=== PATIENT | female | born 1980 | race Caucasian/White ===

== ENCOUNTER 2017-09-22 07:23 | Observation (INO) | payer OTHER, SELFPAY ==
[2017-09-22] VITALS (15 sets, daily range): BP systolic 125–174; BP diastolic 74–115; PULSE 73–95; RESP 15–20; TEMP 36.4–36.9; O2SAT 96–99; BMI 36.5; BMI 36.1
--- NOTE | 2017-09-22 07:34 | EKG12_ITS ---
Test Reason : CP Blood Pressure : / mmHG Vent. Rate : 087 BPM Atrial Rate : 087 BPM P-R Int : 130 ms QRS Dur : 090 ms QT Int : 370 ms P-R-T Axes : 045 009 010 degrees QTc Int : 445 ms Normal sinus rhythm Normal ECG Confirmed by BALJIT SALGUERO ([id number]), film editor KIKI PEACOCK ([id number]) on 09/23/2017 11:32:58 AM Referred By: Confirmed By:BALJIT SALGUERO
--- NOTE | 2017-09-22 07:34 | RAD_ITS ---
STUDY: X-RAY CHEST REASON FOR EXAM: Female, 37 years old. Chest pain left side TECHNIQUE: Single AP portable view of the chest. COMPARISON: None. FINDINGS: There are superimposed monitor leads. There is no demonstrated pneumothorax. There is no focal parenchymal abnormality. There is no demonstrated pleural abnormality. Normal size heart. Normal mediastinum and sally. Normal visualized pulmonary arteries. Normal visualized aortic arch and descending thoracic aorta. Normal visualized thoracic spine. Normal visualized ribs, clavicles, and shoulders. There is no demonstrated abnormality of the visualized soft tissue structures of the upper abdomen. RAD/Chest 1 View (Portable) IMPRESSION: No pulmonary edema, congestive heart failure or confluent pneumonia. Electronically Signed: Trini Butterfield MD at 7:55 EST , Service support ,
[2017-09-22] MEDS: Aspirin 81 MG TAB.CHEW 324 MG PO (08:03)
[2017-09-22] MEDS: 0.9% Normal Saline 1,000 ML 150 ML IV (08:08)
[2017-09-22] MEDS: Acetaminophen 325 MG Tablet 650 MG PO ×2 (08:13→14:17)
[2017-09-22 08:19] LABS: Absolute Lymphocyte Count 2.19 X10^3/ul (0.83-4.51); Absolute Neutrophil Count 5.1 X10^3/uL (2.0-7.7); Basophil# 0.02 X10^3/uL; Basophil% 0.3 % (0-1); Eosinophil# 0.15 X10^3/uL; Eosinophils% 1.9 % (0-5); Hematocrit 45.9 % (37-47); Hemoglobin 15.4 g/dl (12.0-15.0); Lymphocyte # 2.19 X10^3/ul (4.0); Lymphocyte % 27.9 % (19-41); Mean Corp Hgb Conc 33.6 g/gl (32-36); Mean Corpuscular Volume 92.4 fL (81-99); Mean Platelet Vol. 9.7 fl (6.2-12.0); Monocyte# 0.42 X10^3/uL; Monocyte% 5.3 % (0-10); Neutrophil # 5.07 X10^3/uL (2.7-7.7); Neutrophil % 64.5 % (47-70); Platelet Count 212 K/mm3 (150-450); RBC Distribution Width CV 12.7 % (11.6-14.6); Red Blood Count 4.97 M/mm3 (4.2-5.4); White Blood Count 7.9 K/mm3 (4.4-11.0)
[2017-09-22 08:20] LABS: POSITIVE COUNT NO; POSITIVE DIFFERENTIAL NO; POSITIVE MORPHOLOGY NO
[2017-09-22 08:33] LABS: Anion Gap 7 (5-15); BUN 6 mg/dL (7-18); BUN/Creat Ratio 8.6 RATIO (10-20); Calcium,Total 8.9 mg/dL (8.5-10.1); Chloride 105 mmol/L (98-107); EST Glomerular Filtration Rate 100 mL/min (>60); Est Glom Filt Rate - Afr Amer 121 mL/min (>60); Estimated Creatinine Clearance 95.02 ml/min; Glucose 93 mg/dL (70-110); Potassium 3.7 mmol/L (3.5-5.1); Sodium Level 140 mmol/L (136-145)
[2017-09-22] MEDS: Nitroglycerin Oint 1 INCH PACKET TRANSDERM. (08:45)
[2017-09-22 09:15] LABS: D-Dimer Quantitative (DVT/PE) < 0.27 FEU/ug/m (0.27-0.49)
--- NOTE | 2017-09-22 09:30 | ED.DCSUM_ITS ---
- ER Visit Summary Date of Service: 09/22/17 Chief Complaint: [Chest pain] History of Present Illness: The patient is a 37 F [presents to the emergency department with left-sided chest discomfort ?2 weeks. Initially the pain was intermittent and worse with exertion. She states pain will typically worsen with walking up steps. She describes a deep sharp pain with some heaviness. The discomfort seems to radiate into her neck and down her left arm. Patient gets nauseated with it and feels short of breath with activity. On arrival she rates her pain a 4 out of 10. Patient states that her father had heart attack in his 50s. Patient denies recent travel or surgery. Patient denies recent illness.] Physical Examination: [HEENT-PERRLA, EOMI. Cranial nerves II through XII grossly intact. TMs clear. Mucous membranes moist. No adenopathy. Cardiovascular-regular rate and rhythm without murmur or ectopy Lungs-clear to auscultation, chest wall stable without crepitus or subcu emphysema Abdomen-normoactive bowel sounds, soft, nontender, no rebound or rigidity, no peritoneal signs. Extremities-intact ?4, normal range of motion, normal pulses, atraumatic] Test Results: [EKG obtained showed a sinus rhythm with a ventricular rate of 87 bpm. CBC with it was normal. Chemistries were normal. Troponin was less than 0.02. D-dimer was normal less than 0.27. Chest x-ray was normal.] Emergency Department Course and Treatment: [Patient received aspirin in the emergency department as well as sublingual nitroglycerin which resolved her pain.] Treatment Plan: [Patient will be admitted for further workup and evaluation of her chest pain] Disposition: [Admit] Impression: [Chest pain-rule out acute coronary syndrome] This note was generated with [employer] dictation software. It may contain incorrect words, spelling, and punctuation that were not noted in review of the chart prior to signing ED Disposition - Plan for ED Patient: Chief Complaint: Chest Pain Referrals: Care Physician,No Primary [Primary Care Provider] -
--- NOTE | 2017-09-22 11:50 | PCM.HP.STD ---
Problem List (1) Chest pain Status: Acute Qualifiers: Chest pain type: chest pain due to myocardial ischemia Ischemic chest pain type: stable angina pectoris Qualified Code(s): I20.8 - Other forms of angina pectoris History of Present Illness Date of Admission: 09/22/17 Chief Complaint: chest pain The patient is a 37 year old F Oli with exertional chest pain for the past 2 weeks. It is gotten worse for the past couple days. It is associated with diaphoresis, shortness of breath and palpitations. Patient additionally has some nausea, too. Patient presented to the emergency room and did receive nitroglycerin which did help alleviate that chest pain. Patient never had any chest pain like this before. Patient is being brought in for further chest pain evaluation. 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 Denies: Edema, Palpitations Respiratory: Reports: Shortness of breath upon exertion. Denies: Cough Gastrointestinal: Reports: Nausea. Denies: Abdominal Pain, Vomiting Genitourinary: Denies: Dysuria Musculoskeletal: Denies: Joint Pain, Joint Tenderness Neurological: Denies: Numbness, Tingling, Focal weakness Psychiatric: Denies: Anxiety, Depression, Homicidal Ideations, Suicidal Ideations Endocrine: Denies: Change in Body Habitus, Heat/ Cold Intolerance Hematologic/ Lymphatic: Denies: Easy Bruising, Easy Bleeding, Hx of blood clot VTE Information - Inpt Only VTE Present on Admission: No VTE Pharm Prophylaxis ordered?: No Patient Problems: Active and Suspected Problems Chest pain (Acute) - Physical Exam General: Alert HEENT: Atraumatic, Normocephalic Oral: Moist Mucosa Neck: No Nodes, Thyroid Normal Size and Texture Lungs: Clear to auscultation, Normal air movement Cardiovascular: Regular rate, Regular Rhythm, Normal S1, Normal S2, No murmurs Abdomen: Bowel Sounds Present, Soft, Non Tender, Non-Distended, No Hepato-splenomegaly Extremities: No clubbing, No cyanosis Skin: No rashes, No breakdown Psych/Mental Status: Normal Affect, Appropriate Vital Signs Temp Pulse Resp BP Pulse Ox 36.4 C L 82 20 H 130/74 H 99 09/22/17 10:26 09/22/17 11:11 09/22/17 10:26 09/22/17 10:26 09/22/17 10:26 Oxygen Delivery Method Room Air Weight: 95.4 kg Body Mass Index (BMI) 36.1 EKG reviewed and showed normal sinus rhythm without any Q changes. Laboratory Results 09/22/17 09/22/17 09/22/17 08:10 08:10 08:10 WBC 7.9 RBC 4.97 Hgb 15.4 H Hct 45.9 MCV 92.4 MCH 31.0 MCHC 33.6 RDW 12.7 RDW Differential 42.0 Plt Count 212 MPV 9.7 Immature Gran % (Auto) 0.100 Neut % (Auto) 64.5 Lymph % (Auto) 27.9 Emery % (Auto) 5.3 Eos % (Auto) 1.9 Baso % (Auto) 0.3 Absolute Neuts (auto) 5.1 Absolute Lymphs (auto) 2.19 Total Counted Not Reportable D-Dimer Quant (PE/DVT) < 0.27 L Sodium 140 Potassium 3.7 Chloride 105 Carbon Dioxide 28.0 Anion Gap 7 BUN 6 L Creatinine 0.70 Estim Creat Clear Calc 95.02 Est GFR (MDRD) Af Amer 121 Est GFR (MDRD) Non-Af 100 BUN/Creatinine Ratio 8.6 L Glucose 93 Calcium 8.9 Troponin I < 0.02 Assessment/Plan Active and Suspected Problems Chest pain (Acute) 1. Chest Pain. During for stable angina. Patient will have a stress test ordered. Workup thus far has been unremarkable. Based on results of the stress test or if there is signs of acute myocardial ischemia with elevation of troponins, cardiology will be consulted. If stress is negative patient otherwise feeling well and then the plan would be for the patient to be discharged afterwards. Patient did receive aspirin in the emergency room and will continue that on the floor. As needed nitroglycerin. Code Visit OBSV E&M: 10441 Initial observation care L3
--- NOTE | 2017-09-22 11:57 | HP.PCM_ITS ---
Problem List (1) Chest pain Status: Acute Qualifiers: Chest pain type: chest pain due to myocardial ischemia Ischemic chest pain type: stable angina pectoris Qualified Code(s): I20.8 - Other forms of angina pectoris History of Present Illness Date of Admission: 09/22/17 Chief Complaint: chest pain The patient is a 37 year old F Oli with exertional chest pain for the past 2 weeks. It is gotten worse for the past couple days. It is associated with diaphoresis, shortness of breath and palpitations. Patient additionally has some nausea, too. Patient presented to the emergency room and did receive nitroglycerin which did help alleviate that chest pain. Patient never had any chest pain like this before. Patient is being brought in for further chest pain evaluation. 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 Denies: Edema, Palpitations Respiratory: Reports: Shortness of breath upon exertion. Denies: Cough Gastrointestinal: Reports: Nausea. Denies: Abdominal Pain, Vomiting Genitourinary: Denies: Dysuria Musculoskeletal: Denies: Joint Pain, Joint Tenderness Neurological: Denies: Numbness, Tingling, Focal weakness Psychiatric: Denies: Anxiety, Depression, Homicidal Ideations, Suicidal Ideations Endocrine: Denies: Change in Body Habitus, Heat/ Cold Intolerance Hematologic/ Lymphatic: Denies: Easy Bruising, Easy Bleeding, Hx of blood clot VTE Information - Inpt Only VTE Present on Admission: No VTE Pharm Prophylaxis ordered?: No Patient Problems: Active and Suspected Problems Chest pain (Acute) - Physical Exam General: Alert HEENT: Atraumatic, Normocephalic Oral: Moist Mucosa Neck: No Nodes, Thyroid Normal Size and Texture Lungs: Clear to auscultation, Normal air movement Cardiovascular: Regular rate, Regular Rhythm, Normal S1, Normal S2, No murmurs Abdomen: Bowel Sounds Present, Soft, Non Tender, Non-Distended, No Hepato- splenomegaly Extremities: No clubbing, No cyanosis Skin: No rashes, No breakdown Psych/Mental Status: Normal Affect, Appropriate Vital Signs Temp Pulse Resp BP Pulse Ox 36.4 C L 82 20 H 130/74 H 99 09/22/17 10:26 09/22/17 11:11 09/22/17 10:26 09/22/17 10:26 09/22/17 10:26 Oxygen Delivery Method Room Air Weight: 95.4 kg Body Mass Index (BMI) 36.1 EKG reviewed and showed normal sinus rhythm without any Q changes. Laboratory Results 09/22/17 09/22/17 09/22/17 08:10 08:10 08:10 WBC 7.9 RBC 4.97 Hgb 15.4 H Hct 45.9 MCV 92.4 MCH 31.0 MCHC 33.6 RDW 12.7 RDW Differential 42.0 Plt Count 212 MPV 9.7 Immature Gran % (Auto) 0.100 Neut % (Auto) 64.5 Lymph % (Auto) 27.9 [place] % (Auto) 5.3 Eos % (Auto) 1.9 Baso % (Auto) 0.3 Absolute Neuts (auto) 5.1 Absolute Lymphs (auto) 2.19 Total Counted Not Reportable D-Dimer Quant (PE/DVT) < 0.27 L Sodium 140 Potassium 3.7 Chloride 105 Carbon Dioxide 28.0 Anion Gap 7 BUN 6 L Creatinine 0.70 Estim Creat Clear Calc 95.02 Est GFR (MDRD) Af Amer 121 Est GFR (MDRD) Non-Af 100 BUN/Creatinine Ratio 8.6 L Glucose 93 Calcium 8.9 Troponin I < 0.02 Assessment/Plan Active and Suspected Problems Chest pain (Acute) 1. Chest Pain. During for stable angina. Patient will have a stress test ordered. Workup thus far has been unremarkable. Based on results of the stress test or if there is signs of acute myocardial ischemia with elevation of troponins, cardiology will be consulted. If stress is negative patient otherwise feeling well and then the plan would be for the patient to be discharged afterwards. Patient did receive aspirin in the emergency room and will continue that on the floor. As needed nitroglycerin. Code Visit OBSV E&M: 22596 Initial observation care L3
[2017-09-23] VITALS (8 sets, daily range): BP systolic 119–145; BP diastolic 63–79; PULSE 72–104; RESP 16–18; TEMP 36.8–37.2; O2SAT 96–98
[2017-09-23] MEDS: 0.9% NaCl Peripheral Flush Adult/Peds IV (04:36)
--- NOTE | 2017-09-23 05:55 | EKG12_ITS ---
Test Reason : AM EKG Blood Pressure : / mmHG Vent. Rate : 074 BPM Atrial Rate : 074 BPM P-R Int : 136 ms QRS Dur : 096 ms QT Int : 396 ms P-R-T Axes : 044 018 003 degrees QTc Int : 439 ms Normal sinus rhythm Normal ECG When compared with ECG of 22-SEP-2017 07:36, MANUAL COMPARISON REQUIRED, DATA IS UNCONFIRMED Confirmed by MELA NORRIS, ARMINDA ([id number]), makeup editor KIKI PEACOCK ([id number]) on 09/24/2017 11:56:52 AM Referred By: ASIYA Confirmed By:ARMINDA PLAZA MD
--- NOTE | 2017-09-23 05:55 | STE_ITS ---
Reason For Study: CHEST PAIN Stress Results Protocol: Stephen Protocol Maximum Predicted HR: 183 bpm Target HR: 156 bpm% Max imum Predicted HR: 96 % DurationHeart Rate Stage (mm:ss) (bpm) BP BASELINE 85 118/88 STAGE 1 3:00 12 1 140/82 STAGE 2 3:00 14 1 162/92 STAGE 3 2:00 17 6 / RECOVERY 105 126/8 8 Stress Duration: 8:00 mm:ss Maximum Stress HR: 176 bpm Baseline Echocardiogram Findings Stress Echo Wall motion Data Resting WMIntermediate WMStress WM Resting Wall Motion Wall Motion Stress No regional wall motion No regional wall motion abnormalities noted. abnormalities noted. Ejection Fraction 55 %. Ejection Fraction 65 %. EKG Data Baseline ECG demonstrates normal sinus rhythm with a rate of 86 beats per minute. Normal intervals are noted. The resting blood pressure was 118/88. The patient exercised according to the regular Stephen protocol for a total duration of 8. The maximum heart rate attained was 179 beats per minute. This was 97% of maximum predicted heart rate. The patient exercised into stage 10.1 mets of the Stephen protocol. During stress, there were no ST or T wave changes noted to suggest ischemia. At peak exercise, upsloping ST changes only were noted, which did not meet the criteria for ischemia. The peak blood pressure was 162/92. No arrhythmias noted. No clinical angina was noted. Interpretation Summary Normal resting LV systolic function. Nonstenotic valves. With stress, the LV size decreased and all segments augmented normally. The LVEF increased from 55% to 65%. Negative for ischemia at 97% of MPHR and at 10.1 METS. Normal stress echo Ordering Physician: Duran Jean Performed By: Brittany Pérez, RDCS, RVT
[2017-09-23 07:33] LABS: Cholesterol 141 mg/dL (200); High Density Lipoprotein 39 mg/dL; Triglycerides 191 mg/dL; Very Low Density Lipoprotein 38 mg/dL (5-40)
[2017-09-23] MEDS: Aspirin E.C. 81 MG Tablet PO (08:00)
--- NOTE | 2017-09-23 12:00 | PCM.DC ---
- Discharge Diagnoses Current Active Problems: Current Active and Chronic Problems Chest pain (Acute) You will use the following diet at home:: No restrictions Your food should be the consistency of: Regular Your liquids should be the consistency of: Regular/Thin Discharge Activity: Return to Normal Activity Allergies/Adverse Reactions: Allergies Penicillins Allergy (Verified 09/22/17 07:26) Other seizures Medications to take at Discharge Pantoprazole Sodium [Protonix] 40 mg PO DAILY #30 tab 09/23/17 The following prescriptions were given: Pantoprazole Sodium [Protonix] 40 mg PO DAILY #30 tab Primary Care Physician: Care Physician,No Primary [Primary Care Provider] - Please follow up with your Primary Care Physician in: 1-2 weeks Proposed Discharge Date: 09/23/17
--- NOTE | 2017-09-23 14:53 | PCM.DC.SUM ---
Discharge Date and Diagnosis Date of Admission: 09/22/17 Date of Discharge: 09/23/17 - Primary Discharge Diagnosis Chest pain - musculoskeletal GERD Hospital Course and Treatment Imaging Results: RAD/Chest 1 View (Portable) IMPRESSION: No pulmonary edema, congestive heart failure or confluent pneumonia. Operations: None Procedures: Stress test Summary of Care Provided: Physical exam on day of discharge: General: Resting comfortably NAD Psych: A/Ox3 normal affect HEENT: PEARRLA AT NC Neck: Supple NT CV: RRR no m/t/r/g/h Resp: CTA Abd: [id number] Soft NT no guarding or rigidity Ext: DP2+= no edema Skin: W/D normal turgor Lymph/Heme: No active bleeding or adenopathy Neuro: CN2-12 intact Hospital course: The patient is a 37 year old F who presents to the emergency room with chief complaint of stabbing chest pain worse with exertion climbing stairs intermittently over the past 2 weeks. She did have some associated diaphoresis, shortness of breath, palpitations. She presented to the emergency room and was given nitroglycerin which did alleviate her chest pain. She has no prior medical history. She had a negative EKG and negative troponin was admitted to the telemetry unit with concerns for unstable angina. D-dimer was also negative, she had a negative chest x-ray. She underwent a stress test the following morning which was negative. She had no events on telemetry. Her EKG was negative and her troponins remained negative. LDL was 64. At this time her chest pain was likely musculoskeletal in origin and that she should try [id number] anti-inflammatories for symptomatic management. She also complained that she had some midsternal pain associated with eating and swallowing and was given a prescription for Protonix to trial for possible underlying acid reflux. She is advised to follow-up with her family doctor-currently is in transition with the [facility] in [place], she will need to follow-up within 1-2 weeks. She is in stable condition and discharged home This patient was seen by Ravi Farris PA-C under the supervision of Doctor Jean. [] Discharge Diet: Low fat/ Low Cholesterol, 4000 mg Sodium Diet Discharge Activity: Return to Normal Activity Home Medications: Medications to take at Discharge Pantoprazole Sodium [Protonix] 40 mg PO DAILY #30 tab 09/23/17 Following Prescrptions Were Given to Patient: Pantoprazole Sodium [Protonix] 40 mg PO DAILY #30 tab Primary Care Physician: Care Physician,No Primary [Primary Care Provider] - Please follow up with your Primary Care Physician in: 1-2 weeks Disposition: Home Minutes spent on discharge:: 40 Patient Condition:: Stable Meaningful Use Info Meaningful Use Diagnoses (Choose all that apply): None applicable Code Visit OBSV E&M: 54563 Observation care discharge
--- NOTE | 2017-09-23 14:59 | DS.PCM_ITS ---
Discharge Date and Diagnosis Date of Admission: 09/22/17 Date of Discharge: 09/23/17 - Primary Discharge Diagnosis Chest pain - musculoskeletal GERD Hospital Course and Treatment Imaging Results: RAD/Chest 1 View (Portable) IMPRESSION: No pulmonary edema, congestive heart failure or confluent pneumonia. Operations: None Procedures: Stress test Summary of Care Provided: Physical exam on day of discharge: General: Resting comfortably NAD Psych: A/Ox3 normal affect HEENT: PEARRLA AT NC Neck: Supple NT CV: RRR no m/t/r/g/h Resp: CTA Abd: [id number] Soft NT no guarding or rigidity Ext: DP2+= no edema Skin: W/D normal turgor Lymph/Heme: No active bleeding or adenopathy Neuro: CN2-12 intact Hospital course: The patient is a 37 year old F who presents to the emergency room with chief complaint of stabbing chest pain worse with exertion climbing stairs intermittently over the past 2 weeks. She did have some associated diaphoresis , shortness of breath, palpitations. She presented to the emergency room and was given nitroglycerin which did alleviate her chest pain. She has no prior medical history. She had a negative EKG and negative troponin was admitted to the telemetry unit with concerns for unstable angina. D-dimer was also negative , she had a negative chest x-ray. She underwent a stress test the following morning which was negative. She had no events on telemetry. Her EKG was negative and her troponins remained negative. LDL was 64. At this time her chest pain was likely musculoskeletal in origin and that she should try over-the -counter anti-inflammatories for symptomatic management. She also complained that she had some midsternal pain associated with eating and swallowing and was given a prescription for Protonix to trial for possible underlying acid reflux. She is advised to follow-up with her family doctor-currently is in transition with the [facility] in [place], she will need to follow-up within 1-2 weeks. She is in stable condition and discharged home This patient was seen by Ravi Farris PA-C under the supervision of Doctor Jean. [] Discharge Diet: Low fat/ Low Cholesterol, 4000 mg Sodium Diet Discharge Activity: Return to Normal Activity Home Medications: Medications to take at Discharge Pantoprazole Sodium [Protonix] 40 mg PO DAILY #30 tab 09/23/17 Following Prescrptions Were Given to Patient: Pantoprazole Sodium [Protonix] 40 mg PO DAILY #30 tab Primary Care Physician: Care Physician,No Primary [Primary Care Provider] - Please follow up with your Primary Care Physician in: 1-2 weeks Disposition: Home Minutes spent on discharge:: 40 Patient Condition:: Stable Meaningful Use Info Meaningful Use Diagnoses (Choose all that apply): None applicable Code Visit OBSV E&M: 57763 Observation care discharge
== END 2017-09-23 12:01 | disposition home or self-care (01) ==
LOC: ED 07:53 → PCU 09:48
PROVIDERS: Emergency Provider Emergency Medicine; Family Provider Family Medicine
DX: R07.89 Other chest pain (principal); K21.9 Gastro-esophageal reflux disease without esophagitis; Z82.49 Family history of ischemic heart disease and other diseases of the circulatory system; R06.02 Shortness of breath; R00.2 Palpitations; R11.0 Nausea
CPT/HCPCS: 36415; 71045; 80048; 80061; 84484; 85025; 85379; 93005; 93017; 93350; 99218; 99285; J7050; A4216; G0378

== ENCOUNTER → 2017-11-03 11:09 | Outpatient (CLI) | payer OTHER, SELFPAY | PROVIDERS: Visit Provider Nurse Practitioner | DX: R00.2 Palpitations (principal) | CPT/HCPCS: 93225; 93226 ==

== ENCOUNTER → 2018-05-17 09:19 | Outpatient (CLI) | payer OTHER, SELFPAY ==
--- NOTE | 2018-05-17 09:45 | RAD_ITS ---
STUDY: AIR-CONTRAST UPPER GI SERIES.. REASON FOR EXAM: Female, 37 years old. Left-sided chest pain. FLUOROSCOPY TIME (if supplied): (0:54) minutes/seconds. 18 spot images were obtained. TECHNIQUE: The patient ingested barium. Multiple images of the esophagus, stomach and duodenum were obtained. COMPARISON: Comparison is made with prior examination of October 09, 2011. FINDINGS: The esophagus is unremarkable. There is no evidence of obstruction. No mass lesion is seen. The stomach and duodenum are unremarkable. There is no evidence of ulceration. No mass lesion is seen. RAD/Upper GI Series Only IMPRESSION: Unremarkable air contrast upper GI series. Electronically Signed: Akash Thomas MD at 15:09 EDT Tel [phone], Service support ,
== END ==
PROVIDERS: Family Provider Physician Assistant; PCP Physician Assistant; Visit Provider Nurse Practitioner Adult Health
DX: R07.9 Chest pain, unspecified (principal)
CPT/HCPCS: 74246

== ENCOUNTER → 2018-07-08 08:36 | Outpatient (CLI) | payer OTHER, SELFPAY ==
[2018-07-08 08:39] LABS: Lyme Ab Screen Interpretation REF LAB
[2018-07-08 10:56] LABS: Internal QC Validated? YES +Cl - CLEAR BKGD; Monotest Negative (Negative); Record Kit Lot#, Mono 13171517
[2018-07-10 08:27] LABS: CMV Acute Antibody IgM < 30.0 AU/mL (0.0-29.9); CMV Antibody IgG < 0.60 U/mL (0.00-0.59); Lyme Scn Total Ab w/Rflx <0.91 ISR (0.00-0.90)
== END ==
PROVIDERS: Family Provider Physician Assistant; PCP Physician Assistant; Visit Provider Family Medicine
DX: R53.83 Other fatigue (principal); M25.50 Pain in unspecified joint
CPT/HCPCS: 36415; 86308; 86618; 86644; 86645

== ENCOUNTER → 2018-08-10 13:00 | Outpatient (CLI) | payer SELFPAY ==
[2018-01-28 08:53] VITALS: BMI 35.1
--- NOTE | 2018-08-10 13:04 | BI_ITS ---
MAMMOGRAPHY - BILATERAL SCREENING REASON FOR EXAM: Female, 38 years old. Routine annual screening examination. PERTINENT HISTORY: Non-contributory. Occasional breast pain. TECHNIQUE: Digital bilateral breast sofy (3D mammographic acquisition) in the CC and MLO projections. 2-D mediolateral oblique (MLO) and craniocaudad (CC) views of both breasts were obtained. CAD: Full Field Digital Mammography with Computer Added Detection was performed. COMPARISON: None. Baseline examination. FINDINGS: Breast Composition: There are scattered areas of fibroglandular density. There are no dominant masses or suspicious calcifications. No other significant abnormalities are identified. BI/SCREENING MAMM (CAD), BILAT IMPRESSION: Negative screening mammogram. Yearly followup mammogram recommended. (A) ASSESSMENT CATEGORY: BIRADS Category 1: Negative. A letter regarding these results will be sent to the patient by the facility within 30 days. Approximately 10% of breast cancers are not detected by mammography. A normal mammogram should not delay biopsy of a clinically suspicious abnormality. [id number] Electronically Signed: Akash Thomas MD at 14:11 EST Tel [phone], Service support ,
--- OUTSIDE RECORDS SUMMARY | 2018-09-26 16:44 | XMS RPT_ITS ---
:1980 Author Organization [facility] Support Name Relationship Address Phone JOS ORELLANA Unavailable [address] + [place] [address] UE Unavailable Unavailable Unavailable REYNA JOS Unavailable [address] + [place] [address] UE Unavailable Unavailable Unavailable REYNABRANDEEJOS Unavailable [address] + [place] [address] UE Unavailable Unavailable Unavailable UE Unavailable Unavailable Unavailable UE Unavailable Unavailable Unavailable REYNA JOS Unavailable [address] [phone] [place] [address] UE Unavailable Unavailable Unavailable REYNA JOS Unavailable [address] [phone] [place] [address] UE Unavailable Unavailable Unavailable REYNA JOS Unavailable [address] [phone] [place] [address] UE Unavailable Unavailable Unavailable REYNA JOS Unavailable [address] [phone] [place] [address] UE Unavailable Unavailable Unavailable REYNA JOS Unavailable [address] [phone] [place] [address] UE Unavailable Unavailable Unavailable REYNA JOS Unavailable [address] [phone] [place] [address] UE Unavailable Unavailable Unavailable Care Team Providers Name Role Phone TAISHA BURROUGHS () Attending Unavailable CAROLINA MENENDEZ (OPERATIONS SUPERINTENDENT) Attending Unavailable CAROLINA MENENDEZ (OPERATIONS SUPERINTENDENT) Referring Unavailable RADHA ALONZO (OPERATIONS SUPERINTENDENT) Attending Unavailable Hipolito RAY (TRAN) Attending Unavailable Hipolito RAY (TRAN) Attending Unavailable RAY, Hipolito HOU (PA-C) Referring Unavailable OTF, ULICES (PT) Attending Unavailable RAY, Hipolito HOU (PA-C) Referring Unavailable OTF, ULICES (PT) Attending Unavailable RAY, Hipolito HOU (PA-C) Referring Unavailable OTF, ULICES (PT) Attending Unavailable RAY, Hipolito HOU (PA-C) Referring Unavailable RAY, Hipolito HOU (PA-C) Attending Unavailable OTF, ULICES (PT) Attending Unavailable RAY, Hipolito HOU (PA-C) Referring Unavailable RAY, Hipolito HOU (PA-C) Referring Unavailable OTF, ULICES (PT) Attending Unavailable RAY, Hipolito HOU (PA-C) Referring Unavailable RAY, Hipolito HOU (PA-C) Attending Unavailable RAY, Hipolito HOU (PA-C) Referring Unavailable OLBRYCH, LARA Attending Unavailable RAY, Hipolito HOU (PA-C) Referring Unavailable OLBRYCH, LARA Referring Unavailable THORROSA DEL VALLE (PRODUCT LEAD) Attending Unavailable RAY, Hipolito HOU (PA-C) Attending Unavailable GRADY OLEAA (PRODUCT LEAD) Referring Unavailable BHARAT ESTEBAN Attending Unavailable RAY, Hipolito HOU (PA-C) Referring Unavailable Davon Elder Attending Unavailable Ray, Hipolito Hou Primary Care Unavailable Shelton, Gerard Primary Care Unavailable Jopperi, Duran Admitting Unavailable Jopperi, Duran Attending Unavailable Jopperi, Duran Admitting Unavailable Jopperi, Duran Attending Unavailable Shelton, Gerard Primary Care Unavailable Jopperi, Duran Consulting Unavailable Jopperi, Duran Admitting Unavailable Ravi Farris Attending Unavailable Shelton, Gerard Primary Care Unavailable Jopperi, Duran Consulting Unavailable Older, Radha OPERATIONS SUPERINTENDENT Attending Unavailable Older, Radha OPERATIONS SUPERINTENDENT Referring Unavailable Primay Care Physicia, No Primary Care Unavailable Shaye, Seven Attending Unavailable Jopperi, Duran Referring Unavailable Shaye, Endeavor Attending Unavailable Older, Radha OPERATIONS SUPERINTENDENT Referring Unavailable Oleghe, Efewongbe Attending Unavailable Oleghe, Efewongbe Referring Unavailable Brown, Darshan Attending Unavailable Primay Care Physicia, No Referring Unavailable Primay Care Physicia, No Primary Care Unavailable THORPE, ROSA Attending Unavailable THORIVON, ROSA Referring Unavailable Ray, Hipolito NealSavi Primary Care Unavailable Schinner, Davon E Attending Unavailable Ray, Hipolito NealSavi Primary Care Unavailable PROBLEMS PROBLEMS DATE TYPE CONDITION / CODE ATTENDING STATUS SOURCE 07/08/2018 Unknown R53.83 - Other Davon Werner Active [facility] fatigue / [facility] R53.83(ICD-10) Hospital Repository 07/08/2018 Unknown M25.50 - Pain in Davon Werner Active [facility] unspecified joint [facility] / M25.50(ICD-10) Hospital Repository 11/04/2011 Active Diarrhea, NA Active [facility] unspecified / [facility] R19.7(ICD-10) Repository 05/17/2018 Active Nausea / NA Active [facility] R11.0(ICD-10) [facility] [place] Repository 04/22/2018 Active Chest pain, NA Active [facility] unspecified / [facility] [place] R07.9(ICD-10) Repository 03/07/2018 Active Unknown / Hipolito RAY Active [facility] UNK(Unknown) SAVI (PA-C) [facility] [place] Repository 01/18/2018 Active Lobar pneumonia, NA Active [facility] unspecified [facility] organism / Repository J18.1(ICD-10) 01/18/2018 Active Abnormal findings NA Active [facility] on diagnostic [facility] [place] imaging of other Repository specified body structures / R93.8(ICD-10) 12/21/2017 Active Other chest pain / NA Active [facility] R07.89(ICD-10) [facility] [place] Repository 12/08/2017 Unknown R00.2 - Shaye, Endeavor Active [facility] Palpitations / Community R00.2(ICD-10) Hospital Repository 09/30/2017 Active Palpitations / NA Active [facility] R00.2(ICD-10) [facility] [place] Repository 09/30/2017 Active Other fatigue / NA Active [facility] R53.83(ICD-10) [facility] Repository 10/21/2017 Unknown R07.9 - Chest Shaye, Endeavor Active [place] [facility] pain, unspecified Community / R07.9(ICD-10) Hospital Repository PROCEDURES PROCEDURES No Procedure Records FoundRESULTS RESULTS SCREENING MAMM (CAD), Observed: 08/10/2018 Status: F Source: ANDRZEJ BILAT 1:04 PM [facility] REPOSITORY [facility] Imaging Services [address] [place] [address] SCREENING MAMM (CAD), BILAT MR#: [id number] Acct: [id number] Name: LESLIE ORELLANA Rep #: [id number] : 1980 F 38 From: Akash Thomas MD PCP: Hipolito Ray Status: REG CLI Study: SCREENING MAMM (CAD), BILAT Date of Exam: 08/10/18 Exam# [id number] Ordering Dr: Davon Elder MD MAMMOGRAPHY - BILATERAL SCREENING REASON FOR EXAM: Female, 38 years old. Routine annual screening examination. PERTINENT HISTORY: Non-contributory. Occasional breast pain. TECHNIQUE: Digital bilateral breast sofy (3D mammographic acquisition) in the CC and MLO projections. 2-D mediolateral oblique (MLO) and craniocaudad (CC) views of both breasts were obtained. CAD: Full Field Digital Mammography with Computer Added Detection was performed. COMPARISON: None. Baseline examination. FINDINGS: Breast Composition: There are scattered areas of fibroglandular density. There are no dominant masses or suspicious calcifications. No other significant abnormalities are identified. BI/SCREENING MAMM (CAD), BILAT IMPRESSION: Negative screening mammogram. Yearly followup mammogram recommended. (A) ASSESSMENT CATEGORY: BIRADS Category 1: Negative. A letter regarding these results will be sent to the patient by the facility within 30 days. Approximately 10% of breast cancers are not detected by mammography. A normal mammogram should not delay biopsy of a clinically suspicious abnormality. [id number] Electronically Signed: Akash Thomas MD at 14:11 EST Tel [phone], Service support , CC: Hipolito Ray; Davon Elder MD Assistant Professor Of Nursing: Signed MONOTEST Collected: 07/08/2018 Status: F Source: ANDRZEJ 8:37 AM [facility] REPOSITORY TYPE CODE TESTS RESULT OUT OF RANGE REFERENCE UNITS LAB L700.5700 Negative Normal MONO Negative Performed By: #### L700.5500 #### [facility] Deanna [address]di [place], [place], [address] CMV ANTIBODY IGG Collected: 07/08/2018 Status: F Source: REEVES 8:37 AM [facility] REPOSITORY TYPE CODE TESTS RESULT OUT OF RANGE REFERENCE UNITS LAB L3400.1490 0.00-0.59 U/mL Normal CMV AB < 0.60 IgG Result Comment: Negative <0.60 Equivocal 0.60 - 0.69 Positive >0.69 Performed By: #### L3400.1490, L3400.1500, L7000.5300 #### [facility] (refer to report for specific site) refer to report for address and phone number CMV ACUTE ANTIBODY Collected: 07/08/2018 Status: F Source: REEVES IGM 8:37 AM [facility] REPOSITORY TYPE CODE TESTS RESULT OUT OF RANGE REFERENCE UNITS LAB L3400.1500 0.0-29.9 AU/mL Normal CMVIgM AB < 30.0 Result Comment: Negative <30.0 Equivocal 30.0 - 34.9 Positive >34.9 A positive result is generally indicative of acute infection, reactivation or persistent IgM production. Performed By: #### L3400.1490, L3400.1500, L7000.5300 #### [facility] (refer to report for specific site) refer to report for address and phone number LYME SCREEN W/REFLEX Collected: 07/08/2018 Status: F Source: REEVES WB 8:37 AM [facility] REPOSITORY TYPE CODE TESTS RESULT OUT OF RANGE REFERENCE UNITS LAB L7000.5400 0.00-0.90 ISR Normal LYME SCN <0.91 AB Result Comment: Negative <0.91 Equivocal 0.91 - 1.09 Positive >1.09 Performed at: [address] [id number] Pattern Shop Supervisor: Win Romero PhD, Phone: [phone] LAB L7000.5500 Normal LYME SCN REF INTERP LAB Performed By: #### L3400.1490, L3400.1500, L7000.5300 #### [facility] (refer to report for specific site) refer to report for address and phone number PROGRESS Observed: 06/09/2018 Status: COMPLETED Source: SAWYER 5:31 PM [facility] REPOSITORY [facility] ID: [id number] Author: Bharat Esteban Service: (none) Author Type: Physician Type: Progress Notes Filed: 06/09/2018 5:43 PM Note Text: PERTINENT CARDIAC HISTORY Chest pain Palpitations ADHERENCE TO GUIDELINES RIYA-I or ARB for HF with prior LVEF<40 (NQF 0081) - N/A ASA or Plavix for ASHD (NQF 0067) - N/A Beta pool for ASHD with prior [place] or prior LVEF<40 (NQF 0070) - N/A Beta pool for HF with prior LVEF<40 (NQF 0083) - N/A RIYA-I or ARB for ASHD with DM or prior LVEF<40 (NQF 0066) - N/A Statin therapy for ASHD or FHL or DM - N/A BMI documented and plan if >25 (NQF 0421) - lifestyle recommendation form Tobacco use screening and referral (NQF 0028) - lifestyle recommendation form Recommendation for whole food, plant based diet - lifestyle recommendation form CLINICAL IMPRESSION/PLAN: Leslie Orellana has chest discomfort which has defied explanation for the last several months. She has not received an adequate nitrate trial. I recommended to her that she take nitroglycerin sublingual for chest discomfort, particularly more severe ones and record her response in a diary. She has not responded to treatment for acid reflux. There does not appear to be a component of chest wall tenderness. She is not tender today, even in the area where she reports discomfort in the axilla. Depending upon her response nitrates, additional studies may be required. My suspicion of major epicardial coronary disease is very low. She may have a component of coronary spasm or microvascular disease, but her description pain is not consistent with this. If she has nitrate response, I would recommend long-acting nitrate or calcium pool as well as statin therapy and aspirin for presumed microvascular disease. Her CT scan suggests some mediastinal adenopathy and she has an anterior mediastinal soft tissue mass. Further investigation of this may be worthwhile I will see her in one month or as needed. She's been advised to keep in contact with me. Written and verbal health teaching given to patient, patient verbalizes understanding and agrees with treatment plan. DIAGNOSIS FOR VISIT: Chest pain HISTORY OF PRESENT ILLNESS Leslie Orellana is a 38-year-old woman who is seen in consultation at the request of Ángel Ray PA-C, for recommendations regarding several month history of chest pain. She reports that she has had a sensation of anterior chest tightness with occasional radiation to the jaw and left shoulder. This is been present intermittently since August of this year. She went to the emergency department on one occasion and was kept overnight. A stress test and echocardiogram were performed and suggested no evidence of ischemia. She reports that she was given nitroglycerin at the time of her initial presentation. She reports that this relieved the pain promptly. She has not tried any nitroglycerin since. She describes the sensation as a pressure-like feeling which can last for hours at a time. She always has a slight feeling which exacerbates periodically. It is nonexertional. There is no pleuritic component. It is not increased with palpation. She has noted some tenderness in the left axillary area over the last week but this is was not present in the past. There is been no change with medication directed at reflux. She has had frequent episodes of bronchitis and the pain is occasionally exacerbated by cough. There was no change with chiropractic therapy or massage. She has family history of coronary disease. Her personal risk factors include obesity. ALLERGIES: ALLERGIES Allergen Reactions - Penicillins Unknown Childhood reaction. CURRENT OUTPATIENT MEDICATIONS: nitroglycerin sublingual (NITROQUICK) 0.4 mg SL tablet Dissolve 1 tablet under the tongue as needed. for chest pain,every 5 min x3 PAST MEDICAL HISTORY Diagnosis Date - Abdominal pain, generalized - Diarrhea - Hormone disorder - Localization-related (focal) (partial) epilepsy and epileptic syndromes with simple partial seizures, without mention of intractable epilepsy FEBRILE, last occurrence 7 years ago PAST SURGICAL HISTORY Procedure Laterality Date - COLONOSCOPY W/BX 11/04/11 - EGD W/O BRSH SPECIMEN W/BX 08/24/07 - VAGINAL DELIVERY HX 4 uncomplcate pregnancies. FAMILY HISTORY Problem Relation Age of Onset - Stroke Mother - other (Other) Mother Lupus - Hypertension Father - Diabetes Father - Stroke Maternal Grandmother x 2 - Heart Paternal Grandfather [place] - Diabetes Sister - Asthma No Family History - COPD No Family History Social History Marital status: Spouse name: Jos Years of education: Number of children: 3 Social History Main Topics Smoking status: Never Smoker Smokeless tobacco: Never Used Comment: No smoking in childhood home. Alcohol use: No Drug use: No Sexual activity: Yes Partners with: Male REVIEW OF SYSTEMS: General: No chills, fever, weight loss, night sweats. SHEENT: No change in vision or auditory acuity. Respiratory: No productive cough. Cardiac: As noted above. GI: No melena. : No dysuria. Musculoskeletal: No myalgias. Neurologic: No strokes. Psychiatric: No depression. Endocrine: No diabetes. Hematologic: No anemia. PHYSICAL EXAMINATION: S/he is alert and in no distress VITAL SIGNS: BP 112/82 Pulse 81 Ht 5' 5 (1.65m) SHEENT: Skin is warm and dry. Pupils are round and reactive. Retinal vessels are grossly unremarkable. No xanthelasmas appreciated. Pharynx is benign. There is no oral cyanosis. Neck: supple. No adenopathy or thyroid enlargement. Chest: Clear to auscultation. Trachea is midline. Air entry is equal. There is no chest wall tenderness. Cardiac: Regular rhythm. S1 and S2 are normal. PMI is nondisplaced. There are no murmurs, rubs or gallops. No click is heard. Carotids are brisk without bruits. JVP is less than 10 cm. Abdomen: Soft and nontender. She is obese. There are no pulsatile masses or bruits. No liver enlargement. Bowel sounds are active. : Deferred. Extremities: No edema. Pulses are intact and symmetrical. No clubbing or cyanosis. No femoral bruits. Neurologic: Grossly normal motor and sensory. S/he is alert and oriented x4. Musculoskeletal: No joint deformities. EKG shows sinus rhythm. There is incomplete right bundle branch block pattern. No significant change is seen since earlier in the year. Records from [facility] were reviewed. Her troponin was undetectable. EKG showed no acute change. LDL was 64. Recent labs were reviewed. Her hemoglobin tends to be a little high. Her oxygen saturation on room air is 98%. Chemistries were within normal limits. There is no evidence of inflammation. 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 She's had CT scans showing airspace density in the left lower lobe with improvement. She also has findings of soft tissue density in the anterior mediastinum, prominent mediastinal and hilar lymph nodes and nonspecific gastric thickening. Holter monitor showed no ectopy. She noted chest pain, palpitations and rapid heart rate during the test. Stress echocardiogram was reportedly negative for ischemia and will be reviewed. Electronically Signed: Bharat Esteban MD June 09, 2018 5:31 PM CC: TRAN Najera Observed: 06/09/2018 Status: COMPLETED Source: SAWYER 12:45 PM [facility] REPOSITORY Office Visit ([facility]) LESLIE ORELLANA ([id number]) 1980 F Date Time Provider Department 06/09/18 12:45 PM BHARAT ESTEBAN [facility] During your visit today, we recorded the following information about you: Pulse Blood pressure Height 81/minute 112/82 1.651 m Bharat Esteban MD 06/09/2018 1:52 PM Signed LIFESTYLE CHANGE A healthy lifestyle is the most important component of your overall treatment plan. Please give serious thought to the following areas and commit to making intermediate project manager changes. EAT A WHOLE FOOD, PLANT BASED DIET The nutrition your body gets is more important than the medicine you take. What matters most is the overall way you eat. We encourage you to minimize the use of animal products (which include dairy and all meats except fatty fish) and use whole, unprocessed plant foods to provide your protein, vitamins and other nutrients. We have a lot of information to share with you on this topic. This is not a diet. It is a way of life that you will keep with you. EXERCISE REGULARLY It is not important to spend hours in the gym, lifting weights and perspiring heavily. A total of 2-3 hours per week of aerobic (causing you to be moderately short of breath) exercise is sufficient to improve your health. Talk to us before you begin a new exercise program, if you have heart disease or experience shortness of breath or chest pain. REDUCE STRESS Chronic emotional and physical stress leads to disease. Ways of reducing stress include meditation, visualization, prayer, yoga and other forms of relaxation therapy. Consistency is the hernandez. Find a technique that works for you and do it every day. CULTIVATE RELATIONSHIPS Loneliness and isolation have a major negative impact on health. Seek out others who can love, care for and nurture you. Avoid hurtful relationships. MAINTAIN IDEAL BODY WEIGHT The best way to do this is to do all the things above. Our bodies naturally find the right weight if we keep moving and feed ourselves the right food. If your BMI is greater than 25, we strongly recommend a referral to a weight management program. Please speak to us or your family physician about available programs. AVOID NICOTINE IN ALL FORMS This includes all tobacco products, whether chewed, smoked, vaped, or rubbed on the skin. Smoking cessation programs, which can make use of tobacco substitutes, medications to suppress cravings and behavior management, are available. Please contact your family physician about programs in your area. Bharat Esteban MD 06/09/2018 5:43 PM Signed PERTINENT CARDIAC HISTORY Chest pain Palpitations ADHERENCE TO GUIDELINES RIYA-I or ARB for HF with prior LVEF<40 (NQF 0081) - N/A ASA or Plavix for ASHD (NQF 0067) - N/A Beta pool for ASHD with prior [place] or prior LVEF<40 (NQF 0070) - N/A Beta pool for HF with prior LVEF<40 (NQF 0083) - N/A RIYA-I or ARB for ASHD with DM or prior LVEF<40 (NQF 0066) - N/A Statin therapy for ASHD or FHL or DM - N/A BMI documented and plan if >25 (NQF 0421) - lifestyle recommendation form Tobacco use screening and referral (NQF 0028) - lifestyle recommendation form Recommendation for whole food, plant based diet - lifestyle recommendation form CLINICAL IMPRESSION/PLAN: Leslie Orellana has chest discomfort which has defied explanation for the last several months. She has not received an adequate nitrate trial. I recommended to her that she take nitroglycerin sublingual for chest discomfort, particularly more severe ones and record her response in a diary. She has not responded to treatment for acid reflux. There does not appear to be a component of chest wall tenderness. She is not tender today, even in the area where she reports discomfort in the axilla. Depending upon her response nitrates, additional studies may be required. My suspicion of major epicardial coronary disease is very low. She may have a component of coronary spasm or microvascular disease, but her description pain is not consistent with this. If she has nitrate response, I would recommend long-acting nitrate or calcium pool as well as statin therapy and aspirin for presumed microvascular disease. Her CT scan suggests some mediastinal adenopathy and she has an anterior mediastinal soft tissue mass. Further investigation of this may be worthwhile I will see her in one month or as needed. She's been advised to keep in contact with me. Written and verbal health teaching given to patient, patient verbalizes understanding and agrees with treatment plan. DIAGNOSIS FOR VISIT: Chest pain HISTORY OF PRESENT ILLNESS Leslie Orellana is a 38-year-old woman who is seen in consultation at the request of Ángel Ray PA-C, for recommendations regarding several month history of chest pain. She reports that she has had a sensation of anterior chest tightness with occasional radiation to the jaw and left shoulder. This is been present intermittently since August of this year. She went to the emergency department on one occasion and was kept overnight. A stress test and echocardiogram were performed and suggested no evidence of ischemia. She reports that she was given nitroglycerin at the time of her initial presentation. She reports that this relieved the pain promptly. She has not tried any nitroglycerin since. She describes the sensation as a pressure-like feeling which can last for hours at a time. She always has a slight feeling which exacerbates periodically. It is nonexertional. There is no pleuritic component. It is not increased with palpation. She has noted some tenderness in the left axillary area over the last week but this is was not present in the past. There is been no change with medication directed at reflux. She has had frequent episodes of bronchitis and the pain is occasionally exacerbated by cough. There was no change with chiropractic therapy or massage. She has family history of coronary disease. Her personal risk factors include obesity. ALLERGIES: ALLERGIES Allergen Reactions - Penicillins Unknown Childhood reaction. CURRENT OUTPATIENT MEDICATIONS: nitroglycerin sublingual (NITROQUICK) 0.4 mg SL tablet Dissolve 1 tablet under the tongue as needed. for chest pain,every 5 min x3 PAST MEDICAL HISTORY Diagnosis Date - Abdominal pain, generalized - Diarrhea - Hormone disorder - Localization-related (focal) (partial) epilepsy and epileptic syndromes with simple partial seizures, without mention of intractable epilepsy FEBRILE, last occurrence 7 years ago PAST SURGICAL HISTORY Procedure Laterality Date - COLONOSCOPY W/BX 11/04/11 - EGD W/O BRSH SPECIMEN W/BX 08/24/07 - VAGINAL DELIVERY HX 4 uncomplcate pregnancies. FAMILY HISTORY Problem Relation Age of Onset - Stroke Mother - other (Other) Mother Lupus - Hypertension Father - Diabetes Father - Stroke Maternal Grandmother x 2 - Heart Paternal Grandfather [place] - Diabetes Sister - Asthma No Family History - COPD No Family History Social History Marital status: Spouse name: Jos Years of education: Number of children: 3 Social History Main Topics Smoking status: Never Smoker Smokeless tobacco: Never Used Comment: No smoking in childhood home. Alcohol use: No Drug use: No Sexual activity: Yes Partners with: Male REVIEW OF SYSTEMS: General: No chills, fever, weight loss, night sweats. SHEENT: No change in vision or auditory acuity. Respiratory: No productive cough. Cardiac: As noted above. GI: No melena. : No dysuria. Musculoskeletal: No myalgias. Neurologic: No strokes. Psychiatric: No depression. Endocrine: No diabetes. Hematologic: No anemia. PHYSICAL EXAMINATION: S/he is alert and in no distress VITAL SIGNS: BP 112/82 Pulse 81 Ht 5' 5 (1.65m) SHEENT: Skin is warm and dry. Pupils are round and reactive. Retinal vessels are grossly unremarkable. No xanthelasmas appreciated. Pharynx is benign. There is no oral cyanosis. Neck: supple. No adenopathy or thyroid enlargement. Chest: Clear to auscultation. Trachea is midline. Air entry is equal. There is no chest wall tenderness. Cardiac: Regular rhythm. S1 and S2 are normal. PMI is nondisplaced. There are no murmurs, rubs or gallops. No click is heard. Carotids are brisk without bruits. JVP is less than 10 cm. Abdomen: Soft and nontender. She is obese. There are no pulsatile masses or bruits. No liver enlargement. Bowel sounds are active. : Deferred. Extremities: No edema. Pulses are intact and symmetrical. No clubbing or cyanosis. No femoral bruits. Neurologic: Grossly normal motor and sensory. S/he is alert and oriented x4. Musculoskeletal: No joint deformities. EKG shows sinus rhythm. There is incomplete right bundle branch block pattern. No significant change is seen since earlier in the year. Records from [facility] were reviewed. Her troponin was undetectable. EKG showed no acute change. LDL was 64. Recent labs were reviewed. Her hemoglobin tends to be a little high. Her oxygen saturation on room air is 98%. Chemistries were within normal limits. There is no evidence of inflammation. She has evidence of remote infection with Cody-Justice virus. She's had CT scans showing airspace density in the left lower lobe with improvement. She also has findings of soft tissue density in the anterior mediastinum, prominent mediastinal and hilar lymph nodes and nonspecific gastric thickening. Holter monitor showed no ectopy. She noted chest pain, palpitations and rapid heart rate during the test. Stress echocardiogram was reportedly negative for ischemia and will be reviewed. Electronically Signed: Bharat Esteban MD June 09, 2018 5:31 PM CC: Hipolito Ray PA-C Referring Provider: Hipolito RAY (TRAN) [[id number]] Allergies As of Date: 06/09/2018 Noted Allergy Reaction PENICILLINS 09/18/2005 16 - Unknown Comments: Childhood reaction. Date Reviewed: 06/09/2018 Reviewed by: Carolina Talavera MA - Fully Assessed Reason for Visit: Establish Care [42] Primary Visit Diagnosis:Palpitations [R00.2] Other Visit Diagnosis:Chest pain, unspecified type [R07.9] Order(s):nitroglycerin sublingual (NITROQUICK) 0.4 mg SL tabletDissolve 1 tablet under the tongue as needed. for chest pain,every 5 min x3Disp: 1 Bottle of 25Rfl: 3 Prescriptions as of 06/09/2018 Sig: NITROGLYCERIN 0.4 MG SUBLINGU* Dissolve 1 tablet under the t* Problem List As Of Date 06/09/2018 Noted Resolved Hx of febrile seizure [Z87.898] More... Abdominal pain, generalized [R10.84] INVALID FOR*11/03/2017 Hormone disorder [E34.9] Diarrhea [R19.7] INVALID FOR* Other chest pain [R07.89] INVALID FOR* Other instructions from your clinician: LIFESTYLE CHANGE A healthy lifestyle is the most important component of your overall treatment plan. Please give serious thought to the following areas and commit to making intermediate project manager changes. EAT A WHOLE FOOD, PLANT BASED DIET The nutrition your body gets is more important than the medicine you take. What matters most is the overall way you eat. We encourage you to minimize the use of animal products (which include dairy and all meats except fatty fish) and use whole, unprocessed plant foods to provide your protein, vitamins and other nutrients. We have a lot of information to share with you on this topic. This is not a diet. It is a way of life that you will keep with you. EXERCISE REGULARLY It is not important to spend hours in the gym, lifting weights and perspiring heavily. A total of 2-3 hours per week of aerobic (causing you to be moderately short of breath) exercise is sufficient to improve your health. Talk to us before you begin a new exercise program, if you have heart disease or experience shortness of breath or chest pain. REDUCE STRESS Chronic emotional and physical stress leads to disease. Ways of reducing stress include meditation, visualization, prayer, yoga and other forms of relaxation therapy. Consistency is the hernandez. Find a technique that works for you and do it every day. CULTIVATE RELATIONSHIPS Loneliness and isolation have a major negative impact on health. Seek out others who can love, care for and nurture you. Avoid hurtful relationships. MAINTAIN IDEAL BODY WEIGHT The best way to do this is to do all the things above. Our bodies naturally find the right weight if we keep moving and feed ourselves the right food. If your BMI is greater than 25, we strongly recommend a referral to a weight management program. Please speak to us or your family physician about available programs. AVOID NICOTINE IN ALL FORMS This includes all tobacco products, whether chewed, smoked, vaped, or rubbed on the skin. Smoking cessation programs, which can make use of tobacco substitutes, medications to suppress cravings and behavior management, are available. Please contact your family physician about programs in your area. Prescriptions ordered this encounter Disp Refills Start End NITROGLYCERIN 0.4 MG SUBLINGUAL TABL* 1 Sixto* 3 06/09/2018 Route: SUBLINGUAL Sig: Dissolve 1 tablet under the tongue as needed. for chest pain,every 5 min x3 Follow-up and Disposition History Recorded Encounter Status:Closed by BHARAT ESTEBAN MD on 06/09/18 THYROGLOBULIN AB Collected: 05/17/2018 Status: F Source: [facility] 12[facility]10 [facility] REPOSITORY TYPE CODE TESTS RESULT OUT OF REFERENCE UNITS RANGE LAB TGAB <14.4 IU/mL Thyroglobulin Ab 1.0 Performed By: #### TGAB, MICRO, CBCDIF, CMP, CRP, LIPA, LMLATE, HPYLRI, EBVEA, EBVG, EBVM, EBVNA #### [facility] [address] [place], [place] [address] TPO ANTIBODY Collected: 05/17/2018 Status: F Source: [facility] 12:10 PM [facility] REPOSITORY TYPE CODE TESTS RESULT OUT OF REFERENCE UNITS RANGE LAB MICRO <5.6 IU/mL TPO Antibody 1.0 Performed By: #### TGAB, MICRO, CBCDIF, CMP, CRP, LIPA, LMLATE, HPYLRI, EBVEA, EBVG, EBVM, EBVNA #### [facility] [address] [place], [place] [address] CBC AND DIFFERENTIAL Collected: 05/17/2018 Status: F Source: [facility] 12:10 PM [facility] REPOSITORY TYPE CODE TESTS RESULT OUT OF REFERENCE UNITS RANGE LAB WBC 3.70-11.00 k/uL WBC 7.56 LAB RBC 3.90-5.20 m/uL RBC 5.06 LAB HGB 11.5-15.5 g/dL Hemoglobin 15.5 LAB HCT 36.0-46.0 % High Hematocrit 48.8 LAB MCV 80.0-100.0 fL MCV 96.4 LAB MCH 26.0-34.0 pG MCH 30.6 LAB MCHC 30.5-36.0 g/dL MCHC 31.8 LAB RDWCV 11.5-15.0 % RDW-CV 12.9 LAB PLTCT 150-400 k/uL Platelet Count 271 LAB MPV 9.0-12.7 fL MPV 10.6 LAB ANEUT % Neut% 59.4 LAB AANEUT 1.45-7.50 k/uL Abs Neut 4.47 LAB ALYMP % Lymph% 32.0 LAB AALYMP 1.00-4.00 k/uL Abs Lymph 2.42 LAB AMONO % Harmon% 6.1 LAB AAMONO <0.87 k/uL Abs Harmon 0.46 LAB AEOS % Eosin% 2.0 LAB AAEOS <0.46 k/uL Abs Eosin 0.15 LAB ABASO % Baso% 0.5 LAB AABASO <0.11 k/uL Abs Baso 0.04 LAB AUNRBC 0 /100 WBC NRBCs 0.0 LAB ABNRBC <0.01 k/uL Absolute nRBC <0.01 LAB DTYP DTYPE Auto Diff Performed By: #### TGAB, MICRO, CBCDIF, CMP, CRP, LIPA, LMLATE, HPYLRI, EBVEA, EBVG, EBVM, EBVNA #### [facility] [address] [place] [place], [place] [address] COMP METABOLIC PANEL Collected: 05/17/2018 Status: F Source: [facility] 12:10 PM [facility] REPOSITORY TYPE CODE TESTS RESULT OUT OF REFERENCE UNITS RANGE LAB TP 6.3-8.0 g/dL Protein, Total 7.3 LAB ALB 3.9-4.9 g/dL Albumin 4.6 LAB CA 8.5-10.2 mg/dL Calcium, Total 9.6 LAB TBIL 0.2-1.3 mg/dL Bilirubin, Total 0.7 LAB ALKP 32-117 U/L Alkaline Phosphatase 66 LAB AST 13-35 U/L AST 28 LAB GLU 74-99 mg/dL Glucose 80 Result Comment: The [place] [employer] (ADA) provides guidance for cutoff values for fasting glucose and random glucose. The ADA defines fasting as no caloric intake for at least 8 hours. Fas ting plasma glucose results between 100 to 125 mg/dL indicate increased risk for diabetes (prediabetes). Fasting plasma glucose results greater than or equal to 126 mg/dL meet the criteria for diagnosis of diabetes. In the absence of unequivocal hyperglycemia, results should be confirmed by repeat testing. In a patient with classic symptoms of hyperglycemia or hyperglycemic crisis, random plasma glucose results greater than or equal to 200 mg/dL meet the criteria for diagnosis of diabetes. Reference: Standards of Medical Care in Diabetes 2016, [place] [employer]. Diabetes Care. 2016.39(Suppl 1). LAB BUN 7-21 mg/dL BUN 8 LAB CRET 0.58-0.96 mg/dL Creatinine 0.68 LAB NA 136-144 mmol/L Sodium 141 LAB K 3.7-5.1 mmol/L Potassium 4.0 LAB CL 97-105 mmol/L Chloride 102 LAB CO2 22-30 mmol/L CO2 24 LAB AGAP 9-18 mmol/L Anion Gap 15 LAB ALT 7-38 U/L ALT 14 LAB GFRAA eGFR- Amer. >60 LAB GFRNAA . eGFR-All Other Races >60 Result Comment: eGFR (Estimated GFR) Units of measure: mL/min/1.73 meters squared eGFR is derived from the reexpressed MDRD Study equation using the following parameters: serum creatinine, age, gender and race. The creatinine assay has been calibrated to be traceable to IDMS. An eGFR <60 mL/min/1.73m2 for >3 months is consistent with chronic kidney disease. Refer to KDOQI guidelines for clinical interpretation. In patients with unstable renal function, e.g. those with acute kidney injury, the eGFR may not accurately reflect actual GFR. Performed By: #### TGAB, MICRO, CBCDIF, CMP, CRP, LIPA, LMLATE, HPYLRI, EBVEA, EBVG, EBVM, EBVNA #### [facility] [employer] [address] [place] [address] C-REACTIVE PROTEIN Collected: 05/17/2018 Status: F Source: [facility] 12:10 PM [facility] REPOSITORY TYPE CODE TESTS RESULT OUT OF REFERENCE UNITS RANGE LAB CRP <0.9 mg/dL C-Reactive 0.3 Protein Performed By: #### TGAB, MICRO, CBCDIF, CMP, CRP, LIPA, LMLATE, HPYLRI, EBVEA, EBVG, EBVM, EBVNA #### [facility] [employer] [address] [place] [address] LIPASE Collected: 05/17/2018 Status: F Source: [facility] 12:10 PM [facility] REPOSITORY TYPE CODE TESTS RESULT OUT OF REFERENCE UNITS RANGE LAB LIPA 16-61 U/L Lipase 32 Performed By: #### TGAB, MICRO, CBCDIF, CMP, CRP, LIPA, LMLATE, HPYLRI, EBVEA, EBVG, EBVM, EBVNA #### [facility] [employer] [address] [place] [id number] LYME LATE (>30 Collected: 05/17/2018 Status: F Source: [facility] 12:10 PM [facility] REPOSITORY TYPE CODE TESTS RESULT OUT OF REFERENCE UNITS RANGE LAB LYMGMX Negative Lyme Negative IgG/IgM AB Result Comment: Absence of detectable Borrelia burgdorferi antibodies. A negative result does not exclude the possibility of Borrelia burgdorferi infection. If early Lyme disease is suspected, a second sample should be collected and tested two to four weeks later. Performed By: #### TGAB, MICRO, CBCDIF, CMP, CRP, LIPA, LMLATE, HPYLRI, EBVEA, EBVG, EBVM, EBVNA #### [facility] [address] [place], [place] [address] HELICO PYLORI AB Collected: 05/17/2018 Status: F Source: [facility] 12:10 [facility] REPOSITORY TYPE CODE TESTS RESULT OUT OF REFERENCE UNITS RANGE LAB HPYLRL Negative H. pylori Negative IgG, Qual Result Comment: H. pylori IgG antibodies were not detected in the sample. Negative results by this test do not preclude recent primary infection. LAB HPYLR U/mL H pylori Ab, IgG 0.6 Result Comment: U/mL are interpreted as follows: Negative specimens <0.9 Indeterminate specimens >=0.9 to <1.1 Positive specimens >=1.1 Results were obtained with the IMMULITE 2000 H.pylori IgG EIA. Results obtained from other manufacturers' assay methods may not be used interchangeably. Performed By: #### TGAB, MICRO, CBCDIF, CMP, CRP, LIPA, LMLATE, HPYLRI, EBVEA, EBVG, EBVM, EBVNA #### [id number] [place], [place] [address] EBV EA ANTIBODY Collected: 05/17/2018 Status: F Source: [facility] 12:10 PM [facility] REPOSITORY TYPE CODE TESTS RESULT OUT OF REFERENCE UNITS RANGE LAB EBVEAQ Negative EBV Negative EA Ab, Qual Result Comment: EBV EA-D IgG antibodies are not detectable. If the result is negative and exposure to Cody-Justice virus is suspected, a second sample should be collected and tested no less than one to two weeks later. LAB EBVEAX AI EBV EA Antibody <0.2 Result Comment: AI VALUES ARE INTERPRETED FOLLOWS: NEGATIVE SPECIMENS <=0.8 EQUIVOCAL SPECIMENS 0.9 TO 1.0 POSITIVE SPECIMENS >=1.1 Antibody index(AI) values reflect qualitative changes in antibody concentration that cannot be associated with clinical condition or disease state. Performed By: #### TGAB, MICRO, CBCDIF, CMP, CRP, LIPA, LMLATE, HPYLRI, EBVEA, EBVG, EBVM, EBVNA #### [facility] [address] [place], [place] [address] EBV IGG ANTIBODY Collected: 05/17/2018 Status: F Source: [facility] 12:10 [facility] REPOSITORY TYPE CODE TESTS RESULT OUT OF RANGE REFERENCE UNITS LAB EBVGQ Negative Abnormal Alert EBV Positive VCA IgG, Qual Result Comment: Specimen is positive for EBV VCA IgG antibody. A positive test result presumes a current or past infection with EBV. Other EBV serology assays such as the EBV VCA IgM should be performed to confirm serologic status, active acute, past or indeterminate infection for EBV-associated infectious mononucleosis. LAB EBVGX AI EBV VCA IgG >8.0 Result Comment: AI VALUES ARE INTERPRETED FOLLOWS: NEGATIVE SPECIMENS <=0.8 EQUIVOCAL SPECIMENS 0.9 TO 1.0 POSITIVE SPECIMENS >=1.1 Antibody index (AI) values reflect qualitative changes in antibody concentration that cannot be associated with clinical condition or disease state. Performed By: #### TGAB, MICRO, CBCDIF, CMP, CRP, LIPA, LMLATE, HPYLRI, EBVEA, EBVG, EBVM, EBVNA #### [facility] [address] [place], [place] [address] EBV IGM ANTIBODY Collected: 05/17/2018 Status: F Source: [facility] 12:10 [facility] REPOSITORY TYPE CODE TESTS RESULT OUT OF REFERENCE UNITS RANGE LAB EBVMQ Negative EBV Negative VCA IgM, Qual Result Comment: EBV VCA IgM antibodies are not detectable. LAB EBVMX AI EBV VCA IgM <0.2 Result Comment: AI VALUES ARE INTERPRETED FOLLOWS: NEGATIVE SPECIMENS <=0.8 EQUIVOCAL SPECIMENS 0.9 TO 1.0 POSITIVE SPECIMENS >=1.1 The magnitude of the reported IgM level cannot be correlated to an endpoint titer (or clinical status). Performed By: #### TGAB, MICRO, CBCDIF, CMP, CRP, LIPA, LMLATE, HPYLRI, EBVEA, EBVG, EBVM, EBVNA #### [facility] [employer] [address] [place], [place] [address] EBV NA ANTIBODY Collected: 05/17/2018 Status: F Source: [facility] 12:10 PM [facility] REPOSITORY TYPE CODE TESTS RESULT OUT OF RANGE REFERENCE UNITS LAB EBVNAQ Negative Abnormal Alert EBV Positive NA Ab, Qual Result Comment: Specimen is positive for EBV NA-1 IgG antibody. A positive test result presumes a current or past infection with EBV. Other EBV serology assays such as the EBV VCA IgM should be performed to confirm serologic status, active acute, past or indeterminate infection for EBV-associated infectious mononucleosis. LAB EBVNAX AI EBV NA Antibody >8.0 Result Comment: AI VALUES ARE INTERPRETED FOLLOWS: NEGATIVE SPECIMENS <=0.8 EQUIVOCAL SPECIMENS 0.9 TO 1.0 POSITIVE SPECIMENS >=1.1 Antibody index(AI) values reflect qualitative changes in antibody concentration that cannot be associated with clinical condition or disease state. Performed By: #### TGAB, MICRO, CBCDIF, CMP, CRP, LIPA, LMLATE, HPYLRI, EBVEA, EBVG, EBVM, EBVNA #### [facility] [employer] [address] [place], [place] [address] PROGRESS Observed: 05/17/2018 Status: COMPLETED Source: [facility] 10:54 AM [facility] REPOSITORY HNO ID: [id number] Author: Hipolito Ray Service: (none) Author Type: Physician Director Of Scientific Research Type: Progress Notes Filed: 05/17/2018 4:23 PM Note Text: 37 year old female with c/o here for follow up. Trying to think outside the box to find the issue underlying all her sx. Continues with intermittent chest pain. States seems worse with intermittent flu-like intermittently which start with chills, sore throat, diarrhea which lasts for about 2 weeks. Has happened about every other month with something. Seems to occur when others are also ill so she didn't consider it at first. Asking for testing for underlying infectious sources. Pain woke her up through the night. States heart flutters intermittently with episodes. Has cardiology appointment 06/09/18. UGI completed today. Notes reviewed from Dr. Ponce. Fh positive for SLE in mother, autoimmune thyroiditis in mother and sister. Work up so far unrevealing. HISTORIES FAMILY HISTORY Problem Relation Age of Onset - Stroke Mother - other (Other) Mother Lupus - Hypertension Father - Diabetes Father - Stroke Maternal Grandmother x 2 - Heart Paternal Grandfather [place] - Diabetes Sister - Asthma No Family History - COPD No Family History PAST MEDICAL HISTORY Diagnosis Date - Abdominal pain, generalized - Diarrhea - Hormone disorder - Localization-related (focal) (partial) epilepsy and epileptic syndromes with simple partial seizures, without mention of intractable epilepsy FEBRILE, last occurrence 7 years ago PAST SURGICAL HISTORY Procedure Laterality Date - COLONOSCOPY W/BX 11/04/11 - EGD W/O BRSH SPECIMEN W/BX 08/24/07 - VAGINAL DELIVERY HX 4 uncomplcate pregnancies. Social History Marital status: Spouse name: Jos Years of education: Number of children: 3 Social History Main Topics Smoking status: Never Smoker Smokeless tobacco: Never Used Comment: No smoking in childhood home. Alcohol use: No Drug use: No Sexual activity: Yes Partners with: Male ACTIVE PROBLEM LIST Hx of Febrile Seizure Hormone Disorder Diarrhea Other Chest Pain No current outpatient prescriptions on file. No current facility-administered medications for this visit. DTAP,TDAP,TD(1 - Tdap) due on 1999 PAP EVERY 5 YEARS due on 2010 HPV EVERY 5 YEARS due on 2010 INFLUENZA(1) due on 04/30/2018 EXAM: BP 120/74 Pulse 72 Temp 36.7 ?C (98 ?F) (Tympanic) Resp 16 Wt 96.2 kg (212 lb) LMP 04/29/2018 (Approximate) BMI 35.28 kg/m? Pleasant overweight woman in no acute distress. Alert and oriented all spheres. Normal affect and cognition. Speech normal. No deficits to learning or comprehension. Skin warm, dry, pink to lips and nailbeds. Normal turgor. Has red patches on right dorsal hand which are red, slightly scaly without nodularity. Respirations regular and unlabored. HEENT WNL. TM's clear. Nose and oropharynx free from injection or lesion. No cervical lymph nodes. Thyroid non-tender, no masses Chest CTA. HRRR without murmur or gallop. Extrem: no clubbing, cyanosis, edema. Extremities are warm and pink with prompt capillary refill. ASSESSMENT/PLAN: 1. Other fatigue - ICD9: 780.79, ICD10: R53.83 (primary diagnosis) - CODY-JUSTICE VCA IGM - CODY-JUSTICE EA - CODY-JUSTICE VCA IGG - CODY-JUSTICE NUC AG - LYME AB LATE >30 DAYS SYMPTOMS - CBC + DIFF - C-REACTIVE PROTEIN (CRP) - THYROID PEROXIDASE ANTIBODY BLOOD - THYROGLOBULIN AB 2. Diarrhea, unspecified type - ICD9: 787.91, ICD10: R19.7 Episodic with flu-like sx - CODY-JUSTICE VCA IGM - CODY-JUSTICE EA - CODY-JUSTICE VCA IGG - CODY-JUSTICE NUC AG - LYME AB LATE >30 DAYS SYMPTOMS Discussion with patient on the ineffectiveness of just looking for something as there are no end to possibilities in testing. Reassured inflammatory markers have been very low. Hipolito Ray PA-C CNOV Observed: 05/17/2018 Status: COMPLETED Source: [facility] 10:20 AM [facility] REPOSITORY Office Visit (FAMPWS) LESLIE ORELLANA ([id number]) 1980 F Date Time Provider Department 05/17/18 10:20 AM Hipolito RAY) FAMPWS During your visit today, we recorded the following information about you: Temperature Pulse Respiration Blood pressure 98 degrees 72/minute 16/minute 120/74 Weight 96.2 kg Hipolito Ray PA-C 05/17/2018 4:23 PM Signed 37 year old female with c/o here for follow up. Trying to think outside the box to find the issue underlying all her sx. Continues with intermittent chest pain. States seems worse with intermittent flu-like intermittently which start with chills, sore throat, diarrhea which lasts for about 2 weeks. Has happened about every other month with something. Seems to occur when others are also ill so she didn't consider it at first. Asking for testing for underlying infectious sources. Pain woke her up through the night. States heart flutters intermittently with episodes. Has cardiology appointment 06/09/18. UGI completed today. Notes reviewed from Dr. Ponce. Fh positive for SLE in mother, autoimmune thyroiditis in mother and sister. Work up so far unrevealing. HISTORIES FAMILY HISTORY Problem Relation Age of Onset - Stroke Mother - other (Other) Mother Lupus - Hypertension Father - Diabetes Father - Stroke Maternal Grandmother x 2 - Heart Paternal Grandfather [place] - Diabetes Sister - Asthma No Family History - COPD No Family History PAST MEDICAL HISTORY Diagnosis Date - Abdominal pain, generalized - Diarrhea - Hormone disorder - Localization-related (focal) (partial) epilepsy and epileptic syndromes with simple partial seizures, without mention of intractable epilepsy FEBRILE, last occurrence 7 years ago PAST SURGICAL HISTORY Procedure Laterality Date - COLONOSCOPY W/BX 11/04/11 - EGD W/O BRSH SPECIMEN W/BX 08/24/07 - VAGINAL DELIVERY HX 4 uncomplcate pregnancies. Social History Marital status: Spouse name: Jos Years of education: Number of children: 3 Social History Main Topics Smoking status: Never Smoker Smokeless tobacco: Never Used Comment: No smoking in childhood home. Alcohol use: No Drug use: No Sexual activity: Yes Partners with: Male ACTIVE PROBLEM LIST Hx of Febrile Seizure Hormone Disorder Diarrhea Other Chest Pain No current outpatient prescriptions on file. No current facility-administered medications for this visit. DTAP,TDAP,TD(1 - Tdap) due on 1999 PAP EVERY 5 YEARS due on 2010 HPV EVERY 5 YEARS due on 2010 INFLUENZA(1) due on 04/30/2018 EXAM: BP 120/74 Pulse 72 Temp 36.7 ?C (98 ?F) (Tympanic) Resp 16 Wt 96.2 kg (212 lb) LMP 04/29/2018 (Approximate) BMI 35.28 kg/m? Pleasant overweight woman in no acute distress. Alert and oriented all spheres. Normal affect and cognition. Speech normal. No deficits to learning or comprehension. Skin warm, dry, pink to lips and nailbeds. Normal turgor. Has red patches on right dorsal hand which are red, slightly scaly without nodularity. Respirations regular and unlabored. HEENT WNL. TM's clear. Nose and oropharynx free from injection or lesion. No cervical lymph nodes. Thyroid non-tender, no masses Chest CTA. HRRR without murmur or gallop. Extrem: no clubbing, cyanosis, edema. Extremities are warm and pink with prompt capillary refill. ASSESSMENT/PLAN: 1. Other fatigue - ICD9: 780.79, ICD10: R53.83 (primary diagnosis) - CODY-JUSTICE VCA IGM - CODY-JUSTICE EA - CODY-JUSTICE VCA IGG - CODY-JUSTICE NUC AG - LYME AB LATE >30 DAYS SYMPTOMS - CBC + DIFF - C-REACTIVE PROTEIN (CRP) - THYROID PEROXIDASE ANTIBODY BLOOD - THYROGLOBULIN AB 2. Diarrhea, unspecified type - ICD9: 787.91, ICD10: R19.7 Episodic with flu-like sx - CODY-JUSTICE VCA IGM - CODY-JUSTICE EA - CODY-JUSTICE VCA IGG - CODY-JUSTICE NUC AG - LYME AB LATE >30 DAYS SYMPTOMS Discussion with patient on the ineffectiveness of just looking for something as there are no end to possibilities in testing. Reassured inflammatory markers have been very low. M Savi Ray PA-C Referring Provider: SELF [[id number]] Allergies As of Date: 05/17/2018 Noted Allergy Reaction PENICILLINS 09/18/2005 16 - Unknown Comments: Childhood reaction. Date Reviewed: 05/17/2018 Reviewed by: Elizabeth Ferrari Ma - Fully Assessed Reason for Visit: Flu Like Symptoms [267] Primary Visit Diagnosis:Other fatigue [R53.83] Other Visit Diagnosis:Diarrhea, unspecified type [R19.7] Order(s):CODY-JUSTICE VCA IGM [SQEBVM] Order #: [id number] FUTURE CODY-JUSTICE EA [SQEBVEA] Order #: [id number] FUTURE CODY-JUSTICE VCA IGG [SQEBVG] Order #: [id number] FUTURE CODY-JUSTICE NUC AG [SQEBVNA] Order #: [id number] FUTURE LYME AB LATE >30 DAYS SYMPTOMS [SQLMLATE] Order #: [id number] FUTURE CBC + DIFF [SQCBCDIF] Order #: [id number] FUTURE C-REACTIVE PROTEIN (CRP) [SQCRP] Order #: [id number] FUTURE THYROID PEROXIDASE ANTIBODY BLOOD [SQMICRO] Order #: [id number] FUTURE THYROGLOBULIN AB [SQTGAB] Order #: [id number] FUTURE Problem List As Of Date 05/17/2018 Noted Resolved Hx of febrile seizure [Z87.898] More... Abdominal pain, generalized [R10.84] INVALID FOR*11/03/2017 Hormone disorder [E34.9] Diarrhea [R19.7] INVALID FOR* Other chest pain [R07.89] INVALID FOR* Encounter Status:Closed by Hipolito RAY PA-C on 05/17/18 UPPER GI SERIES Observed: 05/17/2018 Status: F Source: REEVES ONLY 9:22 AM [facility] [place] REPOSITORY [facility] Imaging Services [address] [place] [address] Upper GI Series Only MR#: [id number] Acct: [id number] Name: LESLIE ORELLANA Hipolito Rep #: [id number] : 1980 F 37 From: Akash Thomas MD PCP: Hipolito Ray Status: REG CLI Study: Upper GI Series Only Date of Exam: 05/17/18 Exam# [id number] Ordering Dr: Rosa Olea STUDY: AIR-CONTRAST UPPER GI SERIES.. REASON FOR EXAM: Female, 37 years old. Left-sided chest pain. FLUOROSCOPY TIME (if supplied): (0:54) minutes/seconds. 18 spot images were obtained. TECHNIQUE: The patient ingested barium. Multiple images of the esophagus, stomach and duodenum were obtained. COMPARISON: Comparison is made with prior examination of October 09, 2011. FINDINGS: The esophagus is unremarkable. There is no evidence of obstruction. No mass lesion is seen. The stomach and duodenum are unremarkable. There is no evidence of ulceration. No mass lesion is seen. RAD/Upper GI Series Only IMPRESSION: Unremarkable air contrast upper GI series. Electronically Signed: Akash Thomas MD at 15:09 EDT Tel [phone], Service support , CC: Hipolito Ray; ROSA OLEA Assistant Professor Of Nursing: Signed HISTORY PHYSICAL Observed: 05/12/2018 Status: COMPLETED Source: [place] 8:34 AM [facility] REPOSITORY O ID: [id number] Author: Rosa Olea Service: (none) Author Type: Nurse Practitioner Type: HANDP Filed: 05/12/2018 4:35 PM Note Text: Leslie Orellana a 37 year old female who is a consultation requested by CANDIDO Cunningham, for an opinion regarding chest pressure. My final recommendations will be communicated back to the requesting provider by way of shared Medical record. The patient has been seen previously. I saw her in consultation in 2011 due to abdominal bloating and lower GI complaints. The patient was seen by Dr. Jah Tobar for upper endoscopy 08/24/07 for reported epigastric pain. The procedure report has been reviewed and findings as follows: OPERATIVE FINDINGS: 1. ?Duodenum looked normal. ?Normal mucosa. ?No ulcerations. No mass lesions. 2. ?Stomach: ?Distal antrum appeared normal. ?Retroflexion showed minimal hiatal hernia, but essentially was normal. Biopsy for H. pylori was obtained. ?No signs of mass lesions were identified. 3. ?Esophagus: ?Distal esophagus all normal. ?Small hiatal hernia, very minimal. ?No signs of any ulcerations or esophagitis were identified. ?The esophagus appeared to be odilon normally. ?It was removed without difficulty. The patient tolerated the procedure well. Post procedure visit with Dr. Tobar was reviewed. Hpylori was negative. Her HIDA scan is normal with an ejection fraction of 70%. ?Her CAT scan of the abdomen and pelvis really do not show any lesions in the upper abdomen to speak of. ?At this time, I have no surgical interventions planned for her and I am going to discharge her back to her primary care physician. The patient has been seen by Dr. Ponce regarding her complaints. Component Latest Ref Rng AND Units 04/22/2018 STEPHANIE by EIA, Qual Negative Negative STEPHANIE by EIA OD Ratio 0.3 WSR 0 - 20 mm/hr 2 CRP <0.9 mg/dL 0.2 Rheumatoid Factor <16 IU/mL <10 d Dimer <500 ng/mL FEU 300 The patient has an appointment with Dr. Esteban on 06/09/18 regarding this complaint. Presenting complaint: The patient presents today stating it started back in August. More like a clamping clinching type sensation that is constant. It can be both that and sharp. She tells me that it would come and go initially. Now basically always there. She points left of mid line, parasternal. The patient denies nausea or vomiting with the chest pain. The patient's asks if a hiatal hernia could cause her pain. I have explained that it usually doesn't cause constant pain, but we can investigate. The patient denies any prior issues with heartburn or indigestion. She tells me that doing a 2 week trial of a PPI didn't seem to make any difference. She had also tried prescription PPI without any improvement. The patient tells me I have been watching eating all year and nothing seems to make it any different. The patient tells me that the pain doesn't wake her up at night, unless she is having other symptoms - like the flu or something. The patient tells me that it had been unusual for her to be sick, but this year she picks up everything since having had pneumonia. She reports that she had diarrhea last night and the chest pain got worse. The chest pain seems to get a little better after the episode (flu, cold or diarrhea) settles down. The patient reports intermittent fever the past few months. Having a bowel movement at least once a day. No black stool that she has noticed. No blood. No abdominal pain. REVIEW OF SYSTEMS: GENERAL: No unplanned weight loss. HEENT: Negative for frequent or significant headaches, No changes in hearing or vision, no nose bleeds or other nasal problems NECK: Negative for lumps, goiter, pain and significant neck swelling RESPIRATORY: Shortness of breath rarely. Saw Dr. Ponce. CARDIOVASCULAR: Palpitations earlier this year. She had a heart monitor [facility]. Was told it was negative. Seeing Dr. Dodd 06/09. GI: The patient states that her appetite has been adequate. She does get hungry. There has been no nausea, no vomiting. She denies dysphagia and denies odynophagia. There has not been indigestion or heartburn. There has not been regurgitation. Bowel habits have been regular. There has rarely been diarrhea. There has not been constipation. The patient denies rectal bleeding. There has not been melena. No abdominal pain. BILLER: Negative for abnormal vaginal bleeding, abnormal vaginal discharge. LMP: 2 weeks ago. PSYCH: Negative for sleep disturbance, mood disorder and recent psychosocial stressors. HEMATOLOGY/LYMPHOLOGY Negative for prolonged bleeding, bruising easily or swollen nodes ENDOCRINE: Negative for thyroid or diabetes. NEURO: No history of headaches, syncope, paralysis, seizures or tremors All other reviewed and negative other than HPI. PAST MEDICAL HISTORY Diagnosis Date - Abdominal pain, generalized - Diarrhea - Hormone disorder - Localization-related (focal) (partial) epilepsy and epileptic syndromes with simple partial seizures, without mention of intractable epilepsy FEBRILE, last occurrence 7 years ago PAST SURGICAL HISTORY Procedure Laterality Date - COLONOSCOPY W/BX 11/04/11 - EGD W/O BRSH SPECIMEN W/BX 08/24/07 - VAGINAL DELIVERY HX 4 uncomplcate pregnancies. FAMILY HISTORY Problem Relation Age of Onset - Stroke Mother - other (Other) Mother Lupus - Hypertension Father - Diabetes Father - Stroke Maternal Grandmother x 2 - Heart Paternal Grandfather [place] - Diabetes Sister - Asthma No Family History - COPD No Family History No current outpatient prescriptions on file. No current facility-administered medications for this visit. SOCIAL HISTORY: Patient is . She has never smoked and reports her alcohol use as never. PHYSICAL EXAMINATION: Blood pressure 117/80, pulse 80, height 165.1 cm (5' 5), weight 95.7 kg (211 lb), last menstrual period 04/29/2018. General Appearance: Well appearing, alert, in no acute distress, well-hydrated, well nourished. Skin: Skin color, texture, turgor normal, no suspicious rashes or lesions. Head: Normocephalic, no masses, lesionsor abnormalities. Eyes: Anicteric sclera. P Oropharynx: Lips, mucosa, and tongue normal, teeth and gums normal, oropharynx normal. Neck: Supple, no adenopathy; thyroid symmetric, normal size. Lungs: Lungs clear to auscultation. No wheezing, rhonchi, rales. Heart: RRR without murmur. Abdomen: Normal abdominal exam, Abdomen soft, non-tender. Bowel sounds normal. No masses, organomegaly. Extremities: No deformities, edema, skin discoloration, clubbing or cyanosis. Peripheral Pulses: Normal. Impression: constant chest pressure Plan: I have explained that constant pain/pressure usually doesn't go along with GI issues, but that I would like to start with an UGI. I am not sure that an EGD would yield much information from what she is describing. Labs. The patient agrees to proceed. Further plan based on the results. Keep appointment with Dr. Esteban. I have personally interviewed and examined this patient. I have reviewed the information that the MA entered for this encounter. I spent 25 minutes in the visit, with greater than 50% of the total [id number] time of the visit in counseling and coordination of care. Rosa Olea RN APRN.OPERATIONS SUPERINTENDENT CNOV Observed: 05/12/2018 Status: COMPLETED Source: [place] 8:20 AM [facility] REPOSITORY [facility] LESLIE ORELLANA ([id number]) 1980 F Date Time Provider Department 05/12/18 8:20 AM ROSA OLEA (ELKIN) [facility] During your visit today, we recorded the following information about you: Pulse Blood pressure Weight Height 80/minute 117/80 95.7 kg 1.651 m Last Period 04/29/18 Rosa Olea RN APRN.OPERATIONS SUPERINTENDENT 05/12/2018 4:35 PM Signed Leslie Orellana a 37 year old female who is a consultation requested by CANDIDO Cunningham, for an opinion regarding chest pressure. My final recommendations will be communicated back to the requesting provider by way of shared Medical record. The patient has been seen previously. I saw her in consultation in 2011 due to abdominal bloating and lower GI complaints. The patient was seen by Dr. Jah Tobar for upper endoscopy 08/24/07 for reported epigastric pain. The procedure report has been reviewed and findings as follows: OPERATIVE FINDINGS: 1. ?Duodenum looked normal. ?Normal mucosa. ?No ulcerations. No mass lesions. 2. ?Stomach: ?Distal antrum appeared normal. ?Retroflexion showed minimal hiatal hernia, but essentially was normal. Biopsy for H. pylori was obtained. ?No signs of mass lesions were identified. 3. ?Esophagus: ?Distal esophagus all normal. ?Small hiatal hernia, very minimal. ?No signs of any ulcerations or esophagitis were identified. ?The esophagus appeared to be odilon normally. ?It was removed without difficulty. The patient tolerated the procedure well. Post procedure visit with Dr. Tobar was reviewed. Hpylori was negative. Her HIDA scan is normal with an ejection fraction of 70%. ?Her CAT scan of the abdomen and pelvis really do not show any lesions in the upper abdomen to speak of. ?At this time, I have no surgical interventions planned for her and I am going to discharge her back to her primary care physician. The patient has been seen by Dr. Ponce regarding her complaints. Component Latest Ref Rng AND Units 04/22/2018 STEPHANIE by EIA, Qual Negative Negative STEPHANIE by EIA OD Ratio 0.3 WSR 0 - 20 mm/hr 2 CRP <0.9 mg/dL 0.2 Rheumatoid Factor <16 IU/mL <10 d Dimer <500 ng/mL FEU 300 The patient has an appointment with Dr. Esteban on 06/09/18 regarding this complaint. Presenting complaint: The patient presents today stating it started back in August. More like a clamping clinching type sensation that is constant. It can be both that and sharp. She tells me that it would come and go initially. Now basically always there. She points left of mid line, parasternal. The patient denies nausea or vomiting with the chest pain. The patient's asks if a hiatal hernia could cause her pain. I have explained that it usually doesn't cause constant pain, but we can investigate. The patient denies any prior issues with heartburn or indigestion. She tells me that doing a 2 week trial of a PPI didn't seem to make any difference. She had also tried prescription PPI without any improvement. The patient tells me I have been watching eating all year and nothing seems to make it any different. The patient tells me that the pain doesn't wake her up at night, unless she is having other symptoms - like the flu or something. The patient tells me that it had been unusual for her to be sick, but this year she picks up everything since having had pneumonia. She reports that she had diarrhea last night and the chest pain got worse. The chest pain seems to get a little better after the episode (flu, cold or diarrhea) settles down. The patient reports intermittent fever the past few months. Having a bowel movement at least once a day. No black stool that she has noticed. No blood. No abdominal pain. REVIEW OF SYSTEMS: GENERAL: No unplanned weight loss. HEENT: Negative for frequent or significant headaches, No changes in hearing or vision, no nose bleeds or other nasal problems NECK: Negative for lumps, goiter, pain and significant neck swelling RESPIRATORY: Shortness of breath rarely. Saw Dr. Ponce. CARDIOVASCULAR: Palpitations earlier this year. She had a heart monitor [facility]. Was told it was negative. Seeing Dr. Dodd 06/09. GI: The patient states that her appetite has been adequate. She does get hungry. There has been no nausea, no vomiting. She denies dysphagia and denies odynophagia. There has not been indigestion or heartburn. There has not been regurgitation. Bowel habits have been regular. There has rarely been diarrhea. There has not been constipation. The patient denies rectal bleeding. There has not been melena. No abdominal pain. BILLER: Negative for abnormal vaginal bleeding, abnormal vaginal discharge. LMP: 2 weeks ago. PSYCH: Negative for sleep disturbance, mood disorder and recent psychosocial stressors. HEMATOLOGY/LYMPHOLOGY Negative for prolonged bleeding, bruising easily or swollen nodes ENDOCRINE: Negative for thyroid or diabetes. NEURO: No history of headaches, syncope, paralysis, seizures or tremors All other reviewed and negative other than HPI. PAST MEDICAL HISTORY Diagnosis Date - Abdominal pain, generalized - Diarrhea - Hormone disorder - Localization-related (focal) (partial) epilepsy and epileptic syndromes with simple partial seizures, without mention of intractable epilepsy FEBRILE, last occurrence 7 years ago PAST SURGICAL HISTORY Procedure Laterality Date - COLONOSCOPY W/BX 11/04/11 - EGD W/O BRSH SPECIMEN W/BX 08/24/07 - VAGINAL DELIVERY HX 4 uncomplcate pregnancies. FAMILY HISTORY Problem Relation Age of Onset - Stroke Mother - other (Other) Mother Lupus - Hypertension Father - Diabetes Father - Stroke Maternal Grandmother x 2 - Heart Paternal Grandfather [place] - Diabetes Sister - Asthma No Family History - COPD No Family History No current outpatient prescriptions on file. No current facility-administered medications for this visit. SOCIAL HISTORY: Patient is . She has never smoked and reports her alcohol use as never. PHYSICAL EXAMINATION: Blood pressure 117/80, pulse 80, height 165.1 cm (5' 5), weight 95.7 kg (211 lb), last menstrual period 04/29/2018. General Appearance: Well appearing, alert, in no acute distress, well-hydrated, well nourished. Skin: Skin color, texture, turgor normal, no suspicious rashes or lesions. Head: Normocephalic, no masses, lesionsor abnormalities. Eyes: Anicteric sclera. P Oropharynx: Lips, mucosa, and tongue normal, teeth and gums normal, oropharynx normal. Neck: Supple, no adenopathy; thyroid symmetric, normal size. Lungs: Lungs clear to auscultation. No wheezing, rhonchi, rales. Heart: RRR without murmur. Abdomen: Normal abdominal exam, Abdomen soft, non-tender. Bowel sounds normal. No masses, organomegaly. Extremities: No deformities, edema, skin discoloration, clubbing or cyanosis. Peripheral Pulses: Normal. Impression: constant chest pressure Plan: I have explained that constant pain/pressure usually doesn't go along with GI issues, but that I would like to start with an UGI. I am not sure that an EGD would yield much information from what she is describing. Labs. The patient agrees to proceed. Further plan based on the results. Keep appointment with Dr. Esteban. I have personally interviewed and examined this patient. I have reviewed the information that the MA entered for this encounter. I spent 25 minutes in the visit, with greater than 50% of the total [id number] time of the visit in counseling and coordination of care. Rsoa Olea RN ENTRY LEVEL CIVIL ENGINEER.UMAIR Olea RN APRN.UMAIR 05/12/2018 9:11 AM Signed Please follow the instructions for the test that looks at your esophagus and stomach. ([facility]) It will take a day or two after the test for us to get the results. Call [phone], and ask to speak to a nurse in GI, if you have any questions or concerns in the mean time. Referring Provider: SELF [200] Allergies As of Date: 05/12/2018 Noted Allergy Reaction PENICILLINS 09/18/2005 16 - Unknown Comments: Childhood reaction. Date Reviewed: 05/12/2018 Reviewed by: Gisela Werner Ma - Fully Assessed Reason for Visit: Chest Pain [21] Primary Visit Diagnosis:Chest pain, unspecified type [R07.9] Other Visit Diagnosis:Nausea [R11.0] Order(s):XR UPPER GI ROUTINE DOUBLE CONTRAST/AIR [1261177] Order #: [id number] FUTURE H PYLORI IGG AB [SQHPYLRI] Order #: [id number] FUTURE COMP METABOLIC PANEL [SQCMP] Order #: [id number] FUTURE LIPASE BLD [SQLIPA] Order #: [id number] FUTURE Problem List As Of Date 05/12/2018 Noted Resolved Hx of febrile seizure [Z87.898] More... Abdominal pain, generalized [R10.84] INVALID FOR*11/03/2017 Hormone disorder [E34.9] Diarrhea [R19.7] INVALID FOR* Other chest pain [R07.89] INVALID FOR* Other instructions from your clinician: Please follow the instructions for the test that looks at your esophagus and stomach. ([facility]) It will take a day or two after the test for us to get the results. Call [phone], and ask to speak to a nurse in GI, if you have any questions or concerns in the mean time. Encounter Status:Closed by ROSA OLEA CNP on 05/12/18 UMAIRN Observed: 04/25/2018 Status: COMPLETED Source: [place] 12:00 AM [facility] REPOSITORY Telephone (PULMWS) LESLIE ORELLANA ([id number]) 1980 F Date Time Provider Department 04/25/18 LARA PONCE During your visit today, we recorded the following information about you: Lara Ponce MD 04/25/2018 2:43 PM Signed Component Ref Rng AND Units 04/22/2018 WSR 0 - 20 mm/hr 2 CRP <0.9 mg/dL 0.2 Rheumatoid Factor <16 IU/mL <10 d Dimer <500 ng/mL FEU 300 IMPRESSION AND RECOMMENDATIONS: 1. Normal D-dimer exclude pulmonary embolism. 2. Normal ESR and CRP excludes lupus pleuritis. 3. Normal Rheumatoid factor excludes Rheumatoid pleuritis. 4. No further Pulmonary evaluation or Rx needed at this time. Lara Ponce MD, [facility] Respiratory [facility] Ambulatory Surgery [address] [address] P: [phone] F: [phone] [email or web address] Myesha Garcia LPN 04/25/2018 3:15 PM Signed Patient notified re: same. Myesha Jose SULLIVAN Allergies As of Date: 04/25/2018 Noted Allergy Reaction PENICILLINS 09/18/2005 16 - Unknown Comments: Childhood reaction. Date Reviewed: 04/22/2018 Reviewed by: Lara Ponce - Fully Assessed Reason for Visit: Results [95] Problem List As Of Date 04/25/2018 Noted Resolved Hx of febrile seizure [Z87.898] More... Abdominal pain, generalized [R10.84] INVALID FOR*11/03/2017 Hormone disorder [E34.9] Diarrhea [R19.7] INVALID FOR* Other chest pain [R07.89] INVALID FOR* Encounter Status:Closed by LARA PONCE MD on 04/25/18 D DIMER Collected: 04/22/2018 Status: F Source: [place] 10:21 AM [facility] REPOSITORY TYPE CODE TESTS RESULT OUT OF REFERENCE UNITS RANGE LAB DDMER <500 ng/mL FEU D dimer 300 Result Comment: The D-dimer assay can be used to exclude pulmonary embolism (PE) and deep vein thrombosis (DVT) in conjunction with a low pre-test probability. For patients with a suspected DVT, a D-dimer level below 500 ng/mL FEU has a negative predictive value of 99.2%, a sensitivity of 98.9%, and a specificity of 36.1%. For patients with a suspected PE, a D -dimer level below 500 ng/mL FEU has a negative predictive value of 99.1%, a sensitivity of 97.8%, and a specificity of 41.7%. Performed By: #### DDMER, WSR, CRP, RF, ANAS #### [place] [id number] [place] [address] SED RATE WESTERGREN Collected: 04/22/2018 Status: F Source: [place] 10:21 AM [facility] REPOSITORY TYPE CODE TESTS RESULT OUT OF REFERENCE UNITS RANGE LAB WSR 0-20 mm/hr Sed Rate Westergren 2 Performed By: #### DDMER, WSR, CRP, RF, ANAS #### [place] [address] C-REACTIVE PROTEIN Collected: 04/22/2018 Status: F Source: [place] 10:21 AM [facility] TYPE CODE TESTS RESULT OUT OF REFERENCE UNITS RANGE LAB CRP <0.9 mg/dL C-Reactive 0.2 Protein Performed By: #### DDMER, WSR, CRP, RF, ANAS #### [place] [address] RHEUMATOID FACTOR Collected: 04/22/2018 Status: F Source: [place] 10:21 AM [facility] TYPE CODE TESTS RESULT OUT OF REFERENCE UNITS RANGE LAB RF <16 IU/mL Rheumatoid <10 Factor Performed By: #### DDMER, WSR, CRP, RF, ANAS #### [place] [address] STEPHANIE Collected: 04/22/2018 Status: F Source: [place] 10:21 AM [facility] REPOSITORY TYPE CODE TESTS RESULT OUT OF REFERENCE UNITS RANGE LAB ANAQL Negative STEPHANIE Negative by EIA, Qual LAB ANAEIA OD Ratio STEPHANIE 0.3 by EIA Result Comment: OD Ratio is interpreted as follows: Negative <1.0 Positive >=1.0 Performed By: #### DDMER, WSR, CRP, RF, ANAS #### [place] [address] CNOV Observed: 04/22/2018 Status: COMPLETED Source: [place] 9:30 AM [facility] REPOSITORY Office Visit (PULMWS) REYNALESLIE REID ([id number]) 1980 F Date Time Provider Department 04/22/18 9:30 AM LARA PONCE During your visit today, we recorded the following information about you: Pulse Respiration Blood pressure Weight 77/minute 15/minute 130/76 95.3 kg Myesha Garcia LPN 04/22/2018 9:28 AM Addendum ROS: General: Generally feels fatigued, complains of deep, sharp pain in midsternal chest since August. Constant, no aggravating or alleviating factors. Appetite good. Eyes, Ears, nose, throat: denies post nasal drip. denies rhinorrhea. denies purulent nasal discharge. denies epistaxis. denies hoarseness. Vision stable. Cardiac: notes angina, denies edema, denies orthopnea. GI: denies heartburn. denies dysphagia. denies diarrhea. Uro/BILLER: denies dysuria. denies hesitancy. denies nocturia. Menses: regular Musculoskeletal: denies pain. Neuro: denies headache, denies focal weakness. denies tremor. Skin: notes rash on hands, not unusual. Otherwise negative. Reviewed with patient, confirmed as documented by Myesha Garcia LPN. TO Lara Ponce MD 04/22/2018 11:00 AM Signed [facility] Res[facility] [place] Consultation Note, 04/22/2018: Introduction: The patient is seen in consultation today for evaluation of chest pain. This consultation is requested by Tess Ray PA-C. A copy of this encounter will be made available as a report via [facility] electronic medical record. HPI: Has noted left parasternal chest pain, nearly constant, since 08/2017. Worse with position change and cough. No shortness of breath at rest. Minimal [place] with housework. Currently, no residual cough, purulent sputum, hemoptysis, wheezing. Has not noted relief with prescribed Rx (2 courses of antibiotic/steroid, gabapentin). MDI Albuterol of no relief. [place] No pets in home. Basement is dry. Natural gas hot water floor heat. No Central A/C. Bedroom dameon is linoleum. Little nearby farming Keeps house, no barn or stable work. 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 No sustained Rx with Amiodarone, Nitrofurantoin, Methotrexate, cancer chemotherapy, INH, Hydralazine. No prior diagnosis of Pulmonary disease, connective tissue disease. Lifestyle is active, no leg pain or swelling. PAST MEDICAL HISTORY Diagnosis Date - Abdominal pain, generalized - Diarrhea - Hormone disorder - Localization-related (focal) (partial) epilepsy and epileptic syndromes with simple partial seizures, without mention of intractable epilepsy FEBRILE, last occurrence 7 years ago PAST SURGICAL HISTORY Procedure Laterality Date - COLONOSCOPY W/BX 11/04/11 - EGD W/O BRSH SPECIMEN W/BX 08/24/07 FAMILY HISTORY Problem Relation Age of Onset - Hypertension Father - Diabetes Father - Stroke Maternal Grandmother TIMES 2 - Heart Paternal Grandfather [place] - Diabetes Sister Mother: Lupus. Social History Marital status: Spouse name: Jos Years of education: Number of children: 3 Social History Main Topics Smoking status: Never Smoker Smokeless tobacco: Never Used Alcohol use: No Drug use: No Sexual activity: Yes Partners with: Male There is no immunization history on file for this patient. MEDICATIONS and ALLERGIES: Reviewed, updated and reconciled with the patient today, as noted in the medication and allergy sections of the encounter. ROS: General: Generally feels fatigued, complains of deep, sharp pain in midsternal chest since August. Constant, no aggravating or alleviating factors. Appetite good. Eyes, Ears, nose, throat: denies post nasal drip. denies rhinorrhea. denies purulent nasal discharge. denies epistaxis. denies hoarseness. Vision stable. Cardiac: notes angina, denies edema, denies orthopnea. GI: denies heartburn. denies dysphagia. denies diarrhea. Uro/BILLER: denies dysuria. denies hesitancy. denies nocturia. Menses: regular Musculoskeletal: denies pain. Neuro: denies headache, denies focal weakness. denies tremor. Skin: notes rash on hands, not unusual. Otherwise negative. Reviewed with patient, confirmed as documented by Myesha Pantea, MANAGER LANDSCAPE. TO PHYSICAL EXAMINATION: BP 130/76 Pulse 77 Resp 15 Wt 210 lb (95.3kg) SpO2 98% Gen: No acute distress. Cooperative with examination. ENT: Sclerae clear. Nares clear. Oral hygeine and dentition good. Pharynx clear. Resp: No stridor, accessory respiratory muscle use, supra- sternal or intercostal retractions. A-P diameter normal. No pleural rubs, crackles, wheezes. CV: Regular rythm. Heart tones normal, no pericardial rub. No carotid bruit. Radial pulses normal. Abd: Not distended. MSK: No kyphoscoliosis, joint deformities of the extremities. Ext: Warm and well perfused. No clubbing. No cyanosis. No edema. No sclerodactyly. No Raynaud's. Skin: No malar rash, eczema, urticaria. Lymph: No adenopathy in neck, supra-clavicular fossae. Endo: No goiter. No exophthalmos, onycholysis. Neuro: Mental status normal. No tremor. Symmetrical and normal muscle strength. DATA REVIEW: CT CHEST 12/21/17 and 01/18/18: I have personally and independently reviewed the above images and I concur with the findings as described. TO 08/2017 [facility] labs in Scanned Documents: Normal WBC, diff, Na, D-dimer, Troponin. IMPRESSION/RECOMMEND: 1. My pleuritic chest pain differential diagnosis in this case: pulmonary embolism (blood clots in lungs, no evidence at [facility] 08/2017 visit), pneumonia present on 1st CT chest and resolved by second scan, connective tissue disease like lupus, musculoskeletal pain (arthritis, work injury, et cetera). 2. My investigation will include inflammatory markers and repeat screen for blood clots: - ESR, C-reactive protein, STEPHANIE, RF, D-dimer. - Further recommendations to follow these results. 3. If all of this is normal, pursue cardiac evaluation with Tess Ray PA-C. I addressed the questions of the patient and her spouse, and they expressed understanding and acceptance of my answers. Lara Ponce MD, [facility] [address] [place] [address] P: [phone] F: [phone] [email or web address] Lara Ponce MD 04/22/2018 10:02 AM Signed 1. Pleuritic chest pain may be caused by pulmonary embolism (blood clots in lungs, no evidence at [facility] 08/2017 visit), pneumonia presnet on 1st CT chest and resolved by second scan, connective tissue disease like lupus, musculoskeletal pain (arthritis, work injury, et cetera). 2. My investigation will include inflammatory markers and repeat screen for blood clots: - ESR, C-reactive protein, STEPHANIE, RF, D-dimer. - Further recommendations to follow these results. 3. If all of this is normal, pursue cardiac evaluation with Tess Ray PA-C. Lara Ponce MD, [facility] [place] [id number] P: [phone] F: [phone] [email or web address] Referring Provider: Hipolito RAY) [[id number]] Allergies As of Date: 04/22/2018 Noted Allergy Reaction PENICILLINS 09/18/2005 16 - Unknown Comments: Childhood reaction. Date Reviewed: 04/22/2018 Reviewed by: Lara Ponce - Fully Assessed Reason for Visit: Chest Pain [21] Cmt: Consult from Ángel Ray PA-C Reason For Visit History Recorded Primary Visit Diagnosis:Chest pain, unspecified type [R07.9] Order(s):SED RATE WESTERGREN [SQWSR] Order #: [id number] FUTURE C-REACTIVE PROTEIN (CRP) [SQCRP] Order #: [id number] FUTURE STEPHANIE BLOOD [SQANAS] Order #: [id number] FUTURE RHEUMATOID FACTOR BL [SQRF] Order #: [id number] FUTURE D-DIMER [SQDDMER] Order #: [id number] FUTURE Medication notes this encounter GABAPENTIN 300 MG CAPSULE >> Lara Ponce MD 04/22/2018 9:30 AM Tried it. I didn't like it. Problem List As Of Date 04/22/2018 Noted Resolved Hx of febrile seizure [Z87.898] More... Abdominal pain, generalized [R10.84] INVALID FOR*11/03/2017 Hormone disorder [E34.9] Diarrhea [R19.7] INVALID FOR* Other chest pain [R07.89] INVALID FOR* Notes for Staff Call patient with results Other instructions from your clinician: 1. Pleuritic chest pain may be caused by pulmonary embolism (blood clots in lungs, no evidence at [facility] 08/2017 visit), pneumonia presnet on 1st CT chest and resolved by second scan, connective tissue disease like lupus, musculoskeletal pain (arthritis, work injury, et cetera). 2. My investigation will include inflammatory markers and repeat screen for blood clots: - ESR, C-reactive protein, STEPHANIE, RF, D-dimer. - Further recommendations to follow these results. 3. If all of this is normal, pursue cardiac evaluation with MIQUEL Holt MD, [facility] [address] [place] [id number] P: [phone] F: [phone] Visit Notes: >> Myesha Garcia LPN WedApr 22, 2018 9:21 AM Status: Addendum ROS: General: Generally feels fatigued, complains of deep, sharp pain in midsternal chest since August. Constant, no aggravating or alleviating factors. Appetite good. Eyes, Ears, nose, throat: denies post nasal drip. denies rhinorrhea. denies purulent nasal discharge. denies epistaxis. denies hoarseness. Vision stable. Cardiac: notes angina, denies edema, denies orthopnea. GI: denies heartburn. denies dysphagia. denies diarrhea. Uro/BILLER: denies dysuria. denies hesitancy. denies nocturia. Menses: regular Musculoskeletal: denies pain. Neuro: denies headache, denies focal weakness. denies tremor. Skin: notes rash on hands, not unusual. Otherwise negative. Reviewed with patient, confirmed as documented by Myesha Garcia LPN. TO Medications Discontinued During This Encounter gabapentin (NEURONTIN) 300 mg capsule 90 c* 2 03/07/2018 04/22/2018 Class: Print RX Route: ORAL Sig: Take 1 capsule by mouth daily at bedtime for 90 days. Increase to twice in 5 days if tolerated and again to three times a day in 5 days if tolerated Disc: Side Effects Follow Up: Call patient with results Follow-up and Disposition History Recorded Encounter Status:Closed by LARA PONCE MD on 04/22/18 PROGRESS Observed: 04/22/2018 Status: COMPLETED Source: [place] 9:25 AM [facility] REPOSITORY HNO ID: [id number] Author: Lara Ponce Service: (none) Author Type: Physician Type: Progress Notes Filed: 04/22/2018 11:00 AM Note Text: [facility] [place] Consultation Note, 04/22/2018: Introduction: The patient is seen in consultation today for evaluation of chest pain. This consultation is requested by Tess Ray PA-C. A copy of this encounter will be made available as a report via [facility] [employer] electronic medical record. HPI: Has noted left parasternal chest pain, nearly constant, since 08/2017. Worse with position change and cough. No shortness of breath at rest. Minimal [place] with housework. Currently, no residual cough, purulent sputum, hemoptysis, wheezing. Has not noted relief with prescribed Rx (2 courses of antibiotic/steroid, gabapentin). MDI Albuterol of no relief. [place] No pets in home. Basement is dry. Natural gas hot water floor heat. No Central A/C. Bedroom dameon is linoleum. Little nearby farming Keeps house, no barn or stable work. 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 No sustained Rx with Amiodarone, Nitrofurantoin, Methotrexate, cancer chemotherapy, INH, Hydralazine. No prior diagnosis of Pulmonary disease, connective tissue disease. Lifestyle is active, no leg pain or swelling. PAST MEDICAL HISTORY Diagnosis Date - Abdominal pain, generalized - Diarrhea - Hormone disorder - Localization-related (focal) (partial) epilepsy and epileptic syndromes with simple partial seizures, without mention of intractable epilepsy FEBRILE, last occurrence 7 years ago PAST SURGICAL HISTORY Procedure Laterality Date - COLONOSCOPY W/BX 11/04/11 - EGD W/O BRSH SPECIMEN W/BX 08/24/07 FAMILY HISTORY Problem Relation Age of Onset - Hypertension Father - Diabetes Father - Stroke Maternal Grandmother TIMES 2 - Heart Paternal Grandfather [place] - Diabetes Sister Mother: Lupus. Social History Marital status: Spouse name: Jos Years of education: Number of children: 3 Social History Main Topics Smoking status: Never Smoker Smokeless tobacco: Never Used Alcohol use: No Drug use: No Sexual activity: Yes Partners with: Male There is no immunization history on file for this patient. MEDICATIONS and ALLERGIES: Reviewed, updated and reconciled with the patient today, as noted in the medication and allergy sections of the encounter. ROS: General: Generally feels fatigued, complains of deep, sharp pain in midsternal chest since August. Constant, no aggravating or alleviating factors. Appetite good. Eyes, Ears, nose, throat: denies post nasal drip. denies rhinorrhea. denies purulent nasal discharge. denies epistaxis. denies hoarseness. Vision stable. Cardiac: notes angina, denies edema, denies orthopnea. GI: denies heartburn. denies dysphagia. denies diarrhea. Uro/BILLER: denies dysuria. denies hesitancy. denies nocturia. Menses: regular Musculoskeletal: denies pain. Neuro: denies headache, denies focal weakness. denies tremor. Skin: notes rash on hands, not unusual. Otherwise negative. Reviewed with patient, confirmed as documented by Myesha Garcia LPN. TO PHYSICAL EXAMINATION: BP 130/76 Pulse 77 Resp 15 Wt 210 lb (95.3kg) SpO2 98% Gen: No acute distress. Cooperative with examination. ENT: Sclerae clear. Nares clear. Oral hygeine and dentition good. Pharynx clear. Resp: No stridor, accessory respiratory muscle use, supra- sternal or intercostal retractions. A-P diameter normal. No pleural rubs, crackles, wheezes. CV: Regular rythm. Heart tones normal, no pericardial rub. No carotid bruit. Radial pulses normal. Abd: Not distended. MSK: No kyphoscoliosis, joint deformities of the extremities. Ext: Warm and well perfused. No clubbing. No cyanosis. No edema. No sclerodactyly. No Raynaud's. Skin: No malar rash, eczema, urticaria. Lymph: No adenopathy in neck, supra-clavicular fossae. Endo: No goiter. No exophthalmos, onycholysis. Neuro: Mental status normal. No tremor. Symmetrical and normal muscle strength. DATA REVIEW: CT CHEST 12/21/17 and 01/18/18: I have personally and independently reviewed the above images and I concur with the findings as described. TO 08/2017 [facility] labs in Scanned Documents: Normal WBC, diff, Na, D-dimer, Troponin. IMPRESSION/RECOMMEND: 1. My pleuritic chest pain differential diagnosis in this case: pulmonary embolism (blood clots in lungs, no evidence at [facility] 08/2017 visit), pneumonia present on 1st CT chest and resolved by second scan, connective tissue disease like lupus, musculoskeletal pain (arthritis, work injury, et cetera). 2. My investigation will include inflammatory markers and repeat screen for blood clots: - ESR, C-reactive protein, STEPHANIE, RF, D-dimer. - Further recommendations to follow these results. 3. If all of this is normal, pursue cardiac evaluation with Tess Ray PA-C. I addressed the questions of the patient and her spouse, and they expressed understanding and acceptance of my answers. Lara Ponce MD, [facility] [address] [place] [address] P: [phone] F: [phone] [email or web address] PROGRESS Observed: 03/07/2018 Status: COMPLETED Source: [place] 4:57 PM [facility] REPOSITORY HNO ID: [id number] Author: Hipolito Ray Service: (none) Author Type: Physician Director Of Scientific Research Type: Progress Notes Filed: 03/08/2018 7:55 PM Note Text: 37 year old female with c/o returns with complaint of persistent chest pain in the mid sternal area which she identifies as sharp, clenching, moderate and continuous. Pain is causing her to feel nausea, tired, drained. Feels that she is not able to complete her usual activities during the day due to pain which does not limit her function but makes her feel unwilling to participate. She was being seen in physical therapy with dry needling attempted without much benefit. She had some manual therapy as well felt that this did not really help. The physical therapist said he wasn't sure he had more to add. Patient sought opinion outside of the office with Dr. Pa in [place] who also was not able to give her satisfaction. Last CT 01/19/18 showed near completion of the tree-in-bud appearance in her left lower lobe with resolution completely of infiltrate. Patient has had no fever, no shortness of breath, no reflux. She has no restriction in terms of exercise tolerance. is concerned about underlying conditions that were missing. We reviewed her studies which included a negative d-dimer, negative troponins, normal EKG, normal stress echo with ejection fraction of 65%, 2 CT scans which were negative for cancer or other findings and bone or muscle. She has not had improvement on 2 weeks of PPI or on 2 weeks of H2 blockers. She denies any stomach symptoms, heartburn, nausea, diarrhea, constipation. HISTORIES FAMILY HISTORY Problem Relation Age of Onset - Hypertension Father - Diabetes Father - Stroke Maternal Grandmother TIMES 2 - Heart Paternal Grandfather [place] - Diabetes Sister PAST MEDICAL HISTORY Diagnosis Date - Abdominal pain, generalized - Diarrhea - Hormone disorder - Localization-related (focal) (partial) epilepsy and epileptic syndromes with simple partial seizures, without mention of intractable epilepsy FEBRILE, last occurrence 7 years ago PAST SURGICAL HISTORY Procedure Laterality Date - COLONOSCOPY W/BX 11/04/11 - EGD W/O BRSH SPECIMEN W/BX 08/24/07 Social History Marital status: Spouse name: Jos Years of education: Number of children: 3 Social History Main Topics Smoking status: Never Smoker Smokeless tobacco: Never Used Alcohol use: No Drug use: No Sexual activity: Yes Partners with: Male ACTIVE PROBLEM LIST Hx of Febrile Seizure Hormone Disorder Diarrhea Other Chest Pain No current outpatient prescriptions on file. No current facility-administered medications for this visit. DTAP,TDAP,TD(1 - Tdap) due on 1999 PAP EVERY 5 YEARS due on 2010 HPV EVERY 5 YEARS due on 2010 EXAM: BP 132/100 Pulse 88 Temp 36.5 ?C (97.7 ?F) (Tympanic) Resp 16 Wt 96.2 kg (212 lb) BMI 35.55 kg/m? Pleasant adult woman in no acute distress. Alert and oriented all spheres. Normal affect and cognition. Mildly anxious. HEENT WNL. TM's clear. Nose and oropharynx free from injection or lesion. No cervical lymph nodes. Thyroid non-tender, no masses Chest CTA. HRRR without murmur or gallop. Speech normal. No deficits to learning or comprehension. Skin warm, dry, pink to lips and nailbeds. Normal turgor. Respirations regular and unlabored. Extrem: no clubbing, cyanosis, edema. Extremities are warm and pink with prompt capillary refill. ASSESSMENT/PLAN: 1. Other chest pain - ICD9: 786.59, ICD10: R07.89 Spent 40 minutes in detailed discussion with patient and . I'm concerned that there is a emotional response to her discomfort which is causing her fatigue. Patient has not benefited from in the medication so far but has not been on specific pain medication other than anti-inflammatories. She is very suspicious medication and really does not want to take it. is concerned about side effects. Have offered consult to pain management which they don't want to pursue because it was simply be a band aid. I discussed referral for cardiac or pulmonary evaluations. We're going around in circles at one point at which time I said that I thought perhaps the best evaluation would be to review with a contractor broomcorn threshing to evaluate since she did have pneumonia and has chest related symptoms. This is the starting Place. In the interim and I suggested that we try gabapentin to see if we can alleviate pain. She reluctantly agreed. identifies that he anticipates she'll have side effects which will make medication undesirable. This is been a pattern. - Start gabapentin 300 mg at bedtime and titrate over 15 days to 300 mg 3 times a day if tolerated. notify not improving or of any complications from medication. - CONSULT TO PULM/CRITICAL CARE Hipolito Ray PA-C CNOV Observed: 03/07/2018 Status: COMPLETED Source: [place] 3:20 PM [facility] REPOSITORY Office Visit (FAMPWS) LESLIE ORELLANA ([id number]) 1980 F Date Time Provider Department 03/07/18 3:20 PM Hpiolito RAY) FAMPWS During your visit today, we recorded the following information about you: Temperature Pulse Respiration Blood pressure 97.7 degrees 88/minute 16/minute 132/100 Weight 96.2 kg M Savi Ray PA-C 03/08/2018 7:55 PM Signed 37 year old female with c/o returns with complaint of persistent chest pain in the mid sternal area which she identifies as sharp, clenching, moderate and continuous. Pain is causing her to feel nausea, tired, drained. Feels that she is not able to complete her usual activities during the day due to pain which does not limit her function but makes her feel unwilling to participate. She was being seen in physical therapy with dry needling attempted without much benefit. She had some manual therapy as well felt that this did not really help. The physical therapist said he wasn't sure he had more to add. Patient sought opinion outside of the office with Dr. Pa in [place] who also was not able to give her satisfaction. Last CT 01/19/18 showed near completion of the tree-in-bud appearance in her left lower lobe with resolution completely of infiltrate. Patient has had no fever, no shortness of breath, no reflux. She has no restriction in terms of exercise tolerance. is concerned about underlying conditions that were missing. We reviewed her studies which included a negative d-dimer, negative troponins, normal EKG, normal stress echo with ejection fraction of 65%, 2 CT scans which were negative for cancer or other findings and bone or muscle. She has not had improvement on 2 weeks of PPI or on 2 weeks of H2 blockers. She denies any stomach symptoms, heartburn, nausea, diarrhea, constipation. HISTORIES FAMILY HISTORY Problem Relation Age of Onset - Hypertension Father - Diabetes Father - Stroke Maternal Grandmother TIMES 2 - Heart Paternal Grandfather [place] - Diabetes Sister PAST MEDICAL HISTORY Diagnosis Date - Abdominal pain, generalized - Diarrhea - Hormone disorder - Localization-related (focal) (partial) epilepsy and epileptic syndromes with simple partial seizures, without mention of intractable epilepsy FEBRILE, last occurrence 7 years ago PAST SURGICAL HISTORY Procedure Laterality Date - COLONOSCOPY W/BX 11/04/11 - EGD W/O BRSH SPECIMEN W/BX 08/24/07 Social History Marital status: Spouse name: Jos Years of education: Number of children: 3 Social History Main Topics Smoking status: Never Smoker Smokeless tobacco: Never Used Alcohol use: No Drug use: No Sexual activity: Yes Partners with: Male ACTIVE PROBLEM LIST Hx of Febrile Seizure Hormone Disorder Diarrhea Other Chest Pain No current outpatient prescriptions on file. No current facility-administered medications for this visit. DTAP,TDAP,TD(1 - Tdap) due on 1999 PAP EVERY 5 YEARS due on 2010 HPV EVERY 5 YEARS due on 2010 EXAM: BP 132/100 Pulse 88 Temp 36.5 ?C (97.7 ?F) (Tympanic) Resp 16 Wt 96.2 kg (212 lb) BMI 35.55 kg/m? Pleasant adult woman in no acute distress. Alert and oriented all spheres. Normal affect and cognition. Mildly anxious. HEENT WNL. TM's clear. Nose and oropharynx free from injection or lesion. No cervical lymph nodes. Thyroid non-tender, no masses Chest CTA. HRRR without murmur or gallop. Speech normal. No deficits to learning or comprehension. Skin warm, dry, pink to lips and nailbeds. Normal turgor. Respirations regular and unlabored. Extrem: no clubbing, cyanosis, edema. Extremities are warm and pink with prompt capillary refill. ASSESSMENT/PLAN: 1. Other chest pain - ICD9: 786.59, ICD10: R07.89 Spent 40 minutes in detailed discussion with patient and . I'm concerned that there is a emotional response to her discomfort which is causing her fatigue. Patient has not benefited from in the medication so far but has not been on specific pain medication other than anti-inflammatories. She is very suspicious medication and really does not want to take it. is concerned about side effects. Have offered consult to pain management which they don't want to pursue because it was simply be a band aid. I discussed referral for cardiac or pulmonary evaluations. We're going around in circles at one point at which time I said that I thought perhaps the best evaluation would be to review with a contractor broomcorn threshing to evaluate since she did have pneumonia and has chest related symptoms. This is the starting Place. In the interim and I suggested that we try gabapentin to see if we can alleviate pain. She reluctantly agreed. identifies that he anticipates she'll have side effects which will make medication undesirable. This is been a pattern. - Start gabapentin 300 mg at bedtime and titrate over 15 days to 300 mg 3 times a day if tolerated. notify not improving or of any complications from medication. - CONSULT TO PULM/CRITICAL CARE Hipolito Ray PA-C Referring Provider: Hipolito RAY (TRAN) [[id number]] Allergies As of Date: 03/07/2018 Noted Allergy Reaction PENICILLINS 09/18/2005 Date Reviewed: 03/07/2018 Reviewed by: Ellen Lemus LPN - Fully Assessed Reason for Visit: 6 week follow up [Other] Primary Visit Diagnosis:Other chest pain [R07.89] Order(s):CONSULT TO PULM/CRITICAL CARE [[id number]] Order #: [id number]: 1 gabapentin (NEURONTIN) 300 mg capsuleTake 1 capsule by mouth daily at bedtime for 90 days. Increase to twice in 5 days if tolerated and again to three times a day in 5 days if toleratedDisp: 90 capsuleRfl: 2 Prescriptions as of 03/07/2018 Sig: GABAPENTIN 300 MG CAPSULE Take 1 capsule by mouth daily* Problem List As Of Date 03/07/2018 Noted Resolved Hx of febrile seizure [Z87.898] More... Abdominal pain, generalized [R10.84] INVALID FOR*11/03/2017 Hormone disorder [E34.9] Diarrhea [R19.7] INVALID FOR* Other chest pain [R07.89] INVALID FOR* Prescriptions ordered this encounter Disp Refills Start End GABAPENTIN 300 MG CAPSULE 90 c* 2 03/07/2018 2018 Class: Print RX Route: ORAL Sig: Take 1 capsule by mouth daily at bedtime for 90 days. Increase to twice in 5 days if tolerated and again to three times a day in 5 days if tolerated Encounter Status:Closed by Hipolito RAY PA-C on 03/08/18 INTERNAL MEDICINE Observed: 02/08/2018 Status: F Source: [facility] OFFICE VISIT 1:33 PM [facility] Internal Medicine [address] [place] [address] [place] [address] OFFICE VISIT Date of Service: 01/28/18 MR#: [id number] Acct: [id number] Name: LESLIE ORELLANA Rep #: [id number] : 1980 Provider: Beau Waldrop MD Age/Sex: 37/F Location: [facility] Status: Signed Intake Vital Signs01/28/18 Height 5 ft 5 in Intake Visit Reasons: 2ND OPINION/SPOT ON LUNG Chief Complaint: follow-up second opinion chest pain Is patient in pain?: Yes (chest) Pain scale (1-10): 8 Allergies Penicillins Allergy (Verified 09/22/17 07:26) Other Medications cyclobenzaprine 10 mg tablet 10 mg PO TID PRN #60 tab 01/28/18 [Rx Confirmed 01/28/18] Is last menstrual period known: Yes PFSH Medical History History of pneumonia (Chronic) History of vaginal delivery (Acute) Family History Mother History of heart disease Sleep apnea Hypothyroid Sister Hypothyroid Sister Mitral valve prolapse Father Heart disease Myocardial infarction, Onset Age: 58 Social History Smoking Status: Never smoker alcohol intake: never substance use type: does not use what type of physical activity do you participate in: other details: active life style HPI HPI Chief Complaint: follow-up second opinion chest pain Details: LESLIE ORELLANA, is a 37yo F who presents to the office today for a second opinion regarding left sided chest pain. She describes this pain as a sharp, constant pain located in the upper aspect of her left chest wall. She denies any known precipitating or aggravating factors and states that pain is not associated with movement, cough or meals. She has had imaging done which showed Left lower lobe pneumonia with repeat imaging showing resolution of lung infiltrate. She has also been seen by a chiropractor, physical therapy and cardiology without any significant help. She is very concerned about the pain. ROS Const Constitutional: No weight change, body ache, chills, sleep problems, fever(s), change in appetite, snoring, frequent falls, headache(s) or excessive sweating Eyes Eyes: No change in vision, eye pain, light sensitivity or blurry vision ENT ENT: No headache(s), abnormal hearing, ear pain, tinnitus, nasal congestion, sore throat or neck pain Resp Respiratory: No snoring, cough, shortness of breath or wheezing Cardio Cardiology: No excessive sweating, chest pain with exertion, shortness of breath, dyspnea on exertion, palpitations, orthopnea or lightheadedness Gastro GI: No abdominal pain, change in bowel habits, constipation, diarrhea, vomiting, nausea/dyspepsia or cramping Genitourinary-Female: No burning urination, painful urination, urinary incontinence, urinary frequency, abnormal vaginal bleeding, pelvic pain or other Musc Musculoskeletal: Positive for other (Chest Pain); no neck pain, abnormal walking, joint pain, back pain, limited range of motion, numbness or tingling Skin Skin: No redness, dry skin, itching, lesions, wounds or rash Neuro Neurology: No frequent falls, headache(s), abnormal hearing, abnormal walking, numbness, tingling, abnormal speech, dizziness or memory loss Psych Psychiatric: No change in appetite, No memory loss, No anxiety, No depression, No Thoughts of harming yourself/Others Endo Endocrine: No excessive sweating, cold intolerance, increased thirst/drinking, heat intolerance, flushing or increased hunger Aller/Imm Allergy/Immunologic: No wheezing, itchy eyes, hives or seasonal allergy symptoms Ed/Lymp Hematologic/Lymphatic: No easy bleeding, easy bruising or enlarged lymph nodes Exam Const General: cooperative, no acute distress Orientation: alert, awake, oriented x3 [facility] Head: normal to inspection, normocephalic Ears: hearing grossly normal bilaterally Chest Chest palpation AND inspection: normal inspection of the chest, abnormal inspection of the chest (Tenderness on the superior ant. left chest wall.) Resp Effort AND Inspection: normal respiratory effort, able to speak in complete sentences Auscultation: Bilateral: Clear to Auscultation Cardio Rate: regular rate Rhythm: regular rhythm Heart Sounds: S1 normal, S2 normal GI Palpation: soft, no hepatosplenomegaly Neuro General: alert, awake, oriented x3, moves all extremities, CN's II-XI intact bilaterally Extrem General: no clubbing, cyanosis or edema Psych Mental Status: mental status grossly normal Mood: congruent mood Affect: normal affect Assessment AND Plan 1. Chest pain, atypical R07.89 Plan On going for a couple of months. She has been worked up extensively and tried several treatment modalities without any significant help. She is really concerned about the pain. ??? Rib dysfunction. Follow up with Dr. Pa. 2. History of pneumonia Z87.01 Plan Incidentally found on CT scan. Repeat CT after antibiotics showed resolving consolidation. No signs or symptoms of pneumonia at this time. Will monitor. Plan Detail Other Medications New: Discontinued: Follow Up 1 Month Coding Level of Care Code Off vis,new,level 3 Diagnoses Chest pain, atypical R07.89 History of pneumonia Z87.01 02/08/18 1333 <Electronically signed by Beau Waldrop MD> Date Beau Waldrop MD Cosigner Signature: Date (if applicable) CC: PROGRESS Observed: 01/25/2018 Status: COMPLETED Source: [place] 2:44 PM [facility] REPOSITORY HNO ID: [id number] Author: Ulices (Pt) Otf Service: (none) Author Type: Physical Therapist Type: Progress Notes Filed: 01/25/2018 2:49 PM Note Text: Episode Visit Count: 5 Therapist That Will Oversee The Plan Of Care: Ulices Vanessa Start of Care Date: 12/28/17 Plan of Care Certification Date: 12/28/17 [facility]ATION [facility]TS THERAPY PHYSICAL THERAPY PROGRESS REPORT PLAN OF CARE UPDATE: Assessment: Leslie Orellana exhibits difficulty with ADLs, chores, and physical activities, as well as no change in central chest pain, and remaining soreness to lateral chest pain. She continues to be limited with heavy exertion, lifting, physical activities, recreational activities, cleaning and cooking. She is progressing slower than expected towards her therapy goals as demonstrated by: pain levels and documented subjective information on progress. She will benefit from continued skilled therapy requiring continued manual techniques and progressive exercises in order to improve overall function and prevent further functional decline and pain. Patient is considering a second opinion due to unchanging central chest pain, and will seek this out before she decides to continue with therapy or not. Based upon decreasing intensity and change from sharp to sore pain, she is appopriate to continue with manual techniques and progressive exercises. Patient is self pay, and this will be taken into account with plan of care moving forward. Functional gains: Improved quality of movement Increased independence with HEP Increased ROM Goals for Episode of Care: created on 12/28/17 through 01/28/18 Homer in home exercise program. Met, on-going Patient will decrease pain rating by 2 points to meet minimal clinical important difference for numeric pain rating scale. Not met Patient will decrease pain to 0/10 with functional activities to allow patient to improve standing tolerance for ADLs. not met Patient will increase active ROM of L shoulder to WNL to allow pt to improved performance of ADLs. Met Perform work tasks without pain. Not met Planned Interventions, Frequency, and Duration: , Patient to be seen for SUBJECTIVE: Pt feels like this round of exercises was better, but she now has more generalized soreness across the left chest. This is better than the sharp pain she had, but still concerning. Activity level remains the same. Cannot decipher any activities or positions that make her back pain better or worse. The central chest pain remains the same, and has not changed since beginning therapy. She is discussing getting a second opinion on her chest pain.. Pain Score: 4/10 (up to an 8/10) Pain Location: Chest - Left Description: Sore Frequency: Intermittent OBJECTIVE MEASURES WITH LEVEL OF FUNCTION: UE AROM R Shoulder Flex: (no limitation) L Shoulder Flex: (no limitation) TREATMENT: Therapeutic Exercise: 1: R trunk rotation in hooklying 3x10 with 5 second holds 2: DKTC 3x10 with 5 second holds 3: G Tband rows 3x10 4: G Tband straight arm extensions 3x10 Skilled Intervention: Patient was educated in proper exercise technique and purpose for exercises. Skilled judgment was provided in selection of appropriate interventions. Correct performance of therapeutic exercises was facilitated with verbal cuing. Billing: [facility]: Therapeutic Exercise ([id number]): 1:1 time: 20 minutes (1 unit: 8-22 mins) Total time: 20 minutes Ulices Vanessa PT CNTHERAPY Observed: 01/25/2018 Status: COMPLETED Source: [place] 10:15 AM [facility] REPOSITORY OT/PT/Speech Visit (PTWS) LESLIE ORELLANA ([id number]) 1980 F Date Time Provider Department 01/25/18 10:15 AM ULICES VANESSA (PT) PTWS Date Time Provider Department Center 01/25/2018 10:15 AM [id number], SEAN (PT)PTWS [facility] Reason for Visit: PT Progress Note [6696] Physical Therapy [503] Primary Visit Diagnosis:Other chest pain [R07.89] Allergies As of Date: 01/25/2018 Noted Allergy Reaction PENICILLINS 09/18/2005 Date Reviewed: 01/18/2018 Reviewed by: Kimberlee Grant LPN - Fully Assessed Progress Notes: Ulices Vanessa PT 01/25/2018 2:49 PM Signed Episode Visit Count: 5 Therapist That Will Oversee The Plan Of Care: Ulices Vanessa Start of Care Date: 12/28/17 Plan of Care Certification Date: 12/28/17 REHABILITATION AND SPORTS THERAPY PHYSICAL THERAPY PROGRESS REPORT PLAN OF CARE UPDATE: Assessment: Leslie Orellana exhibits difficulty with ADLs, chores, and physical activities, as well as no change in central chest pain, and remaining soreness to lateral chest pain. She continues to be limited with heavy exertion, lifting, physical activities, recreational activities, cleaning and cooking. She is progressing slower than expected towards her therapy goals as demonstrated by: pain levels and documented subjective information on progress. She will benefit from continued skilled therapy requiring continued manual techniques and progressive exercises in order to improve overall function and prevent further functional decline and pain. Patient is considering a second opinion due to unchanging central chest pain, and will seek this out before she decides to continue with therapy or not. Based upon decreasing intensity and change from sharp to sore pain, she is appopriate to continue with manual techniques and progressive exercises. Patient is self pay, and this will be taken into account with plan of care moving forward. Functional gains: Improved quality of movement Increased independence with HEP Increased ROM Goals for Episode of Care: created on 12/28/17 through 01/28/18 [place] in home exercise program. Met, on-going Patient will decrease pain rating by 2 points to meet minimal clinical important difference for numeric pain rating scale. Not met Patient will decrease pain to 0/10 with functional activities to allow patient to improve standing tolerance for ADLs. not met Patient will increase active ROM of L shoulder to WNL to allow pt to improved performance of ADLs. Met Perform work tasks without pain. Not met Planned Interventions, Frequency, and Duration: , Patient to be seen for SUBJECTIVE: Pt feels like this round of exercises was better, but she now has more generalized soreness across the left chest. This is better than the sharp pain she had, but still concerning. Activity level remains the same. Cannot decipher any activities or positions that make her back pain better or worse. The central chest pain remains the same, and has not changed since beginning therapy. She is discussing getting a second opinion on her chest pain.. Pain Score: 4/10 (up to an 8/10) Pain Location: Chest - Left Description: Sore Frequency: Intermittent OBJECTIVE MEASURES WITH LEVEL OF FUNCTION: UE AROM R Shoulder Flex: (no limitation) L Shoulder Flex: (no limitation) TREATMENT: Therapeutic Exercise: 1: R trunk rotation in hooklying 3x10 with 5 second holds 2: DKTC 3x10 with 5 second holds 3: G Tband rows 3x10 4: G Tband straight arm extensions 3x10 Skilled Intervention: Patient was educated in proper exercise technique and purpose for exercises. Skilled judgment was provided in selection of appropriate interventions. Correct performance of therapeutic exercises was facilitated with verbal cuing. Billing: [facility]: Therapeutic Exercise ([id number]): 1:1 time: 20 minutes (1 unit: 8-22 mins) Total time: 20 minutes Ulices Vanessa PT PROGRESS Observed: 01/18/2018 Status: COMPLETED Source: [place] 2:33 PM [facility] [place] REPOSITORY HNO ID: [id number] Author: Ashley Tabor Ct Service: (none) Author Type: (none) Type: Progress Notes Filed: 01/18/2018 2:34 PM Note Text: Radiology Service Progress Note PATIENT NAME: Leslie Orellana DATE OF SERVICE: January 18, 2018 TIME: 2:33 PM PATIENT IDENTITY VERIFICATION COMPLETED USING TWO (2) METHODS: Patient confirmed name verbally and Date of . PATIENT GENDER DATA: Male PATIENT RELEVANT IMPLANT DATA REVIEWED: Yes RADIOLOGY DEPARTMENT: CT; Exam(s) Completed: Chest PERIPHERAL IV DATA: Not applicable SIGNED BY: Ashleyhernesto Conrad [address] January 18, 2018 2:[address] CHEST WO IVCON Observed: 01/18/2018 Status: F Source: [place] 1:41 PM [facility] REPOSITORY * * *Final Report* * * DATE OF EXAM: Jan 18 2018 1:41PM [facility] 0541 - CT CHEST WO IVCON / PROCEDURE REASON: multiple diagnoses * * * * Physician Interpretation * * * * EXAMINATION: CHEST CT WITHOUT CONTRAST CLINICAL HISTORY: Lobar pneumonia, unspecified organism Abnormal findings on diagnostic imaging of other specified body structures Technique: Spiral CT acquisition of the chest from the thoracic inlet to the upper abdomen without contrast. MQ: CTCWOR_4 CT Dose-Length Product: 503 mGy*cm CT Dose Reduction Employed: Automated exposure control (AEC) Comparison: 12/21/2017 RESULT: Limitations: None. Lines, tubes, and devices: None. Lung parenchyma and pleura: Interval near complete resolution of patchy tree-in-bud type airspace opacities seen within the left lower lobe, with complete resolution of focal consolidation seen within the superior segment of the left lower lobe. Findings suggest nearly resolved pneumonia. There is mild dependent atelectasis. There is no pleural effusion, endobronchial lesion, or pneumothorax. There is linear atelectasis seen within the lingula as well as within the right middle lobe. Thoracic inlet, heart, and mediastinum: Mildly prominent soft tissue density is again seen within the anterior mediastinum, likely related to residual or reactive thymic tissue. There are prominent, not pathologically enlarged bilateral axillary, bilateral hilar, and mediastinal lymph nodes, likely reactive. The heart is normal in size, and there is no significant pericardial effusion. Bones and soft tissues: There is no destructive bony lesion. There is mild multilevel degenerative change seen within the thoracic spine. Upper abdomen: Nonspecific wall thickening of the stomach likely relates to underdistention. The gallbladder is relatively collapsed but is otherwise unremarkable. There is a tiny splenule is incidentally seen within the left upper quadrant. IMPRESSION: Interval near complete resolution of patchy tree-in-bud type airspace opacity seen within the left lower lobe, with complete resolution of focal consolidation seen within the superior segment of the left lower lobe. Findings suggest nearly resolved pneumonia. Stable prominent, less than 1 cm mediastinal lymph nodes within the chest, likely reactive. Assistant Professor Of Nursing: MARLENE Transcribe Date/Time: Jan 19 2018 7:14A Dictated by : MARGARET GONZALEZ MD This examination was interpreted and the report reviewed and electronically signed by: MARGARET GONZALEZ MD on Jan 19 2018 7:17AM EST [id number] Observed: 01/18/2018 Status: COMPLETED Source: [place] 12:58 PM [facility] REPOSITORY HNO ID: [id number] Author: Ulices (Pt) Otf Service: (none) Author Type: Physical Therapist Type: Progress Notes Filed: 01/18/2018 1:05 PM Note Text: Episode Visit Count: 4 Therapist That Will Oversee The Plan Of Care: Ulices Vanessa Start of Care Date: 12/28/17 Plan of Care Certification Date: 12/28/17 REHABILITATION AND SPORTS THERAPY PHYSICAL THERAPY TREATMENT NOTE ASSESSMENT: Leslie Orellana demonstrated improvements in thoracic and mid chest pain today with regressed thoracic stretching exercises and manual techniques to thoracic musculature. Patient also educated on altering painful positions that may come up during daily activities. The patient will continue to benefit from continued skilled physical therapy for progressive mobility exercises and manual techniques to decrease pain and improve overall function. PLAN FOR NEXT VISIT: assess carry over, may perform needling to thoracic paraspinals if appropriate SUBJECTIVE: Pt feels like the exercises added last session made her feel worse. She had increased mid back and central chest pain. Pt ceased the added exercises and this has helped calm it some. Also has a new pain across the right collar bone and into the shoulder. Pain Score: 6/10 Pain Location: Chest - Left Description: Sore Frequency: Intermittent OBJECTIVE MEASURES WITH LEVEL OF FUNCTION: Tenderness to L sided thoracic paraspinals TREATMENT: Therapeutic Exercise: 1: R trunk rotation in hooklying 3x10 with 5 second holds 2: DKTC 3x10 with 5 second holds 3: G Tband rows 3x10 4: G Tband straight arm extensions 3x10 Skilled Intervention: Patient was educated in proper exercise technique and purpose for exercises. Skilled judgment was provided in selection of appropriate interventions. Provided written instruction for home exercise program to facilitate proper performance and compliance. Correct performance of therapeutic exercises was facilitated with verbal, visual and tactile cuing. Manual Therapy: 1: STM to L sided thoracic paraspinals x15 minutes- push to pt tolerance Skilled Intervention: Manual skills to improve joint mobility, ROM, and decrease pain. Utilized anatomy knowledge of the therapist, and assessment of patient's response to intervention. Billing: [facility]: Therapeutic Exercise ([id number]): 1:1 time: 25 minutes (2 units: 23-37 mins) Manual Therapy ([id number]): 1:1 time: 15 minutes (1 unit: 8-22 mins) Total time: 40 minutes Ulices Vanessa PT CNTHERAPY Observed: 01/18/2018 Status: COMPLETED Source: [place] 10:15 AM [facility] REPOSITORY OT/PT/Speech Visit (PTWS) LESLIE ORELLANA ([id number]) 1980 F Date Time Provider Department 01/18/18 10:15 AM ULICES VANESSA (PT) PTWS Date Time Provider Department Center 01/18/2018 10:15 AM [id number], SEAN (PT)PTWS [facility] Reason for Visit: Physical Therapy [503] Primary Visit Diagnosis:Other chest pain [R07.89] Allergies As of Date: 01/18/2018 Noted Allergy Reaction PENICILLINS 09/18/2005 Date Reviewed: 01/18/2018 Reviewed by: Kimberlee Grant LPN - Fully Assessed Progress Notes: Ulices Vanessa PT 01/18/2018 1:05 PM Signed Episode Visit Count: 4 Therapist That Will Oversee The Plan Of Care: Ulices Vansesa Start of Care Date: 12/28/17 Plan of Care Certification Date: 12/28/17 REHABILITATION AND SPORTS THERAPY PHYSICAL THERAPY TREATMENT NOTE ASSESSMENT: Leslie Orellana demonstrated improvements in thoracic and mid chest pain today with regressed thoracic stretching exercises and manual techniques to thoracic musculature. Patient also educated on altering painful positions that may come up during daily activities. The patient will continue to benefit from continued skilled physical therapy for progressive mobility exercises and manual techniques to decrease pain and improve overall function. PLAN FOR NEXT VISIT: assess carry over, may perform needling to thoracic paraspinals if appropriate SUBJECTIVE: Pt feels like the exercises added last session made her feel worse. She had increased mid back and central chest pain. Pt ceased the added exercises and this has helped calm it some. Also has a new pain across the right collar bone and into the shoulder. Pain Score: 6/10 Pain Location: Chest - Left Description: Sore Frequency: Intermittent OBJECTIVE MEASURES WITH LEVEL OF FUNCTION: Tenderness to L sided thoracic paraspinals TREATMENT: Therapeutic Exercise: 1: R trunk rotation in hooklying 3x10 with 5 second holds 2: DKTC 3x10 with 5 second holds 3: G Tband rows 3x10 4: G Tband straight arm extensions 3x10 Skilled Intervention: Patient was educated in proper exercise technique and purpose for exercises. Skilled judgment was provided in selection of appropriate interventions. Provided written instruction for home exercise program to facilitate proper performance and compliance. Correct performance of therapeutic exercises was facilitated with verbal, visual and tactile cuing. Manual Therapy: 1: STM to L sided thoracic paraspinals x15 minutes- push to pt tolerance Skilled Intervention: Manual skills to improve joint mobility, ROM, and decrease pain. Utilized anatomy knowledge of the therapist, and assessment of patient's response to intervention. Billing: [facility]: Therapeutic Exercise ([id number]): 1:1 time: 25 minutes (2 units: 23-37 mins) Manual Therapy ([id number]): 1:1 time: 15 minutes (1 unit: 8-22 mins) Total time: 40 minutes Ulices Vanessa PT PROGRESS Observed: 01/18/2018 Status: COMPLETED Source: [place] 9:27 AM [facility] [place] REPOSITORY O ID: [id number] Author: Hipolito Hou (Tran) Len Service: (none) Author Type: Physician Director Of Scientific Research Type: Progress Notes Filed: 01/18/2018 6:43 PM Note Text: 37 year old female with c/o here for follow up on possible pneumonia. Chest pain has not changed. Has been seeing PT Ulices and was able to identify from physical landmarks which increased pain. Doing some dry needling. Also has her doing certain stretches which has made pain worse. HISTORIES FAMILY HISTORY Problem Relation Age of Onset - Hypertension Father - Diabetes Father - Stroke Maternal Grandmother TIMES 2 - Heart Paternal Grandfather [place] - Diabetes Sister PAST MEDICAL HISTORY Diagnosis Date - Abdominal pain, generalized - Diarrhea - Hormone disorder - Localization-related (focal) (partial) epilepsy and epileptic syndromes with simple partial seizures, without mention of intractable epilepsy FEBRILE, last occurrence 7 years ago PAST SURGICAL HISTORY Procedure Laterality Date - COLONOSCOPY W/BX 11/04/11 - EGD W/O BRSH SPECIMEN W/BX 08/24/07 Social History Marital status: Spouse name: Jos Years of education: Number of children: 3 Social History Main Topics Smoking status: Never Smoker Smokeless tobacco: Never Used Alcohol use: No Drug use: No Sexual activity: Yes Partners with: Male ACTIVE PROBLEM LIST Hx of Febrile Seizure Hormone Disorder Diarrhea Other Chest Pain No current outpatient prescriptions on file. No current facility-administered medications for this visit. DTAP,TDAP,TD(1 - Tdap) due on 1999 PAP EVERY 5 YEARS due on 2010 HPV EVERY 5 YEARS due on 2010 EXAM: BP 124/96 Pulse 76 Temp 37.1 ?C (98.8 ?F) (Tympanic) Resp 20 Wt 95.7 kg (211 lb) SpO2 96% BMI 35.38 kg/m? Pleasant overweight adult woman in no acute distress. Alert and oriented all spheres. Normal affect and cognition. Speech normal. No deficits to learning or comprehension. Skin warm, dry, pink to lips and nailbeds. Normal turgor. Respirations regular and unlabored. Chest wall is tender over left anterior with trigger points palpable. No cervical or clavicular nodes. Extrem: no clubbing, cyanosis, edema. Extremities are warm and pink with prompt capillary refill. ASSESSMENT/PLAN: 1. Pneumonia of left lower lobe due to infectious organism (HCC) - ICD9: 486, ICD10: J18.1 (primary diagnosis) Discussed pack of progress with treatment. Need to make sure CT clears. Continue PT. F/U 6 weeks or so to review progress - CT CHEST WO IVCON 2. Abnormal CT scan, chest - ICD9: 793.2, ICD10: R93.8 - CT CHEST WO SASHA Ray PA-C CNOV Observed: 01/18/2018 Status: COMPLETED Source: [place] 9:20 AM [facility] REPOSITORY Office Visit (FAMPWS) LESLIE ORELLANA ([id number]) 1980 F Date Time Provider Department 01/18/18 9:20 AM Hipolito RAY) JESSYWS During your visit today, we recorded the following information about you: Temperature Pulse Respiration Blood pressure 98.8 degrees 76/minute 20/minute 124/96 Weight 95.7 kg M Savi Ray PA-C 01/18/2018 6:43 PM Signed 37 year old female with c/o here for follow up on possible pneumonia. Chest pain has not changed. Has been seeing PT Ulices and was able to identify from physical landmarks which increased pain. Doing some dry needling. Also has her doing certain stretches which has made pain worse. HISTORIES FAMILY HISTORY Problem Relation Age of Onset - Hypertension Father - Diabetes Father - Stroke Maternal Grandmother TIMES 2 - Heart Paternal Grandfather [place] - Diabetes Sister PAST MEDICAL HISTORY Diagnosis Date - Abdominal pain, generalized - Diarrhea - Hormone disorder - Localization-related (focal) (partial) epilepsy and epileptic syndromes with simple partial seizures, without mention of intractable epilepsy FEBRILE, last occurrence 7 years ago PAST SURGICAL HISTORY Procedure Laterality Date - COLONOSCOPY W/BX 11/04/11 - EGD W/O BRSH SPECIMEN W/BX 08/24/07 Social History Marital status: Spouse name: Jos Years of education: Number of children: 3 Social History Main Topics Smoking status: Never Smoker Smokeless tobacco: Never Used Alcohol use: No Drug use: No Sexual activity: Yes Partners with: Male ACTIVE PROBLEM LIST Hx of Febrile Seizure Hormone Disorder Diarrhea Other Chest Pain No current outpatient prescriptions on file. No current facility-administered medications for this visit. DTAP,TDAP,TD(1 - Tdap) due on 1999 PAP EVERY 5 YEARS due on 2010 HPV EVERY 5 YEARS due on 2010 EXAM: BP 124/96 Pulse 76 Temp 37.1 ?C (98.8 ?F) (Tympanic) Resp 20 Wt 95.7 kg (211 lb) SpO2 96% BMI 35.38 kg/m? Pleasant overweight adult woman in no acute distress. Alert and oriented all spheres. Normal affect and cognition. Speech normal. No deficits to learning or comprehension. Skin warm, dry, pink to lips and nailbeds. Normal turgor. Respirations regular and unlabored. Chest wall is tender over left anterior with trigger points palpable. No cervical or clavicular nodes. Extrem: no clubbing, cyanosis, edema. Extremities are warm and pink with prompt capillary refill. ASSESSMENT/PLAN: 1. Pneumonia of left lower lobe due to infectious organism (HCC) - ICD9: 486, ICD10: J18.1 (primary diagnosis) Discussed pack of progress with treatment. Need to make sure CT clears. Continue PT. F/U 6 weeks or so to review progress - CT CHEST WO DONALDOON 2. Abnormal CT scan, chest - ICD9: 793.2, ICD10: R93.8 - CT CHEST WO SASHA Ray PA-C Referring Provider: SELF [200] Allergies As of Date: 01/18/2018 Noted Allergy Reaction PENICILLINS 09/18/2005 Date Reviewed: 01/18/2018 Reviewed by: Kimberlee Grant LPN - Fully Assessed Reason for Visit: Recheck [92] Cmt: Follow up Primary Visit Diagnosis:Pneumonia of left lower lobe due to infectious organism (HCC) [J18.1] Other Visit Diagnosis:Abnormal CT scan, chest [R93.8] Order(s):CT CHEST WO SASHA [[id number]] Order #: [id number] FUTURE Problem List As Of Date 01/18/2018 Noted Resolved Hx of febrile seizure [Z87.898] More... Abdominal pain, generalized [R10.84] INVALID FOR*11/03/2017 Hormone disorder [E34.9] Diarrhea [R19.7] INVALID FOR* Other chest pain [R07.89] INVALID FOR* Disposition: Return in about 6 weeks (around 03/01/2018). Follow-up and Disposition History Recorded Encounter Status:Closed by RAY PAHipolito Monique on 01/18/18 PROGRESS Observed: 01/13/2018 Status: COMPLETED Source: [place] 9:56 AM [facility] [place] REPOSITORY O ID: [id number] Author: Ulices (Jeremy) Otf Service: (none) Author Type: Physical Therapist Type: Progress Notes Filed: 01/13/2018 10:02 AM Note Text: Episode Visit Count: 3 Therapist That Will Oversee The Plan Of Care: Ulices Vanessa Start of Care Date: 12/28/17 Plan of Care Certification Date: 12/28/17 RE[facility]ABILITATION AND [facility]ORTS THERAPY PHYSICAL THERAPY TREATMENT NOTE ASSESSMENT: Leslie Orellana demonstrated improvements in central chest pain following thoracic spine manual work today and exercises to improve mid thoracic mobility. Pain for central chest was reproduced with PA mobs over T6-7 area during session, with pain lessening with rotation glides and exercises to promote improved rotation. May need to further evaluate if this is a T spine issue or rib issue on the left still. The patient will continue to benefit from continued skilled physical therapy for manual techniques to decrease pain and exercises to improve mobility. PLAN FOR NEXT VISIT: assess carry over of added T spine exercises, may resume needling as needed SUBJECTIVE: Pt is doing well since last visit. She did see some reduction in lateral chest pain, but central chest pain is unchanging currently. Pain Score: 4/10 Pain Location: Chest - Left Description: Aching Frequency: Intermittent OBJECTIVE MEASURES WITH LEVEL OF FUNCTION: Central chest pain reproduced with T6-7 PA mobs TREATMENT: Therapeutic Exercise: 1: L pec major clavicular portion of mm belly stretch 4x15 seconds 2: Cat stretch 3x10 3: Prayer plus lateral lean stretch 5x20 seconds to the right 4: Quadruped thoracic rotation 3x10 B Skilled Intervention: Patient was educated in proper exercise technique and purpose for exercises. Skilled judgment was provided in selection of appropriate interventions. Provided written instruction for home exercise program to facilitate proper performance and compliance. Correct performance of therapeutic exercises was facilitated with verbal, visual and tactile cuing. Manual Therapy: 1: PA mobs to T spine T3-8; at T6-7 this reproduced pt's chest pain and increased so this was ceased 2: Thoracic rotation mobs at T5-[address] each segment 3: MWM L thoracic rotation in seated position 3x10 4: Reverse NAGS to T5-8 x20 at each segment 5: STM to L T spine multifidi T5-8 Skilled Intervention: Manual skills to improve joint mobility, ROM, and decrease pain. Utilized anatomy knowledge of the therapist, and assessment of patient's response to intervention. Billing: [facility]: Therapeutic Exercise ([id number]): 1:1 time: 15 minutes (1 unit: 8-22 mins) Manual Therapy ([id number]): 1:1 time: 40 minutes (3 units: 38- 52 mins) Total time: 55 minutes Ulices Vanessa PT CNTHERAPY Observed: 01/10/2018 Status: COMPLETED Source: [place] 10:30 AM [facility] REPOSITORY OT/PT/Speech Visit (PTWS) LESLIE ORELLANA ([id number]) 1980 F Date Time Provider Department 01/10/18 10:30 AM ULICES VANESSA (PT) PTWS Date Time Provider Department Center 01/10/2018 10:30 AM [id number], SEAN (PT)PTWS [facility] Reason for Visit: Physical Therapy [503] Primary Visit Diagnosis:Other chest pain [R07.89] Allergies As of Date: 01/10/2018 Noted Allergy Reaction PENICILLINS 09/18/2005 Date Reviewed: 11/03/2017 Reviewed by: Ellen Lemus LPN - Fully Assessed Progress Notes: Ulices Vanessa PT 01/13/2018 10:02 AM Signed Episode Visit Count: 3 Therapist That Will Oversee The Plan Of Care: Ulices Vanessa Start of Care Date: 12/28/17 Plan of Care Certification Date: 12/28/17 REHABILITATION AND SPORTS THERAPY PHYSICAL THERAPY TREATMENT NOTE ASSESSMENT: Leslie Orellana demonstrated improvements in central chest pain following thoracic spine manual work today and exercises to improve mid thoracic mobility. Pain for central chest was reproduced with PA mobs over T6-7 area during session, with pain lessening with rotation glides and exercises to promote improved rotation. May need to further evaluate if this is a T spine issue or rib issue on the left still. The patient will continue to benefit from continued skilled physical therapy for manual techniques to decrease pain and exercises to improve mobility. PLAN FOR NEXT VISIT: assess carry over of added T spine exercises, may resume needling as needed SUBJECTIVE: Pt is doing well since last visit. She did see some reduction in lateral chest pain, but central chest pain is unchanging currently. Pain Score: 4/10 Pain Location: Chest - Left Description: Aching Frequency: Intermittent OBJECTIVE MEASURES WITH LEVEL OF FUNCTION: Central chest pain reproduced with T6-7 PA mobs TREATMENT: Therapeutic Exercise: 1: L pec major clavicular portion of mm belly stretch 4x15 seconds 2: Cat stretch 3x10 3: Prayer plus lateral lean stretch 5x20 seconds to the right 4: Quadruped thoracic rotation 3x10 B Skilled Intervention: Patient was educated in proper exercise technique and purpose for exercises. Skilled judgment was provided in selection of appropriate interventions. Provided written instruction for home exercise program to facilitate proper performance and compliance. Correct performance of therapeutic exercises was facilitated with verbal, visual and tactile cuing. Manual Therapy: 1: PA mobs to T spine T3-8; at T6-7 this reproduced pt's chest pain and increased so this was ceased 2: Thoracic rotation mobs at T5-[address] each segment 3: MWM L thoracic rotation in seated position 3x10 4: Reverse NAGS to T5-8 x20 at each segment 5: STM to L T spine multifidi T5-8 Skilled Intervention: Manual skills to improve joint mobility, ROM, and decrease pain. Utilized anatomy knowledge of the therapist, and assessment of patient's response to intervention. Billing: [facility]: Therapeutic Exercise ([id number]): 1:1 time: 15 minutes (1 unit: 8-22 mins) Manual Therapy ([id number]): 1:1 time: 40 minutes (3 units: 38- 52 mins) Total time: 55 minutes Ulices Vanessa PT PROGRESS Observed: 01/06/2018 Status: COMPLETED Source: [place] 5:06 PM [facility] REPOSITORY HNO ID: [id number] Author: Ulices Vanessa (Pt) Service: (none) Author Type: Physical Therapist Type: Progress Notes Filed: 01/06/2018 5:08 PM Note Text: Episode Visit Count: 2 Therapist That Will Oversee The Plan Of Care: Ulices Vanessa Start of Care Date: 12/28/17 Plan of Care Certification Date: 12/28/17 REHABILITATION AND SPORTS THERAPY PHYSICAL THERAPY TREATMENT NOTE ASSESSMENT: Leslie Orellana demonstrated improvements in shoulder range of motion and decreased pain following dry needling intervention today. Patient to continue stretching and manual techniques at home as she was this past week. The patient will continue to benefit from continued skilled physical therapy for manual techniques to decrease pain and exercises to improve functional use of the left upper extremity. PLAN FOR NEXT VISIT: assess carry of needling and proceed as tolerated, progress stretches and add strength exercises if time permits. SUBJECTIVE: Pt has seen some temporary improvements in pain with the manual techniques shown to her for her HEP. She was doing better over the weekend, but then yesterday and today she is having increased symptoms in the left chest near the breastbone again. Pain Score: 5/10 Pain Location: Chest - Left Description: Aching Frequency: Intermittent OBJECTIVE MEASURES WITH LEVEL OF FUNCTION: 155 degrees L shoulder passive flexion prior to treatment; 175 degrees post dry needling TREATMENT: Manual Therapy: 1: TrP release and STM to L sternalis mulitple spots, subclavius multiple spots x8 minutes total Dry Needling: (3) 75 mm needles to L pec minor; (2) 50 mm needles to L pec major laterallly, (2) 30 mm needles to L pec major medially over ribs Skilled Intervention: Manual skills to improve joint mobility, ROM, and decrease pain. Utilized anatomy knowledge of the therapist, and assessment of patient's response to intervention. Billing: [facility]: Manual Therapy ([id number]): 1:1 time: 43 minutes (3 units: 38-52 mins) Total time: 43 minutes Ulices Vanessa PT CNTHERAPY Observed: 01/05/2018 Status: COMPLETED Source: [place] 11:15 AM [facility] REPOSITORY OT/PT/Speech Visit (PTWS) REYNALESLIE REID ([id number]) 1980 F Date Time Provider Department 01/05/18 11:15 AM ULICES VANESSA (PT) PTWS Date Time Provider Department Center 01/05/2018 11:15 AM [id number], SEAN (PT)PTWS [facility] Reason for Visit: Physical Therapy [503] Primary Visit Diagnosis:Other chest pain [R07.89] Allergies As of Date: 01/05/2018 Noted Allergy Reaction PENICILLINS 09/18/2005 Date Reviewed: 11/03/2017 Reviewed by: Ellen Lemus LPN - Fully Assessed Progress Notes: Ulices Vanessa (Pt) 01/06/2018 5:08 PM Signed Episode Visit Count: 2 Therapist That Will Oversee The Plan Of Care: Ulices Vanessa Start of Care Date: 12/28/17 Plan of Care Certification Date: 12/28/17 REHABILITATION AND SPORTS THERAPY PHYSICAL THERAPY TREATMENT NOTE ASSESSMENT: Leslie Reid Reyna demonstrated improvements in shoulder range of motion and decreased pain following dry needling intervention today. Patient to continue stretching and manual techniques at home as she was this past week. The patient will continue to benefit from continued skilled physical therapy for manual techniques to decrease pain and exercises to improve functional use of the left upper extremity. PLAN FOR NEXT VISIT: assess carry of needling and proceed as tolerated, progress stretches and add strength exercises if time permits. SUBJECTIVE: Pt has seen some temporary improvements in pain with the manual techniques shown to her for her HEP. She was doing better over the weekend, but then yesterday and today she is having increased symptoms in the left chest near the breastbone again. Pain Score: 5/10 Pain Location: Chest - Left Description: Aching Frequency: Intermittent OBJECTIVE MEASURES WITH LEVEL OF FUNCTION: 155 degrees L shoulder passive flexion prior to treatment; 175 degrees post dry needling TREATMENT: Manual Therapy: 1: TrP release and STM to L sternalis mulitple spots, subclavius multiple spots x8 minutes total Dry Needling: (3) 75 mm needles to L pec minor; (2) 50 mm needles to L pec major laterallly, (2) 30 mm needles to L pec major medially over ribs Skilled Intervention: Manual skills to improve joint mobility, ROM, and decrease pain. Utilized anatomy knowledge of the therapist, and assessment of patient's response to intervention. Billing: [facility]: Manual Therapy ([id number]): 1:1 time: 43 minutes (3 units: 38-52 mins) Total time: 43 minutes Ulices Vanessa PT PROGRESS Observed: 12/28/2017 Status: COMPLETED Source: [place] 2:26 PM [facility] [place] REPOSITORY HNO ID: [id number] Author: Ulices (Jeremy) Otf Service: (none) Author Type: Physical Therapist Type: Progress Notes Filed: 12/28/2017 2:34 PM Note Text: Episode Visit Count: 1 Therapist That Will Oversee The Plan Of Care: Ulices Vanessa Start of Care Date: 12/28/17 Plan of Care Certification Date: 12/28/17 Patient Identified by Name and Date of : Yes REHABILITATION AND SPORTS THERAPY PHYSICAL THERAPY EVALUATION PLAN OF CARE: Assessment: Leslie Orellana presents with the chief complaint of left sided chest pain. She presents with impairments of tenderness and reproduction of patient's symptoms with palpation to pec major/pec minor, limited shoulder range of motion, and decreased activity tolerance. Patient was also just diagnosed with pneumonia of the left lower lobe, and response to medication will be monitored to see if any symptoms resolve with this. She may benefit from skilled therapy services to improve activity tolerance and decrease pain. Prognosis: Good Good due to: current objective clinical presentation;good overall health status;good support system/ coping skills Goals for Episode of Care: created on 12/28/17 through 01/28/18 [place] in home exercise program. Patient will decrease pain rating by 2 points to meet minimal clinical important difference for numeric pain rating scale. Patient will decrease pain to 0/10 with functional activities to allow patient to improve standing tolerance for ADLs. Patient will increase active ROM of L shoulder to WNL to allow pt to improved performance of ADLs. Perform work tasks without pain. Planned Interventions, Frequency, and Duration: Current Frequency: 1x/week Duration: 4 weeks Total Number of Visits Planned: 4 Patient to be see for Planned Treatment Interventions: Therapeutic exercise;Manual therapy;Self-snf management;Patient/Family/Caregiver Education PLAN FOR NEXT VISIT: Assess carry over of manual techniques; may integrate dry needling if appropriate Patient demonstrates good understanding of plan of care and treatment. The above goals and plan of care were discussed and agreed upon by patient/family. SUBJECTIVE: Leslie Orellana is a 37 year old female seen today for Pt comes in for left sided chest pain since August. Pt went to ER, has had extensive testing done on heart and found no issues. Pain hurts worse with activity, especially cardiovascular. Pt has recently been diagnosed with pneumonia recently in the left lower lobe. Pain can also run down left arm in the form of tingling that goes into the fingers. Pain Score: 10/10 Pain Location: Chest - Left Description: Sharp;Aching;Tingling Frequency: Intermittent OBJECTIVE MEASURES WITH LEVEL OF FUNCTION: UE AROM R Shoulder Flex: (no limitation) L Shoulder Flex: (moderate limitation) Education: TREATMENT: Evaluation Therapeutic Exercise: 1: L pec major clavicular portion of mm belly stretch 4x15 seconds Skilled Intervention: Patient was educated in proper exercise technique and purpose for exercises. Skilled judgment was provided in selection of appropriate interventions. Provided written instruction for home exercise program to facilitate proper performance and compliance. Correct performance of therapeutic exercises was facilitated with verbal, visual and tactile cuing. Manual Therapy: 1: TrP release and STM to tender spots in pec major, minor 2: Self release with lacrosse ball to pec major and minor; active release with TrP hold on tender spot and L arm moving through full flexion ROM x10 Skilled Intervention: Manual skills to improve joint mobility, ROM, and decrease pain. Utilized anatomy knowledge of the therapist, and assessment of patient's response to intervention. Billing: [facility]: Evaluation - Low Complexity ([id number]) Therapeutic Exercise ([id number]): 1:1 time: 3 minutes (no charge) Manual Therapy ([id number]): 1:1 time: 10 minutes (1 unit: 8-22 mins) Total time: 45 minutes Ulices Vanessa PT CNTHERAPY Observed: 12/28/2017 Status: COMPLETED Source: [place] 11:45 AM [facility] RE[facility] OT/PT/Speech Visit (PTWS) LESLIE ORELLANA ([id number]) 1980 F Date Time Provider Department 12/28/17 11:45 AM ULICES VANESSA (PT) PTWS Date Time Provider Department Center 12/28/2017 11:45 AM [id number], SEAN (PT)PTWS [facility] Reason for Visit: PT Eval [747] Physical Therapy [503] Primary Visit Diagnosis:Other chest pain [R07.89] Allergies As of Date: 12/28/2017 Noted Allergy Reaction PENICILLINS 09/18/2005 Date Reviewed: 11/03/2017 Reviewed by: Ellen Lemus LPN - Fully Assessed Prescriptions as of 12/28/2017 Sig: LEVOFLOXACIN 500 MG TABLET Take 1 tablet by mouth once d* Progress Notes: Ulices Vanessa PT 12/28/2017 2:34 PM Signed Episode Visit Count: 1 Therapist That Will Oversee The Plan Of Care: Ulices Vanessa Start of Care Date: 12/28/17 Plan of Care Certification Date: 12/28/17 Patient Identified by Name and Date of : Yes REHABILITATION AND SPORTS THERAPY PHYSICAL THERAPY EVALUATION PLAN OF CARE: Assessment: Leslie Orellana presents with the chief complaint of left sided chest pain. She presents with impairments of tenderness and reproduction of patient's symptoms with palpation to pec major/pec minor, limited shoulder range of motion, and decreased activity tolerance. Patient was also just diagnosed with pneumonia of the left lower lobe, and response to medication will be monitored to see if any symptoms resolve with this. She may benefit from skilled therapy services to improve activity tolerance and decrease pain. Prognosis: Good Good due to: current objective clinical presentation;good overall health status;good support system/ coping skills Goals for Episode of Care: created on 12/28/17 through 01/28/18 [place] in home exercise program. Patient will decrease pain rating by 2 points to meet minimal clinical important difference for numeric pain rating scale. Patient will decrease pain to 0/10 with functional activities to allow patient to improve standing tolerance for ADLs. Patient will increase active ROM of L shoulder to WNL to allow pt to improved performance of ADLs. Perform work tasks without pain. Planned Interventions, Frequency, and Duration: Current Frequency: 1x/week Duration: 4 weeks Total Number of Visits Planned: 4 Patient to be see for Planned Treatment Interventions: Therapeutic exercise;Manual therapy;Self-snf management;Patient/Family/Caregiver Education PLAN FOR NEXT VISIT: Assess carry over of manual techniques; may integrate dry needling if appropriate Patient demonstrates good understanding of plan of care and treatment. The above goals and plan of care were discussed and agreed upon by patient/family. SUBJECTIVE: Leslie Orellana is a 37 year old female seen today for Pt comes in for left sided chest pain since August. Pt went to ER, has had extensive testing done on heart and found no issues. Pain hurts worse with activity, especially cardiovascular. Pt has recently been diagnosed with pneumonia recently in the left lower lobe. Pain can also run down left arm in the form of tingling that goes into the fingers. Pain Score: 10/10 Pain Location: Chest - Left Description: Sharp;Aching;Tingling Frequency: Intermittent OBJECTIVE MEASURES WITH LEVEL OF FUNCTION: UE AROM R Shoulder Flex: (no limitation) L Shoulder Flex: (moderate limitation) Education: TREATMENT: Evaluation Therapeutic Exercise: 1: L pec major clavicular portion of mm belly stretch 4x15 seconds Skilled Intervention: Patient was educated in proper exercise technique and purpose for exercises. Skilled judgment was provided in selection of appropriate interventions. Provided written instruction for home exercise program to facilitate proper performance and compliance. Correct performance of therapeutic exercises was facilitated with verbal, visual and tactile cuing. Manual Therapy: 1: TrP release and STM to tender spots in pec major, minor 2: Self release with lacrosse ball to pec major and minor; active release with TrP hold on tender spot and L arm moving through full flexion ROM x10 Skilled Intervention: Manual skills to improve joint mobility, ROM, and decrease pain. Utilized anatomy knowledge of the therapist, and assessment of patient's response to intervention. Billing: [facility]: Evaluation - Low Complexity ([id number]) Therapeutic Exercise ([id number]): 1:1 time: 3 minutes (no charge) Manual Therapy ([id number]): 1:1 time: 10 minutes (1 unit: 8-22 mins) Total time: 45 minutes Ulices Vanessa PT CT CHEST WO SASHA Observed: 12/21/2017 Status: F Source: [place] 1:23 PM [facility] REPOSITORY * * *Final Report* * * DATE OF EXAM: Dec 21 2017 1:23PM [facility] 0541 - CT CHEST WO IVCON / PROCEDURE REASON: Other chest pain * * * * Physician Interpretation * * * * EXAMINATION: CHEST CT WITHOUT CONTRAST Indication: Other chest pain Technique: Spiral CT acquisition of the chest from the thoracic inlet to the upper abdomen without contrast. MQ: [id number] CT Dose-Length Product: 348 mGy*cm CT Dose Reduction Employed: [employer] adjusted based on patient size-age Comparison: Report from prior chest radiograph dated 09/18/2005. Actual images are unavailable. RESULT: Limitations: None. Lines, tubes, and devices: None. Lung parenchyma and pleura: There are patchy tree-in-bud type airspace opacities seen within the left lower lobe, with more focal consolidation seen within the superior segment of the left lower lobe. Findings are concerning for pneumonia. There is mild dependent atelectasis. There is no pleural effusion, endobronchial lesion, or pneumothorax. There is linear atelectasis seen within the lingula as well as within the right middle lobe. Thoracic inlet, heart, and mediastinum: Mildly prominent soft tissue density is seen within the anterior mediastinum, likely related to residual or reactive thymic tissue. There are prominent, not pathologically enlarged bilateral axillary, bilateral hilar, and mediastinal lymph nodes, likely reactive. The heart is normal in size, and there is no significant pericardial effusion. Bones and soft tissues: There is no destructive bony lesion. There is mild multilevel degenerative change seen within the thoracic spine. Upper abdomen: Nonspecific wall thickening of the stomach likely relates to underdistention. The gallbladder is relatively collapsed but is otherwise unremarkable. There is a tiny splenule is incidentally seen within the left upper quadrant. IMPRESSION: Patchy tree-in-bud type airspace opacity seen within the left lower lobe, with more focal consolidation seen within the superior segment of the left lower lobe. Findings are concerning for pneumonia. Interval follow-up examination after treatment is recommended in order to ensure resolution. Prominent, less than 1 cm mediastinal lymph nodes within the chest, likely reactive. Assistant Professor Of Nursing: MARLENE Transcribe Date/Time: Dec 22 2017 7:28A Dictated by : MARGARET GONZALEZ MD This examination was interpreted and the report reviewed and electronically signed by: MARGARET GONZALEZ MD on Dec 22 2017 7:32AM EST [id number] PROGRESS Observed: 11/18/2017 Status: COMPLETED Source: [place] 2:22 PM [facility] [place] REPOSITORY HNO ID: [id number] Author: Hipolito Hou (Tran) Len Service: (none) Author Type: Physician Director Of Scientific Research Type: Progress Notes Filed: 11/18/2017 9:02 PM Note Text: 37 year old female with c/o here for follow up on chest pain. Negative holtor completing cardiac workup. Pain has been really heavy again over last week and into shoulder blades. If gets tired or does normal activities wears her out. Rates pain at 8-10/10 while working. PPI therapy x 9 days without improvement. Seeing chiropractor and massage therapist since her last without improvement. Adjustment last visit with no change in sx. 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 No current facility-administered medications for this visit. TETANUS due on 1991 PAP EVERY 5 YEARS due on 2010 HPV EVERY 5 YEARS due on 2010 INFLUENZA(1) due on 04/30/2017 EXAM: BP 128/82 Pulse 68 Resp 12 Pleasant adult woman in no acute distress. Alert and oriented all spheres. Normal affect and cognition. Speech normal. No deficits to learning or comprehension. Skin warm, dry, pink to lips and nailbeds. Normal turgor. Respirations regular and unlabored. Chest wall continues tender particularly on the left side with trigger point. This directly reproduces pain of complaint. Chest CTA. HRRR without murmur or gallop. Extrem: no clubbing, cyanosis, edema. Extremities are warm and pink with prompt capillary refill. ASSESSMENT/PLAN: 1. Chest wall pain - ICD9: 786.52, CD10: R07.89 Atypical chest pain, suspect musculoskeletal origin, some overlay with possible anxiety - Patient has prescription for Protonix at home. Stop Pepcid, trial of 2 weeks with Protonix based on the fact the patient did improve with nitroglycerin, trying to rule out possible hiatal hernia. - METHYLPREDNISOLONE 4 MG TABLETS IN A DOSE PACK - Follow-up with phone call in 2 weeks with progress. Sooner if any complications. Follow-up as needed otherwise TRAN Najera Observed: 11/18/2017 Status: COMPLETED Source: [place] 1:40 PM [facility] REPOSITORY Office Visit (FAMPWS) LESLIE ORELLANA ([id number]) 1980 F Date Time Provider Department 11/18/17 1:40 PM Hipolito RAY) FAMPWS During your visit today, we recorded the following information about you: Pulse Respiration Blood pressure 68/minute 12/minute 128/82 Sri Marks Ma 11/18/2017 1:37 PM Signed CHEST PAIN: Pt still complains of constant chest pain. It is waking her up at night. It is worse with increased activity. The pain is described as a sharp pressure that radiates to her back. She rates her pain today at a 3. M Savi Ray PA-C 11/18/2017 9:02 PM Signed 37 year old female with c/o here for follow up on chest pain. Negative holtor completing cardiac workup. Pain has been really heavy again over last week and into shoulder blades. If gets tired or does normal activities wears her out. Rates pain at 8-10/10 while working. PPI therapy x 9 days without improvement. Seeing chiropractor and massage therapist since her last without improvement. Adjustment last visit with no change in sx. 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 No current facility-administered medications for this visit. TETANUS due on 1991 PAP EVERY 5 YEARS due on 2010 HPV EVERY 5 YEARS due on 2010 INFLUENZA(1) due on 04/30/2017 EXAM: BP 128/82 Pulse 68 Resp 12 Pleasant adult woman in no acute distress. Alert and oriented all spheres. Normal affect and cognition. Speech normal. No deficits to learning or comprehension. Skin warm, dry, pink to lips and nailbeds. Normal turgor. Respirations regular and unlabored. Chest wall continues tender particularly on the left side with trigger point. This directly reproduces pain of complaint. Chest CTA. HRRR without murmur or gallop. Extrem: no clubbing, cyanosis, edema. Extremities are warm and pink with prompt capillary refill. ASSESSMENT/PLAN: 1. Chest wall pain - ICD9: 786.52, CD10: R07.89 Atypical chest pain, suspect musculoskeletal origin, some overlay with possible anxiety - Patient has prescription for Protonix at home. Stop Pepcid, trial of 2 weeks with Protonix based on the fact the patient did improve with nitroglycerin, trying to rule out possible hiatal hernia. - METHYLPREDNISOLONE 4 MG TABLETS IN A DOSE PACK - Follow-up with phone call in 2 weeks with progress. Sooner if any complications. Follow-up as needed otherwise Hipolito Ray PA-C Referring Provider: SELF [[id number]] Allergies As of Date: 11/18/2017 Noted Allergy Reaction PENICILLINS 09/18/2005 Date Reviewed: 11/03/2017 Reviewed by: Ellen Lemus LPN - Fully Assessed Reason for Visit: Chest Pain [21] Cmt: recheck Primary Visit Diagnosis:Chest wall pain [R07.89] Order(s):methylPREDNISolone (MEDROL, FE,) 4 mg Dose-PackFollow dosing instructions, take with food.Disp: 1 PackageRfl: 0 Prescriptions as of 11/18/2017 Sig: METHYLPREDNISOLONE 4 MG TABLE* Follow dosing instructions, t* Problem List As Of Date 11/18/2017 Noted Resolved Hx of febrile seizure [Z87.898] More... Abdominal pain, generalized [R10.84] INVALID FOR*11/03/2017 Hormone disorder [E34.9] Diarrhea [R19.7] INVALID FOR* Visit Notes: >> Sri Marks Ma [facility] Nov 18, 2017 1:33 PM Status: Signed CHEST PAIN: Pt still complains of constant chest pain. It is waking her up at night. It is worse with increased activity. The pain is described as a sharp pressure that radiates to her back. She rates her pain today at a 3. Prescriptions ordered this encounter Disp Refills Start End METHYLPREDNISOLONE 4 MG TABLETS IN A* 1 Pa* 0 11/18/2017 11/24/2017 Sig: Follow dosing instructions, take with food. Encounter Status:Closed by Hipolito RAY PA-C on 11/18/17 PROGRESS Observed: 11/03/2017 Status: COMPLETED Source: [place] 8:31 AM [facility] REPOSITORY O ID: [id number] Author: Hipolito Ray Service: (none) Author Type: Physician Director Of Scientific Research Type: Progress Notes Filed: 11/03/2017 3:08 PM Note Text: 37 year old female here to establish care. Prior PCP: Dr. Shelton Reason for switch: Dr. Shelton is now in Urgent Care and needs new PCP. Current concerns: Still having chest pains. States they have been constant even since after her ER visit. Has taken Ibuprofen and seen a massage therapist, which has helped pain not fully alleviated pain. Schedule for Holter- Monitor ordered by Radha Alonzo at a recent visit. She says the pain used to be sharp but is now more a dull and constant pain. Rates the pain as 6/10 at its worst, but a 2/10 constantly. It does not wake her up at night. She points to her left sterno-clavicular area as where she is experiencing pain. She does admit to experiencing palpitations and chest pain does not get worse when experiencing these. She notices if she is more tired or in the evening time is when she notices the palpitations more. She does not describe herself as an anxious person and denies excessive worry or recent stressors that would contribute to the pain. She does not have reflux, heartburn, or stomach pain after she eats. She does state she has occurrences where she eats or drinks and it feels like she swallowed wrong or gets stuck. Did receive medication for GERD/reflux from the hospital, but did not notice a difference. HOSPITAL/ER FOLLOW UP: Reason for visit: Chest pain [facility] facility[facility] Date of visit: September 22 Diagnosis: Musculoskeletal/GERD Testing done: EKG, blood work, stress test, d-dimer, ECHO Treatment given: Nitroglycerin and Tylenol Current symptoms: Dull, constant chest pain ACTIVE PROBLEM LIST 1. Localization-Related (Focal) (Partial) Epilepsy and Epileptic Syndromes With Simple Partial Seizures, Without Mention of Intractable Epilepsy - Febrile seizures when younger; not recurrent 2. Abdominal Pain, Generalized - She had abdominal pain 3-4 years ago that was generalized and non-specific. Has she was prepping for colonscopy she passed a soft/mucous plug and has not had the pain since then. Colonoscopy was normal. Has not had pain since that time. 3. Hormone Disorder - Occurred around the same time as the abdominal pain, hasn't had issues since then. 4. Diarrhea - Also occurred around the same time as the abdominal pain, hasn't had diarrhea since the colonoscopy. Stools are regular now, no blood or mucous noted. HISTORIES FAMILY HISTORY Problem Relation Age of Onset - Hypertension Father - Diabetes Father - Stroke Maternal Grandmother TIMES 2 - Heart Paternal Grandfather [place] - Diabetes Sister PAST MEDICAL HISTORY Diagnosis Date - Abdominal pain, generalized - Diarrhea - Hormone disorder - Localization-related (focal) (partial) epilepsy and epileptic syndromes with simple partial seizures, without mention of intractable epilepsy FEBRILE, last occurrence 7 years ago PAST SURGICAL HISTORY Procedure Laterality Date - COLONOSCOPY W/BX 11/04/11 - EGD W/O BRSH SPECIMEN W/BX 08/24/07 Social History Marital status: Spouse name: Jos Years of education: Number of children: 3 Social History Main Topics Smoking status: Never Smoker Smokeless status: Never Used Alcohol use: No Drug use: No Sexual activity: Yes Partners with: Male Above problem list and histories reviewed November 03, 2017 and updated as appropriate. Ángel Ray PA-C REVIEW OF SYMPTOMS: General: denies fatigue, unusual weight loss or gain, fevers, chills. Eyes: denies change in vision, glaucoma, cataracts. Wears glasses for reading. No contacts. EENT: denies recurrent sinus infection, unusual nasal drainage, hoarsemess, sore throat, or recurrent sore in mouth or tongue. Cardiovascular: Admits to CP and palpitations occurring for past month (see note above). She also notes some SOB that seems to occur along with palpitations. Denies orthopnea, leg swelling, history of rheumatic fever or prior heart conditions. Respiratory: denies unusual cough, SOB, wheezing, history of recurrent bronchitis, pneumonia or tuberculosis. Denies day time drowsiness. No Snoring. No sleep apnea. GI: denies difficulty swallowing, nausea, vomiting, change in appetite. No change in bowel habits. Denies constipation, diarrhea, rectal bleeding or hemorrhoids, incontinence. No history of GERD, PUD, jaundice/hepatitis, GB disease, diverticulosis, colorectal cancer, hernias. Kidney/Bladder: Denies frequency, burning. Denies nocturia. Incontinence no. History of one uncomplicated kidney stone. No history of kidney infections or recurrent UTI. Menses regular every 5 weeks. No hx of ovarian cysts, No pelvic infection, No tubal , No abnormal pap smears. Skin: denies unusual rashes. No history of skin cancer, bleeding/changing moles, or unusual skin lesions. Neurologic: denies recurrent LOZANO, change in vision, hearing or smell, tremors, unusual weakness, loss of sensation, or difficulty with balance or gait. No history of epilepsy/convulsions, migraine, head/spinal injuries, or stroke/TIA. Psychiatric: denies unusual worry, moodiness, depression, suicidal ideation or unusual disturbance in relationships. No history of psychiatric illness. Endocrine: denies unusual thirst, hunger, excessive urination, change in skin or hair texture, emotional lability. No history of thryoid, pituitary or hormonal problems. Hematologic: denies unusual bleeding, bruising, or history of anemia or blood transfusion. Infections: denies risk factors for HIV, hepatitis or history of unusual infection. Immunizations are up to date. Musculoskeletal: denies unusual stiffness, muscles aches, joint pain, or swelling. Denies recurrent sprain or disruption of joints, debilitating arthritis, gout, or other musculoskeletal disease. No hx back injury, spinal stenosis, radiculopathy. EXAM: BP 120/90 Pulse 80 Temp 36.7 ?C (98.1 ?F) (Tympanic) Resp 16 Wt 93.9 kg (207 lb) LMP 10/13/2017 BMI 34.71 kg/m2 General appearance: Pleasant woman, in no acute distress. Well nourished. Well groomed. Pleasant spirits. Respirations: regular, unlabored Color: pink to lips and nailbeds Skin: warm, dry, no unusual rashes or lesions Head: Normocephalic Eyes: sclerae and conjunctivae without injection or exudate, PERRLA, EOMI, corneal light reflex symmetric bilaterally. Ears: TM's and ear canals are clear bilaterally with normal landmarks, no swelling or deformity external ear Nose/Sinuses: Nose patent. No turbinate swelling. No active exudate. Maxillary and frontal sinuses nontender to percussion. Oropharynx: Lips, mucosa, and tongue free from lesions. Teeth are in good repair. Gums without inflammation. Oropharynx no exudate or injection. No tonsillar hypertrophy. Neck: Neck supple, no cervical lymphadenopathy; thyroid without mass or tenderness. Chest: normally shaped, equal expansion with breaths. Has tender trigger points in posterior chest wall with rib restrictions Lungs: Lungs clear to auscultation and percussion. No crackles or wheezes. Heart: RRR without murmur, gallop, or rubs. S1 and S2 normal. Abd soft, nontender, normoactive bowel sounds throughout, no mass, no organomegaly. back FROM, no abnormal curvature. Able to touch toes. Extremities well formed, FROM and strength, no clubbing cyanosis or edema. Neuro grossly intact. Normal gait and balance. Able to squat without difficulty. DTR's 2+/4 symmetric upper and lower bilaterally. Rhomberg is negative. OMT: myofascial release, HVLA to thoracic and rib segments with sense of freer movement. ASSESSMENT/PLAN: 1. Chest pain, unspecified type - ICD9: 786.50, ICD10: R07.9 (primary diagnosis) Recent work up negative. Has holtor monitor next week. Chest pain is most likely musculoskeletal in origin. However, patient is still experiencing chest pain on a daily basis so plan is for patient to be evaluated with a Holter monitor to assess for any underlying arrhythmias. Continue taking pepcid OTC 20mg 2 tabs bid x 1 week to see if any effect. Educated patient on protocol that should be followed with acute chest pain that does not resolve. Patient is understanding and in agreement with this plan. 2. Somatic dysfunction of thoracic region - ICD9: 739.2, ICD10: M99.02 F/u as needed 3. Somatic dysfunction of rib - ICD9: 739.8, ICD10: M99.08 F/u as needed TRAN NajeraOV Observed: 11/03/2017 Status: COMPLETED Source: [place] 8:20 AM [facility] REPOSITORY Office Visit (FAMPWS) LESLIE ORELLANA ([id number]) 1980 F Date Time Provider Department 11/03/17 8:20 AM Hipoliot RAY) FAMPWS During your visit today, we recorded the following information about you: Temperature Pulse Respiration Blood pressure 98.1 degrees 80/minute 16/minute 120/90 Weight Last Period 93.9 kg 10/13/17 Hipolito Ray PA-C 11/03/2017 3:08 PM Signed 37 year old female here to establish care. Prior PCP: Dr. Shelton Reason for switch: Dr. Shelton is now in Urgent Care and needs new PCP. Current concerns: Still having chest pains. States they have been constant even since after her ER visit. Has taken Ibuprofen and seen a massage therapist, which has helped pain not fully alleviated pain. Schedule for Holter-Monitor ordered by Radha Alonzo at a recent visit. She says the pain used to be sharp but is now more a ANDquot;dull and constantANDquot; pain. Rates the pain as 6/10 at its worst, but a 2/10 constantly. It does not wake her up at night. She points to her left sterno-clavicular area as where she is experiencing pain. She does admit to experiencing palpitations and chest pain does not get worse when experiencing these. She notices if she is more tired or in the evening time is when she notices the palpitations more. She does not describe herself as an anxious person and denies excessive worry or recent stressors that would contribute to the pain. She does not have reflux, heartburn, or stomach pain after she eats. She does state she has occurrences where she eats or drinks and it feels like she swallowed wrong or gets stuck. Did receive medication for GERD/reflux from the hospital, but did not notice a difference. HOSPITAL/ER FOLLOW UP: Reason for visit: Chest pain [facility] facility[facility] Date of visit: September 22 Diagnosis: Musculoskeletal/GERD Testing done: EKG, blood work, stress test, d-dimer, ECHO Treatment given: Nitroglycerin and Tylenol Current symptoms: Dull, constant chest pain ACTIVE PROBLEM LIST 1. Localization-Related (Focal) (Partial) Epilepsy and Epileptic Syndromes With Simple Partial Seizures, Without Mention of Intractable Epilepsy - Febrile seizures when younger; not recurrent 2. Abdominal Pain, Generalized - She had abdominal pain 3-4 years ago that was generalized and non-specific. Has she was prepping for colonscopy she passed a soft/mucous plug and has not had the pain since then. Colonoscopy was normal. Has not had pain since that time. 3. Hormone Disorder - Occurred around the same time as the abdominal pain, hasn't had issues since then. 4. Diarrhea - Also occurred around the same time as the abdominal pain, hasn't had diarrhea since the colonoscopy. Stools are regular now, no blood or mucous noted. HISTORIES FAMILY HISTORY Problem Relation Age of Onset - Hypertension Father - Diabetes Father - Stroke Maternal Grandmother TIMES 2 - Heart Paternal Grandfather [place] - Diabetes Sister PAST MEDICAL HISTORY Diagnosis Date - Abdominal pain, generalized - Diarrhea - Hormone disorder - Localization-related (focal) (partial) epilepsy and epileptic syndromes with simple partial seizures, without mention of intractable epilepsy FEBRILE, last occurrence 7 years ago PAST SURGICAL HISTORY Procedure Laterality Date - COLONOSCOPY W/BX 11/04/11 - EGD W/O BRSH SPECIMEN W/BX 08/24/07 Social History Marital status: Spouse name: Jos Years of education: Number of children: 3 Social History Main Topics Smoking status: Never Smoker Smokeless status: Never Used Alcohol use: No Drug use: No Sexual activity: Yes Partners with: Male Above problem list and histories reviewed November 03, 2017 and updated as appropriate. Ángel Ray PA-C REVIEW OF SYMPTOMS: General: denies fatigue, unusual weight loss or gain, fevers, chills. Eyes: denies change in vision, glaucoma, cataracts. Wears glasses for reading. No contacts. EENT: denies recurrent sinus infection, unusual nasal drainage, hoarsemess, sore throat, or recurrent sore in mouth or tongue. Cardiovascular: Admits to CP and palpitations occurring for past month (see note above). She also notes some SOB that seems to occur along with palpitations. Denies orthopnea, leg swelling, history of rheumatic fever or prior heart conditions. Respiratory: denies unusual cough, SOB, wheezing, history of recurrent bronchitis, pneumonia or tuberculosis. Denies day time drowsiness. No Snoring. No sleep apnea. GI: denies difficulty swallowing, nausea, vomiting, change in appetite. No change in bowel habits. Denies constipation, diarrhea, rectal bleeding or hemorrhoids, incontinence. No history of GERD, PUD, jaundice/hepatitis, GB disease, diverticulosis, colorectal cancer, hernias. Kidney/Bladder: Denies frequency, burning. Denies nocturia. Incontinence no. History of one uncomplicated kidney stone. No history of kidney infections or recurrent UTI. Menses regular every 5 weeks. No hx of ovarian cysts, No pelvic infection, No tubal , No abnormal pap smears. Skin: denies unusual rashes. No history of skin cancer, bleeding/changing moles, or unusual skin lesions. Neurologic: denies recurrent LOZANO, change in vision, hearing or smell, tremors, unusual weakness, loss of sensation, or difficulty with balance or gait. No history of epilepsy/convulsions, migraine, head/spinal injuries, or stroke/TIA. Psychiatric: denies unusual worry, moodiness, depression, suicidal ideation or unusual disturbance in relationships. No history of psychiatric illness. Endocrine: denies unusual thirst, hunger, excessive urination, change in skin or hair texture, emotional lability. No history of thryoid, pituitary or hormonal problems. Hematologic: denies unusual bleeding, bruising, or history of anemia or blood transfusion. Infections: denies risk factors for HIV, hepatitis or history of unusual infection. Immunizations are up to date. Musculoskeletal: denies unusual stiffness, muscles aches, joint pain, or swelling. Denies recurrent sprain or disruption of joints, debilitating arthritis, gout, or other musculoskeletal disease. No hx back injury, spinal stenosis, radiculopathy. EXAM: BP 120/90 Pulse 80 Temp 36.7 ?C (98.1 ?F) (Tympanic) Resp 16 Wt 93.9 kg (207 lb) LMP 10/13/2017 BMI 34.71 kg/m2 General appearance: Pleasant woman, in no acute distress. Well nourished. Well groomed. Pleasant spirits. Respirations: regular, unlabored Color: pink to lips and nailbeds Skin: warm, dry, no unusual rashes or lesions Head: Normocephalic Eyes: sclerae and conjunctivae without injection or exudate, PERRLA, EOMI, corneal light reflex symmetric bilaterally. Ears: TM's and ear canals are clear bilaterally with normal landmarks, no swelling or deformity external ear Nose/Sinuses: Nose patent. No turbinate swelling. No active exudate. Maxillary and frontal sinuses nontender to percussion. Oropharynx: Lips, mucosa, and tongue free from lesions. Teeth are in good repair. Gums without inflammation. Oropharynx no exudate or injection. No tonsillar hypertrophy. Neck: Neck supple, no cervical lymphadenopathy; thyroid without mass or tenderness. Chest: normally shaped, equal expansion with breaths. Has tender trigger points in posterior chest wall with rib restrictions Lungs: Lungs clear to auscultation and percussion. No crackles or wheezes. Heart: RRR without murmur, gallop, or rubs. S1 and S2 normal. Abd soft, nontender, normoactive bowel sounds throughout, no mass, no organomegaly. back FROM, no abnormal curvature. Able to touch toes. Extremities well formed, FROM and strength, no clubbing cyanosis or edema. Neuro grossly intact. Normal gait and balance. Able to squat without difficulty. DTR's 2+/4 symmetric upper and lower bilaterally. Rhomberg is negative. OMT: myofascial release, HVLA to thoracic and rib segments with sense of freer movement. ASSESSMENT/PLAN: 1. Chest pain, unspecified type - ICD9: 786.50, ICD10: R07.9 (primary diagnosis) Recent work up negative. Has holtor monitor next week. Chest pain is most likely musculoskeletal in origin. However, patient is still experiencing chest pain on a daily basis so plan is for patient to be evaluated with a Holter monitor to assess for any underlying arrhythmias. Continue taking pepcid OTC 20mg 2 tabs bid x 1 week to see if any effect. Educated patient on protocol that should be followed with acute chest pain that does not resolve. Patient is understanding and in agreement with this plan. 2. Somatic dysfunction of thoracic region - ICD9: 739.2, ICD10: M99.02 F/u as needed 3. Somatic dysfunction of rib - ICD9: 739.8, ICD10: M99.08 F/u as needed TRAN Najera PA-C 11/03/2017 9:40 AM Signed Chest pain: When to seek help ? If you have chest pain that is new, severe, prolonged, or if chest pain causes concern, call 911 immediately. The emergency medical services (EMS) personnel in your community are prepared to respond rapidly, and will take you to the nearest hospital. For a patient having a heart attack, every minute is important. Remember, the faster you get to a hospital, the sooner you can receive treatment. Do not drive yourself to the hospital and do not ask someone else to drive you. Calling 911 is safer than driving for two reasons: From the moment EMS personnel arrive, they can begin evaluating and treating chest pain. If you drive to the hospital, treatment cannot begin until you arrive in the emergency department. If a dangerous complication of a heart attack (eg, a serious irregular heart rhythm) occurs on the way to the hospital, EMS personnel are trained to treat the problem immediately. While waiting for the squad, rest sitting or laying down and try to remain calm. If you are not allergic: chew 4 Baby Aspirin or 2 adult aspirin. Aspirin has been shown to reduce incidence and severity with heart attacks. Please return to the office on approximately as needed. Open access hours are: Wednesday 8 am-6 pm Wednesday 8 am-4 pm Wednesday 8 am-4 pm 8 am-6 pm Wednesday 8 am-4 pm Referring Provider: SELF [[id number]] Allergies As of Date: 11/03/2017 Noted Allergy Reaction PENICILLINS 09/18/2005 Date Reviewed: 11/03/2017 Reviewed by: Ellen Lemus LPN - Fully Assessed Reason for Visit: Hospital F/U [57] Cmt: [facility] for [facility] Primary Visit Diagnosis:Chest pain, unspecified type [R07.9] Other Visit Diagnoses:Somatic dysfunction of thoracic region [M99.02] Somatic dysfunction of rib [M99.08] Problem List As Of Date 11/03/2017 Noted Resolved Hx of febrile seizure [Z87.898] More... Abdominal pain, generalized [R10.84] INVALID FOR*11/03/2017 Hormone disorder [E34.9] Diarrhea [R19.7] INVALID FOR* Other instructions from your clinician: Chest pain: When to seek help ? If you have chest pain that is new, severe, prolonged, or if chest pain causes concern, call 911 immediately. The emergency medical services (EMS) personnel in your community are prepared to respond rapidly, and will take you to the nearest hospital. For a patient having a heart attack, every minute is important. Remember, the faster you get to a hospital, the sooner you can receive treatment. Do not drive yourself to the hospital and do not ask someone else to drive you. Calling 911 is safer than driving for two reasons: From the moment EMS personnel arrive, they can begin evaluating and treating chest pain. If you drive to the hospital, treatment cannot begin until you arrive in the emergency department. If a dangerous complication of a heart attack (eg, a serious irregular heart rhythm) occurs on the way to the hospital, EMS personnel are trained to treat the problem immediately. While waiting for the squad, rest sitting or laying down and try to remain calm. If you are not allergic: chew 4 Baby Aspirin or 2 adult aspirin. Aspirin has been shown to reduce incidence and severity with heart attacks. Please return to the office on approximately as needed. Open access hours are: Wednesday 8 am-6 pm Wednesday 8 am-4 pm Wednesday 8 am- 4 pm 8 am- 6 pm Wednesday 8 am-4 pm Medications Discontinued During This Encounter albuterol HFA (PROVENTIL HFA, VENTOL* 1 In* 0 10/14/2017 11/03/2017 Route: INHALATION Sig: Inhale 2 Puffs as instructed every 4 hours as needed for Wheezing/Shortness of Breath. Disc: Reason for discontinue is not on file. pantoprazole DR (PROTONIX) 40 mg tab* 30 t* 2 09/30/2017 11/03/2017 Route: ORAL Sig: Take 1 tablet by mouth daily before breakfast. Take on empty stomach, 1/2 hr before meal. Disc: Reason for discontinue is not on file. Encounter Status:Closed by Hipolito RAY PA-C on 11/03/17 PROGRESS Observed: 10/14/2017 Status: COMPLETED Source: [place] 10:09 AM [facility] REPOSITORY HNO ID: [id number] Author: Virginia (Umair) Francisco J Service: (none) Author Type: Nurse Practitioner Type: Progress Notes Filed: 10/14/2017 10:21 AM Note Text: HPI Leslie Orellana is a 37 year old female who presents with cough and chest congestion for 5 days, she has had a low grade fever. She has taken cough syrup at home without relief. She feels weak. Prior to this illness she has had a headache, bodyaches, and chills for the past 12 days. Review of Systems Constitutional: Positive for chills, fever and malaise/fatigue. HENT: Positive for congestion, ear pain and sore throat. Respiratory: Positive for cough and shortness of breath. Cardiovascular: Positive for chest pain. Gastrointestinal: Negative for abdominal pain, diarrhea, nausea and vomiting. Musculoskeletal: Positive for myalgias. Skin: Negative. Negative for rash. Neurological: Positive for headaches. BP 111/80 Pulse 94 Temp 36.8 ?C (98.3 ?F) (Tympanic) Resp 17 Wt 93.4 kg (206 lb) SpO2 95% BMI 34.55 kg/m2 PAST MEDICAL HISTORY Diagnosis Date - Abdominal pain, generalized - Diarrhea - Hormone disorder - Localization-related (focal) (partial) epilepsy and epileptic syndromes with simple partial seizures, without mention of intractable epilepsy FEBRILE, last occurrence 7 years ago PAST SURGICAL HISTORY Procedure Laterality Date - COLONOSCOPY W/BX 11/04/11 - EGD W/O BRSH SPECIMEN W/BX 08/24/07 ALLERGIES Penicillins MEDICATIONS pantoprazole DR (PROTONIX) 40 mg tablet Take 1 tablet by mouth daily before breakfast. Take on empty stomach, 1/2 hr before meal. naproxen (NAPROSYN) 500 mg tablet Take 1 tablet by mouth twice daily as needed (for pain/inflammation). Take with food. FAMILY HISTORY Problem Relation Age of Onset - Hypertension Father - Diabetes Father - Stroke Maternal Grandmother TIMES 2 - Heart Paternal Grandfather [place] - Diabetes Sister Social History Substance Use Topics - Smoking status: Never Smoker - Smokeless tobacco: Never Used - Alcohol use No Physical Exam Constitutional: She is well-developed, well-nourished, and in no distress. HENT: Head: Normocephalic. Right Ear: Tympanic membrane, external ear and ear canal normal. Left Ear: Tympanic membrane, external ear and ear canal normal. Nose: Nose normal. No rhinorrhea. Mouth/Throat: Uvula is midline, oropharynx is clear and moist and mucous membranes are normal. Mucous membranes are not pale and not dry. No posterior oropharyngeal edema or posterior oropharyngeal erythema. Eyes: Conjunctivae are normal. Right eye exhibits no discharge. Left eye exhibits no discharge. Neck: Neck supple. Cardiovascular: Normal rate, regular rhythm and normal heart sounds. Pulmonary/Chest: Effort normal and breath sounds normal. No respiratory distress. She has no wheezes. She has no rales. Lymphadenopathy: She has no cervical adenopathy. Neurological: She is alert. Skin: Skin is dry. No erythema. Nursing note and vitals reviewed. ASSESSMENT/PLAN: 1. Acute bronchitis, unspecified organism - ICD9: 466.0, ICD10: J20.9 - DOXYCYCLINE HYCLATE 100 MG CAPSULE - PREDNISONE 20 MG TABLET - ALBUTEROL SULFATE HFA 90 MCG/ACTUATION AEROSOL INHALER - INHALATIONAL SPACING DEVICE - Follow-up with your PCP in 3-5 days if symptoms have not improved or sooner if symptoms worsen - Discussed red flags and need for immediate medical evaluation if any occur. - Discussed supportive care treatment with fluids, rest and analgesia. - Discussed expected course of illness Virginia Marx CNP PROGRESS Observed: 10/08/2017 Status: COMPLETED Source: [place] 11:01 AM [facility] REPOSITORY HNO ID: [id number] Author: Radha (Umair) Older Service: (none) Author Type: Nurse Practitioner Type: Progress Notes Filed: 10/08/2017 11:45 AM Note Text: CC: Patient presents with: ongoing chest pain Acute Visit: flu HPI Leslie Orellana is a 37 year old female who presents today for chest pain follow-up. Also has concerns about possible flu. Chest pain: [facility]. Full cardiac work-up including stress echo, EKG's and troponin negative. Attributed to possible musculoskeletal or GERD. Prescribed Protonix. Follow-up visit on 09/30 patient still had complaints of ?deep CP midsternum and left upper chest the radiates to upper back/neck. This has been ongoing for about 1.5 months. Patient did not start Protonix due to concern about side effects but she was advised at follow-up to start taking. Today patient reports she continues to have chest pain, no new or worsening symptoms. Positive for SOB and heart palpitations associated with pain. Sometimes pain is triggered by eating. Did not start Protonix, continues to worry about side effects. Denies any possibility of anxiety or stress as cause of pain but questioning this because she has a family history of anxiety. Also believes chest pain started around the time she was planning a big event. Wondering if possibly due to musculoskeletal cause. Flu like symptoms: present for 5 days, staying the same except sore throat getting worse. Positive for dry cough, rhinorrhea, nasal congestion, fatigue. Denies fever, chills, wheezing or SOB. Has been treating with Day-quil with minor relief, starting to make her stomach upset. REVIEW OF SYSTEMS GI: Negative for abdominal discomfort, blood in stools or black stools, change in bowel habit, nausea, vomiting, heartburn/reflux symptoms PAST MEDICAL HISTORY Diagnosis Date - Abdominal pain, generalized - Diarrhea - Hormone disorder - Localization-related (focal) (partial) epilepsy and epileptic syndromes with simple partial seizures, without mention of intractable epilepsy FEBRILE, last occurrence 7 years ago PAST SURGICAL HISTORY Procedure Laterality Date - COLONOSCOPY W/BX 11/04/11 - EGD W/O BRSH SPECIMEN W/BX 08/24/07 ALLERGIES Penicillins MEDICATIONS pantoprazole DR (PROTONIX) 40 mg tablet Take 1 tablet by mouth daily before breakfast. Take on empty stomach, 1/2 hr before meal. naproxen (NAPROSYN) 500 mg tablet Take 1 tablet by mouth twice daily as needed (for pain/inflammation). Take with food. FAMILY HISTORY Problem Relation Age of Onset - Hypertension Father - Diabetes Father - Stroke Maternal Grandmother TIMES 2 - Heart Paternal Grandfather [place] - Diabetes Sister Social History Substance Use Topics - Smoking status: Never Smoker - Smokeless tobacco: Never Used - Alcohol use No PHYSICAL EXAM BP 120/80 Pulse 112 Temp 38.4 ?C (101.1 ?F) (Temporal Artery) Resp 20 Wt 94.8 kg (209 lb) SpO2 98% BMI 35.05 kg/m2 General Appearance: well appearing, in no acute distress, alert Pysch: affect is anxious Eyes: conjunctiva pink and moist, no icterus, sclera white, non-injected Ears: external ears normal to inspection and palpation, canals clear, Left tympanic membrane normal. , Right tympanic membrane normal Nose/sinus: Nares normal. Septum midline. Mucosa normal. No drainage. Neck: Thyroid normal size and symmetric without palpable nodules, Neck supple, No adenopathy Oropharynx: lips normal without lesions, tongue midline and normal, soft palate, uvula, and tonsils normal Lungs: Lungs clear to auscultation. No wheezing, rhonchi, rales Heart: RRR without murmur, gallop, or rubs. No ectopy Abdomen: Abdomen soft, non-tender. Musculoskeletal: No chest wall tenderness with palpation, pain is not reproducible. No tenderness with palpation of left shoulder and neck. ASSESSMENT/PLAN: 1. Atypical chest pain - ICD9: 786.59, ICD10: R07.89 (primary diagnosis) Cause remains unclear. Extensive cardiac work-up unremarkable. Differential diagnoses unchanged: musculoskeletal, GERD, anxiety - Patient and concerned about chest pain and questioning what other work-up can be done to find cause. Reviewed recent work- up that did not show any acute reasons for chest pain so at this point diagnosis needs to be made by exclusion through treatments for possible causes. Patient does not wish to pursue treatment for GERD at this time. Advised to trial treatment with chiropractor and NSAID's, they are agreeable. - Follow up 2-4 weeks after treatment if chest pain still present or sooner for new/worsening symptoms 2. Heart palpitations - ICD9: 785.1, ICD10: R00.2 No alarm symptoms or exam findings. Holter monitor to evaluate - HOLTER MONITOR 48 HOUR 3. Viral URI with cough - ICD9: 465.9, ICD10: J06.9, B97.89 - Discussed viral etiology and rationale for treatment. - Symptomatic treatment with prn analgesia - Supportive care with fluids and rest - The patient may also use OTC cough and cold meds as needed. - Follow up in 3-5 days if symptoms persist or sooner if worsening of symptoms 4. Tachycardia - ICD9: 785.0, ICD10: R00.0 More than likely due to fever Radha Older, OPERATIONS SUPERINTENDENT Prescription instructions reviewed with patient as applicable. Potential red flag symptoms discussed with the patient. Reviewed appropriate action plan to take if red flag symptoms occur. Patient agreeable to treatment plan. TSH Collected: 09/30/2017 Status: F Source: [place] 1:42 PM [facility] REPOSITORY TYPE CODE TESTS RESULT OUT OF RANGE REFERENCE UNITS LAB TSH 0.400-5.500 uU/mL TSH 1.860 Result Comment: If the patient is , TSH reference range varies by gestational period: First Trimester 0.100-2.500 uU/mL Second Trimester 0.200-3.000 uU/mL Third Trimester 0.300-3.000 uU/mL References: 1. Xiong L, Ben M, Glenroy EK, et al. Management of Thyroid Dysfunction during and : An Endocrine Society Clinical Practice Guideline. J Clin Endocrinol Metab, 2012:97:2464-0813. 2. Yosef MARINO. Overview of thyroid disease in . UpToDate. 2016. Accessed on February 14, 2016. Performed By: #### TSH #### [facility] [address] [place] [id number] PROGRESS Observed: 09/30/2017 Status: COMPLETED Source: [place] 1:08 PM [facility] REPOSITORY HNO ID: [id number] Author: Carolina Menendez Service: (none) Author Type: Nurse Practitioner Type: Progress Notes Filed: 09/30/2017 2:00 PM Note Text: 09/30/2017 Patient presents with: ER F/U: chest pain SUBJECTIVE: This is a 37 year old that is here today for follow up [facility] for [facility]. She had gone in with CP, SOB, diaphoresis. Described the pain as stabbing worse with exertion and had been going on for 2 weeks. She was given nitro and it did help some. EKG was NSR at 74, troponins were negative. D-dimer negative. Normal CXR. Stress echo was normal with resting EF 55% and stress EF 65%. CBC, BMP, and cholesterol normal or within normal variance. She was admitted overnight on the tele unit with concerns for unstable angina, but discharged the next day with script for protonix and told that it could be musculoskeletal. She states that she continues to have some deep CP pointing to midsternum and slightly to the left. She states that it is no longer stabbing, but feels deep. Not worse with breathing. She states that she has noticed occasionally when she eats, it feels like it does not want to go down as easily. She did not start protonix as recommended stating that she decided to wait and see. She denies choking or emesis. She also states that she is having palpitations and is getting fatigued more easily with any exertion. She states she has never been told that she has a thyroid disorder, but multiple sisters and her mother do. She denies hair thinning or skin changes. She denies anxiety. She has not had any more episodes of SOB, diaphoresis, and the CP does not get worse with activity, just more fatigue and occasional palpitations. PAST MEDICAL HISTORY Diagnosis Date - Abdominal pain, generalized - Diarrhea - Hormone disorder - Localization-related (focal) (partial) epilepsy and epileptic syndromes with simple partial seizures, without mention of intractable epilepsy FEBRILE, last occurrence 7 years ago ALLERGIES Penicillins MEDICATIONS Current Outpatient Prescriptions: naproxen (NAPROSYN) 500 mg tablet Take 1 tablet by mouth twice daily as needed (for pain/inflammation). Take with food. No current facility-administered medications for this visit. Medications and allergies reviewed by this provider. SOCIAL HISTORY Social History Marital status: Spouse name: Jos Years of education: Number of children: 3 Social History Main Topics Smoking status: Never Smoker Smokeless status: Never Used Alcohol use: No Drug use: No Sexual activity: Yes Partners with: Male REVIEW OF SYSTEMS GENERAL: No weight loss, malaise or fevers NECK: Negative for lumps, goiter, pain and significant neck swelling RESPIRATORY: Negative for cough, hemoptysis, wheezing, COPD, dyspnea or shortness of breath CARDIOVASCULAR: See HPI GI: No nausea, vomiting, or diarrhea SKIN: Negative for lesions, rash, and itching NEURO: No headaches, syncope, paralysis, seizures or tremors OBJECTIVE: BP 118/86 (BP Site: Left Arm, BP Position: Sitting, BP Cuff Size: Large Adult) Pulse 83 Temp 37.3 ?C (99.1 ?F) (Right Tympanic) Resp 16 Ht 164.5 cm (5' 4.75) Wt 98.2 kg (216 lb 6.4 oz) LMP 08/28/2017 (Exact Date) SpO2 98% BMI 36.29 kg/m2. Vital signs reviewed by this provider. PHYSICAL EXAMINATION: General appearance: Well appearing, alert, in no acute distress, well-hydrated, well nourished., Overweight Skin: Skin color, texture, turgor normal, no suspicious rashes or lesions Neck: Supple, no adenopathy; thyroid symmetric, normal size, no bruits Lungs: Lungs clear to auscultation. No wheezing, rhonchi, rales Heart: RRR without murmur, gallop, or rubs. No ectopy Abdomen: Normal abdominal exam, Abdomen soft, non-tender. Bowel sounds normal. Extremities: No deformities, edema, skin discoloration, clubbing or cyanosis. Good capillary refill. , Pulses: 2+ ASSESSMENT/PLAN: 1. Palpitations - ICD9: 785.1, ICD10: R00.2 (primary diagnosis) - Cardiac cause ruled out at [facility], discussed anxiety as a possibility- denies, would like to evaluate thyroid - TSH BLD - discussed need to establish, so should follow up within the next few months. If symptoms worsen she should be seen sooner. 2. Fatigue, unspecified type - ICD9: 780.79, ICD10: R53.83 - Denies any changes in routine or sleep. Would like to evaluate thyroid. - TSH BLD 3. Other chest pain - ICD9: 786.59, ICD10: R07.89 Atypical chest pain, symptoms are not consistent with cardiac ischemia due to accompanying GI symptoms possible etiology include GERD and Anxiety - Treatment with trial of Protonix 40 mg QD - Follow up in 2 weeks if no improvement in symptoms after starting protonix and making lifestyle changes such as no eating late right before bed, avoiding caffeine, monitoring for trigger foods or activities - follow up sooner if symptoms worsen and should be seen in ED if severe CP, SOB, diaphoresis, severe LOZANO, or neuro symptoms. - PANTOPRAZOLE 40 MG TABLET,DELAYED RELEASE Carolina Menendez CNP 12 LEAD ELECTROCARDIOGRAM Observed: 09/24/2017 Status: F Source: [place] 11:57 AM [facility] REPOSITORY [facility] Cardiovascular Services [address] [place] [address] 12 Lead EKG 09/23/17 0528 MR#: [id number] Acct: [id number] Name: LESLIE ORELLANA Rep #: [id number] : 1980 37 From: Seven Cr MD Attending Dr: Duran Jean DO Status: DIS RAFA Ordering Dr: Jennifer White Date: 09/23/17 Location: [facility] Sex: F C Admitted: 09/22/17 Test Reason : AM EKG Blood Pressure : / mmHG Vent. Rate : 074 BPM Atrial Rate : 074 BPM P-R Int : 136 ms QRS Dur : 096 ms QT Int : 396 ms P-R-T Axes : 044 018 003 degrees QTc Int : 439 ms Normal sinus rhythm Normal ECG When compared with ECG of 22-SEP-2017 07:36, MANUAL COMPARISON REQUIRED, DATA IS UNCONFIRMED Confirmed by SEVEN CR MD ([id number]), web content editor KIKI PEACOCK ([id number]) on 09/24/2017 11:56:52 AM Referred By: ASIYA Confirmed By:SEVEN CR MD 09/24/17 1156 Date Seven Cr MD CC: No Primary Care Physician; Gerard Shelton MD Signed DISCHARGE SUMMARY Observed: 09/23/2017 Status: F Source: [place] 6:07 PM [facility] REPOSITORY [facility] Medical Records Department [address] [place] [address] Discharge Summary 09/23/17 1453 MR#: [id number] Acct: [id number] Name: LESLIE ORELLANA Rep #: [id number] : 1980 37 From: Ravi REY PCP: Care Physician, No Primary Status: DIS RAFA Y Location: [place] [address] Discharge Date and Diagnosis Date of Admission: 09/22/17 Date of Discharge: 09/23/17 - Primary Discharge Diagnosis Chest pain - musculoskeletal GERD Hospital Course and Treatment Imaging Results: RAD/Chest 1 View (Portable) IMPRESSION: No pulmonary edema, congestive heart failure or confluent pneumonia. Operations: None Procedures: Stress test Summary of Care Provided: Physical exam on day of discharge: General: Resting comfortably NAD Psych: A/Ox3 normal affect HEENT: PEARRLA AT NC Neck: Supple NT CV: RRR no m/t/r/g/h Resp: CTA Abd: [id number] Soft NT no guarding or rigidity Ext: DP2+= no edema Skin: W/D normal turgor Lymph/Heme: No active bleeding or adenopathy Neuro: CN2-12 intact Hospital course: The patient is a 37 year old F who presents to the emergency room with chief complaint of stabbing chest pain worse with exertion climbing stairs intermittently over the past 2 weeks. She did have some associated diaphoresis, shortness of breath, palpitations. She presented to the emergency room and was given nitroglycerin which did alleviate her chest pain. She has no prior medical history. She had a negative EKG and negative troponin was admitted to the telemetry unit with concerns for unstable angina. D-dimer was also negative, she had a negative chest x-ray. She underwent a stress test the following morning which was negative. She had no events on telemetry. Her EKG was negative and her troponins remained negative. LDL was 64. At this time her chest pain was likely musculoskeletal in origin and that she should try isca-prh-rtuntbt anti-inflammatories for symptomatic management. She also complained that she had some midsternal pain associated with eating and swallowing and was given a prescription for Protonix to trial for possible underlying acid reflux. She is advised to follow-up with her family doctor-currently is in transition with the [facility] in [place], she will need to follow-up within 1-2 weeks. She is in stable condition and discharged home This patient was seen by Ravi Farris PA-C under the supervision of Doctor Asiya. [] Discharge Diet: Low fat/ Low Cholesterol, 4000 mg Sodium Diet Discharge Activity: Return to Normal Activity Home Medications: Medications to take at Discharge Pantoprazole Sodium [Protonix] 40 mg PO DAILY #30 tab 09/23/17 Following Prescrptions Were Given to Patient: Pantoprazole Sodium [Protonix] 40 mg PO DAILY #30 tab Primary Care Physician: Care Physician,No Primary [Primary Care Provider] - Please follow up with your Primary Care Physician in: 1-2 weeks Disposition: Home Minutes spent on discharge:: 40 Patient Condition:: Stable Meaningful Use Info Meaningful Use Diagnoses (Choose all that apply): None applicable Code Visit OBSV E AND M: 47199 Observation care discharge 09/23/17 1459 <Electronically signed by Ravi REY> Date Ravi REY 09/23/17 180<Electronically signed by Duran Jean DO> Cosigner Signature (if applicable): Date Duran Jean DO CC: No Primary Care Physician; CANDIDO Farris; Duran Jean DO; Gerard Shelton MD Signed STRESS TEST ECHO W/O Observed: 09/23/2017 Status: F Source: REEVES CONTRAST 5:11 PM [facility] REPOSITORY [facility] Cardiovascular Services [address] [place] [address] Stress Test Echo w/o Contrast MR#: [id number] Acct: [id number] Name: LESLIE ORELLANA Rep #: [id number] : 1980 37 From: Seven Cr MD Primary Care: Care Physician, No Primary Status: DIS RAFA Ordering Dr: Duran Jean DO Sex: F C Reason For Study: CHEST PAIN Stress Results Protocol: Stephen Protocol Maximum Predicted HR: 183 bpm Target HR: 156 bpm% Max imum Predicted HR: 96 % DurationHeart Rate Stage (mm:ss) (bpm) BP BASELINE 85 118/88 STAGE 1 3:00 12 1 140/82 STAGE 2 3:00 14 1 162/92 STAGE 3 2:00 17 6 / RECOVERY 105 126/8 8 Stress Duration: 8:00 mm:ss Maximum Stress HR: 176 bpm Baseline Echocardiogram Findings Stress Echo Wall motion Data Resting WMIntermediate WMStress WM Resting Wall Motion Wall Motion Stress No regional wall motion No regional wall motion abnormalities noted. abnormalities noted. Ejection Fraction 55 %. Ejection Fraction 65 %. EKG Data Baseline ECG demonstrates normal sinus rhythm with a rate of 86 beats per minute. Normal intervals are noted. The resting blood pressure was 118/88. The patient exercised according to the regular Stephen protocol for a total duration of 8. The maximum heart rate attained was 179 beats per minute. This was 97% of maximum predicted heart rate. The patient exercised into stage 10.1 mets of the Stephen protocol. During stress, there were no ST or T wave changes noted to suggest ischemia. At peak exercise, upsloping ST changes only were noted, which did not meet the criteria for ischemia. The peak blood pressure was 162/92. No arrhythmias noted. No clinical angina was noted. Interpretation Summary Normal resting LV systolic function. Nonstenotic valves. With stress, the LV size decreased and all segments augmented normally. The LVEF increased from 55% to 65%. Negative for ischemia at 97% of MPHR and at 10.1 METS. Normal stress echo Ordering Physician: Duran Jean Performed By: Brittany Pérez, CAROL, RVT 09/23/17 1711 Date Seven Cr MD CC: No Primary Care Physician; Duran Jean DO Date Dictated: 09/23/17 0816 Date Transcribed: 09/23/17 1711 Assistant Professor Of Nursing: Signed DISCHARGE INSTRUCTION Observed: 09/23/2017 Status: F Source: ANDRZEJ 12:01 PM [facility] REPOSITORY [facility] Medical Records Department [address] [place] [address] Instructions for Home/Discharge Instructions 09/23/17 1200 MR#: [id number] Acct: [id number] Name: REYNALESLIE Hipolito Rep #: [id number] : 1980 37 From: Ravi REY PCP: Care Physician, No Primary Status: ADM RAFA - Discharge Diagnoses Current Active Problems: Current Active and Chronic Problems Chest pain (Acute) You will use the following diet at home:: No restrictions Your food should be the consistency of: Regular Your liquids should be the consistency of: Regular/Thin Discharge Activity: Return to Normal Activity Allergies/Adverse Reactions: Allergies Penicillins Allergy (Verified 09/22/17 07:26) Other seizures Medications to take at Discharge Pantoprazole Sodium [Protonix] 40 mg PO DAILY #30 tab 09/23/17 The following prescriptions were given: Pantoprazole Sodium [Protonix] 40 mg PO DAILY #30 tab Primary Care Physician: Care Physician,No Primary [Primary Care Provider] - Please follow up with your Primary Care Physician in: 1-2 weeks Proposed Discharge Date: 09/23/17 09/23/17 1201 <Electronically signed by Ravi REY> Date Ravi REY CC: No Primary Care Physician; Gerard Shelton MD 12 LEAD ELECTROCARDIOGRAM Observed: 09/23/2017 Status: F Source: ANDRZEJ 11:33 AM [facility] REPOSITORY [facility] Cardiovascular Services [address] [place] [address] 12 Lead EKG 09/22/17 0736 MR#: [id number] Acct: [id number] Name: LESLIE ORELLANA Rep #: [id number] : 1980 37 From: Isiah Salguero MD Attending Dr: Duran Jean DO Status: ADM RAFA Ordering Dr: Marlen Crespo DO Date: 09/22/17 Location: [facility] Sex: F C Admitted: 09/22/17 Test Reason : CP Blood Pressure : / mmHG Vent. Rate : 087 BPM Atrial Rate : 087 BPM P-R Int : 130 ms QRS Dur : 090 ms QT Int : 370 ms P-R-T Axes : 045 009 010 degrees QTc Int : 445 ms Normal sinus rhythm Normal ECG Confirmed by ISIAH SALGUERO ([id number]), web content editor KIKI PEACOCK ([id number]) on 09/23/2017 11:32:58 AM Referred By: Confirmed By:ISIAH SALGUERO 09/23/17 1133 Date Isiah Salguero MD CC: No Primary Care Physician; Gerard Shelton MD Signed LIPID PROFILE Collected: 09/23/2017 Status: F Source: REEVES 6:45 AM [facility] REPOSITORY TYPE CODE TESTS RESULT OUT OF RANGE REFERENCE UNITS LAB L501.4900 200 mg/dL Normal CHOL 141 Result Comment: <200 mg/dL Desirable 200-240 mg/dL Borderline >240 mg/dL High Risk LAB L501.5000 mg/dL Normal TRIG 191 Result Comment: The drugs N-Acetylcysteine and Metamizole may falsely depress this assay. Serum Triglycerides Reference Interval Normal <150 mg/dL Borderline high 150 - 199 mg/dL High 200 - 499 mg/dL Very High > or = 500 mg/dL LAB L501.6400 mg/dL Low HDL 39 Result Comment: The drugs N-Acetylcysteine and Metamizole may falsely depress this assay. Reference Range HDL <40 mg/dL Low HDL Cholesterol HDL >or= 60 mg/dL High HDL Cholesterol LAB L501.6500 0-130 mg/dL Normal LDL 64 LAB L501.6600 5-40 mg/dL Normal VLDL 38 Performed By: #### L500.4100 #### [facility] [address] [place], [address] TROPONIN-I Collected: 09/22/2017 Status: F Source: REEVES 10:15 PM [facility] REPOSITORY Order Comment: 'TROP' Serial specimen #1, #2, #3, or #4: 4 TYPE CODE TESTS RESULT OUT OF RANGE REFERENCE UNITS LAB L501.4010 <0.06 ng/mL Normal < 0.02 TROPONIN-I Result Comment: TROPONIN-I EXPECTED VALUES <0.05 NEGATIVE 0.06 - 0.59 AT RISK OF [place] > OR = 0.60 SUGGEST [place] Performed By: #### L501.4010 #### [facility] [address] [place], [address] TROPONIN-I Collected: 09/22/2017 Status: F Source: REEVES 4:36 PM [facility] REPOSITORY Order Comment: 'TROP' Serial specimen #1, #2, #3, or #4: 3 TYPE CODE TESTS RESULT OUT OF RANGE REFERENCE UNITS LAB L501.4010 <0.06 ng/mL Normal < 0.02 TROPONIN-I Result Comment: TROPONIN-I EXPECTED VALUES <0.05 NEGATIVE 0.06 - 0.59 AT RISK OF [place] > [place] = 0.60 SUGGEST [place] Performed By: #### L501.4010 #### [facility] [address] [place], [address] HISTORY AND PHYSICAL Observed: 09/22/2017 Status: F Source: REEVES EXAM 11:57 AM [facility] REPOSITORY [facility] Medical Records Department [address] [place] [address] History and Physical 09/22/17 1150 MR#: [id number] Acct: [id number] Name: LESLIE ORELLANA Rep #: [id number] : 1980 37 From: Duran Jean DO PCP: Care Physician, No Primary Status: ADM RAFA Y Location: [place] [address] Problem List (1) Chest pain Status: Acute Qualifiers: Chest pain type: chest pain due to myocardial ischemia Ischemic chest pain type: stable angina pectoris Qualified Code(s): I20.8 - Other forms of angina pectoris History of Present Illness Date of Admission: 09/22/17 Chief Complaint: chest pain The patient is a 37 year old F Oli with exertional chest pain for the past 2 weeks. It is gotten worse for the past couple days. It is associated with diaphoresis, shortness of breath and palpitations. Patient additionally has some nausea, too. Patient presented to the emergency room and did receive nitroglycerin which did help alleviate that chest pain. Patient never had any chest pain like this before. Patient is being brought in for further chest pain evaluation. [] Past Medical History Allergies Penicillins Allergy (Verified 09/22/17 07:26) Other seizures Home Medications: Ambulatory Orders Medication Instructions Recorded NK [NK] 09/22/17 Psychiatric History: No pertinent psych hx BILLER History: No pertinent BILLER history Lives: Spouse/ Significant Other Smoking Status: Never smoker Tobacco Use: Non-smoker Alcohol: None Drugs: None - *Family History Paternal History Items: Heart Disease Review of Systems Constitutional: Denies: Chills, Fever, Weight Change Eyes: Denies: Blurred vision, Double vision HEENT: Denies: Head Aches, Sinus Congestion, Sinus Drainage Cardiovascular: Reports: Chest Pain. Denies: Edema, Palpitations Respiratory: Reports: Shortness of breath upon exertion. Denies: Cough Gastrointestinal: Reports: Nausea. Denies: Abdominal Pain, Vomiting Genitourinary: Denies: Dysuria Musculoskeletal: Denies: Joint Pain, Joint Tenderness Neurological: Denies: Numbness, Tingling, Focal weakness Psychiatric: Denies: Anxiety, Depression, Homicidal Ideations, Suicidal Ideations Endocrine: Denies: Change in Body Habitus, Heat/ Cold Intolerance Hematologic/ Lymphatic: Denies: Easy Bruising, Easy Bleeding, Hx of blood clot VTE Information - Inpt Only VTE Present on Admission: No VTE Pharm Prophylaxis ordered?: No Patient Problems: Active and Suspected Problems Chest pain (Acute) - Physical Exam General: Alert HEENT: Atraumatic, Normocephalic Oral: Moist Mucosa Neck: No Nodes, Thyroid Normal Size and Texture Lungs: Clear to auscultation, Normal air movement Cardiovascular: Regular rate, Regular Rhythm, Normal S1, Normal S2, No murmurs Abdomen: Bowel Sounds Present, Soft, Non Tender, Non-Distended, No Hepato-splenomegaly Extremities: No clubbing, No cyanosis Skin: No rashes, No breakdown Psych/Mental Status: Normal Affect, Appropriate Vital Signs Temp Pulse Resp BP Pulse Ox 36.4 C L 82 20 H 130/74 H 99 09/22/17 10:26 09/22/17 11:11 09/22/17 10:26 09/22/17 10:26 09/22/17 10:26 Oxygen Delivery Method Room Air Weight: 95.4 kg Body Mass Index (BMI) 36.1 EKG reviewed and showed normal sinus rhythm without any Q changes. Laboratory Results Assessment/Plan Active and Suspected Problems Chest pain (Acute) 1. Chest Pain. During for stable angina. Patient will have a stress test ordered. Workup thus far has been unremarkable. Based on results of the stress test or if there is signs of acute myocardial ischemia with elevation of troponins, cardiology will be consulted. If stress is negative patient otherwise feeling well and then the plan would be for the patient to be discharged afterwards. Patient did receive aspirin in the emergency room and will continue that on the floor. As needed nitroglycerin. Code Visit OBSV E AND M: 55726 Initial observation care L3 09/22/17 1157 <Electronically signed by Duarn Jean DO> Date Duran Jean DO Cosigner Signature: Date (if applicable) CC: No Primary Care Physician; Duran Jean DO; Corrina Arteaga MD; Gerard Shelton MD Signed EMERGENCY DEPARTMENT Observed: 09/22/2017 Status: F Source: REEVES SUMMARY 9:30 AM [facility] REPOSITORY [facility] Medical Records Department [address] [place] [address] Emergency Department Summary 09/22/17 0927 MR#: [id number] Acct: [id number] Name: REYNALESLIE Hipolito Rep #: [id number] : 1980 37 From: Marlen Crespo DO PCP: Care Physician, No Primary Status: REG ER - ER Visit Summary Date of Service: 09/22/17 Chief Complaint: [Chest pain] History of Present Illness: The patient is a 37 F [presents to the emergency department with left-sided chest discomfort 2 weeks. Initially the pain was intermittent and worse with exertion. She states pain will typically worsen with walking up steps. She describes a deep sharp pain with some heaviness. The discomfort seems to radiate into her neck and down her left arm. Patient gets nauseated with it and feels short of breath with activity. On arrival she rates her pain a 4 out of 10. Patient states that her father had heart attack in his 50s. Patient denies recent travel or surgery. Patient denies recent illness.] Physical Examination: [HEENT-PERRLA, EOMI. Cranial nerves II through XII grossly intact. TMs clear. Mucous membranes moist. No adenopathy. Cardiovascular-regular rate and rhythm without murmur or ectopy Lungs-clear to auscultation, chest wall stable without crepitus or subcu emphysema Abdomen-normoactive bowel sounds, soft, nontender, no rebound or rigidity, no peritoneal signs. Extremities-intact 4, normal range of motion, normal pulses, atraumatic] Test Results: [EKG obtained showed a sinus rhythm with a ventricular rate of 87 bpm. CBC with it was normal. Chemistries were normal. Troponin was less than 0.02. D-dimer was normal less than 0.27. Chest x-ray was normal.] Emergency Department Course and Treatment: [Patient received aspirin in the emergency department as well as sublingual nitroglycerin which resolved her pain.] Treatment Plan: [Patient will be admitted for further workup and evaluation of her chest pain] Disposition: [Admit] Impression: [Chest pain-rule out acute coronary syndrome] This note was generated with [employer] dictation software. It may contain incorrect words, spelling, and punctuation that were not noted in review of the chart prior to signing ED Disposition - Plan for ED Patient: Chief Complaint: Chest Pain Referrals: Care Physician,No Primary [Primary Care Provider] - What to do if you have Problems For any increased pain, shortness of breath, bleeding, nausea or vomiting, chest pain, or any unexpected problems, contact your Primary Care Provider. Call [facility] ([phone]) or report to the closest Emergency Room. Call 911 if necessary. 09/22/17 0930 <Electronically signed by Marlen Crespo DO> Date Anaus Bauerdanny FINCH Cosigner Signature (If Indicated): Date CC: No Primary Care Physician; Gerard Shelton MD CBC W/DIFF, AUTOMATED Collected: 09/22/2017 Status: F Source: ANDRZEJ 8:10 AM [facility] REPOSITORY TYPE CODE TESTS RESULT OUT OF RANGE REFERENCE UNITS LAB L100.1000 4.4-11.0 K/mm3 Normal WBC 7.9 LAB L100.1200 4.2-5.4 M/mm3 Normal RBC 4.97 LAB L100.1300 12.0-15.0 g/dl High HGB 15.4 LAB L100.1400 37-47 % Normal HCT 45.9 LAB L100.1500 81-99 fL Normal MCV 92.4 LAB L100.1600 27.0-32.0 pg Normal MCH 31.0 LAB L100.1700 32-36 g/gl Normal MCHC 33.6 LAB L100.1810 11.6-14.6 % Normal RDW CV 12.7 LAB L100.1820 35.1-43.9 fl Normal RDW SD 42.0 LAB L100.1900 150-450 K/mm3 Normal PLT 212 LAB L100.2000 6.2-12.0 fl Normal MPV 9.7 LAB L100.2100 47-70 % Normal NEUT% 64.5 LAB L100.2200 19-41 % Normal LY% 27.9 LAB L100.2300 0-10 % Normal MONO% 5.3 LAB L100.2400 0-5 % Normal EO% 1.9 LAB L100.2500 0-1 % Normal BASO% 0.3 LAB L100.2550 0.0-0.9 % Normal IM GRAN % 0.100 Result Comment: IG% - Immature Granulocytes (promyelocytes, myelocytes and metamyelocytes) > 1% indicates that a LEFT SHIFT is Present. LAB L100.2620 2.0-7.7 X10 3/uL Normal Absolute Neut 5.1 LAB L100.2720 0.83-4.51 X10 3/ul Normal Absolute Lymph 2.19 Performed By: #### L100.0100 #### [facility] [address] [place], [place], [address] BASIC METABOLIC Collected: 09/22/2017 Status: F Source: ANDRZEJ PROFILE (BMP) 8:10 AM [facility] REPOSITORY Order Comment: 'TROP' Serial specimen #1, #2, #3, or #4: 1 TYPE CODE TESTS RESULT OUT OF RANGE REFERENCE UNITS LAB L501.0100 70-110 mg/dL Normal GLU 93 LAB L501.1000 7-18 mg/dL Low BUN 6 LAB L501.1100 0.55-1.02 mg/dL Normal 0.70 CREAT,SERUM Result Comment: The validity of the calculated GFR AND GFRAA in patients over 70 years has not been determined. Clinical correlation is essential. LAB L501.1110 >60 mL/min Normal EST GFR 100 Result Comment: Non- GFR Calc LAB L501.1115 >60 mL/min Normal EST GFR - AA 121 Result Comment: GFR Calc LAB L501.1255 ml/min Normal Estimated CRCL 95.02 LAB L501.1300 10-20 RATIO Low BUN/CRE 8.6 LAB L501.2200 8.5-10 mg/dL Normal .1 CA 8.9 LAB L501.5300 136-14 mmol/L Normal 5 NA 140 LAB L501.5600 3.5-5. mmol/L Normal 1 K 3.7 LAB L501.5900 98-107 mmol/L Normal CL 105 LAB L501.6100 21.0-3 mmol/L Normal 2.0 CO2 28.0 LAB L501.6200 5-15 Normal GAP 7 Performed By: #### L500.2500, L501.4010 #### [facility] [address] [place], [address] TROPONIN-I Collected: 09/22/2017 Status: F Source: ANDRZEJ 8:10 AM [facility] REPOSITORY Order Comment: 'TROP' Serial specimen #1, #2, #3, or #4: 1 TYPE CODE TESTS RESULT OUT OF RANGE REFERENCE UNITS LAB L501.4010 <0.06 ng/mL Normal < 0.02 TROPONIN-I Result Comment: TROPONIN-I EXPECTED VALUES <0.05 NEGATIVE 0.06 - 0.59 AT RISK OF [place] > OR = 0.60 SUGGEST [place] Performed By: #### L500.2500, L501.4010 #### [facility] [address] [place], [address] D-DIMER QUANTITATIVE Collected: 09/22/2017 Status: F Source: REEVES (DVT/PE) 8:10 AM [facility] REPOSITORY TYPE CODE TESTS RESULT OUT OF RANGE REFERENCE UNITS LAB L300.8000 0.27-0.49 FEU/ug/m Low D-DIMER < 0.27 QUANT Result Comment: NORMAL D-Dimer level (<0.50) indicates no DVT or PE. Performed By: #### L300.8000 #### [facility] [address] [place], [address] CHEST 1 VIEW Observed: 09/22/2017 Status: F Source: REEVES (PORTABLE) 7:35 AM [facility] REPOSITORY [facility] Imaging Services [address] [place] [address] Chest 1 View (Portable) MR#: [id number] Acct: [id number] Name: LESLIE ORELLANA Rep #: [id number] : 1980 F 37 From: Trini Butterfield MD PCP: Care Physician, No Primary Status: REG ER Study: Chest 1 View (Portable) Date of Exam: 09/22/17 Exam# [id number] Ordering Dr: Marlen Crespo DO STUDY: X-RAY CHEST REASON FOR EXAM: Female, 37 years old. Chest pain left side TECHNIQUE: Single AP portable view of the chest. COMPARISON: None. FINDINGS: There are superimposed monitor leads. There is no demonstrated pneumothorax. There is no focal parenchymal abnormality. There is no demonstrated pleural abnormality. Normal size heart. Normal mediastinum and sally. Normal visualized pulmonary arteries. Normal visualized aortic arch and descending thoracic aorta. Normal visualized thoracic spine. Normal visualized ribs, clavicles, and shoulders. There is no demonstrated abnormality of the visualized soft tissue structures of the upper abdomen. RAD/Chest 1 View (Portable) IMPRESSION: No pulmonary edema, congestive heart failure or confluent pneumonia. Electronically Signed: Trini Butterfield MD at 7:55 EST , Service support , CC: No Primary Care Physician; Marlen Crespo DO Assistant Professor Of Nursing: Signed ALLERGIES ALLERGIES DATE TYPE / CODE NAME / CODE REACTION SEVERITY SOURCE 09/22/2017 Drug Penicillins/T61102 Other Unknown Andrzej Allergy/416 0476(RXNORM) [facility] [id number]([facility] CT) Repository 09/18/2005 Drug PENICILLINS UNKNOWN [facility] Class/65646 [address] [place] 1003(SNOMED Repository CT) 09/18/2005 Drug PENICILLINS [facility] Class/18490 [address] [place] 1003(SNOMED Repository CT) ENCOUNTERS ENCOUNTERS ADMIT/DISCHARGE ACCOUNT ADMITTING ENCOUNTER LOCATION SOURCE NUMBER CLASS 08/10/2018 [id number] [facility] ing:OPBI Repository 07/08/2018 [id number] [facility] ing:MFPLAB Repository 06/09/2018/06/10/[id number] Repository 05/17/2018/05/18/[id number] Repository 05/17/2018/05/18/[id number] Repository 05/17/2018 [id number] [facility] ing:RAD Repository 05/12/2018/05/13/[id number] Repository 04/22/2018/04/22/[id number] Repository 04/22/2018/04/26/20 [id number] Ambulatory [place] [address] [facility] [place] Repository 03/07/2018/03/09/20 [id number] Ambulatory [address] [place] Repository 02/02/2018/02/03/20 [id number] Ambulatory BMSBuilding:Sandip Donnelly 18 [place] [facility] Repository 01/28/2018/01/29/20 [id number] Ambulatory BMSBuilding:Sandip Donnelly 18 [place] [facility] Repository 01/25/2018/01/26/20 [id number] Ambulatory [address] [place] Repository 01/18/2018/01/19/20 [id number] Ambulatory [address] [place] Repository 01/18/2018/03/01/20 [id number] Ambulatory [address] [place] Repository 01/18/2018/01/20/20 [id number] Ambulatory [address] [place] Repository 01/10/2018/01/14/20 [id number] Ambulatory [address] [place] Repository 01/05/2018/01/08/20 [id number] Ambulatory [address] [place] Repository 12/28/2017/12/30/19 [id number] Ambulatory [address] [place] Repository 12/21/2017/12/22/19 [id number] Ambulatory [address] [place] Repository 11/18/2017/11/20/19 [id number] Ambulatory [address] [place] Repository 11/03/2017 [id number] Ambulatory [facility] ing:PSN Repository 11/03/2017 [id number] Ambulatory BMSBuilding:Negrita Donnelly [facility] Repository 11/03/2017/11/05/19 [id number] Ambulatory [address] [place] Repository 10/14/2017/10/19/19 [id number] Ambulatory [address] [place] Repository 10/08/2017/10/12/19 [id number] Ambulatory [address] [place] Repository 09/30/2017/09/30/19 [id number] Ambulatory [address] [place] Repository 09/30/2017/09/30/19 [id number] Ambulatory [address] [place] Repository 09/30/2017 [id number] Ambulatory [facility] [place] Repository 09/23/2017/09/23/19 [id number] Ambulatory BMSBuilding:W Andrzej 18 [facility] Repository 09/22/2017/09/23/19 [id number] Duran Jean Ambulatory Andrzej Andrzej 18 [facility] ing:PCURoom: Repository [id number]: 1 09/22/2017 [id number] Duran Jean Ambulatory BMSBuilding:[place] Repository 09/22/2017 [id number] ReenalatashaRaul gandaraic Ambulatory BMSBuilding:[address] [place] [facility] Repository PAYERS PAYERS ENCOUNTER GUARANTOR PAYER SUBSCRIBER SOURCE 08/10/2018 [id number] [id number] Primary Insurance:[facility] LESLIE DOUGLAS: [facility] [id number], [facility]: [facility] [address]Mvq: Date:2018-06-24 Repository () 08/10/2018 Secondary NOT GIVENUNK Andrzej Insurance:SELF PAY [facility] Number: Effective Repository Date:2018-06-24 07/08/2018 Jos [id number] Primary LESLIE HANSENB: [place] Insurance:SCIENTOLOGIST [id number] [address]Oju: GROUPPolicy Number: Repository [id number] () Date: TW[address] [address]HO: 07/08/2018 Secondary NOT GIVENUNK [place] Insurance:SELF PAY [facility] Number: Effective Repository Date:2018-07-08 05/17/2018 Jos [id number] Primary LESLIE DOUGLAS: [place] Insurance:SCIENTOLOGIST [id number] [address]Mez: GROUPPolicy Number: Repository [id number] () Date: TW[address] [address]DL: 05/17/2018 Secondary NOT GIVENUNK Andrzej Insurance:SELF PAY [facility] Number: Effective Repository Date:2018-05-12 02/02/2018 Jos [id number] Primary LESLIE Mcmillan TYRONEB: Andrzej TR Insurance:SCIENTOLOGIST [id number] [place] [address]Gjs: GROUPPolicy Number: Repository [phone] [id number] [id number] (HP) Date: [address] [place] [id number]: 02/02/2018 Secondary NOT GIVENUNK Andrzej Insurance:SELF PAY [facility] Number: Effective Repository Date:2018-02-10 01/28/2018 Jos [id number] Primary LESLIE Mcmillan TYRONEB: Andrzej TR Insurance:SCIENTOLOGIST [id number] [place] [address]Imt: GROUPPolicy Number: Repository [phone] [id number] -7 (HP) Date: [address] [place] [id number]: 01/28/2018 Secondary NOT GIVENUNK [place] Insurance:SELF PAY [facility] Number: Effective Repository Date:2018-01-28 11/03/2017 Jos [id number] Primary LESLIE Mcmillan TYRONEB: [place] Insurance:SCIENTOLOGIST [id number] [place] [address]Xrq: GROUPPolicy Number: Repository [id number] [id number] (HP) Date: [address] [place] [id number]: 11/03/2017 Secondary NOT GIVENUNK [place] Insurance:SELF PAY [facility] Number: Effective Repository Date:2017-10-08 11/03/2017 Jos [id number] Primary LESLIE Mcmillan TYRONEB: [place] Insurance:SCIENTOLOGIST [id number] [place] [address]Dco: GROUPPolicy Number: Repository [phone] [id number] -7 (HP) Date: [address] [place] [id number]: 11/03/2017 Secondary NOT GIVENUNK Andrzej Insurance:SELF PAY [facility] Number: Effective Repository Date:2017-11-03 09/23/2017 [facility] LESLIE Mcmillan TYRONEB: [place] Insurance:SCIENTOLOGIST [id number] [address] [place] [address]Qkp: GROUPPolicy Number: Repository [phone] [id number] -7 (HP) Date: [address] [place] [id number]: 09/23/2017 Secondary NOT GIVENUNK Andrzej Insurance:SELF PAY [facility] Number: Effective Repository Date:2017-09-23 09/22/2017 [facility] LESLIE Mcmillan TYRONEB: [place] Insurance:SCIENTOLOGIST [id number] [address] [place] [address]Yao: GROUPPolicy Number: Repository [phone] [id number] -7 (HP) Date: [address] [place] [id number]: 09/22/2017 Secondary NOT GIVENUNK Andrzej Insurance:SELF PAY [facility] Number: Effective Repository Date:2017-09-22 09/22/2017 [facility] LESLIE Mcmillan TYRONEB: [place] Insurance:SCIENTOLOGIST [id number] [address] [place] [address]Hdw: GROUPPolicy Number: Repository [phone] [id number] -7 (HP) Date: [address] [place] [id number]: 09/22/2017 Secondary NOT GIVENUNK [place] Insurance:SELF PAY [facility] Number: Effective Repository Date:2017-09-22 09/22/2017 Jos [id number] Primary LESLIE DOUGLAS: Andrzej TR Insurance:SCIENTOLOGIST [id number] [address]Qfq: GROUPPolicy Number: Repository [phone] [id number] -7 () Date: [address] [address]XX: 09/22/2017 Secondary NOT GIVENUNK Andrzej Insurance:SELF PAY [facility] Number: Effective Repository Date:2017-09-22
== END ==
PROVIDERS: Family Provider Physician Assistant; PCP Physician Assistant; Visit Provider Obstetrics & Gynecology
DX: Z12.31 Encounter for screening mammogram for malignant neoplasm of breast (principal)
CPT/HCPCS: 77063; 77067

== ENCOUNTER → 2018-11-21 10:01 | Outpatient (CLI) | payer OTHER, SELFPAY ==
[2018-11-03 15:02] VITALS: BMI 36.2
[2018-11-21 12:20] LABS: Erythrocyte Sedimentation Rate 3 mm/hr (0-20)
[2018-11-21 12:22] LABS: Absolute Neutrophil Count 4.4 X10^3/uL (2.0-7.7); Basophil# 0.02 X10^3/uL; Basophil% 0.3 % (0-1); Eosinophil# 0.13 X10^3/uL; Eosinophils% 1.8 % (0-5); Hematocrit 48.6 % (37-47); Hemoglobin 15.7 g/dl (12.0-15.0); Lymphocyte % 30.1 % (19-41); Mean Corp Hgb Conc 32.3 g/gl (32-36); Mean Corpuscular Hgb 30.4 pg (27.0-32.0); Mean Corpuscular Volume 94.2 fL (81-99); Mean Platelet Vol. 10.3 fl (6.2-12.0); Monocyte# 0.58 X10^3/uL; Monocyte% 7.9 % (0-10); Neutrophil # 4.36 X10^3/uL (2.7-7.7); Neutrophil % 59.8 % (47-70); Platelet Count 280 K/mm3 (150-450); RBC Distribution Width SD 43.5 fl (35.1-43.9); Red Blood Count 5.16 M/mm3 (4.2-5.4); White Blood Count 7.3 K/mm3 (4.4-11.0)
[2018-11-21 12:30] LABS: POSITIVE COUNT NO; POSITIVE DIFFERENTIAL NO; POSITIVE MORPHOLOGY NO
[2018-11-21 12:48] LABS: ALB/GLOB Ratio 1.2 RATIO (0.9-2.4); AST(SGOT) 21 U/L (15-37); Alanine Aminotransfer ALT/SGPT 21 U/L (13-56); Albumin, Serum 4.1 g/dL (3.2-5.0); Alkaline Phosphatase 75 U/L (45-117); Anion Gap 6 (5-15); BUN 7 mg/dL (7-18); BUN/Creat Ratio 9.9 RATIO (10-20); CRP < 2.90 mg/L (0.0-3.0); Calcium,Total 8.9 mg/dL (8.5-10.1); Chloride 108 mmol/L (98-107); EST Glomerular Filtration Rate 99 mL/min (>60); Est Glom Filt Rate - Afr Amer 119 mL/min (>60); Globulin 3.3 g/dL (2.2-4.2); Glucose 85 mg/dL (74-106); Potassium 3.9 mmol/L (3.5-5.1); Protein, Total 7.4 g/dL (6.4-8.2); Rheumatoid Factor < 10.0 IU/mL (<15); Sodium Level 141 mmol/L (136-145)
[2018-11-23 11:41] LABS: CCP IgG Antibodies 5 units (0-19); HEPATITIS B SURFACE AG Negative (Negative); Hep B Surface Antibodies Non Reactive (.); Hep C Antibodies <0.1 s/co ratio (0.0-0.9)
[2018-11-23 11:45] LABS: ANTINUCLEAR ANTIBODIES DIRECT Negative (Negative)
== END ==
PROVIDERS: Family Provider Family Medicine; PCP Family Medicine; Referring Provider Internal Medicine Rheumatology; Visit Provider Internal Medicine Rheumatology
DX: M06.4 Inflammatory polyarthropathy (principal); M79.7 Fibromyalgia; R07.9 Chest pain, unspecified
CPT/HCPCS: 36415; 80053; 85025; 85652; 86038; 86140; 86200; 86431; 86706; 86803; 87340

== ENCOUNTER → 2018-12-21 11:11 | Outpatient (CLI) | payer OTHER, SELFPAY ==
[2018-11-03 15:02] VITALS: BMI 36.2
[2018-12-21 12:44] LABS: Ferritin 87 ng/mL (8-252); Iron 71 ug/dL (50-170); Iron Binding Capacity,Total 335 ug/dL (250-450)
[2018-12-22 12:46] LABS: Transferrin 274 mg/dL (200-370)
== END ==
PROVIDERS: Family Provider Family Medicine; PCP Family Medicine; Referring Provider Family Medicine; Visit Provider Family Medicine
DX: D75.1 Secondary polycythemia (principal)
CPT/HCPCS: 36415; 82728; 83540; 83550; 84466

== ENCOUNTER → 2018-12-29 13:38 | Outpatient (CLI) | payer OTHER, SELFPAY ==
[2018-11-03 15:02] VITALS: BMI 36.2
== END ==
PROVIDERS: Family Provider Family Medicine; PCP Family Medicine; Referring Provider Family Medicine; Visit Provider Family Medicine
DX: D75.1 Secondary polycythemia (principal)
CPT/HCPCS: 36415; 81270

== ENCOUNTER → 2019-01-27 20:00 | Outpatient (CLI) | payer OTHER, SELFPAY ==
[2018-11-03 15:02] VITALS: BMI 36.2
== END ==
PROVIDERS: Family Provider Family Medicine; PCP Family Medicine; Referring Provider Internal Medicine Rheumatology; Visit Provider Internal Medicine Rheumatology
DX: G47.33 Obstructive sleep apnea (adult) (pediatric) (principal); M06.4 Inflammatory polyarthropathy; M79.7 Fibromyalgia; R07.9 Chest pain, unspecified; K21.9 Gastro-esophageal reflux disease without esophagitis
CPT/HCPCS: 95810

== ENCOUNTER → 2019-02-03 12:43 | Outpatient (CLI) | payer OTHER, SELFPAY ==
[2018-11-03 15:02] VITALS: BMI 36.2
[2019-02-09 10:06] LABS: HPV Reflexed? NOT INDICATED
== END ==
PROVIDERS: Family Provider Family Medicine; PCP Family Medicine; Referring Provider Obstetrics & Gynecology; Visit Provider Obstetrics & Gynecology
DX: Z12.4 Encounter for screening for malignant neoplasm of cervix (principal)
CPT/HCPCS: 87624; 88175; G0145

== ENCOUNTER → 2019-04-17 07:55 | Outpatient (CLI) | payer SELFPAY, OTHER ==
[2019-03-24 13:52] VITALS: BMI 35.6
--- NOTE | 2019-04-17 07:56 | ECHOD_ITS ---
Reason For Study: Chest Pain Procedure This was a 2D Doppler, Color Flow transthoracic echocardiogram. Exam performed in department. Left Ventricle Normal size and thickness. The estimated ejection fraction is 65 %. Normal diastology for age. No regional wall motion abnormalities noted. Right Ventricle Normal size and thickness. Normal systolic function. Atria Normal left atrium. Normal right atrium. Normal atrial septum. Mitral Valve The mitral valve is structurally normal. No prolapse or stenosis seen. Trivial mitral valve insufficiency. Tricuspid Valve Normal tricuspid valve. Trivial tricuspid valve insufficiency. Right ventricular systolic pressure estimated to be 23 mmHg. Aortic Valve Normal aortic valve. Trisinus/trileaflet aortic valve. Pulmonic Valve Normal pulmonic valve. Great Vessels Normal aortic root. Normal arch. Normal inferior vena cava. Inferior vena cava collapse with sniff. Pericardium/Pleural No pericardial effusion. MMode/2D Measurements & Calculations LVIDd: 5.3 cm IVSd: 1.0 cm LA dimension: 3.8 cm LVIDs: 3.5 cm LVPWd: 1.1 cm FS: 33.7 % LAV(MOD-bp): 48.7 ml LA A4 area: 18.3 cm2 RA A4 area: 16.0 cm2 LAV(MOD-bp) Indexed: 24.5 ml/m2 LAV(MOD-sp2): 42.7 ml LAV(MOD-sp4): 52.2 ml Time Measurements MV dec time: 0.18 sec Doppler Measurements & Calculations MV E max raul: 75.0 cm/sec Lat Peak E' Raul: 10.3 cm/sec Med Peak E' Raul: 10.7 cm/sec MV A max raul: 70.1 cm/sec E/E' lat: 7.3 E/E' med: 7.0 MV E/A: 1.1 MV V2 max: 89.3 cm/sec MV P1/2t max raul: 86.7 cm/sec Ao V2 max: 107.3 cm/sec MV max P.2 mmHg MV P1/2t: 62.5 msec Ao max P.6 mmHg MV V2 mean: 53.9 cm/sec MV dec slope: 406.3 cm/sec2 Ao V2 mean: 75.4 cm/sec MV mean P.3 mmHg MVA(P1/2t): 3.5 cm2 Ao mean P.5 mmHg MV V2 VTI: 22.4 cm Ao V2 VTI: 22.3 cm LV V1 max: 93.8 cm/sec PA V2 max: 90.5 cm/sec TR max raul: 212.5 cm/sec LV V1 max P.5 mmHg TR max P.1 mmHg LV V1 mean P.0 mmHg LV V1 mean: 67.5 cm/sec LV V1 VTI: 20.6 cm Interpretation Summary The estimated ejection fraction is 65 %. Normal diastology for age. Trivial mitral valve insufficiency. Trivial tricuspid valve insufficiency. Right ventricular systolic pressure estimated to be 23 mmHg. There is no comparison study available. Ordering Physician: Isiah Crespo Referring Physician: Davon Werner Performed By: Marc Gallagher RCS
== END ==
PROVIDERS: Family Provider Family Medicine; PCP Family Medicine; Referring Provider Internal Medicine Cardiovascular Disease; Visit Provider Internal Medicine Cardiovascular Disease
DX: R07.89 Other chest pain (principal); Z82.49 Family history of ischemic heart disease and other diseases of the circulatory system
CPT/HCPCS: 93306

== ENCOUNTER 2019-04-19 06:50 | Day surgery (SDC) | payer SELFPAY ==
[2019-03-24 13:52] VITALS: BMI 35.6
--- NOTE | 2019-04-17 08:28 | RAD_ITS ---
STUDY: X-RAY CHEST REASON FOR EXAM: Female, 38 years old. Chest pain since August 2017. TECHNIQUE: PA and lateral views of the chest. COMPARISON: September 22, 2017. FINDINGS: Cardiac silhouette unremarkable. Pulmonary vascularity unremarkable. Aorta unremarkable. No focal patchy airspace opacities. No pleural effusions. Upper abdomen unremarkable. Osseous structures intact. No pneumothorax. RAD/Chest PA and Lateral IMPRESSION: No acute cardiopulmonary findings Electronically Signed: Duran Curiel DO at 9:32 EDT Tel , Service support ,
[2019-04-17 09:49] LABS: Absolute Lymphocyte Count 2.05 X10^3/uL (0.83-4.51); Absolute Neutrophil Count 4.7 X10^3/uL (2.0-7.7); Basophil# 0.04 X10^3/uL; Basophil% 0.5 % (0-1); Eosinophils% 2.7 % (0-5); Hematocrit 44.1 % (37-47); Hemoglobin 14.5 g/dL (12.0-15.0); Lymphocyte # 2.05 X10^3/ul (4.0); Lymphocyte % 27.2 % (19-41); Mean Corp Hgb Conc 32.9 g/dL (32-36); Mean Corpuscular Hgb 30.5 pg (27.0-32.0); Mean Corpuscular Volume 92.6 fL (81-99); Monocyte# 0.48 X10^3/uL; Monocyte% 6.4 % (0-10); NRBC Flagged by Analyzer 0 % (0-5); Neutrophil # 4.72 X10^3/uL (2.7-7.7); Neutrophil % 62.7 % (47-70); Platelet Count 274 K/mm3 (150-450); RBC Distribution Width CV 12.2 % (11.6-14.6); RBC Distribution Width SD 41.8 fl (35.1-43.9); Red Blood Count 4.76 M/mm3 (4.2-5.4); White Blood Count 7.5 K/mm3 (4.4-11.0)
[2019-04-17 10:08] LABS: Prothrombin Time (Protime)PT. 13.1 SECONDS (11.7-14.9)
[2019-04-17 10:25] LABS: Anion Gap 3 (5-15); BUN 8 mg/dL (7-18); BUN/Creat Ratio 11.5 RATIO (10-20); Calcium,Total 8.9 mg/dL (8.5-10.1); Chloride 109 mmol/L (98-107); EST Glomerular Filtration Rate 100 mL/min (>60); Est Glom Filt Rate - Afr Amer 121 mL/min (>60); Glucose 95 mg/dL (74-106); Potassium 3.6 mmol/L (3.5-5.1); Sodium Level 142 mmol/L (136-145)
[2019-04-19 07:20] LABS: Internal QC Validated? YES +Cl - CLEAR BKGD; Pregnancy, Serum, hCG Quali. NEGATIVE Negative
--- NOTE | 2019-04-19 07:47 | HP.PCM_ITS ---
Problem List (1) Chest pain Status: Acute Qualifiers: (2) Chest pain, atypical Status: Chronic (3) Family history of ischemic heart disease Status: Chronic History and Physical Date of Admission: 04/19/19 [facility] [address] [place] [address] OFFICE VISIT Date of Service: 03/24/19 MR#: [id number] Acct: [id number] Name: LESLIE ORELLANA Rep #: [id number] : 1980 Provider: Isiah avila MD Age/Sex: 38/F Location: [facility] Status: Signed HPI HPI History of Present Illness Details: Ms. Cherry is a very pleasant 38-year-old nondiabetic female with a positive family history of ischemic heart disease, who was referred to our office for another opinion regarding her chest pain. In the past she has seen my colleague Dr. Hector Walsh on 11/03/2018. At that time he was asked to evaluate her for her atypical, constant, chest pain. Apparently she has had an extensive cardiac work-up including an echocardiogram as well as a stress echocardiogram which was negative for inducible ischemia. This took place on 09/23/2017 in which she went 8 minutes, had no chest pain, and had no evidence of ischemia. In addition she is undergone an extensive rheumatological evaluation including a negative STEPHANIE, negative rheumatoid factor, negative RPR, negative Lyme disease titers, and negative hepatitis evaluation. In addition she is undergone a CT scan of her chest which took place on 01/19/18, which essentially showed a possible resolving pneumonia in her left lower lobe, otherwise unremarkable. In addition she underwent a sleep study on 01/27/2019 which was abnormal for moderate GASTON, severe during REM sleep and was referred for CPAP therapy. She has never had a regular echocardiogram that I can tell. In addition she is undergone EGD in [place], which demonstrated some mild gastritis, but no overt ulcers. Her story begins in August 2017 when she developed substernal chest pain, which was described as a 4 out of 10 squeezing type chest pain which became worse and radiated down the inner part of her left arm. She sought medical evaluation [facility], and was given sublingual nitroglycerin which apparently improved it. She was diagnosed with pneumonia, but however pain persisted and she sought medical consultation with Dr. Zane Miller. As previously mentioned she has had an extensive cardiac history but has never had an echocardiogram or a left heart catheterization. She states that her pain is now worsening in frequency. After her EGD she saw a skid road man in [place] who prescribed her Imdur which actually made the chest pain worse, and gave her a significant headache. She has subsequently stopped the Imdur. She describes the pain as a 2 out of 10 in the upper left portion of her chest, nonpleuritic, occasionally worsens with exertion, and occasionally goes down the inner part of her left arm. She has a father, who is actually my patient, who has extensive coronary artery disease. Her mother, and sisters all have mitral valve prolapse. At the most recent visit with Dr. Walsh she was offered a CTA versus an invasive cardiac catheterization but they declined at that time. She is now self-referred for yet another opinion. In our office today her blood pressure is 120/80, pulse is 84 and regular. Her physical exam demonstrates clear lungs bilaterally, no rubs noted, cardiac exam is regular rate and rhythm, normal S1/S2, no rubs, murmurs, or mitral valve prolapse sounds. She has no dynamic murmurs with Valsalva or squatting. She has no edema. Lipids are pending. 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 Required: No Accompanied by: Is patient in pain?: No Allergies Penicillins Allergy (Verified 03/24/19 14:05) Other Medications cholecalciferol (vitamin D3) 50,000 unit capsule 50,000 unit PO 2XW cap 03/24/19 [History Confirmed 03/24/19] nitroglycerin 0.4 mg sublingual tablet 0.4 mg SUBLINGUAL Q5-15M 03/24/19 [History Confirmed 03/24/19] [facility] Medical History (Updated 03/24/19 @ 14:02 by Mary Hussein) Family history of ischemic heart disease (Chronic) Chest pain, atypical (Chronic) History of pneumonia (Chronic) Chest pain (Acute) History of vaginal delivery (Chronic) Surgical History History of tonsillectomy (Resolved) Family History Mother History of heart disease Sleep apnea Hypothyroid Sister Hypothyroid Sister Mitral valve prolapse Father Heart disease Myocardial infarction, Onset Age: 58 Social History (Updated 03/24/19 @ 14:44 by Isiah Crespo MD) Smoking Status: Never smoker alcohol intake: never substance use type: does not use caffeine: Yes Type: coffee Number of servings: 1 what type of physical activity do you participate in: other details: active life style ROS Const Const: Positive for other (here for opinion re: chest pain, strong family hx); negative for fatigue, weakness, body ache, fever(s), headache(s), chills, frequent falls, night sweats, daytime sleepiness, difficulty sleeping, excessive sweating, weight gain, weight loss, increased appetite, poor appetite or anorexia Eyes Eyes: Negative for blind spots, loss of peripheral vision, transient loss of vision, blurry vision, change in vision, double vision, floaters, tunnel vision or other ENT ENT: Positive for dizziness (sometimes); negative for headache(s), hearing loss, tinnitus, Nosebleed/epistaxis, balance problems, post nasal drip, lip swelling, tongue swelling, bleeding gums, hoarseness, neck pain, dry mouth or other Cardio Chest Pain: Yes Frequency: daily (ache is there all the time, but sometimes it gets stronger and very sharp) Character: sharp, tightness, squeezing, other (heaviness) Onset: other (Notices increased pain when is very tired) Location: left chest Duration: continuous (sometimes radiates to middle back.) Exacerbation: other (just there spontaneously) Relieving: other (Nitroglycerin pills given to her from [facility], subsides right away) Palpitations: Yes (sometimes) feels like its: fast, skipping Edema: None Muscle aches with walking: None Resp Respiratory: Positive for SOB with activity (sometimes); negative for SOB at rest, SOB orthopnea\SOB lying down, Cough, Coughing up blood/hemoptysis, chest congestion, pain on inspiration, snoring, stridor, wheezing, crackles, paroxysmal nocturnal dyspnea or other GI GI: Negative nausea, vomiting, heartburn, constipation, belching, bloating, cramping, vomiting blood/hematemesis, bright, red blood in stools, black,tarry stools, loose stools, Difficulty Swallowing or other : Negative for hematuria, frequent nighttime urination/ nocturia, erectile dysfunction or abnormal vaginal bleeding Musc Musc: Negative for muscle aches/ myalgia, muscle weakness, joint pain or balance problems Skin Skin: Negative redness, non-healing lesions, rash, unusual bruising, skin ulcer, wounds, jaundice or other Neuro Neuro: Positive for dizziness (sometimes); negative for lightheadedness, near syncope, syncope, orthostatic symptoms, frequent falls, headache(s), weakness, confusion, memory loss, restless legs, blurry vision, double vision, vertigo, seizures, lack of coordination or other Ed Hematologic/Lymphatic: Negative for easy bleeding, easy bruising, enlarged lymph nodes or other Endo Endo: Negative for fatigue, cold intolerance, heat intolerance, excessive sweating, flushing, increased thirst/drinking, increased hunger, hair loss, hair growth or other Psych Psych: Negative for anxiety, depression, thoughts of harming anyone, thoughts of harming yourself, visual hallucinations, panic attacks or audible hallucinations Allergy Allergy/Immunology: Negative for throat swelling, Negative for tongue swelling, Negative for hives, Negative for rash, Negative for lip swelling Cardiology Exam Const Appearance: cooperative, healthy appearing and no acute distress Nutritional Appearance: well nourished Orientation: alert, oriented x3 and oriented to person Head Head: normal to inspection, normocephalic and atraumatic Nose: external nose normal Face and Sinus: face symmetric Mouth: oral mucosae normal Eyes General: appearance normal, both eyes and all related structures Eyelids: eyelids normal Conjunctivae: conjunctivae normal Pupils: PERRL and normal by confrontation EOM: EOM intact bilaterally Neck Neck: normal visual inspection and full ROM Carotids: normal carotid upstroke Chest Chest inspection: normal inspection of the chest Auscultation: Bilateral: Clear to Auscultation Cardio Palpation: normal PMI Rate: regular rate Rhythm: regular rhythm Heart sounds: S1 normal and S2 normal GI GI: normal to inspection, no hepatosplenomegaly and bowel sounds present Neuro General: alert, awake, oriented x3, CN's II-XI intact bilaterally and moves all extremities Skin Skin: no rashes or lesions noted Extremities Pulses: Normal: Right Femoral Pulse, Left Femoral Pulse, Right Dorsalis Pedis Pulse, Left Dorsalis Pedis Pulse, Right Posterior Tibial Pulse, Left Posterior Tibial Pulse, Right Radial Pulse, Left Radial Pulse Lower Extremity Edema: None: Bilateral Psych Psychological: normal affect Assessment & Plan 1. Chest pain, atypical R07.89 Plan 1. Chest pain: The patient has had progressively worsening left upper sternal chest pain over the last year and a half, mostly atypical, but occasionally worsens with exertion and occasionally radiates down the inner portion of her left arm. She has had an extensive cardiac work-up including EKG, stress echo, and CT scan of her chest. In addition she is undergone EGD which demonstrated some mild gastritis, a sleep study which was abnormal for obstructive sleep apnea and is compliant with her CPAP and yet her symptoms persist. In addition she has a significant positive family history of coronary occlusive disease in her father, and mitral valve prolapse and her mother and each of her sisters. In order to be sure the patient does not have some coronary occlusive disease that is undetectable by traditional noninvasive measures, I recommended the patient undergo a diagnostic coronary angiogram to confirm/deny the presence of significant coronary occlusive disease. Patient symptoms appear to improve with sublingual nitroglycerin which points towards coronary occlusive disease or possibly coronary vasospasm. Unfortunately she did not tolerate Imdur therapy due to severe headaches and possibly worsening chest pain. In addition I recommended that she undergo a 2D echo with Doppler to evaluate her LV function, LV thickness, mitral valve, and pulmonary pressures. I explained the risks/benefits the procedure including specific attention to lack of on-site surgical back-up, and the patient agrees to proceed. I would not recommend a CTA at this time as the patient may require ICD nitroglycerin or FFR evaluation of a indeterminate lesion should this be found to If the patient has no evidence of coronary occlusive disease on catheterization I would recommend calcium channel pool therapy such as either Cardizem or amlodipine for coronary vasodilatation. In addition I recommend that she undergo standard lab testing, chest x-ray, and a test as well. I advised the patient not to go on her vacation, but they wish to go on it nonetheless and have agreed to the catheterization when they return. I advised the patient to begin aspirin and Plavix, and to bring her sublingual nitroglycerin with her, as well as to identify all the hospitals in route to the location on the [facility]. I thoroughly explained the patient and her that it is possible the patient may develop recurrent chest pain and/or a myocardial infarction in route to their vacation or on the return. Patient is voiced understanding and agrees to proceed on her vacation. 2. Return office in 6 months. This note was generated using a voice recognition system and there may be incorrect words, spelling or punctuation that were not noted when reviewing the office note prior to saving. Orders Orders: Echo Complete Today Plan Detail Other Orders Orders: Echo Complete Today R07.9, Z82.49 Follow Up +6M (Zak) Coding Level of Care Code Off vis,new,level 4 Diagnoses Chest pain, atypical R07.89 Coding Level of Care Code Off vis,new,level 4 Diagnoses Chest pain, atypical R07.89 Supplemental Info Supplemental Information Diagnostics Electrocardiogram 11/03/18 03/24/19 1444 <Electronically signed by Isiah Crespo MD> Date _ Isiah Crespo MD Cosigner Signature: Date (if applicable) CC: Davon Werner MD ~ Addendum: Patient seen and examined on day of procedure. History and physical as above has not appreciably changed. We will proceed with left heart catheterization. Results to follow.
--- NOTE | 2019-04-19 08:09 | CL.D_ITS ---
Patient Name: LESLIE ORELLANA Study Date: 04/19/2019 Performing: Isiah Crespo MD Ht: 64.17 inches 163 cm : 1980 Wt: 212 lbs 96.16 kg Age: 38 Gender: female BSA: 2.01 PROCEDURE(S) PERFORMED QL65-OUA/COR/LV CLINICAL PROFILE AND INDICATIONS Indications: New Onset Angina <= 2 months, Suspected CAD Heart Failure: None Stress/Imaging Date: 09/23/2017Stress Echocardiogram: Negative Angina Classification Anginal Classification w/in 2 Weeks: CCS IV CAD Presentations: Symptom unlikely to be ischemic. Comorbidities/Risk Factors: Family History of Premature CAD CONCLUSIONS Normal coronary arteries Normal LV size, wall motion,and systolic function Perserved Left Ventricular systolic function with normal EDP RECOMMENDATIONS No recommendations -> Normal findings Rheumatolgy consult Manual sheath removal d/c plavix DESCRIPTION OF PROCEDURE The patient arrived to the procedure lab. The risks and benefits of the procedure as well as a full d escription of our services here and current unavailability of surgical backup were fully explained to the patient and/or their significant other prior to the catheterization. The Timeout was completed, verifying the correct patient and procedure. The patient's procedural site was prepped and draped in the usual fashion. Local anesthetic was given subcutaneously to right groin region with Lidocaine 2%. Using a modified Seldinger technique, arterial access was obtained via the right femoral artery, a 4 Fr sheath was inserted Left Coronary Artery selective angiography was performed in multiple views us ing a 4 Fr. JL5 catheter. Right Coronary Artery selective angiography was then performed in multiple views using a 4 Fr. 3DRC catheter. Left Ventriculography was performed in THOMPSON projection using a 4 Fr . Pigtail catheter. LV to AO pullback pressures were then recorded.The arterial sheath was pulled and manual compression applied until hemostasis is achieved. CORONARY ANGIOGRAPHY DOMINANCE: Right Dominant LEFT HEART ASSESSMENT Left Ventricular Ejection Fraction: by LV Gram 65 % Normal LV wall motion Normal Left Ventricular systolic function Normal Left Ventricular systolic function LEFT MAIN: Angiographically normal, Angiographically normal LEFT ANTERIOR DESCENDING ARTERY: Angiographically normal, Angiographically normal CIRCUMFLEX ARTERY: Angiographically normal, Angiographically normal RIGHT CORONARY ARTERY: Angiographically normal Angiographically normal COMPLICATIONS No Complications PROCEDURE MEDICATIONS Oxygen: 2 L/min via nasal cannula SUMMARY OF HEMODYNAMIC DATA Time AIR REST ECG 07:35:35 AO 129/86 (103) SA 07:54:34 LV 143/-19, 13 08:00:15 LV 146/-21, 9 08:00:22 LVp 144/-23, 8 08:00:28 AOp 139/82 (109) 08:00:33 Signed By Isiah Crespo MD On 04/19/2019 08:08:22 Isiah Crespo MD
== END 2019-04-19 12:30 | disposition home or self-care (01) ==
PROVIDERS: Family Provider Family Medicine; PCP Family Medicine; Referring Provider Internal Medicine Cardiovascular Disease; Visit Provider Internal Medicine Cardiovascular Disease
DX: R07.9 Chest pain, unspecified (principal); R51 Headache; G47.33 Obstructive sleep apnea (adult) (pediatric); Z82.49 Family history of ischemic heart disease and other diseases of the circulatory system; Z88.0 Allergy status to penicillin; Z87.01 Personal history of pneumonia (recurrent)
CPT/HCPCS: 36415; 71046; 80048; 84703; 85025; 85610; 93458; J7040; Q9967; C1769; C1894

== ENCOUNTER → 2019-09-21 11:19 | Outpatient (CLI) | payer OTHER, SELFPAY ==
[2019-03-24 13:52] VITALS: BMI 35.6
[2019-09-21 14:15] LABS: Hematocrit 45.5 % (37-47); Hemoglobin 14.9 g/dL (12.0-15.0); Mean Corp Hgb Conc 32.7 g/dL (32-36); Mean Corpuscular Hgb 30.3 pg (27.0-32.0); Mean Corpuscular Volume 92.7 fL (81-99); Mean Platelet Vol. 10.1 fl (6.2-12.0); Platelet Count 239 K/mm3 (150-450); RBC Distribution Width CV 12.3 % (11.6-14.6); RBC Distribution Width SD 41.9 fl (35.1-43.9); Red Blood Count 4.91 M/mm3 (4.2-5.4)
[2019-09-21 14:33] LABS: ALB/GLOB Ratio 1.3 RATIO (0.9-2.4); AST(SGOT) 20 U/L (15-37); Alanine Aminotransfer ALT/SGPT 24 U/L (13-56); Albumin, Serum 3.9 g/dL (3.2-5.0); Alkaline Phosphatase 68 U/L (45-117); Anion Gap 6 (5-15); BUN 7 mg/dL (7-18); BUN/Creat Ratio 10.1 RATIO (10-20); Calcium,Total 8.9 mg/dL (8.5-10.1); Chloride 105 mmol/L (98-107); EST Glomerular Filtration Rate 100 mL/min (>60); Est Glom Filt Rate - Afr Amer 120 mL/min (>60); Globulin 3.1 g/dL (2.2-4.2); Glucose 93 mg/dL (74-106); Potassium 3.7 mmol/L (3.5-5.1); Sodium Level 139 mmol/L (136-145)
[2019-09-21 14:36] LABS: Vitamin D,25 Hydroxy 44.6 ng/mL (29.95-100.01)
== END ==
PROVIDERS: PCP Family Medicine; Referring Provider Legal Medicine; Visit Provider Legal Medicine
DX: B02.9 Zoster without complications (principal); E55.9 Vitamin D deficiency, unspecified
CPT/HCPCS: 36415; 80053; 82306; 85027

== ENCOUNTER → 2019-10-09 11:14 | Outpatient (CLI) | payer OTHER, SELFPAY ==
[2019-03-24 13:52] VITALS: BMI 35.6
[2019-10-09 14:16] LABS: Erythrocyte Sedimentation Rate 1 mm/hr (0-20)
[2019-10-09 14:17] LABS: Hematocrit 45.6 % (37-47); Hemoglobin 14.9 g/dL (12.0-15.0); Mean Corp Hgb Conc 32.7 g/dL (32-36); Mean Corpuscular Hgb 30.8 pg (27.0-32.0); Mean Corpuscular Volume 94.2 fL (81-99); Mean Platelet Vol. 10.3 fl (6.2-12.0); Platelet Count 266 K/mm3 (150-450); RBC Distribution Width CV 12.2 % (11.6-14.6); RBC Distribution Width SD 42.5 fl (35.1-43.9); Red Blood Count 4.84 M/mm3 (4.2-5.4); White Blood Count 7.4 K/mm3 (4.4-11.0)
[2019-10-09 14:23] LABS: ALB/GLOB Ratio 1.4 RATIO (0.9-2.4); AST(SGOT) 13 U/L (15-37); Alanine Aminotransfer ALT/SGPT 18 U/L (13-56); Alkaline Phosphatase 66 U/L (45-117); Anion Gap 4 (5-15); BUN 9 mg/dL (7-18); BUN/Creat Ratio 13.8 RATIO (10-20); CRP < 2.90 mg/L (0.0-3.0); Calcium,Total 9.1 mg/dL (8.5-10.1); Chloride 107 mmol/L (98-107); Creatinine, Serum 0.65 mg/dL (0.55-1.02); EST Glomerular Filtration Rate 107 mL/min (>60); Est Glom Filt Rate - Afr Amer 129 mL/min (>60); Globulin 2.9 g/dL (2.2-4.2); Glucose 81 mg/dL (74-106); Potassium 3.6 mmol/L (3.5-5.1); Protein, Total 6.9 g/dL (6.4-8.2); Sodium Level 141 mmol/L (136-145)
[2019-10-09 14:39] LABS: Vitamin D,25 Hydroxy 38.6 ng/mL (29.95-100.01)
[2019-10-10 17:18] LABS: HSV 2 IgG < 0.91 index (0.00-0.90)
== END ==
PROVIDERS: PCP Family Medicine; Referring Provider Legal Medicine; Visit Provider Legal Medicine
DX: B02.9 Zoster without complications (principal); R53.83 Other fatigue; E55.9 Vitamin D deficiency, unspecified; R07.9 Chest pain, unspecified
CPT/HCPCS: 36415; 80053; 82306; 85027; 85652; 86140; 86695; 86696

== ENCOUNTER → 2019-12-05 10:53 | Outpatient (CLI) | payer OTHER, SELFPAY ==
[2019-03-24 13:52] VITALS: BMI 35.6
[2019-12-05 12:02] LABS: Erythrocyte Sedimentation Rate 5 mm/hr (0-20)
[2019-12-05 12:08] LABS: Hematocrit 47.8 % (37-47); Hemoglobin 15.9 g/dL (12.0-15.0); Mean Corp Hgb Conc 33.3 g/dL (32-36); Mean Corpuscular Hgb 31.5 pg (27.0-32.0); Mean Corpuscular Volume 94.8 fL (81-99); Mean Platelet Vol. 9.7 fl (6.2-12.0); Platelet Count 310 K/mm3 (150-450); RBC Distribution Width CV 12.8 % (11.6-14.6); RBC Distribution Width SD 44.4 fl (35.1-43.9); Red Blood Count 5.04 M/mm3 (4.2-5.4); White Blood Count 7.9 K/mm3 (4.4-11.0)
[2019-12-05 12:32] LABS: Vitamin D,25 Hydroxy 46.5 ng/mL
[2019-12-05 12:45] LABS: ALB/GLOB Ratio 1.3 RATIO (0.9-2.4); AST(SGOT) 19 U/L (15-37); Alanine Aminotransfer ALT/SGPT 18 U/L (13-56); Albumin, Serum 4.2 g/dL (3.2-5.0); Alkaline Phosphatase 77 U/L (45-117); Anion Gap 5 (5-15); BUN 8 mg/dL (7-18); BUN/Creat Ratio 13.9 RATIO (10-20); CRP < 2.90 mg/L (0.0-3.0); Chloride 107 mmol/L (98-107); Creatinine, Serum 0.58 mg/dL (0.55-1.02); EST Glomerular Filtration Rate 123 mL/min (>60); Est Glom Filt Rate - Afr Amer 149 mL/min (>60); Globulin 3.2 g/dL (2.2-4.2); Glucose 83 mg/dL (74-106); Potassium 3.7 mmol/L (3.5-5.1); Protein, Total 7.4 g/dL (6.4-8.2); Sodium Level 139 mmol/L (136-145); Thyroid Stim Hormone (TSH) 1.76 uIU/mL (0.358-3.74)
[2019-12-06 06:28] LABS: HSV 2 IgG < 0.91 index (0.00-0.90)
== END ==
PROVIDERS: PCP Family Medicine; Referring Provider Legal Medicine; Visit Provider Legal Medicine
DX: B02.9 Zoster without complications (principal); E55.9 Vitamin D deficiency, unspecified; R53.83 Other fatigue
CPT/HCPCS: 36415; 80053; 82306; 84443; 85027; 85652; 86140; 86695; 86696

== ENCOUNTER → 2020-02-02 11:51 | Outpatient (CLI) | payer OTHER, SELFPAY ==
[2020-02-02 07:46] VITALS: BMI 39.4
[2020-02-02 12:16] LABS: Absolute Lymphocyte Count 2.18 X10^3/uL (0.83-4.51); Basophil# 0.03 X10^3/uL; Basophil% 0.2 % (0-1); Eosinophil# 0.01 X10^3/uL; Eosinophils% 0.1 % (0-5); Hematocrit 46.1 % (37-47); Hemoglobin 15.4 g/dL (12.0-15.0); Lymphocyte # 2.18 X10^3/ul (4.0); Lymphocyte % 16.6 % (19-41); Mean Corp Hgb Conc 33.4 g/dL (32-36); Mean Corpuscular Hgb 32.6 pg (27.0-32.0); Mean Corpuscular Volume 97.7 fL (81-99); Mean Platelet Vol. 9.4 fl (6.2-12.0); Monocyte# 0.82 X10^3/uL; Monocyte% 6.3 % (0-10); NRBC Flagged by Analyzer 0 % (0-5); Neutrophil # 10.02 X10^3/uL (2.7-7.7); Neutrophil % 76.3 % (47-70); Platelet Count 305 K/mm3 (150-450); RBC Distribution Width CV 12.6 % (11.6-14.6); RBC Distribution Width SD 45.6 fl (35.1-43.9); Red Blood Count 4.72 M/mm3 (4.2-5.4); White Blood Count 13.1 K/mm3 (4.4-11.0)
--- NOTE | 2020-02-02 12:57 | RAD_ITS ---
STUDY: X-RAY CHEST REASON FOR EXAM: Female, 39 years old. Chest pain, cough TECHNIQUE: PA and lateral views of the chest. COMPARISON: Comparison is made with prior study dated April 17, 2019. FINDINGS: The lungs are clear and expanded. Scattered calcified granulomas. There is no demonstrated pleural abnormality. Normal size heart. Normal mediastinum and sally. Normal visualized pulmonary arteries. Normal visualized aortic arch and descending thoracic aorta. Normal visualized thoracic spine. Normal visualized ribs, clavicles, and shoulders. There is no demonstrated abnormality of the visualized soft tissue structures of the upper abdomen. RAD/Chest PA and Lateral IMPRESSION: Normal x-ray examination of the chest. Electronically Signed: Akash Thomas, at 14:33 EDT , Service support ,
[2020-02-02 16:21] LABS: Vitamin D,25 Hydroxy 43.9 ng/mL
[2020-02-02 16:31] LABS: Erythrocyte Sedimentation Rate 4 mm/hr (0-20)
[2020-02-02 16:44] LABS: ALB/GLOB Ratio 1.1 RATIO (0.9-2.4); AST(SGOT) 12 U/L (15-37); Alanine Aminotransfer ALT/SGPT 16 U/L (13-56); Albumin, Serum 3.9 g/dL (3.2-5.0); Alkaline Phosphatase 69 U/L (45-117); Anion Gap 9 (5-15); BUN 13 mg/dL (7-18); BUN/Creat Ratio 20.3 RATIO (10-20); CRP < 2.90 mg/L (0.0-3.0); Chloride 106 mmol/L (98-107); Creatinine, Serum 0.64 mg/dL (0.55-1.02); EST Glomerular Filtration Rate 109 mL/min (>60); Est Glom Filt Rate - Afr Amer 132 mL/min (>60); Globulin 3.4 g/dL (2.2-4.2); Glucose 109 mg/dL (74-106); Potassium 3.7 mmol/L (3.5-5.1); Protein, Total 7.3 g/dL (6.4-8.2); Sodium Level 140 mmol/L (136-145)
[2020-02-05 03:06] LABS: Alternaria tenuis <0.10 kU/L (Class 0); Ash, White <0.10 kU/L (Class 0); Aspergillus fumigatus <0.10 kU/L (Class 0); Bermuda Grass <0.10 kU/L (Class 0); Birch <0.10 kU/L (Class 0); Black Walnut <0.10 kU/L (Class 0); Cat Hair / Dander,Stand <0.10 kU/L (Class 0); Cedar, Mountain <0.10 kU/L (Class 0); Cladosporium herbarum <0.10 kU/L (Class 0); Cockroach, American <0.10 kU/L (Class 0); Cottonwood <0.10 kU/L (Class 0); D farinae Mite <0.10 kU/L (Class 0); D pteronyssinus <0.10 kU/L (Class 0); Dog Epithelia <0.10 kU/L (Class 0); Elm, American White <0.10 kU/L (Class 0); Immunoglobulin E 4 IU/mL (6-495); Maple/Box Elder <0.10 kU/L (Class 0); Mulberry, White <0.10 kU/L (Class 0); Oak, White <0.10 kU/L (Class 0); Pecan <0.10 kU/L (Class 0); Penicillium Notatum <0.10 kU/L (Class 0); Pigweed, Rough <0.10 kU/L (Class 0); Ragweed, Short/Common <0.10 kU/L (Class 0); Russian Thistle <0.10 kU/L (Class 0); Sheep Sorrel <0.10 kU/L (Class 0); Sycamore, American <0.10 kU/L (Class 0); Timothy Grass <0.10 kU/L (Class 0)
[2020-02-05 06:25] LABS: Mouse Urine <0.10 kU/L (Class 0)
[2020-02-05 13:13] LABS: Immunoglobulin E 5 IU/mL (6-495)
[2020-02-09 14:08] LABS: HSV 1 By PCR Negative (Negative)
[2020-02-10 11:19] LABS: HSV 2 By PCR Negative (Negative); HSV 2 IgG < 0.91 index (0.00-0.90)
--- OUTSIDE RECORDS SUMMARY | 2020-06-16 08:30 | XMS RPT_ITS | CCD ---
:1980 External Reference #:[id number] Author Organization [facility] Care Team Providers Name Role Phone Sean Childress Primary Care Provider Alphonso Primary Care Provider Unavailable Primary Care Provider Unavailable NISHIHOS, MONROE Attending Unavailable PENHOS, MONROE Referring Unavailable [facility] Primary Care Unavailable NISHIHOS, MONROE Attending Unavailable PENHOS, MONROE Referring Unavailable [facility] Primary Care Unavailable NISHIHOS, MONROE Attending Unavailable PENHOS, MONROE Referring Unavailable [facility] Primary Care Unavailable PENHOS, MONROE Attending Unavailable PENHOS, MONROE Referring Unavailable [facility] Primary Care Unavailable PENHOS, MONROE Attending Unavailable PENHOS, MONROE Referring Unavailable [facility] Primary Care Unavailable NISHIHOS, MONROE Attending Unavailable PENHOS, MONROE Referring Unavailable [facility] Primary Care Unavailable Allergies Reported Allergen Reaction(s) Severity Date of Onset Location Penicillins Translations: [ Unknown 01-13-2019 - [facility] ([id number]) Unknown] Medications Current Medications Medication Name Sig Date Prescriber Location Calcium Chloride / lactated ringers IV 03-08-2019 [facility] Lactate / Potassium solution (83647) Chloride / Sodium Chloride Dexamethasone / dexamethasone-neomyci 01-31-[address] [facility] Neomycin / Polymyxin n-polymyxin [facility] B [id number] (23888) Suspension INSTILL A SMALL AMOUNT INTO THE LEFT EYE EVERY 2 HOURS DIRECTED. SHAKE WELL 0 01/31/2019 Active Ergocalciferol ergocalciferol 52519 01-09-2019 Historical [facility] units Cap [facility] ([id number]) gabapentin gabapentin 100 MG Cap 12-20-2018 [facility] ([id number]) Isosorbide isosorbide 03-13-2019 Caden Chapman [facility] mononitrate 30 MG Tab Polinski (66409 ) SR 24 HR tablet XL Take 1 tablet by mouth daily every morning. 30 tablet 11 03/13/2019 Active Nitroglycerin nitroGLYCERIN 0.4 MG 06-09-2018 [facility] tablet [facility] 0.4 (50348) mg under tongue. 0 06/09/2018 Active Completed/Discontinuned Medications Medication Name Sig Date Prescriber Location iopamidol iopamidol 01-13-2019 - Ankita De [facility] ([id number]) (ISOVUE-370) 76 % (ISOVUE-370) 76 % 01-13-2019 injection 75 mL injection 75 mL Naproxen Naproxen Sodium 03-08-2019 [facility] (ALEVE PO) Take 1 (43027) tablet by mouth as needed (for headaches). 0 03/08/2019 Discontinued (Stop Taking at Discharge) Simethicone simethicone 03-08-2019 - [facility] (MYLICON) oral 03-08-2019 (20758) suspension 80 mg technetium (Tc-99m) technetium (Tc-99m) 01-13-2019 - Raul Mckeon [facility] ([id number]) medronate (MDP) medronate (MDP) 01-13-2019 injection 25 injection 25 millicurie millicurie Problems Category Problem Name Status Date Location Abdominal pain Epigastric pain Active 03-07-2019 - [facility] ([id number]) Cardiac dysrhythmias Palpitations Active 03-13-2019 - [facility] (63189) Lymphadenitis Lymphadenopathy Active [facility] ([id number]) Nonspecific chest pain Chest pain Active 12-28-2017 - [facility] (24545) Other connective Pain in left arm Active [facility] (85626) tissue disease Other endocrine Disorder of endocrine Active 03-10-2019 - [facility] disorders system [facility] (86944) Other nervous system H/O: brain disorder Active 03-10-2019 - [facility] MED[facility] disorders [place] ([id number]) Other nutritional; Obese class II Active 03-07-2019 - [facility] endocrine; and (75490) metabolic disorders Results Result Name Value Range Unit Interpretation Flag Date Location progress on 2019-02 PROGRESS HNO ID: [id number] Normal 03-14-2019 [facility] Author: Ulices (Pt) Otf [place]ts ([id number]) Service: ? Author Type: Physical Therapist Type: Progress Notes Filed: 03/14/2019 3:41 PM Note Text: 03/14/2019 [facility] PHYSICAL THERAPY DISCONTINUANCE OF CARE Plan of Care Period: Start of Care Date: 12/28/17 Last Visit Date: 01/25/2018 Therapy Program: The following is a summary of the intervent ions provided for this episode of care; Therapeutic exercise, Manual therapy, Self- fci management and Patient/Family/Caregiver Education Assessment: The following is the goal status: Goals for Episode of Care: created on 12/28/17 through 01/28 [place] in home exercise program. Met, on-going Patient will decrease pain rating by 2 points to meet minima l clinical important difference for numeric pain rating scale. Not met Patient will decrease pain to 0/10 with functional activitie s to allow patient to improve standing tolerance for ADLs. not met Patient will increase active ROM of L shoulder to WNL to all ow pt to improved performance of ADLs. Met Perform work tasks without pain. Not met Based on the most recent progress report, patient was progre ssing slower than expected toward functional goals based on home exercise program compliance, pain levels and documented subjective informatio n on progress. Reason for Discontinuation of Care: Patient has not returned to therapy or scheduled additional follow-up appointments. Ulices Vanessa, PT b type natriuretic peptide on 2019-03-08 Natriuretic peptide B (Bld) 8 0-100 pg/mL Normal [facility] [Mass/Vol] ([id number]) Comment: Performed By: #### BNP #### [place] [address] No panel information on 2019-03-[address] [facility] - 03-08-20 19 [facility] ([id number]) Patient Name: Leslie Bernardo Procedure Date: 03/08/2019 10:46 AM Date of : 1980 Admit Type: Outpatient Age: 38 Room: Procedure Room #2 Gender: Female Note Status: Finalized Attending MD: Mana Kaba MD Instrument Name: [id number] Procedure: Upper GI endoscopy Indications: Abdominal pain, Unexplained chest pain Providers: Mana Kaba MD Patient Profile: This is a 38 year old female. Body Mass Index: 36. Laboratory tests results include no abnormalities. Previously obtained MRI. Referring MD: Sean Childress MD Complications: No immediate complications. Medicines: Monitored Anesthesia Care, See the Anesthesia note for documentation of the administered medications Procedure: After obtaining informed consent, the endoscope was passed under direct vision. Throughout the procedure, the patient's blood pressure, pulse, and oxygen saturations were monitored continuously. CO2 was used. The Endoscope was introduced through the mouth, and advanced to the second part of duodenum. The upper GI endoscopy was accomplished without difficulty. The patient tolerated the procedure well. Findings: The hypopharynx was normal. The examined esophagus was normal. There is no endoscopic evidence of Stanley's esophagus, bleeding, areas of erosion, esophagitis, hiatal hernia, stricture, ulcerations, varices, findings consistent with candidiasis, vertical lines, mass, nodules, polyps or diverticula in the entire esophagus. The entire examined stomach was normal. There is no endoscopic evidence of bleeding, erythema or inflammatory changes suggestive of gastritis, ulceration, varices, gastric antral vascular ectasia, angiodysplasia, angioectasia, portal hypertension gastropathy or tumor in the stomach. The examined duodenum was normal. Impression: - Normal hypopharynx. - Normal esophagus. - Normal stomach. - Normal examined duodenum. - No specimens collected. - Non-erosive esophageal reflux (NERD) disease present. Recommendation: - Resume previous diet. - Continue present medications. - Use Prilosec (omeprazole) 40 mg PO daily for 2 months. - QUIT ALEVE. - QUIT CAFFEIN AND NSAIDS // IBUPROFEN, ADVIL, ALEVE, MOTRIN, EXCEDRIN, AYO-SELTZER. - The findings and recommendations were discussed with the patient's family. 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 All rights reserved. The codes documented in this report are preliminary and upon senior manager review may be revised to meet current compliance requirements. MD Mana Sahni MD 03/08/2019 11:05:01 AM This report has been signed electronically. Number of Addenda: 0 Note Initiated On: 03/08/2019 10:46 AM Natriuretic 8 0 - 100 pg/mL 03-08-2019 [facility] peptide B (Bld) (000 00) [Mass/Vol] HCG.beta subunit negative m[IU]/m 03-08-2019 [facility] (08303) mr chest with and without contrast on 2019-02-27 MR CHEST WITH AND EXAMINATION: Normal 9 Saray WITHOUT CONTRAST MR CHEST WITH AND WITHOUT CONTRAST [facility] ([id number]) HISTORY: ORDERING SYSTEM PROVIDED HISTORY: Chest pain, unspecified ty pe, TECHNOLOGIST PROVIDED HISTORY: Illness/Other Reason for exam: Hx of unexplainable chest pain going from L eft superior anterior chest (fiducial) radiating inferior-laterally (Fidu cial) Encounter Type: Subsequent/Follow-up Additional signs and symptoms: n ORDERING SYSTEM PROVIDED DIAGNOSIS CODES: R07.9 Chest pain, unspecified type COMPARISON: CT chest from 01/13/2019. TECHNIQUE: Multiplanar, multisequence MR imaging of the chest is perfor med with and without IV contrast administration. CONTRAST: Gadoterate meglumine 0.5 mmol/mL (376.9 mg/mL) intravenous s olution - 19.5 mL. FINDINGS: Heart normal in size. Thoracic aorta nonaneurysmal without o bvious dissection. The central pulmonary arteries are normal in regina iber. There is no bulky lymphadenopathy within the chest. There is no pl eural or pericardial effusion identified. Imaged portions of the thyr oid parenchyma is homogeneous in signal. Limited images of the u pper abdomen are unremarkable with the exception of a faintly T2 hyperint ense lesion involving the right hepatic lobe measuring 2.5 cm which is b yobany characterized on the recent MRI of the abdomen from 02/04/20 19. No abnormal areas of enhancement identified on postcontrast niesha ges. IMPRESSION: No acute abnormality in the chest. Natanael Ulien/[employer] Workstation ID: [id number] Dictated by: YEIMY ENRIQUEZ on WedFeb 27, 2019 4:34:31 PM E DT Transcribed by: MISAEL CHAN on WedFeb 27, 2019 4:45 :10 PM EDT Finalized by: YEIMY ENRIQUEZ on WedFeb 28, 2019 10:33:39 AM EDT Comment: Order Comment: Injury/Trauma or Illness?:Illness/Other How long have you had these symptoms (acute/chronic)?:Chronic Reason for exam?:Hx of unexp lainable chest pain going from Left superior anterior chest (fiducial) radiating inferior-laterally (Fiducial) Type of Exam?:Subsequent/Fol low-up Additional signs and symptom s?:n mr abdomen with and without contrast on 2019-02-03 MR ABDOMEN WITH EXAMINATION: Normal 02-03-2019 [place] AND WITHOUT MRI OF THE ABDOMEN WITHOUT AND WITH CONTRAST, 02/03/2019 [facility] ([id number]) CONTRAST HISTORY: Dx: R16.0 (Liver mass, right lobe) Reason for exam?:Chest pa in (Lt) and fatigue since Aug 2017. Recent CT Chest showed 2.2 cm round enhancing mass within the right lobe of the liver.. Injury/Trauma or Illness?:Illness/Other Liver mass, right lo be COMPARISON: CT scan of the chest, 01/13/2019. TECHNIQUE: Coronal and axial T2 trueFISP and T2 HASTE, axial T1 flash i n- and kmu-bv-mekbi imaging followed by axial T2 fat-saturated doub le turbo spin-echo imaging. Axial eDWI/ADC. Pre- and postenhanced axi al VIBE imaging with 20-second, 70-second, 2-minute and 5-minute del ay including pre- from postenhanced subtraction VIBE imaging. A total of 19 mL of intravenous Dotarem was used for the enhanced portion of the exam. FINDINGS: Within the posterior segment of the right hepatic lobe at th e junction of segment 6 and 7 is a faint high T2 and low T1 signal mass me asuring 2.4 x 2 cm with central scar demonstrating high T2 and delayed enh ancement of the scar consistent with a benign focal nodular hyperplasia (image number 39, series 11, image number 21, series 4 and image number 38 , series 16 and 17). No other clear hepatic lesions identified. There is very mild geographic fatty infiltration of the liver. Remaining visual ized solid organs are unremarkable. The gallbladder is also unremarkabl e. IMPRESSION: 1. A mass within the right hepatic lobe at the junction of s egments 6 and 7 measuring 2.4 x 2 cm consistent with a benign focal nodula r hyperplasia. No other hepatic lesions identified. 2. Mild geographic fatty infiltration of the liver. The munod jem of the abdomen is unremarkable. GJT/mll Workstation ID: [id number] Dictated by: ILEANA SALAS on WedFeb 03, 2019 1:42:40 PM EDT Transcribed by: CAT RODRIGUEZ on WedFeb 03, 2019 2:14:04 PM ED T Finalized by: ILEANA SALAS on WedFeb 03, 2019 2:53:10 PM EDT Comment: Order Comment: Reason for ex am?:Chest pain (Lt) and fatigue since Aug 2017. Recent CT Chest showed 2.2 cm round enhancing mass within the right lobe of the liver.. Injury/Trauma or Illness?:Il lness/Other How long have you had these symptoms (acute/chronic)?:Chronic Type of Exam?:Initial Additional signs and symptom s?:n nm bone limited study on 2019-01-13 NM BONE LIMITED EXAMINATION: Normal 01-13-2019 [facility] STUDY [place] BONE LIMITED STUDY ([id number]) HISTORY: ORDERING SYSTEM PROVIDED HISTORY: Chest pain, unspecified ty pe, TECHNOLOGIST PROVIDED HISTORY: Reason for exam: chest pain that radiates to left side and b ack, chest pain under left arm Illness/Other Encounter Type: Ongoing Additional signs and symptoms: n/a ORDERING SYSTEM PROVIDED DIAGNOSIS CODES: R07.9 Chest pain, unspecified type R59.1 Adenopathy M79.602 Left arm pain COMPARISON: CT chest 01/13/2019. MRI thoracic spine 01/13/2019. TECHNIQUE: Spot views of the thorax were obtained following IV injectio n of 26.1 millicuries technetium-99m MDP. FINDINGS: Symmetric activity is seen within the bilateral ribs and hum nichol. There is mild degenerative uptake seen in the bilateral shoulders, wh ich is symmetric. There is minimal activity seen at the costochondr al junction of the 7th to 12th ribs, which is symmetric and likely physi ologic. No focal suspicious uptake is identified. IMPRESSION: No acute abnormality identified. SMK/ads Workstation ID: Unknown Dictated by: MARA BENÍTEZ on WedJanuary 13, 2019 3:47:26 P M EDT Transcribed by: Valerie VIEYRA IN [employer] on WedJanuary 13, 2019 3:52:37 PM EDT Finalized by: REMY BENÍTEZ Jeanette Hipolito on WedJanuary 13, 2019 5:38:50 PM EDT Dictated by: MARA BENÍTEZ on WedJanuary 13, 2019 3:47:26 PM EDT Transcribed by: Valerie VIEYRA IN [employer] on WedJanuary 13, 2019 3:52:37 PM EDT Finalized by: MARA BENÍTEZ on WedJanuary 13, 2019 5:38:50 PM EDT Comment: Order Comment: LEFT SIDE Reason for exam?:chest pain that radiates to left side and back, chest pain under left arm Injury/Trauma or Illness?:Il lness/Other How long have you had these symptoms (acute/chronic)?:Chronic Type of Exam?:Ongoing Additional signs and symptom s?:n/a mr thoracic spine without contrast on 2019-01-13 MR THORACIC EXAMINATION: Normal 01-13-2019 [facility] SPINE WITHOUT MR THORACIC SPINE WITHOUT CONTRAST [facility] ([id number]) CONTRAST HISTORY: Chest pain, unspecified type Dx: R07.9 (Chest pain, unspecif ied type) Reason for exam?:chest pain that radiates into left side and into left mid back area since 08/2017: nki: no hx of cancer::no pathology s een so no t2 or t1 thin axials done: Injury/Trauma or Illness?:Illness/Other TECHNIQUE: Sagittal T1, BETY T2, STIR images and axial T2 images perform ed. COMPARISON: None. FINDINGS: The vertebral bodies and disc spaces are normal in height al ignment. The marrow signal is normal. The dorsal cord is normal in contou r and signal. No evidence of central spinal canal or foraminal stenosis. N o evidence of paraspinal mass. IMPRESSION: Normal examination. J/r Workstation ID: [id number] Dictated by: Christian ONEILL on WedJanuary 13, 2019 3:18:17 PM EDT Transcribed by: ESTHER LIMA on WedJanuary 13, 2019 3:30:52 PM EDT Finalized by: Christian ONEILL on WedJanuary 13, 2019 4:58:13 PM EDT Dictated by: Christian ONEILL on WedJanuary 13, 2019 3:18:17 PM EDT Transcribed by: ESTHER LIMA on WedJanuary 13, 2019 3:30:52 PM EDT Finalized by: Christian ONEILL on WedJanuary 13, 2019 4:58:13 PM EDT Comment: Order Comment: Reason for ex am?:chest pain that radiates into left side and into left mid back area since 08/2017: nki: no hx of cancer::no pathology seen so no t2 or t1 thin axials done: Injury/Trauma or Illness?:Il lness/Other How long have you had these symptoms (acute/chronic)?:Unknown since 08/2017 Type of Exam?:Unknown Additional signs and symptom s?:n ct chest with contrast on 2019-01-13 CT CHEST WITH EXAMINATION: Normal 01-13-[address] [place] [address] CHEST WITH CONTRAST [facility] ([id number]) HISTORY: ORDERING SYSTEM PROVIDED HISTORY: adenopathy, TECHNOLOGIST PROVIDED HISTORY: Reason for exam: last year found spot on left lung believed to be pneumonia, still has chest pain and sob Illness/Other Encounter Type: Subsequent/Follow-up Additional signs and symptoms: n/a ORDERING SYSTEM PROVIDED DIAGNOSIS CODES: R07.9 Chest pain, unspecified type R59.1 Adenopathy M79.602 Left arm pain COMPARISON: None TECHNIQUE: CT examination of the chest following the administration of intravenous contrast. Coronal and sagittal reformations were performed. Dose reduction techniques were achieved by using automated e xposure control and/or adjustment of mA and/or kV according to patie nt size and/or use of iterative reconstruction technique. CONTRAST: IOPAMIDOL 76 % INTRAVENOUS SOLUTION - 75 mL, FINDINGS: There is no evidence of lung consolidation, pleural effusion s or pneumothorax. There is no evidence of pulmonary mass or pulm onary nodules. Dependent atelectasis is noted within the posterior lungs. The trachea and central bronchi are clear. The heart is normal in size. There is no evidence of pericar dial effusion. The thoracic aorta is of normal caliber. The thyro id gland is unremarkable. There is no evidence of abnormally enlarged ly mph nodes within the mediastinal, hilar or axillary regions. There is fatty infiltration of the liver. A 2.2 cm round enh ancing mass is identified within the right lobe of the liver. The remain james of the visualized abdominal structures are unremarkable. IMPRESSION: 1. No acute intrathoracic process. 2. No evidence of lymphadenopathy. 3. 2.2 cm round enhancing mass within the right lobe of the liver. Further evaluation is required with CT or MRI of the abdomen utilizing hepatic mass protocol. Workstation ID: [id number] Dictated by: DOUG NICHOLS on WedJanuary 13, 2019 8:39:25 AM ED T Transcribed by: DOUG NICHOLS on WedJanuary 13, 2019 8:39:25 AM EDT Finalized by: DOUG NICHOLS on WedJanuary 13, 2019 8:39:25 AM EDT Dictated by: DOUG NICHOLS on WedJanuary 13, 2019 8:39:25 AM EDT Transcribed by: DOUG NICHOLS on WedJanuary 13, 2019 8:39:25 AM EDT Finalized by: DOUG NICHOLS on WedJanuary 13, 2019 8:39:25 AM E DT Comment: Order Comment: Reason for ex am?:last year found spot on left lung believed to be pneumonia, still has chest pain and sob Injury/Trauma or Illness?:Il lness/Other How long have you had these symptoms (acute/chronic)?:Acute Type of Exam?:Subsequent/Fol low-up Additional signs and symptom s?:n/a No panel information on 2019-01-13 Adebayo, Rad In [facility] - 01/13/2019 5:41 PM EDT EX AMINATION: 01-13-2019 [facility] ([id number]) NM BONE LIMITED STUDY HISTORY: ORDERING SYSTEM PROVIDED HISTORY: Chest pain, unspecified ty pe, TECHNOLOGIST PROVIDED HISTORY: Reason for exam: chest pain that radiates to left side and back, chest pain under left arm Illness/Other Encounter Type: Ongoing Additional signs and symptoms: n/a ORDERING SYSTEM PROVIDED DIAGNOSIS CODES: R07.9 Chest pain, unspecified type R59.1 Adenopathy M79.602 Left arm pain COMPARISON: CT chest 01/13/2019. MRI thoracic spine 01/13/2019. TECHNIQUE: Spot views of the thorax wer e obtained following IV injection of 26.1 millicuries technetium-99m MDP. FINDINGS: Symmetric activity is seen w ithin the bilateral ribs and humeri. There is mild degenerative uptake seen in the bilateral shoulders, which is symmetric. There is minimal activity seen at the costochondra l junction of the 7th to 12t h ribs, which is symmetric and likely physiologic. No focal suspicious uptake is identified. IMPRESSION: No acute abnormality identified. [employer] Workstation ID: Unknown No acute abnormality 9 [facility] ([id number]) identified. The [employer] Workstation ID: Unknown EXAMINATION: NM BONE 9 [facility] ([id number]) LIMITED STUDY HISTORY: ORDERING SYSTEM PROVIDED HISTORY: Chest pain, unspecified type, TECHNOLOGIST PROVIDED HISTORY: Reason for exam: chest pain that radiates to left side and back, chest pain under left arm Illness/Other Encounter Type: Ongoing Additional signs and symptoms: n/a ORDERING SYSTEM PROVIDED DIAGNOSIS CODES: R07.9 Chest pain, unspecified type R59.1 Adenopathy M79.602 Left arm pain COMPARISON: CT chest 01/13/2019. MRI thoracic spine 01/13/2019. TECHNIQUE: Spot views of the thorax were obtained following IV injection of 26.1 millicuries technetium-99m MDP. FINDINGS: Symmetric activity is seen within the bilateral ribs and humeri. There is mild degenerative uptake seen in the bilateral shoulders, which is symmetric. There is minimal activity seen at the costochondral junction of the 7th to 12th ribs, which is symmetric and likely physiologic. No focal suspicious uptake is identified. Interface, Rad In [facility] - 01/13/2019 5:00 PM EDT EX AMINATION: 01-13-2019 [facility] ([id number]) MR THORACIC SPINE WITHOUT CONTRAST HISTORY: Chest pain, unspecified type Dx: R07.9 (Chest pain, unspecified type) Reason for exam?:chest pain that radiates into left side and into left mid back area since 08/2017: nki: no hx of cancer::no patholog y seen so no t2 or t1 thin axials done: Injury/Trauma or Illness?:Illness/Other TECHNIQUE: Sagittal T1, BETY T2, STIR images and axial T2 images perform ed. COMPARISON: None. FINDINGS: The vertebral bodies and dis c spaces are normal in height alignment. The marrow signal is normal. The dorsal cord is normal in contour and signal. No evidence of central spina l canal or foraminal stenosis. No evidence of paraspinal mass. IMPRESSION: Normal examination. REYNA/deangelo Workstation ID: [id number] Normal examination. 01-13-2019 [facility] ([id number]) JGW/otisr Workstation ID: [id number] EXAMINATION: MR 01-13-2019 [facility] ([id number]) THORACIC SPINE WITHOUT CONTRAST HISTORY: Chest pain, unspecified type Dx: R07.9 (Chest pain, unspecified type) Reason for exam?:chest pain that radiates into left side and into left mid back area since 08/2017: nki: no hx of cancer::no pathology seen so no t2 or t1 thin axials done: Injury/Trauma or Illness?:Illness/Other TECHNIQUE: Sagittal T1, BETY T2, STIR images and axial T2 images performed. COMPARISON: None. FINDINGS: The vertebral bodies and disc spaces are normal in height alignment. The marrow signal is normal. The dorsal cord is normal in contour and signal. No evidence of central spinal canal or foraminal stenosis. No evidence of paraspinal mass. Lymphocytes #/vol (Bld) 1. No acute 12-28 [facility] ([id number]) intrathoracic process. 2. No evidence of lymphadenopathy. 3. 2.2 cm round enhancing mass within the right lobe of the liver. Further evaluation is required with CT or MRI of the abdomen utilizing hepatic mass protocol. Workstation ID: [id number] EXAMINATION: CT CHEST 01-14-20 [facility] ([id number]) WITH CONTRAST HISTORY: ORDERING SYSTEM PROVIDED HISTORY: adenopathy, TECHNOLOGIST PROVIDED HISTORY: Reason for exam: last year found spot on left lung believed to be pneumonia, still has chest pain and sob Illness/Other Encounter Type: Subsequent/Follow-up Additional signs and symptoms: n/a ORDERING SYSTEM PROVIDED DIAGNOSIS CODES: R07.9 Chest pain, unspecified type R59.1 Adenopathy M79.602 Left arm pain COMPARISON: None TECHNIQUE: CT examination of the chest following the administration of intravenous contrast. Coronal and sagittal reformations were performed. Dose reduction techniques were achieved by using automated exposure control and/or adjustment of mA and/or kV according to patient size and/or use of iterative reconstruction technique. CONTRAST: IOPAMIDOL 76 % INTRAVENOUS SOLUTION - 75 mL, FINDINGS: There is no evidence of lung consolidation, pleural effusions or pneumothorax. There is no evidence of pulmonary mass or pulmonary nodules. Dependent atelectasis is noted within the posterior lungs. The trachea and central bronchi are clear. The heart is normal in size. There is no evidence of pericardial effusion. The thoracic aorta is of normal caliber. The thyroid gland is unremarkable. There is no evidence of abnormally enlarged lymph nodes within the mediastinal, hilar or axillary regions. There is fatty infiltration of the liver. A 2.2 cm round enhancing mass is identified within the right lobe of the liver. The remainder of the visualized abdominal structures are unremarkable. Interface, Rad In Shadi Speechq - 01/13/2019 8:42 AM EDT EX AMINATION: 01-13-2019 [facility] ([id number]) CT CHEST WITH CONTRAST HISTORY: ORDERING SYSTEM PROVIDED HISTORY: adenopathy, TECHNOLOGIST PROVIDED HISTORY: Reason for exam: last year f ound spot on left lung believed to be pneumonia, still has chest pain and sob Illness/Other Encounter Type: Subsequent/Follow-up Additional signs and symptoms: n/a ORDERING SYSTEM PROVIDED DIAGNOSIS CODES: R07.9 Chest pain, unspecified type R59.1 Adenopathy M79.602 Left arm pain COMPARISON: None TECHNIQUE: CT examination of the chest following the administration of intravenous contrast. Coronal and sagittal reformations were performed. Dose reduction techniques we re achieved by using automated exposure control and/or adjustment of mA and/or kV according to patient size and/or use of iterative reconstruction technique. CONTRAST: IOPAMIDOL 76 % INTRAVENOUS SOLUTION - 75 mL, FINDINGS: There is no evidence of lung consolidation, pleural effusions or pneumothorax. There is no evidence of pulmonary mass or pulmonary nodules. Dependent atelectasis is noted within the posterior lungs. The trachea and central bronchi are clear. The heart is normal in size. There is no evidence of pericardial effusion. The thoracic aorta is of normal caliber. The thyroid gland is unremarkable. There is no evidence of abnormally enlarged lymph n odes within the mediastinal, hilar or axillary regions. There is fatty infiltration of the liver. A 2.2 cm round enhancing mass is identified within the right lobe of the liver. The remainder of the visualized abdominal structures are unremarkable. IMPRESSION: 1. No acute intrathoracic process. 2. No evidence of lymphadenopathy. 3. 2.2 cm round enhancing ma ss within the right lobe of the liver. Further evaluation is required with CT or MRI of the abdomen utilizing hepatic mass protocol. Workstation ID: [id number] Creatinine mass conc 0.7 mg/dL 9 [facility] ([id number]) Interpretation and Normal 01-13-2019 [facility] ([id number]) review of laboratory results progress on 2018-05 PROGRESS HNO ID: [id number] Normal 06-09-2018 [facility] Author: Bharat Esteban [place] ([id number]) Service: (none) Author Type: Physician Type: Progress Notes Filed: 06/09/2018 5:43 PM Note Text: PERTINENT CARDIAC HISTORY Chest pain Palpitations ADHERENCE TO GUIDELINES RIYA-I or ARB for HF with prior LVEF<40 (NQF 0081) - N/A ASA or Plavix for ASHD (NQF 0067) - N/A Beta pool for ASHD with prior MO or prior LVEF<40 (NQF 00 70) - N/A Beta pool for HF with prior LVEF<40 (NQF 0083) - N/A RIYA-I or ARB for ASHD with DM or prior LVEF<40 (NQF 0066) - N/A Statin therapy for ASHD or FHL or DM - N/A BMI documented and plan if >25 (NQF 0421) - lifestyle recomm endation form Tobacco use screening and referral (NQF 0028) - lifestyle re commendation form Recommendation for whole food, plant based diet - lifestyle recommendation form CLINICAL IMPRESSION/PLAN: Leslie Bernardo has chest discomfort which has defied explana tion for the last several months. She has not received an adequate nitrat e trial. I recommended to her that she take nitroglycerin sublingual fo r chest discomfort, particularly more severe ones and record her res ponse in a diary. She has not responded to treatment for acid reflux. T here does not appear to be a component of chest wall tenderness. She is no t tender today, even in the area where she reports discomfort in the axilla. Depending upon her response nitrates, additional studies may be required. My suspicion of major epicardial coronary disease is very lo w. She may have a component of coronary spasm or microvascular disease, but her description pain is not consistent with this. If she has nit rate response, I would recommend long-acting nitrate or [...] Chest pain HISTORY OF PRESENT ILLNESS Leslie Bernardo is a 38-year-old woman who is seen in consult ation at the request of Ángel Ray PA-C, for recommendations regarding several month history of chest pain. She reports that she has had a sensation of anterior chest t ightness with occasional radiation to the jaw and left shoulder. This is b een present intermittently since August of this year. She went to the e mergency department on one occasion and was kept overnight. A stress test and echocardiogram were performed and suggested no evidence of i schemia. She reports that she was given nitroglycerin at the time of her initial presentation. She reports that this relieved the pain prompt ly. She has not tried any nitroglycerin since. She describes the sensation as a pressure-like feeling which can last for hours at a time. She always has a slight feeling which exace rbates periodically. It is nonexertional. There is no pleuritic com ponent. It is not increased with palpation. She has noted some tenderness in the left axillary area over the last week but this is was not present in the past. There is been no change with medication directed at reflux. She has had frequent episodes of bronchitis and the pain is occasionally exacerbated by cough. There was no change with chiropractic therapy or m assage. She has family history of coronary disease. Her personal ris k factors include obesity. ALLERGIES: ALLERGIES Allergen Reactions - Penicillins Unknown Childhood reaction. CURRENT OUTPATIENT MEDICATIONS: nitroglycerin sublingual (NITROQUICK) 0.4 mg SL tablet Disso lve 1 tablet under the tongue as needed. 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 SHEENT: No change in vision or auditory acuity. Respiratory: No productive cough. Cardiac: As noted above. GI: No melena. : No dysuria. Musculoskeletal: No myalgias. Neurologic: No stroke s. Psychiatric: No depression. Endocrine: No diabetes. Hematolo gic: No anemia. PHYSICAL EXAMINATION: S/he is alert and in no distress VITAL SIGNS: BP 112/82 Pulse 81 Ht 5' 5 (1.65m) SHEENT: Skin is warm and dry. Pupils are round and reactive. Retinal vessels are grossly unremarkable. No xanthelasmas appreciate d. Pharynx is benign. There is no oral cyanosis. Neck: supple. No adeno christiano or thyroid enlargement. Chest: Clear to auscultation. Trachea i s midline. Air entry is equal. There is no chest wall tenderness. Cardi ac: Regular rhythm. S1 and S2 are normal. PMI is nondisplaced. There are no murmurs, rubs or gallops. No click is heard. Carotids are br isk without bruits. JVP is less than 10 cm. Abdomen: Soft and nontender. She is obese. There are no pulsatile masses or bruits. No liver enl argement. Bowel sounds are active. : Deferred. Extremities: No edema . Pulses are intact and symmetrical. No clubbing or cyanosis. No femo ral bruits. Neurologic: Grossly normal motor and sensory. S/he is alert and oriented x4. Musculoskeletal: No joint deformities. EKG shows sinus rhythm. There is incomplete right bundle bra nch block pattern. No significant change is seen since earlier in the year. Records from [facility] were reviewed. Her troponin wa s undetectable. EKG showed no acute change. LDL was 64. Recent labs were reviewed. Her hemoglobin tends to be a alexa le high. Her oxygen saturation on room air is 98%. Chemistries were withi n normal limits. There is no evidence of inflammation. 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 She's had CT scans showing airspace density in the left lowe r lobe with improvement. She also has findings of soft tissue density in the anterior mediastinum, prominent mediastinal and hilar lymph nodes and nonspecific gastric thickening. Holter monitor showed no ectopy. She noted chest pain, palpi tations and rapid heart rate during the test. Stress echocardiogram was reportedly negative for ischemia a nd will be reviewed. Electronically Signed: Bharat Esteban MD June 09, 2018 5:31 PM CC: TRAN Najera on 2018-06-09 CNOV Office Visit (CAWSTR) Normal 06-09-20 18 [facility] LESLIE BERNARDO ([id number]) 1980 [facility] Date Time Provider Department ([id number]) 06/09/18 12:45 PM BHARAT ESTEBAN CAWSTR During your visit today, we recorded the following informati on about you: Pulse Blood pressure Height 81/minute 112/82 1.651 m Bharat Esteban MD 06/09/2018 1:52 PM Signed LIFESTYLE CHANGE A healthy lifestyle is the most important compon ent of your overall treatment plan. Please give serious thought to the followi ng areas and commit to making detention changes. EAT A WHOLE FOOD, PLANT BASED DIET The nutrition your body gets is more important than the medi cine you take. What matters most is the overall way you eat. We encourage you to minimize the use of animal products (which include dairy and all me ats except fatty fish) and use whole, unprocessed plant foods to provide your protein, vitamins and other nutrients. We have a lot of inform ation to share with you on this topic. This is not a diet. It is a way of life that you will keep with you. EXERCISE REGULARLY It is not important to spend hours in the gym, l ifting weights and perspiring heavily. A total of 2-3 hours per week of aerobic (causing y ou to be moderately short of breath) exercise is sufficient to improv e your health. Talk to us before you begin a new exercise progr am, if you have heart disease or experience shortness of breath or chest pain. REDUCE STRESS Chronic emotional and physical stress leads to disease. Ways of reducing stress include meditation, visualization, prayer, yoga and o ther forms of relaxation therapy. Consistency is the hernandez. Find a techniq ue that works for you and do it every day. CULTIVATE RELATIONSHIPS Loneliness and isolation have a major negative impact on hea lth. Seek out others who can love, care for and nurture you. Avoid hurtf ul relationships. MAINTAIN IDEAL BODY WEIGHT The best way to do this is to do all the things above. Our bodies naturally find the right weight if we keep moving and feed ourselves the right food. If your BMI is greater than 25, we strongly recommend a referra l to a weight management program. Please speak to us or your family physic guille about available programs. AVOID NICOTINE IN ALL FORMS This includes all tobacco pr oducts, whether chewed, smoked, vaped, or rubbed on the skin. Smoking cessation programs, which can make use of tobacco substitutes, medications to suppress cravings and behavior m anagement, are available. Please contact your family physician about programs in your area. Bharat Esteban MD 06/09/2018 5:43 PM Signed PERTINENT CARDIAC HISTORY Chest pain Palpitations ADHERENCE TO GUIDELINES RIYA-I or ARB for HF with prior LVEF<40 (NQF 0081) - N/A ASA or Plavix for ASHD (NQF 0067) - N/A Beta pool for ASHD with prior MO or prior LVEF<40 (NQF 00 70) - N/A Beta pool for HF with prior LVEF<40 (NQF 0083) - N/A RIYA-I or ARB for ASHD with DM or prior LVEF<40 (NQF 0066) - N/A Statin therapy for ASHD or FHL or DM - N/A BMI documented and plan if >25 (NQF 0421) - lifestyle recomm endation form Tobacco use screening and referral (NQF 0028) - lifestyle recommendation form Recommendation for whole salma d, plant based diet - lifestyle recommendation form CLINICAL IMPRESSION/PLAN: Leslie Bernardo has chest discomfort which has de fied explanation for the last several months. She has not received an adequate nitrate trial. I recommended to her that she take nitroglycerin sublingual for chest disc omfort, particularly more severe ones and record her res ponse in a diary. She has not responded to treatment for a bryan reflux. There does not appear to be a component of chest wall tenderness. She is not tender toda y, even in the area where she reports discomfort in the axilla. Depending upon her response nitrates, additional studi es may be required. My suspicion of major epicardial coronary disease is very low. She may have a component of coronary spasm or microvasc ular disease, but her description pain is not consistent with this. If she has nitrate response, I would recommend long-acting nitrate or calcium pool as well as stat in therapy and aspirin for presumed microvascular disease. Her CT scan suggests some mediastinal adenopathy and she has an anterior mediastinal soft tissue mass. Further investigat ion of this may be worthwhile I will see her in one month or as needed. She's been advised to keep in contact with me. Written and verbal health teaching given to patient, patient verbalizes understanding and agrees with treatment plan. DIAGNOSIS FOR VISIT: Chest pain HISTORY OF PRESENT ILLNESS Leslie Bernardo is a 38-year-old woman who is seen in consult ation at the request of Ángel Ray PA-C, for recommendations regarding several month history of chest pain. She reports that she has had a sensation of anterior chest t ightness with occasional radiation to the jaw and left shoulder. This is b een present intermittently since August of this year. She went to the emergency department on one occasion and was kept overnight. A stress test and echocardiogram were performed and suggested no evidence of ischemia. She reports that she was given nitroglycerin at the time of her initial presentation. She reports that this relieved the pain prom ptly. She has not tried any nitroglycerin since. She describes the sensation as a pressure-like feeling which can last for hours at a time. She always has a slight feeling which exacerbates periodically. It is nonexertional. There is no pleuritic component. It is n ot increased with palpation. She has noted some tenderness in the left axill leif area over the last week but this is was not present in the past. There is been no change with medication directed at reflux. She has had frequent episodes of bronchitis and the pain is occasional ly exacerbated by cough. There was no change with chiropractic therapy or mass age. She has family history of coronary disease. Her personal risk factors include obesity. ALLERGIES: ALLERGIES Allergen Reactions - Penicillins Unknown Childhood reaction. CURRENT OUTPATIENT MEDICATIONS: nitroglycerin sublingual (NITROQUICK) 0. 4 mg SL tablet Dissolve 1 tablet under the tongue as needed. for chest pain,every 5 min x3 PAST MEDICAL HISTORY Diagnosis Date - Abdominal pain, generalized - Diarrhea - Hormone disorder - Localization-related (focal) (partial) epilepsy and epileptic syndromes with simple partial seizures, without mention of intractable epil epsy FEBRILE, last occurrence 7 years ago PAST SURGICAL HISTORY Procedure Laterality Date - COLONOSCOPY W/BX 11/04/11 - EGD W/O BRSH SPECIMEN W/BX 08/24/07 - VAGINAL DELIVERY HX 4 uncomplcate pregnancies. FAMILY HISTORY Problem Relation Age of Onset - Stroke Mother - other (Other) Mother Lupus - Hypertension Father - Diabetes Father - Stroke Maternal Grandmother x 2 - Heart Paternal Grandfather MO - Diabetes Sister - Asthma No Family [...] SYSTEMS: General: No chills, fever, weight loss, n ight sweats. SHEENT: No change in vision or auditory acuity. Respiratory: No productive cough. Cardiac: As noted above. GI: No melena. : No dysuri a. Musculoskeletal: No myalgias. Neurologic: No strokes. Psychi atric: No depression. Endocrine: No diabetes. Hematologic: No anemia. PHYSICAL EXAMINATION: S/he is alert and in no distress VITAL SIGNS: BP 112/82 Pulse 81 Ht 5' 5 (1.65m) SHEENT: Skin is warm and dry. Pupils are round and juancarlos ctive. Retinal vessels are grossly unremarkable. No xanthelasmas appreciated. Phary nx is benign. There is no oral cyanosis. Neck: supple. No adenopathy or th yroid enlargement. Chest: Clear to auscultation. Trachea is midl ine. Air entry is equal. There is no chest wall tenderness. Cardiac: Reg ular rhythm. S1 and S2 are normal. PMI is nondisplaced. There are no murmurs, rubs or gallops. No click is heard. Carotids are brisk without bruits. JVP is le ss than 10 cm. Abdomen: Soft and nontender. She is obese. There are no pu lsatile masses or bruits. No liver enlargement. Bowel sounds are active. : D eferred. Extremities: No edema. Pulses are intact and symmetrical. No clubbing or cyanosis. No femoral bruits. Neurologic: Grossly normal gordon r and sensory. S/he is alert and oriented x4. Musculoskeletal: No joint def ormities. EKG shows sinus rhythm. There is incompl ete right bundle branch block pattern. No significant change is seen since earlier in the year. Records from [facility] were reviewed. Her troponin was undetectable. EKG showed no acute change. LDL was 64. Recent labs were reviewed. H er hemoglobin tends to be a little high. Her oxygen saturation on room air is 98%. Chemistri es were within normal limits. There is no evidence of inflammation. She has evidence of remote infe ction with Cody-Estrada virus. She's had CT scans showing airspace density in the left lowe r lobe with improvement. She also has findings of soft tissue density in the anterior mediastinum, prominent mediastinal and hilar lymph nodes and nonspecific gastric thickening. Holter monitor showed no ectopy. She noted chest pain, palpitations and rapid heart rate during the test. Stress echocardiogram was re portedly negative for ischemia and will be reviewed. Electronically Signed: Bharat Esteban MD June 09, 2018 5:31 PM CC: Hipolito Ray PA-C Referring Provider: Hipolito RAY (TRAN) [[id number]] Allergies As of Date: 06/09/2018 Noted Allergy Reaction PENICILLINS 09/18/2005 16 - Unknown Comments: Childhood reaction. Date Reviewed: 06/09/2018 Reviewed by: Carolina Talavera MA - Fully Assessed Reason for Visit: Establish Care [42] Primary Visit Diagnosis:Palpitations [R00.2] Other Visit Diagnosis:Chest pain, unspecified type [R07.9] Order(s):nitroglycerin sublingual (NITROQUICK) 0.4 mg SL tab letDissolve 1 tablet under the tongue as needed. for chest pain,every 5 mi n x3Disp: 1 Bottle of 25Rfl: 3 Prescriptions as of 06/09/2018 Sig: NITROGLYCERIN 0.4 MG SUBLINGU* Dissolve 1 tablet under the t * Problem List As Of Date 06/09/2018 Noted [...] the following areas and commit to making detention changes. EAT A WHOLE FOOD, PLANT BASED DIET The nutrition your body gets is more important than the medi cine you take. What matters most is the overall way you eat. We encourage y ou to minimize the use of animal products (which include dairy and all meats except fatty fish) and use whole, unprocessed plant foods to provide your protein, vitamins and other nutrients. We have a lot of info rmation to share with you on this topic. This is not a diet. It is a way of life that you will keep with you. EXERCISE REGULARLY It is not important to spend hours in the gym, lifting weigh ts and perspiring heavily. A total of 2-3 hours per week of aerobic (causing you to be moderately short of breath) exercise is sufficient to improve your health. Talk to us before you begin a new exercise program, if you have heart disease or experience shortness of breath or chest chaz n. REDUCE STRESS Chronic emotional and physical stress leads to disease. Ways of reducing stress include meditation, visualization, prayer, yoga and o ther forms of relaxation therapy. Consistency is the hernandez. Find a technique that works for you and do it every day. CULTIVATE RELATIONSHIPS Loneliness and isolation have a major negative impact on hea lth. Seek out others who can love, care for and nurture you. Avoid hurtful relationships. MAINTAIN IDEAL BODY WEIGHT The best way to do this is to do all the things above. Our b odies naturally find the right weight if we keep moving and feed o urselves the right food. If your BMI is greater than 25, we strongly golden mmend a referral to a weight management program. Please speak to us or your family physician about available programs. AVOID NICOTINE IN ALL FORMS This includes all tobacco products, whether chewed, smoked, vaped, or rubbed on the skin. Smoking cessation programs, which can ma ke use of tobacco substitutes, medications to suppress cravings and be havior management, are available. Please contact your family physic guille about programs in your area. Prescriptions ordered this encounter Disp Refills Start End NITROGLYCERIN 0.4 MG SUBLINGUAL TABL* 1 Sixto* 3 06/09/2018 Route: SUBLINGUAL Sig: Dissolve 1 tablet under the tongue as neede d. for chest pain,every 5 min x3 Follow-up and Disposition History Recorded Encounter Status:Closed by BHARAT ESTEBAN MD on 06/09/18 tpo antibody on 201 04-07-18 TPO Antibody 1.0 <5.6 IU/mL Normal 05-17-2018 [facility] ([id number]) Comment: Performed By: #### CRP, HPYL RI, CBCDIF, EBVEA, EBVNA, TGAB, CMP, LIPA, LMLATE, EBVG, EBVM, MICRO ## ##[facility] [id number] [place], [place] [phone] thyroglobulin ab on 2018-05-17 Thyroglobulin Ab Qn 1.0 <14.4 IU/mL Normal 05-17-2018 [facility] ([id number]) Comment: Performed By: #### CRP, HPYL RI, CBCDIF, EBVEA, EBVNA, TGAB, CMP, LIPA, LMLATE, EBVG, EBVM, MICRO ## ##[facility] [id number] [place], [place] [phone] progress on 2018-04 PROGRESS HNO ID: [id number] Normal 05-17-2018 [facility] Author: Hipolito Patel (PaKayden) Len Butts ([id number]) Service: (none) Author Type: Physician Sound Art Instructor Type: Progress Notes Filed: 05/17/2018 4:23 PM Note Text: 37 year old female with c/o here for follow up. Trying to th ink outside the box to find the issue underlying all her sx. Continues with intermittent chest pain. States seems worse with intermitten t flu-like intermittently which start with chills, sore throat, diarrhe a which lasts for about 2 weeks. Has happened about every other month with something. Seems to occur when others are also ill so she didn't consid er it at first. Asking for testing for underlying infectious sources. Pain woke her up through the night. States heart flutters intermittently w ith episodes. Has cardiology appointment 06/09/18. UGI completed today. No mariella reviewed from Dr. Hodgson. Fh positive for SLE in mother, autoimmune thyroiditis in mother and sister. Work up so far unrevealing. 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 Pleasant overweight woman in no acute distress. Alert and or iented all spheres. Normal affect and cognition. Speech normal. No defi cits to learning or comprehension. Skin warm, dry, pink to lips and nailbeds. Normal turgor. Willis s red patches on right dorsal hand which are red, slightly scaly without n odularity. Respirations regular and unlabored. HEENT WNL. TM's clear. Nose and oropharynx free from injecti on or lesion. No cervical lymph nodes. Thyroid non-tender, no masses Chest CTA. HRRR without murmur or gallop. Extrem: no clubbing, cyanosis, edema. Extremities are warm a nd pink with prompt capillary refill. ASSESSMENT/PLAN: 1. Other fatigue - ICD9: 780.79, ICD10: R53.83 (primary diag nosis) - CODY-ESTRADA VCA IGM - CODY-ESTRADA EA - CODY-ESTRADA VCA IGG - CODY-ESTRADA NUC AG - LYME AB LATE >30 DAYS SYMPTOMS - CBC + DIFF - C-REACTIVE PROTEIN (CRP) - THYROID PEROXIDASE ANTIBODY BLOOD - THYROGLOBULIN AB 2. Diarrhea, unspecified type - ICD9: 787.91, ICD10: R19.7 Episodic with flu-like sx - CODY-ESTRADA VCA IGM - CODY-ESTRADA EA - CODY-ESTRADA VCA IGG - CODY-ESTRADA NUC AG - LYME AB LATE >30 DAYS SYMPTOMS Discussion with patient on the ineffectiveness of just look ing for something as there are no end to possibilities in testing. Reassured inflammatory markers have been very low. Hipolito Ray PA-C lyme late (>30 days) on 2018-05-17 Lyme IgG/IgM AB Negative Negative Normal 05-17-2018 [facility] ([id number]) Comment: Result Comment: Absence of d etectable Borrelia burgdorferi antibodies. A negative result does not exc lude the possibility of Borrelia burgdorferi infection. If early Lyme dis ease is suspected, a second sample should be collected and tested two to four weeks later. Performed By: #### CRP, HPYL RI, CBCDIF, EBVEA, EBVNA, TGAB, CMP, LIPA, LMLATE, EBVG, EBVM, MICRO ## ##[facility] [address] [place], [place] [phone]- [phone] lipase on 2018-04-30 8 Lipase [Catalytic 32 16-61 U/L Normal 05-17-2018 [facility] activity/Vol] Debi and ([id number]) Comment: Performed By: #### CRP, HPYL RI, CBCDIF, EBVEA, EBVNA, TGAB, CMP, LIPA, LMLATE, EBVG, EBVM, MICRO ## ##[facility] [place], [place] [phone]- [phone] helico pylori ab on 2018-05-17 H pylori Ab, IgG 0.6 U/mL Normal 05-17-2018 [facility] ([id number]) Comment: Result Comment: U/mL are int erpreted as follows: Negative specimens <0.9 Indeterminate specimens >=0. 9 to <1.1 Positive specimens >=1.1 Results were obtained with RB-DoorsULITE 2000 H.pylori IgG EIA. Results obtained from other manufacturers' assay methods may not be used interchangeably. Performed By: #### CRP, HPYL RI, CBCDIF, EBVEA, EBVNA, TGAB, CMP, LIPA, LMLATE, EBVG, EBVM, MICRO ## ##[facility] [place], [place] [phone]- [phone] H. pylori IgG, Qual Negative Negative Normal 05-17-2018 [facility] ([id number]) Comment: Result Comment: H. pylori Ig G antibodies were not detected in the sample. Negative results by this mariella t do not preclude recent primary infection. Performed By: #### CRP, HPYL RI, CBCDIF, EBVEA, EBVNA, TGAB, CMP, LIPA, LMLATE, EBVG, EBVM, MICRO ## ##[facility] [place], [place] [phone]- [phone] ebv na antibody on 2018-05-17 EBV NA Ab, Qual Positive Negative Critically abnormal 04-30 [facility] (57747) Comment: Result Comment: Specimen is positive for EBV NA-1 IgG antibody. A positive test result presumes a curre nt or past infection with EBV. Other EBV serology assays such as the EBV VCA IgM should be performed to confirm serologic status, active acu te, past or indeterminate infection for EBV-associated infectious mo nonucleosis. Performed By: #### WSR, DDME R, ANAS, CRP, RF #### [facility] [address] [place], [place] [address] EBV NA Antibody >8.0 Normal 05-17-2018 [facility] (16580) Comment: Result Comment: AI VALUES AR E INTERPRETED FOLLOWS: NEGATIVE SPECIMENS <=0.8 EQUIVOCAL SPECIMENS 0.9 TO 1 .0 POSITIVE SPECIMENS >=1.1 Antibody index(AI) values re flect qualitative changes in antibody concentration that cannot be associated with clinical condition or disease state. Performed By: #### WSR, DDME R, ANAS, CRP, RF #### [facility] [address] [place] [address] ebv igm antibody on 2018-05-17 EBV VCA IgM <0.2 Normal 05-17-2018 [facility] ([id number]) Comment: Result Comment: AI VALUES AR E INTERPRETED FOLLOWS: NEGATIVE SPECIMENS <=0.8 EQUIVOCAL SPECIMENS 0.9 TO 1 .0 POSITIVE SPECIMENS >=1.1 The magnitude of the reporte d IgM level cannot be correlated to an endpoint titer (or clinical status). Performed By: #### WSR, DDME R, ANAS, CRP, RF #### [facility] [address] [place], [place] [address] EBV VCA IgM, Qual Negative Negative Normal 05-17-2018 [facility] (16848) Comment: Result Comment: EBV VCA IgM antibodies are not detectable. Performed By: #### WSR, DDME R, ANAS, CRP, RF #### [facility] [address] [place], [place] [address] ebv igg antibody on 2018-05-17 EBV VCA IgG >8.0 Normal 05-17-2018 [facility] (85049) Comment: Result Comment: AI VALUES AR E INTERPRETED FOLLOWS: NEGATIVE SPECIMENS <=0.8 EQUIVOCAL SPECIMENS 0.9 TO 1 .0 POSITIVE SPECIMENS >=1.1 Antibody index (AI) values r eflect qualitative changes in antibody concentration that cannot be associated with clinical condition or disease state. Performed By: #### WSR, DDME R, ANAS, CRP, RF #### [facility] [address] [place] [id number] EBV VCA IgG, Positive Negative Critically abnormal 018 [facility] Qual [place] (66667) Comment: Result Comment: Specimen is positive for EBV VCA IgG antibody. A positive test result presumes a curre nt or past infection with EBV. Other EBV serology assays such as the EBV VCA IgM should be performed to confirm serologic status, active acu te, past or indeterminate infection for EBV-associated infectious mo nonucleosis. Performed By: #### WSR, DDME R, ANAS, CRP, RF #### [facility] [address] [place], [place] [id number] ebv ea antibody on 2018-05-17 EBV EA Ab, Qual Negative Negative Normal 05-17-2018 [facility] (42329) Comment: Result Comment: EBV EA-D IgG antibodies are not detectable. If the result is negative and exposure to Eps tein-Estrada virus is suspected, a second sample should be collected and test ed no less than one to two weeks later. Performed By: #### WSR, DDME R, ANAS, CRP, RF #### [facility] [address] [place], [place] [address] EBV EA Antibody <0.2 Normal 05-17-2018 [facility] (48565) Comment: Result Comment: AI VALUES AR E INTERPRETED FOLLOWS: NEGATIVE SPECIMENS <=0.8 EQUIVOCAL SPECIMENS 0.9 TO 1 .0 POSITIVE SPECIMENS >=1.1 Antibody index(AI) values re flect qualitative changes in antibody concentration that cannot be associated with clinical condition or disease state. Performed By: #### WSR, DDME R, ANAS, CRP, RF #### [facility] [address] [place], [place] [address] comp metabolic panel on 2018-05-17 Albumin [Mass/Vol] 4.6 3.9-4.9 g/dL Normal 05-17-2018 [facility] (21041) Comment: Performed By: #### CRP, HPYL RI, CBCDIF, EBVEA, EBVNA, TGAB, CMP, LIPA, LMLATE, EBVG, EBVM, MICRO ## ##[place] [address], [place] [phone]- [phone] ALP [Catalytic activity/Vol] 66 32-117 U/L Normal 0 05-17-2018 [facility] (36159) Comment: Performed By: #### CRP, HPYL RI, CBCDIF, EBVEA, EBVNA, TGAB, CMP, LIPA, LMLATE, EBVG, EBVM, MICRO ## ##[place] [address], [place] [phone]- [phone] ALT [Catalytic activity/Vol] 14 7-38 U/L Normal 0 05-17-2018 [facility] (29090) Comment: Performed By: #### CRP, HPYL RI, CBCDIF, EBVEA, EBVNA, TGAB, CMP, LIPA, LMLATE, EBVG, EBVM, MICRO ## ##[address] [place], [place] [phone]- [phone] Anion gap [Moles/Vol] 15 9-18 mmol/L Normal 05-17-20 [facility] (28703) Comment: Performed By: #### CRP, HPYL RI, CBCDIF, EBVEA, EBVNA, TGAB, CMP, LIPA, LMLATE, EBVG, EBVM, MICRO ## ##[place] [address], [place] [phone]- [phone] AST [Catalytic activity/Vol] 28 13-35 U/L Normal 0 05-17-2018 [facility] (79058) Comment: Performed By: #### CRP, HPYL RI, CBCDIF, EBVEA, EBVNA, TGAB, CMP, LIPA, LMLATE, EBVG, EBVM, MICRO ## ##[place] [address], [place] [phone]- [phone] Bilirubin [Mass/Vol] 0.7 0.2-1.3 mg/dL Normal 8 [facility] (61981) Comment: Performed By: #### CRP, HPYL RI, CBCDIF, EBVEA, EBVNA, TGAB, CMP, LIPA, LMLATE, EBVG, EBVM, MICRO ## ##[place] [address], [place] [phone]- [phone] Calcium [Mass/Vol] 9.6 8.5-10.2 mg/dL Normal 05-17-2018 [facility] (13439) Comment: Performed By: #### CRP, HPYL RI, CBCDIF, EBVEA, EBVNA, TGAB, CMP, LIPA, LMLATE, EBVG, EBVM, MICRO ## ##[address] [place], [place] [phone]- [phone] Chloride [Moles/Vol] 102 97-105 mmol/L Normal 8 [facility] (75796) Comment: Performed By: #### CRP, HPYL RI, CBCDIF, EBVEA, EBVNA, TGAB, CMP, LIPA, LMLATE, EBVG, EBVM, MICRO ## ##[place] [address] [place], [place] [phone]- [phone] CO2 [Moles/Vol] 24 22-30 mmol/L Normal 05-17-2018 [facility] (19847) Comment: Performed By: #### CRP, HPYL RI, CBCDIF, EBVEA, EBVNA, TGAB, CMP, LIPA, LMLATE, EBVG, EBVM, MICRO ## ##[place] [address], [place] [phone]- [phone] Creatinine [Mass/Vol] 0.68 0.58-0.96 mg/dL Normal 05-17-20 18 [facility] (68047) Comment: Performed By: #### CRP, HPYL RI, CBCDIF, EBVEA, EBVNA, TGAB, CMP, LIPA, LMLATE, EBVG, EBVM, MICRO ## ##[facility], [place] [phone]- [phone] eGFR- Amer. >60 Normal 05-17-2018 [facility] (21438) Comment: Performed By: #### CRP, HPYL RI, CBCDIF, EBVEA, EBVNA, TGAB, CMP, LIPA, LMLATE, EBVG, EBVM, MICRO ## ##[facility] [place], [place] [phone]- [phone] GFR/1.73 sq M predicted >60 mL/min/{1.73_m2} Normal 05-17-2018 [facility] among non-blacks MDRD [place] (34082) (S/P/Bld) [Vol rate/Area] Comment: Result Comment: eGFR (Estima yang GFR) Units of measure: mL/min/1.73 meters squared eGFR is derived from the ree xpressed MDRD Study equation using the following parameters: serum creatinine, age, gender and race. The creatinine assay has been calibrated to be traceable to IDMS. An eGFR <60 mL/min/1.73m2 fo r >3 months is consistent with chronic kidney disease. Refer to KDOQI guidelines for clinical interpretation. In patients with unstable re nal function, e.g. those with acute kidney injury, the eGFR may not accurately reflect actual GFR. Performed By: #### CRP, HPYL RI, CBCDIF, EBVEA, EBVNA, TGAB, CMP, LIPA, LMLATE, EBVG, EBVM, MICRO ## ##[facility] [place], [place] [phone]- [phone] Glucose [Mass/Vol] 80 74-99 mg/dL Normal 05-17-2018 [facility] (20310) Comment: Result Comment: The [place] [employer] (ADA) provides guidance for cutoff values for fasting glucose and random glucose. The ADA defines fasting as no caloric intake for at least 8 hours. Fas ting plasma glucose results between 100 to 125 mg/dL indicate increased risk for diabetes (prediabetes). Fasting plasma glucose resul ts greater than or equal to 126 mg/dL meet the criteria for diagnosis of diabetes. In the absence of unequivocal hyperglycemia, results should be confirmed by repeat testing. In a patient with classic s ymptoms of hyperglycemia or hyperglycemic crisis, random plasma glucose results greater than or equal to 200 mg/dL meet the criteria for diagnosis of diabetes. Reference: Standards of [facility] Care in Diabetes 2016, [place] [employer] Association. Diabetes Care. 2016.39(Suppl 1). Performed By: #### CRP, HPYL RI, CBCDIF, EBVEA, EBVNA, TGAB, CMP, LIPA, LMLATE, EBVG, EBVM, MICRO ## ##[address] [phone]- [phone] Potassium [Moles/Vol] 4.0 3.7-5.1 mmol/L Normal 05-17-20 [facility] (87867) Comment: Performed By: #### CRP, HPYL RI, CBCDIF, EBVEA, EBVNA, TGAB, CMP, LIPA, LMLATE, EBVG, EBVM, MICRO ## ##[address] [phone]- [phone] Protein [Mass/Vol] 7.3 6.3-8.0 g/dL Normal 05-17-2018 [facility] (07321) Comment: Performed By: #### CRP, HPYL RI, CBCDIF, EBVEA, EBVNA, TGAB, CMP, LIPA, LMLATE, EBVG, EBVM, MICRO ## ##[address] [phone]- [phone] Sodium [Moles/Vol] 141 136-144 mmol/L Normal 05-17-2018 [facility] (35786) Comment: Performed By: #### CRP, HPYL RI, CBCDIF, EBVEA, EBVNA, TGAB, CMP, LIPA, LMLATE, EBVG, EBVM, MICRO ## ##[address] [phone]- [phone] Urea nitrogen [Mass/Vol] 8 7-21 mg/dL Normal 05-17 [facility] (14700) Comment: Performed By: #### CRP, HPYL RI, CBCDIF, EBVEA, EBVNA, TGAB, CMP, LIPA, LMLATE, EBVG, EBVM, MICRO ## ##[facility] [address] [place], [place] [phone]- [phone] cnov on 2018-05-17 CNOV Office Visit (FAMPWS) Normal 05-17-20 [facility] LESLIE BERNARDO ([id number]) 1980 [facility] Date Time Provider Department ([id number]) 05/17/18 10:20 AM [facility], we recorded the following informati on about you: Temperature Pulse Respiration Blood pressure 98 degrees 72/minute 16/minute 120/74 Weight 96.2 kg Hipolito Ray PA-C 05/17/2018 4:23 PM Signed 37 year old female with c/o here for follow up. Trying to think outside the box to find the issue under lying all her sx. Continues with intermittent chest pain. States seems worse with intermitte nt flu-like intermittently which start with chills, sore throat, diarrhea which lasts for about 2 weeks. Has happened about every other month with something. Seems to occur when others are also ill so she didn't consider it at first. Asking for testing for u nderlying infectious sources. Pain woke her up through the night. States heart flutters intermittently with episodes. Has cardiology appointment 07/17. UGI completed today. Notes reviewed from Dr. Hodgson. positiv e for SLE in mother, autoimmune thyroiditis in mother and sister. Work up so far unrevealing. HISTORIES FAMILY HISTORY Problem Relation Age of Onset - Stroke Mother - other (Other) Mother Lupus - Hypertension Father - Diabetes Father - Stroke Maternal Grandmother x 2 - Heart Paternal Grandfather [place] - Diabetes Sister - Asthma No Family History - COPD No Family History PAST MEDICAL HISTORY Diagnosis Date - Abdominal pain, generalized - Diarrhea - Hormone disorder - Localization-related (focal) (partial) epilepsy and epileptic syndromes with simple partial seizures, without mention of intractable epil epsy FEBRILE, last occurrence 7 years ago PAST [...] 72 Temp 36.7 ?C (98 ?F) (Tympanic) Res p 16 Wt 96.2 kg (212 lb) LMP 04/29/2018 (Approximate) BMI 35.28 kg/m? Pleasant overweight woman in no acute distress. Alert and oriented all spheres. Normal affect and cognition. Speech normal. No deficits to l earning or comprehension. Skin warm, dry, pink to lips and nailbeds. Normal turg or. Has red patches on right dorsal hand which are red, slightly scaly without nodu larity. Respirations regular and unlabored. HEENT WNL. TM's clear. Nose and oropharynx free from i njection or lesion. No cervical lymph nodes. Thyroid non-tender, no masses Chest CTA. HRRR without murmur or gallop. Extrem: no clubbing, cyanosi s, edema. Extremities are warm and pink with prompt capillary refill. ASSESSMENT/PLAN: 1. Other fatigue - ICD9: 780.79, ICD10: R53.83 (primary diag nosis) - CODY-ESTRADA VCA IGM - CODY-ESTRADA EA - CODY-ESTRADA VCA IGG - CODY-ESTRADA NUC AG - LYME AB LATE >30 DAYS SYMPTOMS - CBC + DIFF - C-REACTIVE PROTEIN (CRP) - THYROID PEROXIDASE ANTIBODY BLOOD - THYROGLOBULIN AB 2. Diarrhea, unspecified type - ICD9: 787.91, ICD10: R19.7 Episodic with flu-like sx - CODY-ESTRADA VCA IGM - CODY-ESTRADA EA - CODY-ESTRADA VCA IGG - CODY-ESTRADA NUC AG - LYME AB LATE >30 DAYS SYMPTOMS Discussion with patient on the ineffecti veness of just looking for something as there are no end to possi bilities in testing. Reassured inflammatory markers have been very low. Hipolito Ray PA-C Referring Provider: SELF [[id number]] Allergies As of Date: 05/17/2018 Noted Allergy Reaction PENICILLINS 09/18/2005 16 - Unknown Comments: Childhood reaction. Date Reviewed: 05/17/2018 Reviewed by: Elizabeth Ferrari Ma - Fully Assessed Reason for Visit: Flu Like Symptoms [267] Primary Visit Diagnosis:Other fatigue [R53.83] Other Visit Diagnosis:Diarrhea, unspecified type [R19.7] Order(s):CODY-ESTRADA VCA IGM [SQEBVM] Order #: [id number] F UTURE CODY-ESTRADA EA [SQEBVEA] Order #: [id number] FUTURE CODY-ESTRADA VCA IGG [SQEBVG] Order #: [id number] FUTURE CODY-ESTRADA NUC AG [SQEBVNA] Order #: [id number] FUTURE LYME AB LATE >30 DAYS SYMPTOMS [SQLMLATE] Order #: [id number] FUTURE CBC + DIFF [SQCBCDIF] Order #: [id number] FUTURE C-REACTIVE PROTEIN (CRP) [SQCRP] Order #: [id number] FUTURE THYROID PEROXIDASE ANTIBODY BLOOD [SQMICRO] Order #: [id number] FUTURE THYROGLOBULIN AB [SQTGAB] Order #: [id number] FUTURE Problem List As Of Date 05/17/2018 Noted Resolved Hx of febrile seizure [Z87.898] More... Abdominal pain, generalized [R10.84] INVALID FOR*11/03/2017 Hormone disorder [E34.9] Diarrhea [R19.7] INVALID FOR* Other chest pain [R07.89] INVALID FOR* Encounter Status:Closed by LEN MAYFIELD, Hipolito PATEL on 05/17/18 cbc and differential on 2018-05-17 Abs Baso 0.04 <0.11 k/uL Normal 05-17-2018 [facility] (15804) Comment: Performed By: #### CRP, HPYL RI, CBCDIF, EBVEA, EBVNA, TGAB, CMP, LIPA, LMLATE, EBVG, EBVM, MICRO ## ##[place] [address] [phone]- [phone] Abs Shelby 0.46 <0.87 k/uL Normal 05-17-2018 [facility] (83510) Comment: Performed By: #### CRP, HPYL RI, CBCDIF, EBVEA, EBVNA, TGAB, CMP, LIPA, LMLATE, EBVG, EBVM, MICRO ## ##[place] [address] [place] [phone]- [phone] Abs Neut 4.47 1.45-7.50 k/uL Normal 05-17-2018 [facility] (69471) Comment: Performed By: #### CRP, HPYL RI, CBCDIF, EBVEA, EBVNA, TGAB, CMP, LIPA, LMLATE, EBVG, EBVM, MICRO ## ##[place] [address] [place] [phone]- [phone] Absolute nRBC <0.01 <0.01 Normal 05-17-2018 [facility] (34038) Comment: Performed By: #### CRP, HPYL RI, CBCDIF, EBVEA, EBVNA, TGAB, CMP, LIPA, LMLATE, EBVG, EBVM, MICRO ## ##[place] [address] [place] [phone]- [phone] Basophils/100 WBC (Bld) 0.5 % Normal 2017 [facility] (20389) Comment: Performed By: #### CRP, HPYL RI, CBCDIF, EBVEA, EBVNA, TGAB, CMP, LIPA, LMLATE, EBVG, EBVM, MICRO ## ##[place] [address] [phone]- [phone] DTYPE Auto Diff Normal 05-17-2018 [facility] (35656) Comment: Performed By: #### CRP, HPYL RI, CBCDIF, EBVEA, EBVNA, TGAB, CMP, LIPA, LMLATE, EBVG, EBVM, MICRO ## ##[place] [address], [place] [phone]- [phone] Eosinophils (Bld) [#/Vol] 0.15 <0.46 k/uL Normal 04-30 [facility] (28577) Comment: Performed By: #### CRP, HPYL RI, CBCDIF, EBVEA, EBVNA, TGAB, CMP, LIPA, LMLATE, EBVG, EBVM, MICRO ## ##[place] [address], [place] [phone]- [phone] Eosinophils/100 WBC (Bld) 2.0 % Normal 04-30 [facility] (02551) Comment: Performed By: #### CRP, HPYL RI, CBCDIF, EBVEA, EBVNA, TGAB, CMP, LIPA, LMLATE, EBVG, EBVM, MICRO ## ##[place] [address] [place] [phone]- [phone] Erythrocyte distribution 12.9 11.5-15.0 % Normal 05-17 [facility] width (RBC) [Ratio] [place] (89063) Comment: Performed By: #### CRP, HPYL RI, CBCDIF, EBVEA, EBVNA, TGAB, CMP, LIPA, LMLATE, EBVG, EBVM, MICRO ## ##[place] [address], [place] [phone]- [phone] Hematocrit (Bld) [Volume 48.8 36.0-46.0 % High 05-17 [facility] fraction] [place] (36918) Comment: Performed By: #### CRP, HPYL RI, CBCDIF, EBVEA, EBVNA, TGAB, CMP, LIPA, LMLATE, EBVG, EBVM, MICRO ## ##[place] [address], [place] [phone]- [phone] Hemoglobin (Bld) 15.5 11.5-15.5 g/dL Normal 05-17-2018 [facility] [Mass/Vol] [place] (10068) Comment: Performed By: #### CRP, HPYL RI, CBCDIF, EBVEA, EBVNA, TGAB, CMP, LIPA, LMLATE, EBVG, EBVM, MICRO ## ##[address] [place], [place] [phone]- [phone] Lymphocytes (Bld) [#/Vol] 2.42 1.00-4.00 k/uL Normal 04-30 [facility] (71134) Comment: Performed By: #### CRP, HPYL RI, CBCDIF, EBVEA, EBVNA, TGAB, CMP, LIPA, LMLATE, EBVG, EBVM, MICRO ## ##[address] [place], [place] [phone]- [phone] Lymphocytes/100 WBC (Bld) 32.0 % Normal 04-30 [facility] (36364) Comment: Performed By: #### CRP, HPYL RI, CBCDIF, EBVEA, EBVNA, TGAB, CMP, LIPA, LMLATE, EBVG, EBVM, MICRO ## ##[address], [place] [phone]- [phone] MCH (RBC) [Entitic mass] 30.6 26.0-34.0 pG Normal 05-17 [facility] (70569) Comment: Performed By: #### CRP, HPYL RI, CBCDIF, EBVEA, EBVNA, TGAB, CMP, LIPA, LMLATE, EBVG, EBVM, MICRO ## ##[address], [place] [phone]- [phone] MCHC (RBC) [Mass/Vol] 31.8 30.5-36.0 g/dL Normal 05-17-20 [facility] (15089) Comment: Performed By: #### CRP, HPYL RI, CBCDIF, EBVEA, EBVNA, TGAB, CMP, LIPA, LMLATE, EBVG, EBVM, MICRO ## ##[place] [address], [place] [phone]- [phone] MCV (RBC) [Entitic vol] 96.4 80.0-100.0 fL Normal 05-17 [facility] (69476) Comment: Performed By: #### CRP, HPYL RI, CBCDIF, EBVEA, EBVNA, TGAB, CMP, LIPA, LMLATE, EBVG, EBVM, MICRO ## ##[place] [address], [place] [phone]- [phone] Monocytes/100 WBC (Bld) 6.1 % Normal 2017 [facility] (11651) Comment: Performed By: #### CRP, HPYL RI, CBCDIF, EBVEA, EBVNA, TGAB, CMP, LIPA, LMLATE, EBVG, EBVM, MICRO ## ##[place] [address], [place] [phone] Neutrophils/100 WBC (Bld) 59.4 % Normal 04-30 [facility] (09862) Comment: Performed By: #### CRP, HPYL RI, CBCDIF, EBVEA, EBVNA, TGAB, CMP, LIPA, LMLATE, EBVG, EBVM, MICRO ## ##[place] [address], [place] [phone]- [phone] NRBCs 0.0 0 /100 WBC Normal 05-17-2018 [facility] (68309) Comment: Performed By: #### CRP, HPYL RI, CBCDIF, EBVEA, EBVNA, TGAB, CMP, LIPA, LMLATE, EBVG, EBVM, MICRO ## ##[place] [address], [place] [phone] Platelet mean volume 10.6 9.0-12.7 fL Normal 8 [facility] (Bld) [Entitic vol] [place] (55563) Comment: Performed By: #### CRP, HPYL RI, CBCDIF, EBVEA, EBVNA, TGAB, CMP, LIPA, LMLATE, EBVG, EBVM, MICRO ## ##[place] [address] [place], [place] [phone]- [phone] Platelets (Bld) [#/Vol] 271 150-400 k/uL Normal 2017 [facility] (93876) Comment: Performed By: #### CRP, HPYL RI, CBCDIF, EBVEA, EBVNA, TGAB, CMP, LIPA, LMLATE, EBVG, EBVM, MICRO ## ##[address] [place], [place] [phone]- [phone] RBC (Bld) [#/Vol] 5.06 3.90-5.20 m/uL Normal 05-17-2018 [facility] (65499) Comment: Performed By: #### CRP, HPYL RI, CBCDIF, EBVEA, EBVNA, TGAB, CMP, LIPA, LMLATE, EBVG, EBVM, MICRO ## ##[place] [address] [place], [place] [phone]- [phone] WBC (Bld) [#/Vol] 7.56 3.70-11.00 k/uL Normal 05-17-2018 [facility] (01807) Comment: Performed By: #### CRP, HPYL RI, CBCDIF, EBVEA, EBVNA, TGAB, CMP, LIPA, LMLATE, EBVG, EBVM, MICRO ## ##[place] [address] [place], [place] [id number]- [phone] c-reactive protein on 2018-05-17 CRP [Mass/Vol] 0.3 <0.9 mg/dL Normal 05-17-2018 [facility] ([id number]) Comment: Performed By: #### CRP, HPYL RI, CBCDIF, EBVEA, EBVNA, TGAB, CMP, LIPA, LMLATE, EBVG, EBVM, MICRO ## ##[facility] [address] [place], [place] [id number]- [phone] history physical on 2018-05-12 HISTORY PHYSICAL HNO ID: [id number] Normal 04-30 [facility] Author: Rosa (Elkin) Lefty Butts ([id number]) Service: (none) Author Type: Nurse Practitioner Type: HANDP Filed: 05/12/2018 4:35 PM Note Text: Leslie Bernardo a 37 year old female who is a consultation re quested by CANDIDO Cunningham, for an opinion regarding chest pressure. My final recommendations will be communicated back to the requesting provider by way of shared Medical record. The patient has been seen prev iously. I saw her in consultation in 2011 due to abdominal bloating and lo wer GI complaints. The patient was seen by Dr. Jah Tobar for upper endoscopy 08/24/07 for reported epigastric pain. The procedure report has been revi ewed and findings as follows: OPERATIVE FINDINGS: 1. ?Duodenum looked normal. ?Normal mucosa. ?No ulcerations. No mass lesions. 2. ?Stomach: ?Distal antrum appeared normal. ?Retroflexion s howed minimal hiatal hernia, but essentially was normal. Biopsy for H. pyl atiya was obtained. ?No signs of mass lesions were identified. 3. ?Esophagus: ?Distal esophagus all normal. ?Small hiatal h ernia, very minimal. ?No signs of any ulcerations or esophagitis were id entified. ?The esophagus appeared to be odilon normally. ?It was remov ed without difficulty. The patient tolerated the procedure well. Post procedure visit with Dr. Tobar was reviewed. Hpylori was negative. Her HIDA scan is normal with an ejection fraction of 70%. ?Her CAT scan of the abdomen and pelvis really do not show any le sions in the upper abdomen to speak of. ?At this time, I have no surgical interventions planned for her and I am going to discharge her back to her primary care physician. The patient has been seen by Dr. Hodgson regarding her compl aints. Component Latest Ref Rng AND Units 04/22/2018 STEPHANIE by EIA, Qual Negative Negative STEPHANIE by EIA OD Ratio 0.3 WSR 0 - 20 mm/hr 2 CRP <0.9 mg/dL 0.2 Rheumatoid Factor <16 IU/mL <10 d Dimer <500 ng/mL FEU 300 The patient has an appointment with Dr. Esteban on 06/09/18 r egarding this complaint. Presenting complaint: The patient presents today stating it started back in August. More like a clamping clinching type sensation th at is constant. It can be both that and sharp. She tells me that it would come and go initially. Now basically always there. She points lef t of mid line, parasternal. The patient denies nausea or vomiting with the chest pain. T he patient's asks if a hiatal hernia could cause her pain. I have explained that it usually doesn't cause constant pain, but we can inve stigate. The patient denies any prior issues with heartburn or indige stion. She tells me that doing a 2 week trial of a PPI didn't seem to m [place] any difference. She had also tried prescription PPI without any improvement. The patient tells me I have been watching eating all year a nd nothing seems to make it any different. The patient tells me that the pain doesn't wake her up at [facility], unless she is having other symptoms - like the flu or something. The patient tells me that it had been unusual for her to be sick, but this year she picks up everything since having had pneumonia. She reports that she had diarrhea last night and the chest pain got worse. Th e chest pain seems to get a little better after the episode (flu, cold or diarrhea) settles down. The patient reports intermittent fever the pas t few months. Having a bowel movement at least once a day. No black stool that she has noticed. No blood. No abdominal pain. REVIEW OF SYSTEMS: GENERAL: No unplanned weight loss. HEENT: Negative for frequent or significant headaches, No ch anges in hearing or vision, no nose bleeds or other nasal problems NECK: Negative for lumps, goiter, pain and significant neck swelling RESPIRATORY: Shortness of breath rarely. Saw Dr. Hodgson. CARDIOVASCULAR: Palpitations earlier this year. She had a he art monitor through [facility]. Was told it was negative. Seeing Dr. Dodd . GI: The patient states that her appetite has been adequate. She does get hungry. There has been no nausea, no vomiting. She denies dy sphagia and denies odynophagia. There has not been indigestion or heartb urn. There has not been regurgitation. Bowel habits have been regular. Ther e has rarely been diarrhea. There has not been constipation. The patient denies rectal bleeding. There has not been melena. No abdominal pain. 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 LMP: 2 weeks ago. PSYCH: Negative for sleep disturbance, mood disorder and rec ent psychosocial stressors. HEMATOLOGY/LYMPHOLOGY Negative for prolonged bleeding, bruis ing easily or swollen nodes ENDOCRINE: Negative for thyroid or diabetes. NEURO: No history of headaches, syncope, paralysis, seizures or tremors All other reviewed and negative other than HPI. 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 No current facility-administered medications for this visit. SOCIAL HISTORY: Patient is . She has never smoked and reports her alc ohol use as never. PHYSICAL EXAMINATION: Blood pressure 117/80, pulse 80, height 165.1 cm (5' 5), we ight 95.7 kg (211 lb), last menstrual period 04/29/2018. General Appearance: Well appearing, alert, in no acute distr ess, well-hydrated, well nourished. Skin: Skin color, texture, turgor normal, no suspicious rash es or lesions. Head: Normocephalic, no masses, lesionsor abnormalities. Eyes: Anicteric sclera. P Oropharynx: Lips, mucosa, and tongue normal, teeth and gums normal, oropharynx normal. Neck: Supple, no adenopathy; thyroid symmetric, normal size. Lungs: Lungs clear to auscultation. No wheezing, rhonchi, ra les. Heart: RRR without murmur. Abdomen: Normal abdominal exam, Abdomen soft, non-tender. Sixto wel sounds normal. No masses, organomegaly. Extremities: No deformities, edema, skin discoloration, club manny or cyanosis. Peripheral Pulses: Normal. Impression: constant chest pressure Plan: I have explained that constant pain/pressure usually d oesn't go along with GI issues, but that I would like to start with an UGI. I am not sure that an EGD would yield much information from what she is describing. Labs. The patient agrees to proceed. Further plan based on t he results. Keep appointment with Dr. Esteban. I have personally interviewed and examined this patient. I dhara ortiz reviewed the information that the MA entered for this encounter. I sp ent 25 minutes in the visit, with greater than 50% of the total face-to-fac e time of the visit in counseling and coordination of care. Rosa Olea RN APRN.MAGALY tee on 2018-05-12 CNOV Office Visit ([facility]) Normal 05-12-[address] [place] [address] Clinic LESLIE BERNARDO ([id number]) 1980 [facility] Date Time Provider Department ([id number]) 05/12/18 8:20 AM ROSA OLEA (ELKIN) [facility] During your visit today, we recorded the following informati on about you: Pulse Blood pressure Weight Height 80/minute 117/80 95.7 kg 1.651 m Last Period 04/29/18 Rosa Olea RN APRN.MAGALY 05/12/2018 4:35 PM Signed Leslie Bernardo a 37 year old female who is a consultation requested by CANDIDO Cunningham, for an opinion regarding chest press ure. My final recommendations will be communicated back to the requesting prov ider by way of shared Medical record. The patient has been seen previously. I saw her in consultation in 2011 due to abdominal bloating and lower GI complaints. The patient was seen by Dr. Jah Tobar for upper endoscopy 08/24/07 for reported epigastric pain. The procedure report h as been reviewed and findings as follows: OPERATIVE FINDINGS: 1. ?Duodenum looked normal. ?Normal mucosa. ?No ulcerations. No mass lesions. 2. ?Stomach: ?Distal antrum appeared normal. ?Retroflexion s howed minimal hiatal hernia, but essentially was normal. Biops y for H. pylori was obtained. ?No signs of mass lesions were identified. 3. ?Esophagus: ?Distal esophagus all normal. ?Small hiatal h ernia, very minimal. ?No signs of any ulcerations or esophagitis were id entified. ?The esophagus appeared to be odilon normally. ?It was remov ed without difficulty. The patient tolerated the procedure well. Post procedure visit with Dr. Tobar was review ed. Hpylori was negative. Her HIDA scan is normal with an ejection fraction of 70%. ?Her C AT scan of the abdomen and pelvis really do not show any lesions in the upper abdomen to speak of. ?At this time, I have no surgical interventions pl anned for her and I am going to discharge her back to her primary care physician. The patient has been seen by Dr. Hodgson regarding her compl aints. Component Latest Ref Rng AND Units 04/22/2018 STEPHANIE by EIA, Qual Negative Negative STEPHANIE by EIA OD Ratio 0.3 WSR 0 - 20 mm/hr 2 CRP <0.9 mg/dL 0.2 Rheumatoid Factor <16 IU/mL <10 d Dimer <500 ng/mL FEU 300 The patient has an appointment with Dr. Esteban on 06/09/18 r egarding this complaint. Presenting complaint: The patient presents today stati ng it started back in August. More like a clampin g clinching type sensation that is constant. It can be both that and sharp. She tells me that it would come and go initially. Now basically always there. She points left of mid line, par asternal. The patient denies nausea or vomiting with the chest pain. T he patient's asks if a hiatal hernia could ca use her pain. I have explained that it usually doesn't cause constant pain, but we can investigate. The patient denies any prior issues with heartburn or indigestion. She tells me that doing a 2 week trial of a PPI didn' t seem to make any difference. She had also tried prescription PPI without any improvement. The patient tells me I have been watching eating all year and nothing seems to make it any different. The patient tells me that the pain doesn 't wake her up at night, unless she is having other symptoms - like the flu or something. The patient tells me that it had been unusual for her to be sick, but this year she picks up everything since having had pneumonia. Falguni granados reports that she had diarrhea last night and the chest pain got worse . The chest pain seems to get a [...] RESPIRATORY: Shortness of breath rarely. Saw Dr. Hodgson. CARDIOVASCULAR: Palpitations earlier this year. She had a he art monitor through [facility]. Was told it was negative. Seeing Dr. Dodd . GI: The patient states that her appetite has been adequate. She does get hungry. There has been no nausea, no vom iting. She denies dysphagia and denies odynophagia. There has not been indigestion or heartbu rn. There has not been regurgitation. Bowel habits have been re gular. There has rarely been diarrhea. There has not been constipation. The pat ient denies rectal bleeding. There has not been melena. No abdominal pain. 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 LMP: 2 weeks ago. PSYCH: Negative for sleep disturbance, mood disorder a nd recent psychosocial stressors. HEMATOLOGY/LYMPHOLOGY Negative for prolonged bleeding, bruis ing easily or swollen nodes ENDOCRINE: Negative for thyroid or diabetes. NEURO: No history of headaches, syncope, paralysis, seizures or tremors All other reviewed and negative other than HPI. PAST MEDICAL HISTORY Diagnosis Date - Abdominal pain, generalized - Diarrhea - Hormone disorder - Localization-related (focal) (partial) epilepsy and epileptic syndromes with simple partial seizures, without mention of intractable epil epsy FEBRILE, last occurrence 7 years ago PAST SURGICAL HISTORY Procedure Laterality Date - COLONOSCOPY W/BX 11/04/11 - EGD W/O BRSH SPECIMEN W/BX 08/24/07 - VAGINAL DELIVERY HX 4 uncomplcate pregnancies. FAMILY HISTORY Problem Relation Age of Onset - Stroke Mother - other (Other) Mother Lupus - Hypertension Father - Diabetes Father - Stroke Maternal Grandmother x 2 - Heart Paternal Grandfather [place] - Diabetes Sister - Asthma No Family [...] last menstrual period 04/29/2018. General Appearance: Well cooper earing, alert, in no acute distress, well-hydrated, well nourished. Skin: Skin color, texture, turgor normal, no suspicious rash es or lesions. Head: Normocephalic, no masses, lesionsor abnormalities. Eyes: Anicteric sclera. P Oropharynx: Lips, mucosa, and tongue nor mal, teeth and gums normal, oropharynx normal. Neck: Supple, no adenopathy; thyroid symmetric, normal size. Lungs: Lungs clear to auscultation. No wheezing, rhonchi, ra les. Heart: RRR without murmur. Abdomen: Normal abdominal exam, Abdomen soft, non-tender. Bowel sounds normal. No masses, organomegaly. Extremities: No deformities, edema, skin discolo ration, clubbing or cyanosis. Peripheral Pulses: Normal. Impression: constant chest pressure Plan: I have explained that constant pain/pressure usually doesn't go along with GI issues, but that I would like to start with an UGI. I am not sure that an EGD would yield much information from what she is describ ing. Labs. The patient agrees to proceed. Further plan based on the results. Keep appointment with Dr. Esteban. I have personally interviewed and examined this patien t. I have reviewed the information that the MA entered [facility]. I spent 25 minutes in the visit, with greater than 50% of the total [id number] ryan e of the visit in counseling and coordination of care. Rosa Olea RN IT BUSINESS PROCESS ARCHITECT.MAGALY Olea RN APRN.MAGALY 05/12/2018 9:11 AM Signed Please follow the instructions for the test that looks at your esophagus and stomach. ([facility]) It will take a day or two after the test for us to get the r esults. Call [phone], and ask t o speak to a nurse in GI, if [...] Diagnosis:Nausea [R11.0] Order(s):XR UPPER GI ROUTINE DOUBLE CONT RAST/AIR [3788744] Order #: [id number] FUTURE H PYLORI IGG AB [SQHPYLRI] Order #: [id number] FUTURE COMP METABOLIC PANEL [SQCMP] Order #: [id number] FUTURE LIPASE BLD [SQLIPA] Order #: [id number] FUTURE Problem List As Of Date 05/12/2018 Noted Resolved Hx of febrile seizure [Z87.898] More... Abdominal pain, generalized [R10.84] INVALID FOR*11/03/2017 Hormone disorder [E34.9] Diarrhea [R19.7] INVALID FOR* Other chest pain [R07.89] INVALID FOR* Other instructions from your clinician: Please follow the instructions for the test that looks at yo ur esophagus and stomach. ([facility]) It will take a day or two after the test for us to get the r esults. Call [phone], and ask to speak to a nurse in GI, if you have any questions or concerns in the mean time. Encounter Status:Closed by ROSA OLEA CNP on 05/12/18 cnpn on 2018-04-25 CNPN Telephone (PULMWS) Normal 04-25-2018 [facility] REYNALESLIE REID ([id number]) 1980 [facility] Time Provider Department ([id number]) 04/25/18 LARA HODGSON During your visit today, we recorded the following informati on about you: Lara Hodgson MD 04/25/2018 2:43 PM Signed Component Ref [...] Pulmonary evaluation or Rx needed at this time . Lara Hodgson MD, [facility] Respiratory [place] [facility] [address] [place] [address] P: [phone] F: [phone] [email or web address] Myesha Garcia LPN 04/25/2018 3:15 PM Signed Patient notified re: same. Myesha Garcia LPN Allergies As of Date: 04/25/2018 Noted Allergy Reaction PENICILLINS 09/18/2005 16 - Unknown Comments: Childhood reaction. Date Reviewed: 04/22/2018 Reviewed by: Lara Hodgson - Fully Assessed Reason for Visit: Results [95] Problem List As Of Date 04/25/2018 Noted Resolved Hx of febrile seizure [Z87.898] More... Abdominal pain, generalized [R10.84] INVALID FOR*11/03/2017 Hormone disorder [E34.9] Diarrhea [R19.7] INVALID FOR* Other chest pain [R07.89] INVALID FOR* Encounter Status:Closed by LARA HODGSON MD on 04/25/18 sed rate westergren on 2018-04-22 Sed Rate Westergren 2 0-20 mm/hr Normal 04-22-2018 [facility] ([id number]) Comment: Performed By: #### WSR, DDME R, ANAS, CRP, RF #### [facility] [address] [place], [place] [address] rheumatoid factor o n 2018-04-22 Rheumatoid Factor <10 <16 Normal 04-22-2018 C [facility] ([id number]) Comment: Performed By: #### WSR, DDME R, ANAS, CRP, RF #### [facility] [address] [place], [place] [address] progress on 2018-03 PROGRESS HNO ID: [id number] Normal 04-22-2018 [facility] Author: Lara Hodgson [place] ([id number]) Service: (none) Author Type: Physician Type: Progress Notes Filed: 04/22/2018 11:00 AM Note Text: [facility] [place] Consultation Note, : Introduction: The patient is seen in consultation today for evaluation of chest pain. This consultation is requested by Tess Ray PA-C. A copy of this encounter will be made available as a report via [facility] electronic medical record. HPI: Has noted left parasternal chest pain, nearly constant, sinc e 08/2017. Worse with position change and cough. No shortness of breath at rest. Minimal LLOYD with housework. Currently, no residual cough, purulent sputum, hemoptysis, w heezing. Has not noted relief with prescribed Rx (2 courses of antibi otic/steroid, gabapentin). MDI Albuterol of no relief. [place] No pets in home. Basement is dry. Natural gas hot water floor heat. No Central A/C. Bedroom fl ooring is linoleum. Little nearby farming Keeps house, no barn or stable work. 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 No sustained Rx with Amiodarone, Nitrofurantoin, Methotrexat e, cancer chemotherapy, INH, Hydralazine. No prior diagnosis of Pulmonary disease, connective tissue d isease. Lifestyle is active, no leg pain or swelling. 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 Social History [...] nose, throat: denies post nasal drip. denies rhi norrhea. denies purulent nasal discharge. denies epistaxis. denies hoarseness. Vision stable. Cardiac: notes angina, denies edema, denies orthopnea. GI: denies heartburn. denies dysphagia. denies diarrhea. 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 denies hesitancy. denies nocturia. Menses: regular Musculoskeletal: denies pain. Neuro: denies headache, denies focal weakness. denies tremor . Skin: notes rash on hands, not unusual. Otherwise negative. Reviewed with patient, confirmed as documented by Myesha cardozo LPN. TO PHYSICAL EXAMINATION: BP 130/76 Pulse 77 Resp 15 Wt 210 lb (95.3kg) SpO2 9 8% Gen: No acute distress. Cooperative with examination. ENT: Sclerae clear. Nares clear. Oral hygeine and dentition good. Pharynx clear. Resp: No stridor, accessory respiratory muscle use, supra-st ernal or intercostal retractions. A-P diameter normal. No pleural rubs, crackles, wheezes. CV: Regular rythm. Heart tones normal, no pericardial rub. N o carotid bruit. Radial pulses normal. Abd: Not distended. MSK: No kyphoscoliosis, joint deformities of the extremities . Ext: Warm and well perfused. No clubbing. No cyanosis. No ed mirta. No sclerodactyly. No Raynaud's. Skin: No malar rash, eczema, urticaria. Lymph: No adenopathy in neck, supra-clavicular fossae. Endo: No goiter. No exophthalmos, onycholysis. Neuro: Mental status normal. No tremor. Symmetrical and norm al muscle strength. DATA REVIEW: CT CHEST 12/21/17 and 01/18/18: I have personally and independently reviewed the above image s and I concur with the findings as described. TO 08/[address] [facility] labs in Scanned Documents : Normal WBC, diff, Na, D-dimer, Troponin. IMPRESSION/RECOMMEND: 1. My pleuritic chest pain differential diagnosis in this ca se: pulmonary embolism (blood clots in lungs, no evidence at [facility] 08/2017 visit), pneumonia present on 1st CT chest and resolved by second sca n, connective tissue disease like lupus, musculoskeletal pain (arthritis, work injury, et cetera). 2. My investigation will include inflammatory markers and re peat screen for blood clots: - ESR, C-reactive protein, STEPHANIE, RF, D-dimer. - Further recommendations to follow these results. 3. If all of this is normal, pursue cardiac evaluation with Tess Ray PA-C. I addressed the questions of the patient and her spouse, and they expressed understanding and acceptance of my answers. Lara Hodgson MD, [facility] Res[facility] [place] [facility] [address] [place] [address] P: [phone] F: [phone] d dimer on D dimer 300 <500 ng/mL FEU Normal 04-22-2018 [facility] ([id number]) Comment: Result Comment: The D-dimer assay can be used to exclude pulmonary embolism (PE) and deep vein thrombosis (DVT) in conjunction with a low pre-test probability. For patients with a suspecte d DVT, a D-dimer level below 500 ng/mL FEU has a negative predictive value of 99.2%, a sensitivity of 98.9%, and a specificity of 36.1%. For patients with a suspected PE, a D -dimer level below 500 ng/mL FEU has a negative predictive value of 99.1%, a sensitivity of 97.8%, and a specificity of 41.7%. Performed By: #### WSR, DDME R, ANAS, CRP, RF #### [facility] [address] [place], [place] [address] cnov on 2018-04-22 CNOV Office Visit (PULMWS) Normal 04-22-20 18 [facility] LESLIE BERNARDO ([id number]) 1980 [facility] Date Time Provider Department ([id number]) 04/22/18 9:30 AM LARA HODGSON PULMWS During your visit today, we recorded the following informati on about you: Pulse Respiration Blood pressure Weight 77/minute 15/minute 130/76 95.3 kg Myesha Garcia NATE 04/22/2018 9:28 AM Addendum ROS: General: Generally feels fatigued, complains of deep, sharp pain in midsternal chest since August. Constant, no aggravating or alleviating factors. Appetite good. Eyes, Ears, nose, throat: denies post nasal drip. denies r hinorrhea. denies purulent nasal discharge. denies epistaxis. denies hoarseness. Vision stable. Cardiac: notes angina, denies edema, denies orthopnea. GI: denies heartburn. denies dysphagia. denies diarrhea. 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 denies hesitancy. denies nocturia . Menses: regular Musculoskeletal: denies pain. Neuro: denies headache, denies focal weakness. denies tremor . Skin: notes rash on hands, not unusual. Otherwise negative. Reviewed with patient, confirmed as documented by Myesha cardozo LPN. TO Lara Hodgson MD 04/22/2018 11:00 AM Signed [facility] [place] Consultation Note, : Introduction: The patient is seen in consultation today for evaluation of chest pain. This consultation is requested by Tess Ray PA-C. A copy of this encounter will be made available as a report via [facility]. HPI: Has noted left parasternal chest pain, nearly constant, sinc e 08/2017. Worse with position change and cough. No shortness of breath at rest. Minimal LLOYD with housework. Currently, no residual cough, purulent sputum, hemoptysis, w heezing. Has not noted relief with prescribed Rx (2 courses of antibi otic/steroid, gabapentin). MDI Albuterol of no relief[place] No pets in home. Basement is dry. Natural gas hot water floor heat. No Central A/C. Bedroom dameon is linoleum. Little nearby farming Keeps house, no barn or stable work. 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 No sustained Rx with Amiodarone, Nitrofurantoin, Methotrexat e, cancer chemotherapy, INH, Hydralazine. No prior diagnosis of Pulmonary disease, connective tissue d isease. Lifestyle is active, no leg pain or swelling. PAST MEDICAL HISTORY Diagnosis Date - Abdominal pain, generalized - Diarrhea - Hormone disorder - Localization-related (focal) (partial) epilepsy and epileptic syndromes with simple partial seizures, without mention of intractable epil epsy FEBRILE, last occurrence 7 years ago PAST SURGICAL HISTORY Procedure Laterality Date - COLONOSCOPY W/BX 11/04/11 - EGD W/O BRSH SPECIMEN W/BX 08/24/07 FAMILY HISTORY Problem Relation Age of Onset - Hypertension Father - Diabetes Father - Stroke Maternal Grandmother TIMES 2 - Heart Paternal Grandfather [place] - Diabetes Sister Mother: Lupus. Social History [...] nose, throat: denies post nasal drip. denies r hinorrhea. denies purulent nasal discharge. denies epistaxis. denies hoarseness. Vision stable. Cardiac: notes angina, denies edema, denies orthopnea. GI: denies heartburn. denies dysphagia. denies diarrhea. 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 denies hesitancy. denies nocturia . Menses: regular Musculoskeletal: denies pain. Neuro: denies headache, denies focal weakness. denies tremor . Skin: notes rash on hands, not unusual. Otherwise negative. Reviewed with patient, confirmed as documented by Myesha cardozo LPN. TO PHYSICAL EXAMINATION: BP 130/76 Pulse 77 Resp 15 Wt 210 lb (95.3kg) SpO2 9 8% Gen: No acute distress. Cooperative with examination. ENT: Sclerae clear. Nares clear. Oral hygeine and dentition good. Pharynx clear. Resp: No stridor, accessory respiratory muscle use, supra-st ernal or intercostal retractions. A-P diameter normal. No pleural rubs, crackles, wheezes. CV: Regular rythm. Heart tones normal, no pericardial rub. No carotid bruit. Radial pulses normal. Abd: Not distended. MSK: No kyphoscoliosis, joint deformities of the extremities . Ext: Warm and well perfused. No clubbing. No cyanosis. No ed mirta. No sclerodactyly. No Raynaud's. Skin: No malar rash, eczema, urticaria. Lymph: No adenopathy in neck, supra-clavicular fossae. Endo: No goiter. No exophthalmos, onycholysis. Neuro: Mental status normal. No tremor. Symmetrical and normal muscle strength. DATA REVIEW: CT CHEST 12/21/17 and 01/18/18: I have personally and indepe ndently reviewed the above images and I concur with the findings as described. TO 08/[address] [facility] labs in Scanned Documents : Normal WBC, diff, Na, D-dimer, Troponin. IMPRESSION/RECOMMEND: 1. My pleuritic chest pain differential diagnosis in this ca se: pulmonary embolism (blood clots in lungs, no evidence at [facility] 08/2017 visit), pneumonia present on 1st CT chest and resolved by second sca n, connective tissue disease like lupus, musculoskeletal pain (arthritis , work injury, et cetera). 2. My investigation will include inflammatory markers and repeat screen for blood clots: - ESR, C-reactive protein, STEPHANIE, RF, D-dimer. - Further recommendations to follow these results. 3. If all of this is normal, pursue card iac evaluation with Tess Ray PA-C. I addressed the questions of the patient and her spouse, a nd they expressed understanding and acceptance of my answers. Lara Hodgson MD, [facility] [place] [address] P: [phone] F: [phone] [email or web address] Lara Hodgson MD 04/22/2018 10:02 AM Signed 1. Pleuritic chest pain may be caused by pulmonary embolis m (blood clots in lungs, no evidence at [facility] 08/2017 vis it), pneumonia presnet on 1st CT chest and resolved by second scan, connective tissue disease like lupus, musculoskeletal pain (arthritis, work injury, et cetera). 2. My investigation will include inflammatory markers and repeat screen for blood clots: - ESR, C-reactive protein, STEPHANIE, RF, D-dimer. - Further recommendations to follow these results. 3. If all of this is normal, pursue card iac evaluation with Tess Ray PA-C. Lara Hodgson MD, [facility] [place] [address] P: [phone] F: [phone] [email or web address] Referring Provider: Hipolito RAY (TRAN) [[id number]] Allergies As of Date: 04/22/2018 Noted Allergy Reaction PENICILLINS 09/18/2005 16 - Unknown Comments: Childhood reaction. Date Reviewed: 04/22/2018 Reviewed by: Lara Hodgson - Fully Assessed Reason for Visit: Chest Pain [21] Cmt: Consult from Ángel aRy PA-C Reason For Visit History Recorded Primary Visit Diagnosis:Chest pain, unspecified type [R07.9] Order(s):SED RATE WESTERGREN [SQWSR] Order #: [id number] FUT URE C-REACTIVE PROTEIN (CRP) [SQCRP] Order #: [id number] FUTURE STEPHANIE BLOOD [SQANAS] Order #: [id number] FUTURE RHEUMATOID FACTOR BL [SQRF] Order #: [id number] FUTURE D-DIMER [SQDDMER] Order #: [id number] FUTURE Medication notes this encounter GABAPENTIN 300 MG CAPSULE >> Lara Hodgosn MD 04/22/2018 9:30 AM Tried it. I [...] in lungs, no evidence at [facility] 08/2017 visit), pneumonia presnet on 1st CT chest and resolved by second sca n, connective tissue disease like lupus, musculoskeletal pain (arthritis, work injury, et cetera). 2. My investigation will include inflammatory markers and re peat screen for blood clots: - ESR, C-reactive protein, STEPHANIE, RF, D-dimer. - Further recommendations to follow these results. 3. If all of this is normal, pursue cardiac evaluation with Tess Ray PA-C. L[facility] Hodgson MD, [facility] Respiratory [facility] [address] [place] [address] P: [phone] F: [phone] Visit Notes: >> Myesha Garcia LPN WedApr 22, 2018 9:21 AM Status: Adde ndum ROS: General: Generally feels fatigued, complains of deep, sharp pain in midsternal chest since August. Constant, no aggravating or alleviating factors. Appetite good. Eyes, Ears, nose, throat: denies post nasal drip. denies rhi norrhea. denies purulent nasal discharge. denies epistaxis. denies hoarseness. Vision stable. Cardiac: notes angina, denies edema, denies orthopnea. GI: denies heartburn. denies dysphagia. denies diarrhea. 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 denies hesitancy. denies nocturia. Menses: regular Musculoskeletal: denies pain. Neuro: denies headache, denies focal weakness. denies tremor . Skin: notes rash on hands, not unusual. Otherwise negative. Reviewed with patient, confirmed as documented by Myesha cardozo LPN. TO Medications Discontinued During This Encounter gabapentin (NEURONTIN) 300 mg capsule 90 c* 2 03/07/20182017 Class: Print RX Route: ORAL Sig: Take 1 capsule by mouth daily at bedtime for 90 days. Increase to twice in 5 days if tolerated and again to three times a day in 5 days if tolera yang Disc: Side Effects Follow Up: Call patient with results Follow-up and Disposition History Recorded Encounter Status:Closed by LARA HODGSON MD on 04/22/18 c-reactive protein on 2018-04-22 CRP [Mass/Vol] 0.2 <0.9 mg/dL Normal 04-22-2018 [facility] ([id number]) Comment: Performed By: #### WSR, DDME R, ANAS, CRP, RF #### [facility] [address] [place], [place] [id number] stephanie on 2018-04-22 Nuclear Ab IF (S) Negative Negative Normal 04-22-2018 [facility] [Titer] [place] ([id number]) Comment: Performed By: #### WSR, DDME R, ANAS, CRP, RF #### [facility] [address] [place], [place] [id number] Nuclear Ab IF (S) [Titer] 0.3 OD Ratio Normal 03-31 [facility] ([id number]) Comment: Result Comment: OD Ratio is interpreted as follows: Negative <1.0 Positive >=1.0 Performed By: #### WSR, DDME R, ANAS, CRP, RF #### [facility] [address] [place], [place] [address] Vital Signs Vital Sign Description Value / Unit Date Location The following section is limited to 5 en tries per type and includes entries from the following time range: 20190113 - [id number] 5. BMI (Body Mass Index) 35.01 kg/m2 03-13-2019 [facility] ([id number]) BMI (Body Mass Index) 35.61 kg/m2 03-08-2019 [facility] (52152) BMI (Body Mass Index) 35.61 kg/m2 01-13-2019 [facility] ([id number]) Body Temperature 98.29 [degF] 03-08-2019 [facility] (0 0000) Body weight 95.44 kg 03-13-2019 [facility] (00 000) Body weight 97.07 kg 03-08-2019 [facility] (00 000) BP Diastolic 72 mm[Hg] 03-13-2019 [facility] (00 000) BP Diastolic 86 mm[Hg] 03-08-2019 [facility] (00 000) BP Systolic 124 mm[Hg] 03-13-2019 [facility] (00 000) BP Systolic 111 mm[Hg] 03-08-2019 [facility] (00 000) Height 165.1 cm 03-13-2019 [facility] (00 000) Height 165.1 cm 03-08-2019 [facility] (00 000) Height 165.1 cm 01-13-2019 [facility] (4321 5) Pulse (Heart Rate) 82 /min 03-13-2019 [facility] (86620) Pulse (Heart Rate) 78 /min 03-08-2019 [facility] (11571) Pulse Oximetry 99 % 03-13-2019 [facility] (00 000) Pulse Oximetry 97 % 03-08-2019 [facility] (00 000) Respiratory Rate 18 /min 03-13-2019 [facility] (0 0000) Respiratory Rate 16 /min 03-08-2019 [facility] (0 0000) Weight 97.07 kg 01-13-2019 [facility] (4321 5) Encounters Date Type Reason Provider Location 03-13-2019 - Office consultation Atypical chest Caden Chapman [facility] 03-13-2019 new/estab patient 30 pain [facility] min Comment: Atypical chest pain (Primary Dx); Palpitations 03-10-2019 - Patient encounter Other Other [facility] 03-10-2019 procedure [facility] 02-27-2019 - Patient encounter [facility] 02-28-2019 procedure ALENACHERELLE SIMS (22431) [facility] CRISTINA 02-23-2019 - Patient encounter Other Other [facility] [place] [facility] mckeon 02-23-[address] [facility] 02-03-2019 - Patient encounter [facility] 02-04-2019 procedure [facility] (21858) [facility] CRISTINA 01-13-2019 - Patient encounter [facility] 01-14-2019 [facility]81287[facility] 01-13-2019 - Patient encounter [facility] 01-14-2019 [facility]80926[facility] 01-13-2019 - Patient encounter Chest pain [facility] 01-13-[address] Scan Comment: Chest pain, unspecified type ; Adenopathy; Left arm pain 03-08-2019 - Subsequent hospital Epigastric pain Mana Kaba [facility] 03-08-2019 visit by physician Mana Kaba [facility] Mana Kaba Comment: Epigastric abdominal pain 03-06-2019 - Telephone encounter Mana Kaba [place] 03-06-2019 Gastroenterolog y Comment: Appointment 02-09-2019 - Telephone encounter Mana Vega [facility] 02-09-2019 Gastroenterolog y Comment: Appointment Procedures Procedure Name Date Provider Location Esophagogastroduodenoscopy 03-08-2019 [email or web address] ([id number]) Standard ECG 03-08-2019 Jamin Davis [email or web address] ([id number]) Natriuretic peptide 03-08-2019 Jamin [facility] (76836) Choriogonadotropin ( test) 03-08-2019 Jamin Susan Lec hiara [facility] [Presence] in Urine (52499) OUTSIDE RADIOLOGY 02-03-2019 Historical Provider [facility] (16538) Bone &/joint imaging limited area 01-13-2019 External [facility] (65332) Transcribed LABS (OUTSIDE) 01-13-[address] [facility] (31757) CT of chest 01-13-2019 - External [facility] (4321 5) 01-13-2019 Transcribed Creatinine [Mass/volume] in Blood 01-13-2019 - [facility] (05701[facility] 01-13-2019 MRI of thoracic spine without 01-13-2019 External [facility] (06413) contrast Transcribed Plan of Treatment Plan Description Date Location INFLUENZA VACCINE no information 04-30-[address] - [facility] ( 93272) (#1) 04-30-2019 SEQUENTIAL INFLUENZA SEQUENTIAL INFLUENZA 04-30-2019 - [facility] (62845) VACCINE (Season VACCINE (Season Ended) 2019 Ended) Office Visit 03/13/2019 Office Visit 03-13-2019 - [facility] 03-13-2019 Cardiolo gy Caden Wilkerson DO [address] [place] [address] Office Visit 03/07/2019 Office Visit 03-07-2019 - Theodore [facility], 03-07-[address] Mana Vega MD [address] [id number] PAP SMEAR DISCUSSION PAP SMEAR DISCUSSION 2001 - [facility] (50333) 2001 TDAP (ADULT) TDAP (ADULT) 1999 - [facility] (00 000) 1999 TETANUS TETANUS 1998 - [facility] (00 000) 1998 HIV SCREENING HIV SCREENING DISCUSSION 1993 - [facility] (48232) DISCUSSION 1993 Wellness Visit Wellness Visit 1983 - [facility] (4321 5) 1983 PAP SMEAR PAP SMEAR 1980 - [facility] (4321 5) 1980 TETANUS EVERY 10 YR TETANUS EVERY 10 YR 1980 - [facility] (26472) 1980 ECG ECG ECG STAT 03/08/2019 [facility] ([id number]) 9:31 AM EDT Social History Type Social History Date Location Description Tobacco smoking status Never smoker 02-23-2019 - [facility] MONTOYA [facility] (53231) NHIS 03-13-2019 History SDOH Alcohol 1 02-14-2019 - [facility] 02-14-2019 [facility] (09308) Sex Assigned At Not on file [facility] (91670) Tobacco smoking status Unknown if ever smoked 01-13-2019 - [facility] (78534) [facility] 01-13-2019 The following information is from the original human readable contentNo Social History Records FoundNo Social History Records FoundNo Social History Records FoundNo Social History Records FoundNo Social History Records Found Reason for Referral Status Reason Specialty Diagnoses / Procedures Referred By Joy king Referred To Contact Closed Radiology Diagnoses Chest pain, unspecified type Adenopathy Left arm pain Penhos, Sean Procedures CT Chest Thorax With Contrast CT Chest With And Without Contrast MD [place] [address] [place], [place] [address] Phone: Status Reason Specialty Diagnoses / Referred By Referred To Procedures Contact Contact Pending Review Radiology Diagnoses Chest pain, unspecified type Adenopathy Left arm pain Penhos, Sean Procedures MR Thoracic Spine Without Contrast MD M[place] [address] [facility] [place] [place] [address] Status Reason Specialty Diagnoses / Referred By Referred To Procedures Contact Contact Pending Review Radiology Diagnoses Chest pain, unspecified type Adenopathy Left arm pain Penhos, Sean Procedures NM Bone Limited Study MD Alix Childress[address] [facility] [place] [place] [address] Status Reason Specialty Diagnoses / Procedures Referred By Joy king Referred To Contact Closed Procedures Jamin Sweet, ECG [address] [place], [place] [address] Phone: Assessments Diagnosis Chest pain, unspecified type Adenopathy Enlargement of lymph nodes Left arm pain Pain in soft tissues of limb Diagnosis Chest pain, unspecified type Adenopathy Enlargement of lymph nodes Left arm pain Pain in soft tissues of limb Diagnosis Chest pain, unspecified type Adenopathy Enlargement of lymph nodes Left arm pain Pain in soft tissues of limb Diagnosis Epigastric abdominal pain Abdominal pain, epigastric Diagnosis Atypical chest pain - Primary Other chest pain Palpitations Advance Directives Patient has advance care planning documents on file. For more information, please contact:[address] [phone] Patient has advance care planning documents on file. For more information, please contact:[address] [phone] Patient has advance care planning documents on file. For more information, please contact:[address] [phone] Patient has advance care planning documents on file. For more information, please contact:[address] [phone] Advanced Directives Records FoundNo Advanced Directives Records FoundNo Advanced Directives Records Found History of Present Illness Caden Wilkerson, DO - 03/13/2019 7:45 AM EDT Chief Complaint Atypical chest pain/palpitations Pertinent cardiac diagnoses Unremarkable stress echocardiogram/Holter HPI Leslie Bernardo is a 38 y.o. female seen by [facility] today for atypical chest pain. Chronic substernal discomfort temporarily relief with sublingual nitroglycerin but unremarkable stress echo and Holter monitor. Discomfort is not related to physical activity, at times can radiate to the left arm and no significant nausea shortness of breath or diaphoresis. She did have an EGD which demonstrated some gastritis. She has been on multiple medications for GERD, fibromyalgia and inflammation none of which have been beneficial. No signs or symptoms congestive heart failure near-syncope or syncopal episodes. Even during her palpitations her rhythm was normal sinus. Patient Active Problem List Diagnosis ? Obesity: body mass index of 35.0-39.9 ? Epigastric abdominal pain ? Other chest pain ? Disorder of endocrine system ? Hx of febrile seizure Past Medical History: Diagnosis Date ? Chest pain ? Encounter for Essure implantation ? Erythrocytosis ? 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 Fatigue ? Fibromyalgia ? GERD (gastroesophageal reflux disease) ? Inflammatory polyarthropathy ? Pneumonia ? Sleep apnea ? Sleep apnea Past Surgical History: Procedure Laterality Date ? EGD DIAGNOSTIC N/A 03/08/2019 Laterality: N/A; Surgeon: Mana Kaba MD; Location: [facility] ENDOSCOPY ? COLONOSCOPY W/ BX 2006 Normal ? TONSILLECTOMY (Not in a hospital admission) Scheduled medications Continuous Infusions PRN Medications Allergies Allergen Reactions ? Penicillins Reaction unknown Social History Socioeconomic History ? Marital status: Single Spouse name: Not on file ? Number of children: Not on file ? Years of education: Not on file ? Highest education level: Not on file Occupational History ? Not on file Social Needs ? Financial resource strain: Not on file ? Food insecurity: Worry: Not on file Inability: Not on file ? Transportation needs: Medical: Not on file Non-medical: Not on file Tobacco Use ? Smoking status: Never Smoker ? Smokeless tobacco: Never Used Substance and Sexual Activity ? Alcohol use: Never Frequency: Never ? Drug use: Never ? Sexual activity: Not on file Lifestyle ? Physical activity: Days per week: Not on file Minutes per session: Not on file ? Stress: Not on file Relationships ? Social connections: Talks on phone: Not on file Gets together: Not on file Attends adventism service: Not on file Active member of club or organization: Not on file Attends meetings of clubs or organizations: Not on file Relationship status: Not on file ? Intimate partner violence: Fear of current or ex partner: Not on file Emotionally abused: Not on file Physically abused: Not on file Forced sexual activity: Not on file Other Topics Concern ? Not on file Social History Narrative ? Not on file Review of System 10 systems reviewed, pertinent positives listed above Blood pressure 124/72, pulse 82, resp. rate 18, height 1.651 m (5' 5), weight 95.4 kg (210 lb 6.4 oz), SpO2 99 %. Body mass index is 35.01 kg/m?. Physical Exam General appearance - alert, well developed, well nourished,38 y.o.female with appropriate affect HEENT?PERRLA, EOMI, no xanthelasma or icterus Neck - , No JVD or bruits. Carotid upstrokes brisk. No adenopathy or thyromegaly. Lungs - clear to auscultation, no wheezes, rales or rhonchi Heart - regular rate and regular rhythm, normal S1 and S2 , no significant murmurs, click rub or lift , Abdomen - soft, nontender, no organomegaly Extremities -no edema, clubbing or cyanosis. pulses 2+ bilaterally Neurologic?cranial nerves II through XII intact Skin - normal coloration and turgor, no laxity Psych- appropriate mood, Musculoskeletal - no joint deformity, tendon xanthoma Lab Results: No results found for: SODIUM, POTASSIUM, MAGNESIUM, CALCIUM, CHLORIDE, TP, BUN, CREATSERUM, ALBUMIN,BILITOTAL, AST, ALKPHOS, CO2, AGRATIO, ALT, GFR, GFRAA, GFRCOMMENT, GLUCOSE, TROP No results found for: CHOLESTEROL, TRIG, HDL, LDLCALC, BLDL, TCHHDLMANENT No results found for: PT, INR, PTT, WBC, RBC, HGB, HCT, MCV, MEANCELHGB, MEANCELHGCON, RBCDISTRIBU, PLATELET, MPV, NEUTROPHILS, LYMPHOCYTES, MONOCYTE, EOSINOPHILS, BASOPHILS, RBCCOMMENTS, DIFFTYPE, PLTCMT, HGBA1C, ESTAVGGLUCOS, TSH Assessment & Plan She has essentially had a living autopsy and nothing has been abnormal in terms of her cardiovascular workup and symptoms are not typical for coronary artery disease nor spasm nor pericardial abnormalities. She has had a chest CT. The only objective evidence so far has been by her EGD which she had nonerosive gastritis. She may have a component of esophageal spasm as there is some benefit with nitrates. She may try a long-acting nitroglycerin but any further workup should be geared to another subspecialty as she is a low cardiovascular risk. Caden Wilkerson DO 03/13/2019 8:19 AM documented in this encounter Summary Purpose Family History No Family History Records FoundNo Family History Records FoundNo Family History Records Found Additional Source Comments FOR RECORDS PERTAINING TO PATIENTS WHO ARE OR HAVE BEEN ENROLLED IN A CHEMICAL DEPENDENCY/SUBSTANCE ABUSE PROGRAM, SOME INFORMATION MAY BE OMITTED. This clinical summary was aggregated from multiple sources. Caution should be exercised in using it in the provision of clinical care. This summary normalizes information from multiple sources, and as a consequence, information in this document may materially changethe coding, format and clinical context of patient data. In addition, data may be omittedin some cases. CLINICAL DECISIONS SHOULD BE BASED ON THE PRIMARY CLINICAL RECORDS. [facility] provides no warranty or guarantee of the accuracy or completeness of information in this document. UNRECOGNIZED CONTENT PROVIDED BELOW FOR UNRECOGNIZED SECTION Reason for Visit Reason Comments Appointment Status Reason Specialty Diagnoses / Procedures Referred By C ontact Referred To Contact Closed Radiology Diagnoses Chest pain, unspecified type Adenopathy Left arm pain Penhos, Sean Procedures CT Chest Thorax With Contrast CT Chest With And Without Contrast MD Alix Childress[address] [place], [place] [address] Phone: Status Reason Specialty Diagnoses / Referred By Referred To Procedures Contact Contact Pending Review Radiology Diagnoses Chest pain, unspecified type Adenopathy Left arm pain Penhos, Sean Procedures MR Thoracic Spine Without Contrast MD [place] [address] [place] [address] Status Reason Specialty Diagnoses / Referred By Referred To Procedures Contact Contact Pending Review Radiology Diagnoses Chest pain, unspecified type Adenopathy Left arm pain Penhos, Sean Procedures NM Bone Limited Study MD [place] [address] [place] [address] Status Reason Specialty Diagnoses / Procedures Referred By R eferred To Contact Contact Diagnoses Epigastric abdominal pain Epigastric abdominal pain [R10.13] Procedures [place] ESOPHAGOGASTRODUODENOSCOPY TRANSORAL DIAGNOSTIC EGD DIAGNOSTIC Reason Comments New Patient Chest Pain deep left side, w & w/o acti vity. [facility] 08/2017 Shortness of Breath occasional Palpitations at times Dizziness no LOC, no falls UNRECOGNIZED CONTENT PROVIDED BELOW FOR UNRECOGNIZED SECTION INFORMATION SOURCE DATE CREATED AUTHOR AUTHOR'S ORGANIZATIO N 03/13/2019 [facility] DATE CREATED AUTHOR AUTHOR'S ORGANIZATIO N 03/15/2019 [facility] DATE CREATED AUTHOR AUTHOR'S ORGANIZATIO N 04/28/2019 [facility]
== END ==
PROVIDERS: PCP Legal Medicine; Referring Provider Internal Medicine Critical Care Medicine; Visit Provider Internal Medicine Critical Care Medicine
DX: R05 Cough (principal); R07.9 Chest pain, unspecified; E55.9 Vitamin D deficiency, unspecified; B02.9 Zoster without complications
CPT/HCPCS: 36415; 71046; 80053; 82306; 82785; 85025; 85652; 86003; 86140; 86695; 86696; 87529

== ENCOUNTER → 2020-02-15 12:47 | Outpatient (CLI) | payer OTHER, SELFPAY ==
[2020-02-02 07:46] VITALS: BMI 39.4
[2020-02-15 15:23] LABS: Absolute Lymphocyte Count 2.23 X10^3/uL (0.83-4.51); Absolute Neutrophil Count 4.9 X10^3/uL (2.0-7.7); Basophil# 0.03 X10^3/uL; Basophil% 0.4 % (0-1); Eosinophil# 0.09 X10^3/uL; Eosinophils% 1.2 % (0-5); Hematocrit 45.4 % (37-47); Lymphocyte # 2.23 X10^3/ul (4.0); Lymphocyte % 28.5 % (19-41); Mean Platelet Vol. 10.2 fl (6.2-12.0); Monocyte# 0.56 X10^3/uL; Monocyte% 7.2 % (0-10); NRBC Flagged by Analyzer 0 % (0-5); Neutrophil # 4.89 X10^3/uL (2.7-7.7); Neutrophil % 62.4 % (47-70); Platelet Count 280 K/mm3 (150-450); RBC Distribution Width CV 12.7 % (11.6-14.6); RBC Distribution Width SD 47.5 fl (35.1-43.9); Red Blood Count 4.54 M/mm3 (4.2-5.4); White Blood Count 7.8 K/mm3 (4.4-11.0)
[2020-02-15 15:56] LABS: Erythrocyte Sedimentation Rate 8 mm/hr (0-20)
[2020-02-15 16:18] LABS: BUN 9 mg/dL (7-18); Creatinine, Serum 0.62 mg/dL (0.55-1.02); Glucose 90 mg/dL (74-106)
[2020-02-15 16:19] LABS: ALB/GLOB Ratio 1.2 RATIO (0.9-2.4); AST(SGOT) 15 U/L (15-37); Alanine Aminotransfer ALT/SGPT 19 U/L (13-56); Albumin, Serum 3.7 g/dL (3.2-5.0); Alkaline Phosphatase 72 U/L (45-117); Anion Gap 7 (5-15); BUN/Creat Ratio 14.4 RATIO (10-20); CPK Total, Creatine Kinase 94 U/L (26-192); CRP < 2.90 mg/L (0.0-3.0); Calcium,Total 8.7 mg/dL (8.5-10.1); Chloride 106 mmol/L (98-107); EST Glomerular Filtration Rate 113 mL/min (>60); Est Glom Filt Rate - Afr Amer 136 mL/min (>60); Globulin 3.1 g/dL (2.2-4.2); LDH 182 U/L (84-246); Lipase 141 U/L (73-393); Potassium 3.7 mmol/L (3.5-5.1); Protein, Total 6.8 g/dL (6.4-8.2); Sodium Level 141 mmol/L (136-145)
[2020-02-15 16:28] LABS: HIV - WCH Non-Reactive (Nonreactive)
[2020-02-19 14:52] LABS: ANTINUCLEAR ANTIBODIES DIRECT Negative (Negative)
== END ==
PROVIDERS: PCP Legal Medicine
DX: R07.9 Chest pain, unspecified (principal); R05 Cough
CPT/HCPCS: 36415; 80053; 82550; 83615; 83690; 85025; 85652; 86038; 86140; 86703

== ENCOUNTER → 2020-03-13 08:23 | Outpatient (CLI) | payer OTHER, SELFPAY ==
[2020-02-02 07:46] VITALS: BMI 39.4
--- NOTE | 2020-03-14 07:43 | PFT ---
INTRODUCTION: The patient is a 39-year-old female that presents for pulmonary function studies secondary to a diagnosis of cough. Respiratory therapy reports good patient effort. Bronchodilators were used during testing. INTERPRETATION: Forced expiration spirometry demonstrates no evidence of a large airways obstructive ventilatory defect. There was no significant response to aerosolized bronchodilators. Spirograms are of good quality and plateau normally. The respiratory flow volume loop is normal. Body plethysmography was performed and reveals lung volumes to be within normal limits. Diffusing capacity by single breath CO is also within normal limits. IMPRESSION: Grossly normal pulmonary function studies.
[2020-03-18 16:23] LABS: HPV Reflexed? NOT INDICATED
== END ==
PROVIDERS: PCP Legal Medicine; Referring Provider Internal Medicine Critical Care Medicine; Visit Provider Internal Medicine Critical Care Medicine
DX: Z12.4 Encounter for screening for malignant neoplasm of cervix (principal); R05 Cough
CPT/HCPCS: 88175; 94060; 94726; 94729; G0145

== ENCOUNTER 2020-04-03 13:00 | Outpatient (RCR) | payer SELFPAY ==
[2020-04-01 08:01] VITALS: BMI 36.8
--- NOTE | 2020-04-03 18:52 | HP.SP.AD ---
History - History Date of Eval: 04/03/20 Other Relevant Medical History/Diagnoses/Surgery: Advanced Sleep Apnea with Bipap use. Smoking Status: Never smoker Hx Smoking: No Hx Tobacco Use: No - Pain Is pain an issue with your current prescribed condition?: Yes Patient Allergies - Allergies Allergies Penicillins Allergy (Verified 04/01/20 10:11) Other seizures Other Impressions - Comments Paradoxical Vocal Fold Malfunction (PVFM) -: The patient was seen today for evaluation of possible Paradoxical Vocal Fold Malfunction (PVFM). The patient reports left sided chest pain beginning abruptly in August,, which began wrapping around her left side after approximately one year. The pain in constant. She did seek emergency assistance 1x at her doctor's recommendation due to chest pain and possible heart attack, but all tests have come back negative/normal. The patient denies throat tightness, stridor, rapid breathing, and numbness/tingling. No evidence of asthma or reflux and no reported issues with anxiety or depression. Pt denies allergies. She does report a habitual cough and constant sore throat since September,, with possible chronic post-nasal drip. Pt denies frequent use of noxious chemicals or other environmental irritants, as well as any times when the pain is better or worse, including with exercise. Plan - Plan Plan: A diagnosis of PVFM is not warranted at this time as the patient presents with limited symptoms; no throat tightness or reported difficulty with inhalation or exhalation, chest pain is not a common side effect and is chronic in nature vs. coming and going. Chronic post-nasal drip as a trigger may be present with over the counter mucinex recommended. Did provide education (verbal and written handouts) on abdominal breath support as well as breathing methods for PVFM (abdominal inhalation, lengthened exhalation via pursed lips with a 1:2 ratio minimum), with explanation of today's findings. Information was well-received with patient verbalizing understanding of PVFM unlikely as a diagnosis but some options to try nonetheless, with the pt able to effectively demonstrate breathing methods. Contact information was provided if further questions were to arise. - Recommendations Treatment Warranted: No Education - Patient Instruction Patient Education: Diagnosis, Treatment Plan, Home Exercise Program
== END 2020-04-03 19:00 | disposition home or self-care (01) ==
LOC: SP 13:00
PROVIDERS: PCP Legal Medicine; Referring Provider Nurse Practitioner Acute Care; Visit Provider Nurse Practitioner Acute Care
DX: J38.3 Other diseases of vocal cords (principal)
CPT/HCPCS: 92524

== ENCOUNTER → 2020-08-16 12:23 | Outpatient (CLI) | payer OTHER, SELFPAY ==
[2020-08-16 16:15] LABS: Hematocrit 44.8 % (37-47); Hemoglobin 14.4 g/dL (12.0-15.0); Mean Corp Hgb Conc 32.1 g/dL (32-36); Mean Corpuscular Hgb 30.2 pg (27.0-32.0); Mean Corpuscular Volume 93.9 fL (81-99); Mean Platelet Vol. 9.9 fl (6.2-12.0); Platelet Count 310 K/mm3 (150-450); RBC Distribution Width CV 12.7 % (11.6-14.6); RBC Distribution Width SD 44.2 fl (35.1-43.9); Red Blood Count 4.77 M/mm3 (4.2-5.4)
[2020-08-16 16:32] LABS: Erythrocyte Sedimentation Rate 2 mm/hr (0-20)
[2020-08-16 16:40] LABS: Vitamin D,25 Hydroxy 69.5 ng/mL
[2020-08-16 16:43] LABS: ALB/GLOB Ratio 1.3 RATIO (0.9-2.4); AST(SGOT) 15 U/L (15-37); Alanine Aminotransfer ALT/SGPT 16 U/L (13-56); Albumin, Serum 3.8 g/dL (3.2-5.0); Alkaline Phosphatase 70 U/L (45-117); Anion Gap 7 (5-15); BUN 6 mg/dL (7-18); BUN/Creat Ratio 8.5 RATIO (10-20); CRP < 2.90 mg/L (0.0-3.0); Calcium,Total 8.7 mg/dL (8.5-10.1); Chloride 106 mmol/L (98-107); Creatinine, Serum 0.71 mg/dL (0.55-1.02); EST Glomerular Filtration Rate 97 mL/min (>60); Est Glom Filt Rate - Afr Amer 117 mL/min (>60); Glucose 88 mg/dL (74-106); Potassium 3.4 mmol/L (3.5-5.1); Protein, Total 6.8 g/dL (6.4-8.2); Sodium Level 139 mmol/L (136-145)
[2020-08-20 14:55] LABS: HSV 2 IgG < 0.91 index (0.00-0.90); Zinc, Plasma or Serum 76 ug/dL (56-134)
== END ==
PROVIDERS: PCP Legal Medicine; Referring Provider Legal Medicine; Visit Provider Legal Medicine
DX: E55.9 Vitamin D deficiency, unspecified (principal); B02.9 Zoster without complications
CPT/HCPCS: 36415; 80053; 82306; 84630; 85027; 85652; 86140; 86695; 86696

== ENCOUNTER 2022-10-31 11:20 | Emergency (ER) | payer OTHER, SELFPAY ==
[2022-10-31 11:22] VITALS: BP 110/73; PULSE 106; RESP 16; TEMP 36.9; O2SAT 99; BMI 38.7
--- NOTE | 2022-10-31 11:30 | RAD_ITS ---
STUDY: X-RAY CHEST REASON FOR EXAM: Female, 42 years old. Chest pain TECHNIQUE: Single AP portable view of the chest. COMPARISON: February 02, 2020 FINDINGS: There are monitoring devices. The lungs are clear and expanded. There is no demonstrated pleural abnormality. Normal size heart. Normal mediastinum and sally. Normal visualized pulmonary arteries. Normal visualized aortic arch and descending thoracic aorta. Normal visualized thoracic spine. Normal visualized ribs, clavicles, and shoulders. There is no demonstrated abnormality of the visualized soft tissue structures of the upper abdomen. RAD/Chest 1 View (Portable) IMPRESSION: Normal x-ray examination of the chest. Electronically Signed: Juan Pardo MD at 14:00 EST ,
--- NOTE | 2022-10-31 11:30 | EKG12_ITS ---
Test Reason : CP Blood Pressure : / mmHG Vent. Rate : 106 BPM Atrial Rate : 106 BPM P-R Int : 134 ms QRS Dur : 088 ms QT Int : 362 ms P-R-T Axes : 039 -01 000 degrees QTc Int : 480 ms Sinus tachycardia Minimal voltage criteria for LVH, may be normal variant ( R in aVL ) Nonspecific T wave abnormality Abnormal ECG Confirmed by SYLVESTER NORRIS, SERGE ([id number]), medical editor MOISE OLIVER ([id number]) on 11/02/2022 2:33:24 PM Referred By: NADEEN Confirmed By:SERGE PHAN MD
--- NOTE | 2022-10-31 11:31 | EDS_ITS ---
HPI History of Present Illness Chief Complaint: Chest Pain Detail of Chief Complaint: Chest pain x3 days Informant: patient Narrative Narrative: Patient Oli with chest pain x3 days. Patient describes a discomfort in the left chest. Initially was more pressure and heaviness that radiated through to her back. Yesterday she had a couple episodes of emesis. Patient has not had pain like this before. Currently rates her pain a 3 out of 10. She denies recent travel or surgery. No history of PE or DVT. She has no heart history otherwise. Patient tells me that in 2019 she was having chest pains and had significant work-up in everything was negative and was told she had sleep apnea. Patient was noted to have a heart catheterization in 2019 that was angiographically normal. Patient took 1 baby aspirin today. She denies recent illness. She had no fever or cough. Prior Similar Symptoms: No PFSH PFSH Medical History (Updated 10/31/22 @ 13:[address] Marlen Crespo, DO) Chest pain Chest pain, atypical Erythrocytosis Family history of ischemic heart disease Fibromyalgia History of pneumonia History of vaginal delivery Home Medications cholecalciferol (vitamin D3) 1,250 mcg (50,000 unit) capsule 50,000 unit PO 2XW 03/24/19 [History Last Taken Unknown] Allergy/AdvReac Type Severity Reaction Status Date / Time Penicillins Allergy Other Verified 10/31/22 11:20 Family History Mother History of heart disease Sleep apnea Hypothyroid Sister Hypothyroid Sister Mitral valve prolapse Father Heart disease Myocardial infarction, Onset Age: 58 Surgical History History of left heart catheterization (04/19/19) History of tonsillectomy Social History Smoking Status: Never smoker alcohol intake: never substance use type: does not use caffeine: Yes Type: coffee Number of servings: 1 what type of physical activity do you participate in: other details: active life style ROS ROS ED Review of Systems ROS Unobtainable: other Constitutional Constitutional ED: Reports lethargy; Denies chills, fever(s), sweats or weight loss Eyes Eyes: Denies blurry vision, change in vision or diplopia ENT ENT ED: Denies rhinorrhea or sore throat Cardiovascular Cardiovascular: Reports chest pain; Denies orthopnea or racing heartbeat Respiratory/Chest Respiratory/Chest: Reports dyspnea and dyspnea on exertion; Denies cough, orthopnea or sputum Gastrointestinal Gastrointestinal: Denies abdominal pain, diarrhea, nausea or vomiting Genitourinary Genitourinary ED: Denies dysuria, hematuria or urinary frequency Musculoskeletal Musculoskeletal: Denies arthralgias, back pain, myalgias or neck pain Integumentary Denies abscess, Abrasions or rash Neurologic Neurologic: Denies headache(s) or weakness Psychiatric Psychiatric: Denies anxiety, depression or suicidal thoughts Endocrine Endocrinology: Denies polydipsia, polyphagia or polyuria Hematologic/Lymphatic Hematologic/Lymphatic: Denies easy bleeding, easy bruising or lymphadenopathy Allergic/Immunologic Allergic/Immunologic ED: Denies mouth swelling, tongue swelling or urticaria EXAM Physical Exam Const Vital Signs: 10/31/22 11:22 10/31/22 11:28 10/31/22 11:39 Temperature 98.4 F Temperature Source Oral Pulse Rate 106 H Respiratory Rate 16 Respiratory Effort Normal Non-Labored Blood Pressure 110/73 Blood Pressure Mean 85 Pulse Ox 99 Oxygen Delivery Method Room Air Room Air Positive well nourished and well developed General Appearance ED: well developed and NAD HEENT Reports TM's clear and moist mucous membranes normocephalic and atraumatic; Negative for trauma or tenderness Tympanic Membrane ED: Yes TM's clear Eyes PERRL and EOMs intact bilaterally General Eye ED: Negative for pale conjunctiva or scleral icterus Neck no lymphadenopathy, supple and no JVD General: Negative for tenderness Chest Wall inspection of chest normal and palpation of chest normal Chest: Negative for tenderness Resp normal respiratory effort and clear to auscultation bilaterally Effort and Inspection: Negative for respiratory distress or pain with movement Auscultation: Negative for rhonchi, wheezes or diminished lung sounds Cardio regular rate, regular rhythm, S1 normal heart sound, S2 normal heart sound and no murmurs Peripheral Pulses: pulses 2+ throughout GI normal to inspection, nondistended, normoactive bowel sounds, soft to palpation, non-tender, non-distended and no masses Back/Spine no CVA tenderness and no thoracic nor lumbar tenderness Extremity normal to inspection General Extremety ED: Negative for edema General Extremity: Negative for edema Neuro oriented x3, CN's II-XII intact bilaterally, no sensory deficits noted and gait normal Sensorium / Orientation: awake, alert, oriented to person, oriented to place and oriented to time Motor Exam: strength 5/5 throughout and strength abnormal Psych mental status grossly normal Skin no rashes or lesions noted and no wounds Heart Score History: Slightly/Non-Suspicious ECG: Normal Age: </= 45 years Risk Factors: No Risk Factors Troponin: </= Normal Limit Score: 0 MDM MDM MDM Narrative Medical decision making narrative: Established on arrival. Patient placed on athletic monitor. EKG obtained showed sinus rhythm with ventricular rate of 106 bpm with no acute ST segment changes noted. When compared to prior EKG no acute changes noted. Differential chest pain could include acute coronary syndrome versus PE versus chest wall pain versus esophageal spasm versus anxiety versus pleurisy. Lab work-up obtained showed a normal WBC count of 7.9 and hemoglobin of 15.9 as well as a platelet count of 307. Troponin was 6. D-dimer was less than 0.27. Chest x-ray showed no acute disease process on mitral rotation. Initially patient did receive aspirin. At this time given that she has had continuous pain for 4 days with normal EKG and troponin and the fact that she had a normal heart catheterization 4 years ago, I do not suspect acute coronary syndrome as the etiology of her pain. With D-dimer being normal I feel PE is ruled out. There is no evidence of pneumothorax or infectious process. At this time etiology of her pain is unclear although could possibly be esophageal spasm versus pleurisy versus musculoskeletal pain. Patient states that aspirin does seem to take the pain away. This time I recommended that she use ibuprofen instead for discomfort. Patient advised to follow-up with her primary care physician within next 5 to 7 days. She is to return if worsening pain, increasing shortness of breath, or condition should worsen anyway. History & Record Review Discussion w/independent historian: Patient Lab Data Attestation: I reviewed the patient's lab results. Labs: Laboratory Results - last 24 hr 10/31/22 10/31/22 10/31/22 11:20 11:20 11:20 WBC 7.9 RBC 5.36 Hgb 15.9 H Hct 48.3 H MCV 90.1 MCH 29.7 MCHC 32.9 RDW Std Deviation 41.9 RDW Coeff of Ni 12.6 Plt Count 307 MPV 9.6 Immature Gran % (Auto) 0.400 Neut % (Auto) 68.6 Lymph % (Auto) 23.6 [place] % (Auto) 5.1 Eos % (Auto) 1.8 Baso % (Auto) 0.5 Absolute Neuts (auto) 5.4 Absolute Lymphs (auto) 1.85 Nucleated RBC % 0 D-Dimer Quant (PE/DVT) < 0.27 L Sodium 140 Potassium 3.5 Chloride 104 Carbon Dioxide 29.0 Anion Gap 7 BUN 7 Creatinine 0.74 Estim Creat Clear Calc 85.52 Est GFR (MDRD) Af Amer 110 Est GFR (MDRD) Non-Af 91 BUN/Creatinine Ratio 9.4 L Glucose 141 H Calcium 9.3 Troponin I High Sens 6 Radiography Diagnostic Testin view chest x-ray obtained interpreted by myself no acute disease process. There was no evidence of infiltrate or pneumothorax. Radiology was in agreement. EKG Initial EKG: Attestation: I personally reviewed and interpreted this EKG as follows: Comments: Sinus rhythm with a rate of 106 bpm with no acute ST segment changes Prior EKG tracings: available for review Prior: Unchanged Discharge Plan Triage Chief Complaint: Chest Pain ED Provider: Marlen Crespo Dx/Rx/DC Orders Clinical Impression: Chest pain Instructions: ED Chest Pain, Uncertain Cause Prescriptions: No Action cholecalciferol (vitamin D3) 50,000 unit capsule 50,000 unit PO 2XW Primary Care Provider: Florentino Childress Referrals: Florentino Childress MD [Primary Care Provider] - 5-7 Days Disposition Disposition: Home, Self Care
[2022-10-31] MEDS: Aspirin 81 MG TAB.CHEW 324 MG PO (11:37)
[2022-10-31] MEDS: 0.9% Normal Saline 1,000 ML 150 ML IV (11:37)
[2022-10-31 11:43] LABS: Absolute Lymphocyte Count 1.85 X10^3/uL (0.83-4.51); Absolute Neutrophil Count 5.4 X10^3/uL (2.0-7.7); Basophil# 0.04 X10^3/uL; Basophil% 0.5 % (0-1); Eosinophil# 0.14 X10^3/uL; Eosinophils% 1.8 % (0-5); Hematocrit 48.3 % (37-47); Hemoglobin 15.9 g/dL (12.0-15.0); Lymphocyte # 1.85 X10^3/ul (0.83-4.51); Lymphocyte % 23.6 % (19-41); Mean Corp Hgb Conc 32.9 g/dL (32-36); Mean Corpuscular Hgb 29.7 pg (27.0-32.0); Mean Corpuscular Volume 90.1 fL (81-99); Mean Platelet Vol. 9.6 fl (6.2-12.0); Monocyte% 5.1 % (0-10); NRBC Flagged by Analyzer 0 % (0-5); Neutrophil # 5.39 X10^3/uL (2.7-7.7); Neutrophil % 68.6 % (47-70); Platelet Count 307 K/mm3 (150-450); RBC Distribution Width CV 12.6 % (11.6-14.6); RBC Distribution Width SD 41.9 fl (35.1-43.9); Red Blood Count 5.36 M/mm3 (4.2-5.4); White Blood Count 7.9 K/mm3 (4.4-11.0)
[2022-10-31 11:57] LABS: Anion Gap 7 (5-15); BUN 7 mg/dL (7-18); BUN/Creat Ratio 9.4 RATIO (10-20); Calcium,Total 9.3 mg/dL (8.5-10.1); Chloride 104 mmol/L (98-107); Creatinine, Serum 0.74 mg/dL (0.55-1.02); EST Glomerular Filtration Rate 91 mL/min (>60); Est Glom Filt Rate - Afr Amer 110 mL/min (>60); Estimated Creatinine Clearance 85.52 ml/min; Glucose 141 mg/dL (74-106); Potassium 3.5 mmol/L (3.5-5.1); Sodium Level 140 mmol/L (136-145); Troponin-I HS (w/2H Reflex) 6 pg/mL (3.0-54.0)
[2022-10-31 12:24] LABS: D-Dimer Quantitative (DVT/PE) < 0.27 FEU/ug/m (0.27-0.49)
[2022-10-31 13:14] VITALS: BP 142/76; PULSE 69; RESP 15; O2SAT 97
[2022-10-31 13:34] LABS: Reflex Troponin-HS? (from REC) Y
== END 2022-10-31 13:16 | disposition home or self-care (01) ==
PROVIDERS: Emergency Provider Emergency Medicine; PCP Legal Medicine; Visit Provider Emergency Medicine
DX: R07.9 Chest pain, unspecified (principal); Z82.49 Family history of ischemic heart disease and other diseases of the circulatory system
CPT/HCPCS: 71045; 80048; 84484; 85025; 85379; 93005; 96360; 96361; 99284; J7030; A4216

== ENCOUNTER 2022-11-02 12:04 | Emergency (ER) | payer OTHER, SELFPAY ==
[2022-11-02 12:05] VITALS: BP 158/103; PULSE 87; RESP 14; TEMP 36.7; O2SAT 96; BMI 36.8
[2022-11-02 12:08] VITALS: BP 149/102
[2022-11-02 12:36] VITALS: BP 128/84; PULSE 81; RESP 20
--- NOTE | 2022-11-02 12:46 | RAD_ITS ---
STUDY: X-RAY CHEST REASON FOR EXAM: Female, 42 years old. Chest pain TECHNIQUE: Single AP portable view of the chest. COMPARISON: Comparison is made with prior study dated October 31, 2022. FINDINGS: EKG electrodes are seen. The lungs are clear and expanded. There is no demonstrated pleural abnormality. Normal size heart. Normal mediastinum and sally. Normal visualized pulmonary arteries. Normal visualized aortic arch and descending thoracic aorta. Normal visualized thoracic spine. Normal visualized ribs, clavicles, and shoulders. There is no demonstrated abnormality of the visualized soft tissue structures of the upper abdomen. RAD/Chest 1 View (Portable) IMPRESSION: Normal x-ray examination of the chest. Electronically Signed: Akash Thomas MD at 13:34 EST ,
--- NOTE | 2022-11-02 12:48 | EKG12_ITS ---
Test Reason : CP Blood Pressure : / mmHG Vent. Rate : 086 BPM Atrial Rate : 086 BPM P-R Int : 136 ms QRS Dur : 098 ms QT Int : 366 ms P-R-T Axes : 046 -02 005 degrees QTc Int : 437 ms Normal sinus rhythm Incomplete right bundle branch block Borderline ECG Confirmed by SYLVESTER NORRIS, SERGE ([id number]), copy editor MOISE OLIVER ([id number]) on 11/04/2022 10:02:25 AM Referred By: Confirmed By:SERGE PHAN MD
[2022-11-02 13:02] LABS: Absolute Lymphocyte Count 1.95 X10^3/uL (0.83-4.51); Absolute Neutrophil Count 4.9 X10^3/uL (2.0-7.7); Basophil# 0.04 X10^3/uL; Basophil% 0.5 % (0-1); Eosinophil# 0.14 X10^3/uL; Eosinophils% 1.9 % (0-5); Hematocrit 45.4 % (37-47); Lymphocyte # 1.95 X10^3/ul (0.83-4.51); Lymphocyte % 25.8 % (19-41); Mean Corpuscular Hgb 29.5 pg (27.0-32.0); Mean Corpuscular Volume 89.2 fL (81-99); Monocyte# 0.53 X10^3/uL; NRBC Flagged by Analyzer 0 % (0-5); Neutrophil # 4.87 X10^3/uL (2.7-7.7); Neutrophil % 64.5 % (47-70); Platelet Count 290 K/mm3 (150-450); RBC Distribution Width CV 12.4 % (11.6-14.6); RBC Distribution Width SD 40.3 fl (35.1-43.9); Red Blood Count 5.09 M/mm3 (4.2-5.4); White Blood Count 7.6 K/mm3 (4.4-11.0)
[2022-11-02 13:30] LABS: Anion Gap 5 (5-15); BUN 8 mg/dL (7-18); BUN/Creat Ratio 12.8 RATIO (10-20); Calcium,Total 9.3 mg/dL (8.5-10.1); Chloride 107 mmol/L (98-107); Creatinine, Serum 0.63 mg/dL (0.55-1.02); EST Glomerular Filtration Rate 111 mL/min (>60); Est Glom Filt Rate - Afr Amer 134 mL/min (>60); Estimated Creatinine Clearance 104.68 ml/min; Glucose 101 mg/dL (74-106); Potassium 3.4 mmol/L (3.5-5.1); Sodium Level 140 mmol/L (136-145); Troponin-I HS (w/2H Reflex) 6 pg/mL (3.0-54.0)
[2022-11-02 14:49] VITALS: BP 132/91; PULSE 72; RESP 17
[2022-11-02 14:57] LABS: Reflex Troponin-HS? (from REC) Y
--- NOTE | 2022-11-02 14:57 | EDS_ITS ---
HPI History of Present Illness Chief Complaint: Chest Pain Onset/Context/Timing Onset: Days (5) Activity at onset: sudden Timing: Continuous Quality: Positive for Heaviness Location: Left Chest Worsened By: Exertion Relieved By: Rest Associated Symptoms: Positive for Nausea, Vomiting, Diaphoresis, Dyspnea and Lightheadedness; Negative for Cough, Fever, Acid Reflux or Palpitations Narrative Narrative: Patient presents with chest pain that has been constant for the past 5 days. Patient was seen here 2 days ago for this. Patient was discharged home after her work-up here. Patient states her pain has been constant. Patient describes it as heaviness. Patient states it is over the left side of her chest. Patient states it is worse with exertion and better with rest. Patient admits to some nausea and vomiting with it. Patient admits to some shortness of breath and diaphoresis. Patient also admits to some lightheadedness. CVD Risk Factors: Positive for Family History 1' </=55; Negative for Hypertension, Diabetes, Hypercholesterolemia or Smoking PE Risk Factors: Negative for Recent Travel/Surgery, Recent Immobilization, Prior DVT or PE, Cancer or OCP + Smoking + >/=35 PFSH PFSH Medical History Chest pain Chest pain, atypical Erythrocytosis Family history of ischemic heart disease Herpes simplex History of pneumonia History of vaginal delivery Sleep apnea Home Medications cholecalciferol (vitamin D3) 1,250 mcg (50,000 unit) capsule 50,000 unit PO 2XW 03/24/19 [History Last Taken Unknown] Allergy/AdvReac Type Severity Reaction Status Date / Time Penicillins Allergy Other Verified 11/02/22 12:08 Family History (Reviewed 11/04/21 @ 08:39 by Carolina Diaz STORAGE BATTERY INSPECTOR, STORAGE BATTERY INSPECTOR-C) Mother History of heart disease Sleep apnea Hypothyroid Sister Hypothyroid Sister Mitral valve prolapse Father Heart disease Myocardial infarction, Onset Age: 58 Surgical History History of left heart catheterization (04/19/19) History of tonsillectomy Social History Smoking Status: Never smoker alcohol intake: never substance use type: does not use caffeine: Yes Type: coffee Number of servings: 1 what type of physical activity do you participate in: other details: active life style ROS ROS ED Constitutional Constitutional ED: Denies chills or fever(s) Eyes Eyes: Denies blurry vision or change in vision ENT ENT ED: Denies rhinorrhea or sore throat Cardiovascular Cardiovascular: Reports chest pain; Denies palpitations Respiratory/Chest Respiratory/Chest: Reports dyspnea; Denies cough Gastrointestinal Gastrointestinal: Reports nausea and vomiting; Denies abdominal pain Genitourinary Genitourinary ED: Denies dysuria or hematuria Musculoskeletal Musculoskeletal: Reports back pain; Denies neck pain Integumentary Denies abscess or rash Neurologic Neurologic: Denies headache(s) or weakness Allergic/Immunologic Allergic/Immunologic ED: Denies mouth swelling or urticaria EXAM Physical Exam Const Vital Signs: 11/02/22 12:05 11/02/22 12:08 11/02/22 12:21 Temperature 98.1 F Temperature Source Temporal Pulse Rate 87 Respiratory Rate 14 Respiratory Effort Normal Non-Labored Respiratory Pattern Normal Blood Pressure 158/103 H 149/102 H Blood Pressure Mean 121 117 Pulse Ox 96 Oxygen Delivery Method Room Air 11/02/22 12:36 11/02/22 12:50 11/02/22 14:49 Temperature Temperature Source Pulse Rate 81 72 Respiratory Rate 20 H 17 Respiratory Effort Respiratory Pattern Blood Pressure 128/84 H 132/91 H Blood Pressure Mean 98 104 Pulse Ox Oxygen Delivery Method Room Air Positive well nourished, well developed and obese General Appearance ED: well developed and NAD Nutritional Appearance: obese HEENT normocephalic and atraumatic Eyes PERRL and EOMs intact bilaterally Neck supple and no JVD Chest Wall palpation of chest normal Resp normal respiratory effort and clear to auscultation bilaterally Effort and Inspection: Negative for respiratory distress Cardio regular rate, regular rhythm and no murmurs GI normal to inspection, nondistended, normoactive bowel sounds, soft to palpation, non-tender and non-distended Extremity normal to inspection General Extremety ED: Negative for edema or tenderness General Extremity: Negative for edema Neuro oriented x3, CN's II-XII intact bilaterally and no sensory deficits noted Sensorium / Orientation: awake and alert Motor Exam: strength 5/5 throughout Psych mental status grossly normal Heart Score History: Moderately Suspicious ECG: Normal Age: </= 45 years Risk Factors: 1 or 2 Risk Factors Troponin: </= Normal Limit Score: 2 MDM MDM MDM Narrative Medical decision making narrative: Torrential diagnosis includes cardiac ischemia, cardiac dysrhythmia, pneumonia, pneumothorax, pericarditis, and viral infection. EKG will be obtained to assess for cardiac dysrhythmia and cardiac ischemia. CBC will be obtained to assess for leukocytosis and anemia. Basic metabolic profile will be obtained to assess for electrolyte abnormality and renal function. High-sensitivity troponin will be obtained to assess for cardiac ischemia. 2-hour repeat high-sensitivity troponin will be obtained to assess for ongoing cardiac ischemia. Chest x-ray will be obtained to assess for pneumonia, pneumothorax, and congestive heart failure. Lab Data Attestation: I reviewed the patient's lab results. Lab results narrative: CBC was reviewed and was within normal limits. Basic metabolic profile was reviewed and showed a slight hypokalemia of 3.4. High-sensitivity troponin was reviewed and was normal at 6. 2-hour repeat high-sensitivity troponin was revi ewed and was normal at 7. Labs: Laboratory Results - last 24 hr 11/02/22 11/02/22 11/02/22 12:20 12:20 14:46 WBC 7.6 RBC 5.09 Hgb 15.0 Hct 45.4 MCV 89.2 MCH 29.5 MCHC 33.0 RDW Std Deviation 40.3 RDW Coeff of Ni 12.4 Plt Count 290 MPV 10.0 Immature Gran % (Auto) 0.300 Neut % (Auto) 64.5 Lymph % (Auto) 25.8 [place] % (Auto) 7.0 Eos % (Auto) 1.9 Baso % (Auto) 0.5 Absolute Neuts (auto) 4.9 Absolute Lymphs (auto) 1.95 Nucleated RBC % 0 Sodium 140 Potassium 3.4 L Chloride 107 Carbon Dioxide 28.0 Anion Gap 5 BUN 8 Creatinine 0.63 Estim Creat Clear Calc 104.68 Est GFR (MDRD) Af Amer 134 Est GFR (MDRD) Non-Af 111 BUN/Creatinine Ratio 12.8 Glucose 101 Calcium 9.3 Troponin I High Sens 6 7 Radiography Chest X-Ray - ED: 2 View, Read by ED Physician, Read by Radiologist and No Acute Disease Diagnostic Testing: Clinical Impression(s) from Imaging Studies Chest X-Ray 11/02/22 12:46 IMPRESSION: Normal x-ray examination of the chest. Electronically Signed: Akash Thomas MD at 13:34 EST , Portable 1 view chest x-ray was obtained. On my independent interpretation, lung stokes are clear. There is normal cardiac silhouette. Bony thorax is normal. There is no acute process noted. Radiologist also interpreted the x- ray and agrees. 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 PTX, pneumonia Reason(s) pneumonia less likely: Positive for no infiltrate on CXR and no elevation in WBC count, aortic dissection Reason(s) Aortic dissection less likely:: Positive for normal vascular exam, normal neurological exam, no significant risk factors for dissection, no widened mediastinum on CXR and no ripping/tearing pain, CHF Reason(s) CHF less likely: Positive for no significant peripheral edema, no orthopnea and no evidence of fluid overload on CXR and COPD Reason(s) COPD less likely: Positive for no significant wheezing on exam, no tachypnea and no conversational dyspnea Treatment and Re-Evaluation :: Patient is feeling better on reevaluation. Patient's blood pressure has improved. Patient was advised of her findings. Patient has a HEART score of 2. Patient was advised that this is low risk for acute cardiac event. Patient was instructed to follow-up with her primary care physician for further testing as an outpatient. Patient was also instructed to get a blood pressure cuff and continue to log her blood pressures while she is doing her activities. Patient was instructed to return if worse in any way. Patient understood and was agreeable with the plan. All questions were answered. Discharge Plan Triage Chief Complaint: Chest Pain ED Provider: Schwiger,Duran Dx/Rx/DC Orders Clinical Impression: Chest pain, atypical, BMI 39.0-39.9,adult, GASTON (obstructive sleep apnea) Instructions: ED Chest Pain, Uncertain Cause Prescriptions: No Action cholecalciferol (vitamin D3) 50,000 unit capsule 50,000 unit PO 2XW Primary Care Provider: Florentino Childress Referrals: Florentino Childress MD [Primary Care Provider] - 3-5 Days Disposition Disposition: Home, Self Care
[2022-11-02 15:30] LABS: Troponin-I HS 7 pg/mL (3.0-54.0)
[2022-11-02 15:51] VITALS: BP 144/71; PULSE 83; RESP 18
== END 2022-11-02 15:58 | disposition home or self-care (01) ==
PROVIDERS: Emergency Provider Emergency Medicine; PCP Legal Medicine; Visit Provider Emergency Medicine
DX: R07.89 Other chest pain (principal); G47.33 Obstructive sleep apnea (adult) (pediatric); E66.9 Obesity, unspecified; Z82.49 Family history of ischemic heart disease and other diseases of the circulatory system; R06.02 Shortness of breath; R42 Dizziness and giddiness; Z68.39 Body mass index [BMI] 39.0-39.9, adult
CPT/HCPCS: 71045; 80048; 84484; 85025; 93005; 99284; A4216

== ENCOUNTER → 2022-11-12 | Outpatient (CLI) | payer SELFPAY, OTHER ==
--- NOTE | 2022-11-12 13:29 | MRI_ITS ---
EXAM: MR HEAD WITHOUT AND WITH INTRAVENOUS CONTRAST CLINICAL INDICATION: DIZZINESS, VISION LOSS, FRONTAL HEADACHE TECHNIQUE: Multiplanar and multisequence MR images of the brain were obtained without and with intravenous contrast. This report was created using [employer] report achvr technology. CONTRAST: IV 20mL CLARISCAN COMPARISON: None. FINDINGS: BRAIN AND EXTRA-AXIAL SPACES: Unremarkable. No intra- or extra-axial hemorrhage. No evidence of acute infarct. No intracranial mass or mass effect. There is preservation of the cruz/white matter interface. Posterior fossa structures are unremarkable. Ventricles are appropriate for age. No hydrocephalus. Basal cisterns are patent. SELLA: Unremarkable. Normal sella turcica, pituitary gland, infundibular stalk, optic chiasm and hypothalamus. AUDITORY SYSTEM: Unremarkable. The internal auditory canals are patent. BONES/JOINTS: Unremarkable. No discrete lytic or blastic abnormalities. SINUSES: Unremarkable as visualized. Clear. MASTOID AIR CELLS: Unremarkable as visualized. Clear. ORBITS: Unremarkable as visualized. Both globes, extraocular muscles, optic nerves and retrobulbar fat appear unremarkable. VASCULATURE: Unremarkable as visualized. Normal flow voids in the major intracranial circulation. MRI/Brain W/WO Contrast IMPRESSION: Negative MRI brain without and with intravenous contrast. Electronically Signed: Ulices Thompson MD at 20:27 EDT ,
== END | disposition home or self-care (01) ==
PROVIDERS: PCP Legal Medicine; Referring Provider Legal Medicine; Visit Provider Legal Medicine
DX: R42 Dizziness and giddiness (principal); H54.7 Unspecified visual loss; K76.9 Liver disease, unspecified
CPT/HCPCS: 70553; A9575

== ENCOUNTER → 2022-11-13 | Outpatient (CLI) | payer SELFPAY, OTHER ==
--- NOTE | 2022-11-13 07:22 | US_ITS ---
STUDY: ABDOMINAL ULTRASOUND - RIGHT UPPER QUADRANT REASON FOR VISIT: Female, 42 years old abdominal pain, nausea, elevated LFTs TECHNIQUE: Ultrasound evaluation of the right upper quadrant was performed with real-time and static cruz-scale imaging. TECHNICAL QUALITY: Adequate. COMPARISON: None. FINDINGS: Liver: The liver measures 18.0 cm. There is increased echogenicity consistent with fatty infiltration. The bile ducts are within normal limits. There is hepatic color flow. The direction of portal flow is hepatopetal. There is no demonstrated mass lesion. Gallbladder: Normal distended gallbladder. The gallbladder wall measures 2 mm. There is a negative sonographic Santos''s sign. There is no pericholecystic fluid. There are no gallstones. Common Bile Duct (C.B.D.): The common bile duct measures 2.8 mm. Pancreas: Normal size of the head, body and tail of the pancreas. There is normal echogenicity of the pancreas. There is no demonstrated pancreatic mass or cyst. Right Kidney: Normal size of the right kidney. The right kidney measures 12.3 x 5.6 x 4.9 cm. Normal renal cortex. The right cortex measures 1.2 cm. There is no demonstrated renal mass or cyst. There is no right hydronephrosis. US/Liver IMPRESSION: Hepatomegaly with diffuse fatty infiltration of the liver, no discrete lesion Electronically Signed: Beni Hwang MD at 12:32 EDT ,
== END | disposition home or self-care (01) ==
PROVIDERS: PCP Legal Medicine; Visit Provider Legal Medicine
DX: R06.00 Dyspnea, unspecified (principal); R10.9 Unspecified abdominal pain; K76.89 Other specified diseases of liver
CPT/HCPCS: 76705

== ENCOUNTER → 2022-11-27 | Outpatient (CLI) | payer SELFPAY, OTHER ==
--- NOTE | 2022-11-27 09:43 | CDU_ITS ---
Reason For Study: Headache Rt. Velocities/BP Lt. Velocities/BP Prox CCA 76/17 cm/sec. Prox CCA 86/23 cm/sec. Mid CCA 71/20 cm/sec. Mid CCA 81/26 cm/sec. Dist CCA 67/16 cm/sec. Dist CCA 80/31 cm/sec. Prox ICA 60/13 cm/sec. Prox ICA 51/26 cm/sec. Mid ICA 67/31 cm/sec. Mid ICA 83/38 cm/sec. Dist ICA 107/51 cm/sec. Dist ICA 118/50 cm/sec. Rt. ICA/CCA = 1.5. Lt. ICA/CCA = 1.46. Prox ECA 84/15 cm/sec. Prox ECA 55/12 cm/sec. Rt. Vert. 45/20 cm/sec. Lt. Vert. 38/14 cm/sec. Right Extracranial There is intimal thickening but no significant atherosclerotic plaque noted in the right common carotid artery. There is intimal thickening but no significant atherosclerotic plaque noted in the right internal carotid artery. There is no significant atherosclerotic plaque noted in the right external carotid artery. Antegrade flow is noted in the right vertebral artery. Left Extracranial There is intimal thickening but no significant atherosclerotic plaque noted in the left common carotid artery. There is homogeneous, smooth atherosclerotic plaque noted in the left internal carotid artery. There is no significant atherosclerotic plaque noted in the left external carotid artery. Antegrade flow is noted in the left vertebral artery. Procedure Carotid Duplex 32245. This is a Carotid Duplex examination using B-mode, color flow and specral Doppler. Exam performed in department. VL/Carotid Duplex Ultrasound Interpretation Summary Intimal thickening of the proximal right internal carotid artery with less than 50% stenosis Less than 50% stenosis right external carotid artery Smooth plaque at the proximal left internal carotid artery with less than 50% s tenosis Less than 50% stenosis left external carotid artery Patent antegrade vertebral arteries bilaterally Ordering Physician: MISAEL WATERS Referring Physician: Florentino Waters Performed By: Bonita Cortes, CAROL, RVT
== END | disposition home or self-care (01) ==
PROVIDERS: PCP Legal Medicine
DX: R51.9 Headache, unspecified (principal)
CPT/HCPCS: 93880

== ENCOUNTER → 2024-06-22 | Outpatient (CLI) | payer OTHER, SELFPAY | END | disposition home or self-care (01) | LOC: LABSPEC 15:39 | PROVIDERS: PCP Legal Medicine; Referring Provider Urology; Visit Provider Urology | DX: R35.0 Frequency of micturition (principal) | CPT/HCPCS: 87086; 87088 ==

== ENCOUNTER → 2024-06-26 | Outpatient (CLI) | payer SELFPAY, OTHER ==
--- NOTE | 2024-06-26 13:06 | US_ITS ---
STUDY: RENAL ULTRASOUND - COMPLETE REASON FOR EXAM: Female, 44 years old. OVERACTIVE BLADDER TECHNIQUE: Ultrasound evaluation of the kidneys was performed with real-time and static rivera-scale imaging. COMPARISON: None. FINDINGS: RIGHT KIDNEY: Normal location of the right kidney, which is normal in size. The right kidney measures 11.6 cm x 6.1 cm x 5.1 cm. There is a normal cortex of the right kidney. The renal cortex measures 1.2 cm. There is no right renal mass or cyst. There are no right renal calculi. There is mild hydronephrosis of the right kidney. DISTAL RIGHT URETER: There is non-visualization of the distal right ureter. There is no demonstrated right ureterovesical junction calculus. There is a visualized right ureteral jet. LEFT KIDNEY: Normal location of the left kidney, which is normal in size. The left kidney measures 11.3 cm x 6.1 cm x 6 cm. There is a normal cortex of the left kidney. The renal cortex measures 1.6 cm. There is no left renal mass or cyst. There are no left renal calculi. There is mild hydronephrosis of the left kidney. Dromedary hump of the lateral aspect of the left kidney. DISTAL LEFT URETER: There is non-visualization of the distal left ureter. There is no demonstrated left ureterovesical junction calculus. There is a visualized left ureteral jet. BLADDER: The distended urinary bladder has a volume of 907 ml. The empty urinary bladder has a volume of 412 ml. There is a normal wall thickness of the distended urinary bladder. There is no demonstrated mass within the urinary bladder. There are no demonstrated bladder calculi. US/Kidney and Bladder IMPRESSION: Mild bilateral hydronephrosis. Post void residual. Electronically Signed: Akash Thomas MD at 13:12 EDT ,
== END | disposition home or self-care (01) ==
LOC: US 13:03
PROVIDERS: PCP Legal Medicine; Referring Provider Urology; Visit Provider Urology
DX: R35.0 Frequency of micturition (principal); N32.81 Overactive bladder
CPT/HCPCS: 76770

== ENCOUNTER → 2024-07-03 | Outpatient (CLI) | payer OTHER, SELFPAY ==
--- NOTE | 2024-07-03 09:11 | RAD_ITS ---
STUDY: X-RAY - SACRUM/COCCYX REASON FOR EXAM: Female, 44 years old. PAIN TECHNIQUE: 3 view(s) of the sacrum and coccyx were obtained. COMPARISON: None. FINDINGS: Normal bilateral sacroiliac joints. Normal visualized sacral ala and fused sacral bodies. Normal sacrococcygeal junction with a normal angulation. Normal coccygeal segments. The presacral soft tissue structures are unremarkable. RAD/Sacrum-Coccyx min 2 Views IMPRESSION: Normal x-rays of the sacrum and coccyx. Electronically Signed: Rohan Chauhan MD at 8:24 EST ,
[2024-07-03 09:19] LABS: Hematocrit 45.1 % (37-47); Hemoglobin 14.8 g/dL (12.0-15.0); Mean Corp Hgb Conc 32.8 g/dL (32-36); Mean Corpuscular Hgb 30.2 pg (27.0-32.0); Mean Platelet Vol. 9.7 fl (6.2-12.0); Platelet Count 272 K/mm3 (150-450); RBC Distribution Width CV 12.8 % (11.6-14.6); RBC Distribution Width SD 43.5 fl (35.1-43.9); White Blood Count 7.5 K/mm3 (4.4-11.0)
[2024-07-03 09:39] LABS: Erythrocyte Sedimentation Rate < 1 mm/hr (0-30)
[2024-07-03 09:55] LABS: Hemoglobin A1c 5.5 % (3.8-5.6)
[2024-07-03 10:02] LABS: Vitamin D,25 Hydroxy 65.5 ng/mL
[2024-07-03 10:03] LABS: Anion Gap 4 (5-15); BUN 6 mg/dL (7-18); BUN/Creat Ratio 10.3 RATIO (10-20); CRP < 2.90 mg/L (0.0-3.0); Chloride 107 mmol/L (98-107); Creatinine, Serum 0.58 mg/dL (0.55-1.02); EST Glomerular Filtration Rate 120 mL/min (>60); Est Glom Filt Rate - Afr Amer 145 mL/min (>60); Glucose 105 mg/dL (74-106); Potassium 4.1 mmol/L (3.5-5.1); Sodium Level 140 mmol/L (136-145)
[2024-07-04 09:53] LABS: ALB/GLOB Ratio 1.3 RATIO (0.9-2.4); AST(SGOT) 17 U/L (15-37); Alanine Aminotransfer ALT/SGPT 16 U/L (13-56); Albumin, Serum 3.9 g/dL (3.2-5.0); Alkaline Phosphatase 69 U/L (45-117); Globulin 2.9 g/dL (2.2-4.2); Protein, Total 6.8 g/dL (6.4-8.2)
== END | disposition home or self-care (01) ==
PROVIDERS: PCP Legal Medicine; Referring Provider Legal Medicine; Visit Provider Legal Medicine
DX: E88.810 Metabolic syndrome (principal); E55.9 Vitamin D deficiency, unspecified; R10.9 Unspecified abdominal pain; R30.0 Dysuria; M53.3 Sacrococcygeal disorders, not elsewhere classified
CPT/HCPCS: 36415; 72220; 80048; 82040; 82247; 82306; 83036; 83525; 84075; 84155; 84443; 84450; 84460; 85027; 85652; 86140; 87086; 87088

== ENCOUNTER → 2024-07-26 | Outpatient (CLI) | payer OTHER, SELFPAY ==
[2024-08-06 13:06] LABS: HPV APTIMA, High Risk Negative (Negative)
== END | disposition home or self-care (01) ==
PROVIDERS: PCP Legal Medicine; Referring Provider Advanced Practice Midwife; Visit Provider Advanced Practice Midwife
DX: Z12.4 Encounter for screening for malignant neoplasm of cervix (principal); R10.2 Pelvic and perineal pain
CPT/HCPCS: 87624; 88175; G0145

== ENCOUNTER → 2024-07-31 | Outpatient (CLI) | payer SELFPAY, OTHER ==
--- NOTE | 2024-07-31 13:48 | MRI_ITS ---
STUDY: MR PELVIS WITH T WITHOUT CONTRAST REASON FOR EXAM: Female, 44 years old. PELVIC PAIN, COCCYDYMIA, NO KNOWN INJURY TECHNIQUE: Standardized fat and water weighted pulse sequences were obtained in all 3 orthogonal planes, pre-and post contrast administration. IV 20 cc clariscan was administered for the contrast portion of the examination. COMPARISON: CT of abdomen and pelvis dated June 13, 2007 FINDINGS: No lytic or blastic lesions of the osseous structures are present. The bilateral hips are normal. Physiologic versus tiny bilateral hip joint effusions noted. No demonstrated labral tears or detachment. A benign intraosseous unilocular cyst is present in the subtrochanteric region of the right femur measuring 1.60 cm that does not demonstrate any enhancement or internal complex characteristics and is not associated with infiltration into the adjacent intramedullary spaces or spiculation or reactive edema. This is of no clinical significance and does not have to be followed up. The sacrum is normal. There are no visualized fractures or displaced bony structures or osteomyelitis or stress edema in the structures. Coccyx: Stress edema or stress fracture reaction is seen in the second and third coccygeal vertebral bodies with marrow edema and trace anterior ascites with reactive anterior cortical enhancement on the postcontrast study, consistent with a grade 1-2 stress injury/bone contusion. No discrete fracture line or cortical break is present. Pelvic masses: None present Pelvic lymphadenopathy: None present Ascites or abscess: None present Bony structures: No lytic or blastic lesions or marrow edema or pathologic fractures. Small bowel: No dilatation or wall thickening or masses. Large bowel/colon: No dilatation or wall thickening or masses. Bladder: Normal. No bladder masses or cystitis or bladder wall thickening or intraluminal filling defects. Reproductive organs: Prior hysterectomy with absence of the uterus. The right ovary is normal. The left ovary is not seen. Inguinal regions: No lymphadenopathy or hernia or fluid collection is present. Normal uterus and adnexa. Normal visualized pelvic arteries. Normal remaining osseous structures. Normal abdominal wall. MRI/Pelvis W/WO Contrast IMPRESSION: 1. Coccyx: Stress edema or stress fracture reaction is seen in the second and third coccygeal vertebral bodies with marrow edema and trace anterior ascites with reactive anterior cortical enhancement on the postcontrast study, consistent with a grade 1-2 stress injury/bone contusion. No discrete fracture line or cortical break is present. Electronically Signed: Justo Tim MD at 10:14 EST ,
--- NOTE | 2024-07-31 15:16 | US_ITS ---
PROCEDURE: ULTRASOUND OF THE FEMALE PELVIS - COMPLETE REASON FOR EXAM: Female, 44 years old. pelvic pain and burning TECHNIQUE: Transvaginal TECHNICAL QUALITY: Adequate. COMPARISON: MRI of the pelvis dated July 31, 2024 FINDINGS: The uterus is anteverted and is in a midline position. The uterus measures 9.3 x 5.8 x 4.8 cm. There is no demonstrated myometrial mass. Mild heterogeneity of the uterine parenchyma is present but no mass or suspicious process is seen. This is likely due to scarring or prior inflammation. The endometrium measures 5.8 mm in thickness, and is hyperechoic. There is no demonstrated endometrial mass. Normal uterine cervix. The right ovary is non-visualized. There is no visualized right adnexal mass or complex lesion. The left ovary is non-visualized. There is no visualized left adnexal mass or complex lesion. Normal color vascular flow and Doppler signal is demonstrated in both ovaries. There is no fluid in the cul-de-sac. US/Transvaginal Non- IMPRESSION: 1. Mild heterogeneity of the uterine parenchyma is present but no mass or suspicious process is seen. This is likely due to scarring or prior inflammation. Electronically Signed: Justo Tim MD at 16:04 EST ,
== END | disposition home or self-care (01) ==
DX: R10.2 Pelvic and perineal pain (principal); M53.3 Sacrococcygeal disorders, not elsewhere classified
CPT/HCPCS: 72197; 76830; A9575

== ENCOUNTER 2025-02-19 10:00 | Outpatient (RCR) | payer SELFPAY, OTHER ==
--- NOTE | 2024-10-25 16:39 | HP.PTEVAL_ITS ---
Patient's Visit Information Visit Information Visit Information: LESLIE ORELLANA is a 44 year old F referred to Physical Therapy by Dr. Bob Mahmood MD with a diagnosis of coccydynia. Date of Evaluation: 10/25/24 Physical Therapist: Ulises Morocho DPT Visit Plan Frequency: 1-2x /Week Duration: 6 Weeks Plan: 1) lumbar and sacral mobility, ie cat cow, piriformis stretching, lumbar extension, hip extension. 2) Light TA contraction 3) may try IFC and ice to reduce symptoms. Pt. to trial on her own then follow back up after having nerve block. Subjective Subjective: Pt. is here today for her initial evaluation with diagnosis of coccydynia. Pt. reports no mech of injury. Pt. reports increased pain with prolonged sitting, standing. Pt. is able to sleep for most of the night, but does wake her up at times. Pt. reports pain at her distal tailbone and occasional symptoms that extend into her glutes at times. Pt. denies distal N/T, no myotomal weakness noted. Pt. reports no falls. Pt. did have an injection without much relief. She is to have a nerve block in a few weeks. Pt. has completed chiro and massage, both without much relief. She is hopeful to get back to all of her recreational and household activities without limitations. Pain Tailbone: Pain Intensity (Out of 10): 3 Pain Intensity Range: 1 and 6 Objective Objective: POSTURE: Pt. has overall decent posture. Normal iliac crest heights noted. Pt. has slight increase in anterior pelvic tilt in stance. No marked kyphosis noted. PALPATION: Pt. has increased symptoms with spring testing from L3 and down, worst at coccyx and B SI joints. NEURO: Normal sensation and normal DTR of BLEs. Pt. is able to rise on heels and toes without issues. ROM: LUMBAR SPINE: flexion min/nil loss (tightness in HS), ext min/mod loss inc rease NW, SB nil/min loss BE bilat, rotation min loss tightnes noted bilat. Pt. has tightness in B HS and B hip external rotation. IR normal bilaterally. Pt. has normal hip flexion and abduction bilaterally. Extension mildly tight, but feels low back pain with zev stretching. MMT: 5/5 throughout BLEs, pt. has poor+ core strength. GAIT: pt. has fairly normal gait pattern without increase in [place] pattern or marked antalgic pattern. Special Tests L/S Slump test left side: Negative L/S Slump test right side: Negative L/S Left Straight Leg Raise: Negative L/S Right Straight Leg Raise: Negative Lumbar Standing: Flexion - Mechanical Response: No effect Lumbar Standing: Flexion - Symptoms During Testing: No effect Lumbar Standing: Flexion - Symptoms After Testing: No effect Lumbar Standing: Extension - Mechanical Response: No effect Lumbar Standing: Extension - Symptoms During Testing: Increases Lumbar Standing: Extension - Symptoms After Testing: No worse Lumbar Standing: Right Side Glides - Mechanical Response: No effect Lumbar Standing: Right Side [place] - Symptoms During Testing: No effect Lumbar Standing: Right Side [place] - Symptoms After Testing: No effect Lumbar Standing: Left Side [place] - Mechanical Response: No effect Lumbar Standing: Left Side [place] - Symptoms During Testing: No effect Lumbar Standing: Left Side [place] - Symptoms After Testing: No effect Lumbar Lying: Flexion - Mechanical Response: No effect Lumbar Lying: Flexion - Symptoms During Testing: No effect Lumbar Lying: Flexion - Symptoms After Testing: No effect Lumbar Lying: Extension - Mechanical Response: No effect Lumbar Lying: Extension - Symptoms During Testing: Decreases Lumbar Lying: Extension - Symptoms After Testing: No better Balance/Special Test Scores Oswestry Low Back Score: 19 Goals Goal 1:: LTG: Pt. to be I with HEP. Goal Time Frame: 4-6 Weeks Goal 2:: STG: pt. to sleep throughout the night Goal Time Frame: 2-4 Weeks Goal 3:: LTG: Pt. to have full lumbar and B hip ROM without increase in symptoms. Goal Time Frame: 4-6 Weeks Goal 4:: LTG: Pt. to have increased core strength to fair+ to reduce stress to lumbar and sacral regions. Goal Time Frame: 4-6 Weeks Rehabilitation Potential Physical Therapy Diagnosis: Pt. has signs and symptoms consistent with coccydynia. Pt. has some loss of ROM in B hips and lumbar spine. Pt. has marked pain with sitting, prolonged standing and end range of motion. Pt. would benefit from PT to reduce symptoms and restore strength and ROM in order to complete all household activities without limitations. Rehabilitation Potential: Good Anticipated Interventions Patient/Client Instruction: Educate patient on: Condition, Plan of Care, Risk Factors and Benefits of Fitness Program For the Purpose of:: To improve decision making, To facilitate caregiver knowledge, To improve self management, To prevent re-injury, To improve ability to perform tasks related to life management and To improve tolerance to ADL's Therapeutic Exercise to Include: Strength training, Power training, Postural training, Flexibilty training, Passive ROM, Active ROM and Dynamic Lumbar Stabilization For the Purpose of:: To decrease pain, To decrease swelling/inflammation, To increase ROM, To improve nutrient delivery to tissue, To increase oxygenation perfusion, To improve muscle performance and motor function, To improve ability to perform ADL's, To improve ability of physical actions for home/community/work/leisure, To decrease soft tissue restriction and To increase flexibility/ROM Manual Therapy Techniques to Include: Mobilization, Passive ROM and Soft tissue mobilization For the Purpose of:: To decrease pain, To decrease swelling/inflammation, To increase ROM, To improve nutrient delivery to tissue, To increase oxygenation perfusion and To improve muscle performance and motor function IF ES: Yes Cryotherapy (ice pack, ice massage): Yes For the Purpose of:: To decrease pain, To decrease swelling/inflammation and To increase ROM Text: Thank you for the opportunity to evaluate your patient. For Medicare and Medicare HMO plans, please review the plan of care and approve it. It will need to be FAXED BACK to us at [phone] for Medicare purposes. For Medicare only, by signing this I certify the plan of care. Please let me know if there are questions or concerns regarding this plan of care. Physician Signature: Date:
--- NOTE | 2025-02-19 11:51 | HP.PTDCSUM ---
Discharge Summary D/C summary: It has been my pleasure to treat LESLIE ORELLANA referred by Dr. Bob Mahmood MD, with the diagnosis of coccydynia for a total of 12 visit(s). Discharge Date: 02/19/25 Please see the following information for a summary of their discharge status. Subjective Subjective: PATIENT REPORTS SHE IS CONTINUING TO IMPROVE. SHE STATES SHE STILL HAS SOME TIGHTNESS IN HER PIRIFORMIS AREA ON THE R AND HS ON THE LEFT BUT ALL OF HER HOME EX'S ARE GOING GOOD. SHE REPORTS THE SPINE SURGEON TOLD HER IF THINGS STOP IMPROVING SHE CAN CONTACT HIM AND SHE WILL FOLLOW UP WITH UROLOGY YEARLY NOW. SHE STATES SHE DIDN'T FEEL READY TO BE DISCHARGED FROM PT UNTIL NOW. SHE REPORTS SHE IS ACTUALLY PAINFREE AT TIMES NOW LIKE THIS MORNING BUT IN GENERAL ACTIVITY STILL INCREASES HER PAIN. I FEEL GOOD. EVERYTHING IS GETTING STRONGER. Pain Tailbone: Pain Intensity (Out of 10): 1 Overall Improvement % Improvement: 90 Objective Objective/Function: PATIENT WAS SEEN TODAY FOR RE-ASSESSMENT OF PROGRESS TOWARD THE SET PT GOALS AND THE NEED FOR FURTHER PHYSICAL THERAPY VS READINESS FOR DISCHARGE. PATIENT IS INDEP WITH HEPS FOR CORE, PELVIC FLOOR AND LE'S. SHE IS IS APPROPRIATE FOR AND AGREEABLE TO DISCHARGE. UPON EXAM TODAY: STANDING: R ILIAC CREST SLIGHTLY HIGHER THAN L. LUMBAR MVMT LOSS: FLEX - NIL EXT - MIN R SG - MOD L SG - MIN PATIENT DENIES INCREASED PAIN WITH LUMBAR ROM TESTING. RADHA LE STRENGTH 5/5 ROM: R HIP ER TIGHER THAN L AND L HS AND CALF TIGHTNESS > R THAT IS RESPONDING WELL TO STRETCHING. CORE STRENGTH - GOOD FUNCTIONAL SCREEN: Incontinence Impact Questionnaire Score: 0 Urogenital Distress Inventory Score: 0 Goals Goal 1:: LTG: Pt. to be I with HEP. Goal Progress: Goal Met Goal 2:: STG: pt. to sleep throughout the night Goal Progress: Goal Met Goal 3:: LTG: Pt. to have full lumbar and B hip ROM without increase in symptoms. Goal Progress: Progressing Goal 4:: LTG: Pt. to have increased core strength to fair+ to reduce stress to lumbar and sacral regions. Goal Progress: Goal Met Goal 5:: PATIENT WILL APPROPRIATELY MANAGE CHANGES IN INTRAABDOMINAL PRESSURE WITH APPROPRIATE PELVIC FLOOR MUSCLE ACTIVATION AND BREATHING TECHNIQUES. Goal Progress: Goal Met Goal 6:: INCREASE CORE AND PELVIC FLOOR STRENGTH FOR BETTER ORGAN SUPPORT AND IMROVE URINARY INCONTINENCE Goal Progress: Goal Met Plan Plan: D/C. PATIENT AGREEABLE. D/C Information d/c sentence: If there are questions or concerns regarding this patient's physical therapy, please feel free to call me at [phone]. Thank you for the referral of this patient. Sincerely, Corrina Villegas, PT, Cert MDT Balance/Gait/Functional tests Balance/Special Test Scores Oswestry Low Back Score: 6 Improvement % Improvement: 90
== END 2025-02-19 19:00 | disposition home or self-care (01) ==
LOC: PT 10:00
PROVIDERS: Referring Provider Neurological Surgery; Visit Provider Neurological Surgery
DX: M53.3 Sacrococcygeal disorders, not elsewhere classified (principal); N39.46 Mixed incontinence; N81.2 Incomplete uterovaginal prolapse
CPT/HCPCS: 97035; 97161; 97530